=== PATIENT | male | born 1955 | race Caucasian/White ===

== ENCOUNTER 2018-12-27 08:41 | Inpatient (IN) ==
[2018-12-27] MEDS ORDERED: Ipratropium/Albuterol Neb 3 ML IH ONE (08:52)
--- NOTE | 2018-12-27 08:56 | Emergency Department Note ---
Disposition Clinical Impression: Altered level of consciousness, Hyponatremia, Hyperkalemia, Elevated troponin Congestive heart failure Qualifiers: Heart failure type: other Qualified Code(s): I50.9 - Heart failure, unspecified Respiratory failure Qualifiers: Chronicity: acute Respiratory failure complication: hypoxia and hypercapnia Qualified Code(s): J96.01 - Acute respiratory failure with hypoxia Disposition: Admitted As Inpatient Condition: Critical Time of Disposition: 09:52 General Adult HPI - General Stated complaint: COPD Time Seen by Provider: 12/27/18 08:49 Nursing Notes Reviewed: Yes Vital Signs Reviewed: Yes - History of Present Illness HPI Narrative: I did see the patient immediately upon arrival and also spoke with the paramedics and he presents with respiratory distress and he is not able to give any history secondary to his severe medical condition and the story from the patient's mother and sister is that all night he had difficulty breathing and decreased responsiveness but he was talking to them this morning when the paramedics arrived his oxygen saturation was 75% and they brought him to the emergency department. He does have a history of COPD. The paramedics tell me he is on carvedilol but family is not aware that he has a history of congestive heart failure. I was not able to find old records in our system for this patient. He does live at home, he does drive. He does smoke. He does use home oxygen. - Related Data Home Medications Medication Instructions Recorded Confirmed Amlodipine Besylate 12/27/18 Benztropine 12/27/18 Klor-Con 12/27/18 RisperiDONE 12/27/18 Simvastatin 12/27/18 metFORMIN 12/27/18 Allergies Allergy/AdvReac Type Severity Reaction Status Date / Time No Known Allergies Allergy Verified 12/27/18 09:13 Limitations: ROS unobtainable due to patients medical condition Physical Exam CONSTITUTIONAL: He does respond to verbal stimuli by eye opening. He is to Neck and oropharynx is dry. There is no stridor. He is taking frequent shallow respirations and initial oxygen saturation here was in the 70s however did increase to 100% on BiPAP HEAD: Normocephalic; atraumatic. EYES: PERRL, no scleral icterus. NOSE: The nose is normal in appearance without rhinorrhea RESP: decreased chest excursion, very shallow breaths, I am not able to hear wheezes or crackles due to the decreased amount of air movement CARD: Regular rhythm, without murmurs, rub or gallop ABD: Non-distended; non-tender, soft,without rigidity, rebound or guarding SKIN: Normal for age and race; warm and dry; no apparent lesions EXTREMITIES: Pulses are 2 plus and equal times 4 extremities, no peripheral edema or calf muscle pain. Course Vital Signs Temperature 94.4 F L 12/27/18 08:49 Pulse Rate 71 12/27/18 08:49 Respiratory Rate 23 12/27/18 08:49 Blood Pressure 127/71 12/27/18 08:49 O2 Sat by Pulse Oximetry 100 12/27/18 08:49 Temperature 94.4 F L 12/27/18 08:49 Pulse Rate 64 12/27/18 11:01 Respiratory Rate 12 12/27/18 11:01 Blood Pressure 107/55 12/27/18 11:01 O2 Sat by Pulse Oximetry 83 12/27/18 11:01 Oxygen Delivery Oxygen Delivery Ventilator Medical Decision Making - MDM Narrative Medical decision making narrative: The patient is placed on BiPAP and arrangements are made for intubation however oxygen saturation did increase to 100% and the patient is minimally more alert so we will see what the chest x-ray, labs will be done. Respiratory strong a ABG. I did review the patient's EKG showing normal sinus rhythm with rate of 75 and evidence of right bundle-branch block as well as T-wave inversion in lead aVL but there are no previous EKGs to compare this to at this time. 0856 The patient was not adequately exchanging oxygen and had significant elevated CO2 as well as a low pH based on the VBG and the ABG so I did elect to intubate the patient. I spoke with the patient's mother and sister about this. I did use video laryngoscopy and easily and quickly intubated the patient on the first attempt with visualization of the tube passing by the cords and at the completion of procedure the patient did have good bilateral breath sounds and no air over the stomach and good color change on the CO2 detector. I did use rocuronium 100 mg and etomidate 20 mg and then for sedation the patient received propofol 100 mg and then a drip at 20 mg/m and will get dilaudid 1mg ivp as well the patient will be treated for congestive heart failure which was evident on the x-ray that I visualized on the machine and confirmed by the radiologist and this is with Lasix 40 mg IV and with nitroglycerin drip starting at 20 mcg/m the patient will be admitted to the intensive care unit. Additional labs are pending. I do not suspect infection. The patient is not febrile. His respiratory failure is from congestive heart failure and he does have a history of congestive heart failure and this is likely flash pulmonary edema from pump dysfunction. 09 I did go back and check on the patient again. I also spoke with the family and inform them of the intubation and the patient's progress. I have reviewed the labs. He does have hyperkalemia however this should be improved with the Lasix that I administered here in the patient does have acute renal failure as well as hyponatremic. I do have the critical-care Dr. olea. Postintubation chest x- rays pending. I have also written for a NG tube and a Howard catheter. Patient is critically ill. Will be admitted to the intensive care unit. [address] Oakley who accepted the patient for admission to the intensive care unit 1036 I was emergently called to the room because the patient did desaturate down into the mid 70s and high 60s and it seemed that this was from breath stacking so we decreased the ventilations but increased the tidal volume, did speak with Dr. Shields who also came down. The patient was bagged. The oxygen saturation has increased to the high 80s at this point. He did ask that we add on Levaquin whi ch I will do as well as order and magnesium level. 1117 - Medical Records Medical records reviewed: Yes I reviewed the patient's medical records. - Lab Data Lab results reviewed: Yes I reviewed the patient's lab results. Result diagrams: 12/27/18 08:56 12/27/18 08:56 Lab Results 12/27/18 12/27/18 12/27/18 Range/Units 08:56 08:56 08:56 WBC 13.4 H (4.3-11.1) K/mcL RBC 3.67 L (4.19-5.50) M/mcL Hgb 10.6 L (12.9-16.9) g/dL Hct 33.1 L (37.5-50.1) % MCV 90.2 (83.0-100.0) fL MCH 28.9 (28.0-33.3) pg MCHC 32.0 (31.6-35.5) g/dL RDW 12.6 (11.5-14.5) % Plt Count 252 (140-400) K/mcL MPV 8.7 L (9.4-12.4) fL ABG pH (7.32-7.45) pH Units ABG pCO2 (35-45) mmHg ABG pO2 (85-104) mmHg ABG HCO3 (21-27) mEq/L ABG Total CO2 (20-26) mEq/L ABG O2 Saturation (95-98) % ABG Base Excess (-2 to 3) mEq/L VBG pH (7.32-7.42) pH Units VBG pCO2 (41-51) mmHg VBG pO2 (25-50) mmHg VBG HCO3 (21-27) mEq/L O2 Delivery Device Inspired O2 (1-15=lpm [id number]=%) Sodium 124 L (136-145) mEq/L Potassium 5.8 H (3.5-5.1) mEq/L Chloride 85 L (98-107) mEq/L Carbon Dioxide 34 H (23-29) mEq/L BUN 33 H (8-23) mg/dL Creatinine 1.90 H (0.70-1.30) mg/dL Est GFR ( Amer) 43 L (> 60) Est GFR (Non-Af Amer) 36 L (> 60) BUN/Creatinine Ratio 17 (6-26) Glucose 234 H (70-105) mg/dL Calculated Osmolality 273 L (280-300) Calcium 8.0 L (8.6-10.3) mg/dL Total Bilirubin 0.4 (0.3-1.0) mg/dL Direct Bilirubin 0.1 (0.0-0.2) mg/dL Indirect Bilirubin 0.3 (0.0-1.2) mg/dL AST 18 (13-39) Units/L ALT 18 (7-52) Units/L Alkaline Phosphatase 58 (34-104) Units/L Ammonia 35 (16-53) mcmol/L Troponin I 0.30 H* (< 0.04) ng/mL B-Natriuretic Peptide (Less than 100) pg/mL Serum Total Protein 7.1 (6.4-8.9) g/dL Albumin 4.2 (3.5-5.7) g/dL Globulin 2.9 (2.4-3.5) g/dL Albumin/Globulin Ratio 1.4 (1.1-2.2) Urine Color (Yellow) Urine Clarity (Clear) Urine pH (5.0-8.0) pH Units Ur Specific [place] (1.010-1.025) Urine Protein (Neg-Trace) mg/dL Urine Glucose (UA) (Normal) mg/dL Urine Ketones (Negative) mg/dL Urine Blood (Negative) Urine Nitrite (Negative) Urine Bilirubin (Negative) Urine Urobilinogen (Normal) mg/dL Ur Leukocyte Esterase (Negative) Urine Microscopic RBC (0-3) per hpf Urine Microscopic WBC (0-3) per hpf Ur Squamous Epith Cells (None-Few) per lpf Urine Bacteria (None-Few) per hpf Hyaline Casts (None-Few) per lpf Person Notif of Crit 12/27/18 12/27/18 12/27/18 Range/Units 08:56 08:56 09:08 WBC (4.3-11.1) K/mcL RBC (4.19-5.50) M/mcL Hgb (12.9-16.9) g/dL Hct (37.5-50.1) % MCV (83.0-100.0) fL MCH (28.0-33.3) pg MCHC (31.6-35.5) g/dL RDW (11.5-14.5) % Plt Count (140-400) K/mcL MPV (9.4-12.4) fL ABG pH 7.12 L* (7.32-7.45) pH Units ABG pCO2 115 H* (35-45) mmHg ABG pO2 251 H (85-104) mmHg ABG HCO3 37 H (21-27) mEq/L ABG Total CO2 41 H (20-26) mEq/L ABG O2 Saturation 100 H (95-98) % ABG Base Excess 5 H (-2 to 3) mEq/L VBG pH 7.10 L* (7.32-7.42) pH Units VBG pCO2 105 H* (41-51) mmHg VBG pO2 85 H (25-50) mmHg VBG HCO3 33 H (21-27) mEq/L O2 Delivery Device BiPAP Inspired O2 100.0 (1-15=lpm mp80-438=%) Sodium (136-145) mEq/L Potassium (3.5-5.1) mEq/L Chloride (98-107) mEq/L Carbon Dioxide (23-29) mEq/L BUN (8-23) mg/dL Creatinine (0.70-1.30) mg/dL Est GFR ( Amer) (> 60) Est GFR (Non-Af Amer) (> 60) BUN/Creatinine Ratio (6-26) Glucose (70-105) mg/dL Calculated Osmolality (280-300) Calcium (8.6-10.3) mg/dL Total Bilirubin (0.3-1.0) mg/dL Direct Bilirubin (0.0-0.2) mg/dL Indirect Bilirubin (0.0-1.2) mg/dL AST (13-39) Units/L ALT (7-52) Units/L Alkaline Phosphatase (34-104) Units/L Ammonia (16-53) mcmol/L Troponin I (< 0.04) ng/mL B-Natriuretic Peptide 1479 H (Less than 100) pg/mL Serum Total Protein (6.4-8.9) g/dL Albumin (3.5-5.7) g/dL Globulin (2.4-3.5) g/dL Albumin/Globulin Ratio (1.1-2.2) Urine Color (Yellow) Urine Clarity (Clear) Urine pH (5.0-8.0) pH Units Ur Specific [place] (1.010-1.025) Urine Protein (Neg-Trace) mg/dL Urine Glucose (UA) (Normal) mg/dL Urine Ketones (Negative) mg/dL Urine Blood (Negative) Urine Nitrite (Negative) Urine Bilirubin (Negative) Urine Urobilinogen (Normal) mg/dL Ur Leukocyte Esterase (Negative) Urine Microscopic RBC (0-3) per hpf Urine Microscopic WBC (0-3) per hpf Ur Squamous Epith Cells (None-Few) per lpf Urine Bacteria (None-Few) per hpf Hyaline Casts (None-Few) per lpf Person Notif of Carlos MOON 12/27/18 Range/Units 09:35 WBC (4.3-11.1) K/mcL RBC (4.19-5.50) M/mcL Hgb (12.9-16.9) g/dL Hct (37.5-50.1) % MCV (83.0-100.0) fL MCH (28.0-33.3) pg MCHC (31.6-35.5) g/dL RDW (11.5-14.5) % Plt Count (140-400) K/mcL MPV (9.4-12.4) fL ABG pH (7.32-7.45) pH Units ABG pCO2 (35-45) mmHg ABG pO2 (85-104) mmHg ABG HCO3 (21-27) mEq/L ABG Total CO2 (20-26) mEq/L ABG O2 Saturation (95-98) % ABG Base Excess (-2 to 3) mEq/L VBG pH (7.32-7.42) pH Units VBG pCO2 (41-51) mmHg VBG pO2 (25-50) mmHg VBG HCO3 (21-27) mEq/L O2 Delivery Device Inspired O2 (1-15=lpm ss31-158=%) Sodium (136-145) mEq/L Potassium (3.5-5.1) mEq/L Chloride (98-107) mEq/L Carbon Dioxide (23-29) mEq/L BUN (8-23) mg/dL Creatinine (0.70-1.30) mg/dL Est GFR ( Amer) (> 60) Est GFR (Non-Af Amer) (> 60) BUN/Creatinine Ratio (6-26) Glucose (70-105) mg/dL Calculated Osmolality (280-300) Calcium (8.6-10.3) mg/dL Total Bilirubin (0.3-1.0) mg/dL Direct Bilirubin (0.0-0.2) mg/dL Indirect Bilirubin (0.0-1.2) mg/dL AST (13-39) Units/L ALT (7-52) Units/L Alkaline Phosphatase (34-104) Units/L Ammonia (16-53) mcmol/L Troponin I (< 0.04) ng/mL B-Natriuretic Peptide (Less than 100) pg/mL Serum Total Protein (6.4-8.9) g/dL Albumin (3.5-5.7) g/dL Globulin (2.4-3.5) g/dL Albumin/Globulin Ratio (1.1-2.2) Urine Color Yellow (Yellow) Urine Clarity Clear (Clear) Urine pH 5.5 (5.0-8.0) pH Units Ur Specific [place] 1.025 (1.010-1.025) Urine Protein >=300 H (Neg-Trace) mg/dL Urine Glucose (UA) 100 H (Normal) mg/dL Urine Ketones Negative (Negative) mg/dL Urine Blood Small H (Negative) Urine Nitrite Negative (Negative) Urine Bilirubin Negative (Negative) Urine Urobilinogen Normal (Normal) mg/dL Ur Leukocyte Esterase Negative (Negative) Urine Microscopic RBC 0-3 (0-3) per hpf Urine Microscopic WBC 0-3 (0-3) per hpf Ur Squamous Epith Cells Many H (None-Few) per lpf Urine Bacteria None Seen (None-Few) per hpf Hyaline Casts None Seen (None-Few) per lpf Person Notif of Crit - Radiology Data Radiology results reviewed: Yes I reviewed the patient's radiology results. Critical Care Time Critical Care Time: Yes Total Critical Care Time: 45 Attestation: 45 minutes of critical care time were spent with the patient with his emergent assessment, management of respiratory failure, intubation, ventilation manage ment, discussion with critical care physician as well as assessment of test results and multiple rechecks
[2018-12-27] MEDS ORDERED: *HR* Propofol 200 MG/20 ML VIAL IVP ONE (09:08)
[2018-12-27] MEDS ORDERED: *HR* Rocuronium Bromide 50 MG/5 ML VIAL IVP ONE (09:08)
[2018-12-27] MEDS ORDERED: *HR* Etomidate 20 MG/10 ML AMPUL IVP ONE (09:09)
[2018-12-27] MEDS ORDERED: Furosemide 40 MG/4 ML VIAL IVP ONE (09:11)
[2018-12-27 09:14] LABS: VBG HCO3 33 mEq/L (21-27); VBG PCO2 105 mmHg (41-51); VBG PO2 85 mmHg (25-50)
[2018-12-27 09:15] LABS: Hematocrit 33.1 % (37.5-50.1); Hemoglobin 10.6 g/dL (12.9-16.9); Mean Corpuscular Hemoglobin 28.9 pg (28.0-33.3); Mean Corpuscular Volume 90.2 fL (83.0-100.0); Mean Platelet Volume 8.7 fL (9.4-12.4); Platelet Count 252 K/mcL (140-400); Red Blood Count 3.67 M/mcL (4.19-5.50); Red Cell Distribution Width 12.6 % (11.5-14.5); White Blood Count 13.4 K/mcL (4.3-11.1)
[2018-12-27] MEDS ORDERED: Nitroglycerin 25 MG/250 ML INFUS..BTL IVC ONE (09:17)
[2018-12-27 09:21] LABS: ABG Base Excess 5 mEq/L (-2 to 3); ABG HCO3 37 mEq/L (21-27); ABG Oxygen Saturation 100 % (95-98); ABG PCO2 115 mmHg (35-45); ABG PH 7.12 pH Units (7.32-7.45); ABG PO2 251 mmHg (85-104); ABG TCO2 41 mEq/L (20-26)
[2018-12-27] MEDS ORDERED: *HR* HYDROmorphone (PF) 1 MG/ML SYRINGE IVP ONE (09:24)
[2018-12-27] MEDS ORDERED: Ondansetron 4 MG/2 ML VIAL IVP ONE (09:24)
[2018-12-27] MEDS ORDERED: 0.9 % Sodium Chloride 1,000 ML ONE (09:28)
[2018-12-27] MEDS ORDERED: Furosemide 40 MG/4 ML VIAL ONE (09:33)
[2018-12-27 09:42] LABS: Albumin 4.2 g/dL (3.5-5.7); Albumin/Globulin Ratio 1.4 (1.1-2.2); Bilirubin,Direct 0.1 mg/dL (0.0-0.2); Bilirubin,Indirect 0.3 mg/dL (0.0-1.2); Bilirubin,Total 0.4 mg/dL (0.3-1.0); Globulin 2.9 g/dL (2.4-3.5); Potassium 5.8 mEq/L (3.5-5.1); Total Protein 7.1 g/dL (6.4-8.9)
[2018-12-27 09:43] LABS: Bilirubin,Urine Negative (Negative); Blood,Urine Small (Negative); Clarity,Urine Clear (Clear); Color,Urine Yellow (Yellow); Glucose,Urine (UA) 100 mg/dL (Normal); Ketones,Urine Negative (Negative); Leukocyte Esterase,Urine Negative (Negative); Nitrite,Urine Negative (Negative); PH,Urine 5.5 pH Units (5.0-8.0); Protein,Urine >=300 mg/dL (Neg-Trace); Specific Gravity,Urine 1.025 (1.010-1.025); Urobilinogen,Urine Normal (Normal)
[2018-12-27 09:48] LABS: Bacteria,Urine None Seen per hpf (None-Few); Hyaline Casts,Urine None Seen per lpf (None-Few); RBC,Urine 0-3 per hpf (0-3); Squamous Epithelial Cell,Urine Many per lpf (None-Few); WBC,Urine 0-3 per hpf (0-3)
[2018-12-27 10:24] LABS: Troponin I 0.3 ng/mL (< 0.04)
[2018-12-27] MEDS ORDERED: Levofloxacin 750 MG/150 ML 750 MG/150 ML BAG IVPB ONE (11:17)
[2018-12-27] MEDS: Nitroglycerin 25 MG/250 ML INFUS..BTL IVC SCH (11:25)
[2018-12-27 11:49] LABS: ABG Base Excess 5 mEq/L (-2 to 3); ABG HCO3 36 mEq/L (21-27); ABG Oxygen Saturation 92 % (95-98); ABG PCO2 98 mmHg (35-45); ABG PH 7.18 pH Units (7.32-7.45); ABG PO2 85 mmHg (85-104); ABG TCO2 39 mEq/L (20-26); Blood Gas Modality ASSIST CONTROL; Blood Gas PEEP 45 cm H2O; Blood Gas Pressure Support 8 cm H2O; Blood Gas VT 550 cc
--- NOTE | 2018-12-27 11:58 | Pulmonology History & Physical ---
<Rogerio Whaley - Last Filed: 12/27/18 14:18> Date of Encounter: 12/27/18 Time of Encounter: 11:58 Assessment and Plan (1) Acute respiratory failure Current visit: Yes Status: Acute Patient presented to the emergency department via EMS for difficult breathing Blood gas demonstrated severe respiratory acidosis, patient was intubated Acute respiratory failure likely secondary to COPD exacerbation with concomitant heart failure exacerbation Pulmonary edema confirmed with chest x-ray and emergency department Patient currently saturating and ventilating appropriately on mechanical ventilation IV systemic steroids, DuoNeb's, IV Lasix initiated Plan to continue diuresis, breathing treatments, systemic steroids, mechanical ventilation Empiric Levaquin initiated Anticipate several days of mechanical ventilation Qualifiers: Respiratory failure complication: hypoxia and hypercapnia Qualified Code(s): J96.01 - Acute respiratory failure with hypoxia; J96.02 - Acute respiratory failure with hypercapnia (2) COPD (chronic obstructive pulmonary disease) Current visit: Yes Status: Acute Patient has history of COPD and smoking Blood gas demonstrating severe attention of CO2, wheezing on exam COPD exacerbation is likely, treatment initiated as above Qualifiers: COPD type: COPD with acute exacerbation Qualified Code(s): J44.1 - Chronic obstructive pulmonary disease with (acute) exacerbation (3) Encephalopathy Current visit: Yes Status: Acute Patient was apparently acting abnormally prior to arrival and was altered on physical exam Likely encephalopathy secondary to acute respiratory failure and severe CO2 retention He is currently sedated, anticipate encephalopathy will resolve with improvement in respiratory status (4) Congestive heart failure Current visit: Yes Status: Acute Clinical exam and imaging and labs indicative of acute heart failure exacerbation Diuresis initiated in the emergency department, we will continue diuresis here Echocardiogram ordered Qualifiers: Heart failure type: other Qualified Code(s): I50.9 - Heart failure, un specified (5) Elevated troponin Current visit: Yes Status: Acute Troponin 0.3 on arrival, 0.38 on repeat Likely demand ischemia from acute respiratory failure, patient does not have a history of coronary artery disease EKG performed on arrival to ICU normal sinus rhythm without acute ST changes or other signs of ischemia We will continue to trend troponin and repeat EKG in a.m. 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: without penitentiary use Diabetes mellitus complication status: without complication Qualified Code(s): E11.9 - Type 2 diabetes mellitus without complications (7) Acute kidney failure Current visit: Yes Status: Acute Creatinine elevated at 1.9 on presentation, baseline unknown Hyperkalemia of 5.8 and hyponatremia of 124 also present This likely represents acute renal failure, etiology unknown We will continue to trend output and electrolytes Qualifiers: Acute renal failure type: unspecified Qualified Code(s): N17.9 - Acute kidney failure, unspecified History of Present Illness Chief complaint: acute respiratory failure HPI: Mr. Valdez is a 63 year old male who presented to the emergency department via EMS in acute respiratory distress. Per patient family members he has had difficulty breathing overnight and today and has had decreased responsiveness. When EMS arrived to the patient's house he was saturating at 75% him to the emergency department. Per family he does have a history of COPD, per his home medications they can be assumed that he does also have diabetes. Otherwise the patient is not able to offer history. Per emergency department documentation EKG demonstrated sinus rhythm with T-wave inversion in aVL without comparison. Per ED documentation the patient was not ventilating or oxygenating appropriately and required intubation, this was completed in the emergency department. The patient arrived to the ICU intubated and sedated. Family arrived to the ICU and was able to confirm patient does have a history of COPD, heart failure, diabetes, and paranoid schizophrenia. Past Med Surg Social Fam HX - Past Medical History Medical history: COPD Psychiatric history: no psych history - Social History Smoking Status: Unknown if ever smoked Alcohol use: none Drug use: none Medications and Allergies Amlodipine Besylate/Benazepril [Lotrel 10-40 mg Capsule] 1 each PO DAILY 12/27/18 [History] Benztropine [Cogentin] 1 mg PO BID 12/27/18 [History] Carvedilol [Coreg] 6.25 mg PO HS 12/27/18 [History] Carvedilol [Coreg] 12.5 mg PO DAILY 12/27/18 [History] Metformin HCl 1,000 mg PO DAILY 12/27/18 [History] Metformin HCl 500 mg PO HS 12/27/18 [History] Potassium Chloride [Klor-Con 10] meq PO 12/27/18 [History] Simvastatin [Zocor] 20 mg PO HS 12/27/18 [History] risperiDONE [RisperDAL] 1.5 mg PO DAILY 12/27/18 [History] risperiDONE [RisperDAL] 3 mg PO HS 12/27/18 [History] Allergy/AdvReac Type Severity Reaction Status Date / Time No Known Allergies Allergy Verified 12/27/18 15:56 ROS unobtainable: due to endotracheal tube, due to mental status All Systems: The remainder of the systems were reviewed and are negative Physical Examination Vital Signs: Vital Signs, Last 4 Hours Temp Pulse Resp BP Pulse Ox 12/27/18 11:01 64 12 107/55 83 12/27/18 10:04 61 16 119/71 100 12/27/18 09:30 68 16 108/66 100 12/27/18 09:17 84 10 119/68 100 12/27/18 09:10 93 13 136/78 100 12/27/18 09:06 100 12/27/18 09:05 26 100 12/27/18 09:03 85 10 127/73 100 12/27/18 08:49 94.4 F L 71 23 127/71 100 General appearance: other (Chemically sedated) Eyes: nonicteric, other (Pupils pinpoint) ENT: other (ET tube and OG tube present) Effort: other (Mechanically ventilated) Auscultation: bilateral: wheezes Cardiovascular: regular rate and rhythm Gastrointestinal: normoactive bowel sounds, soft, non-distended Integumentary: normal Extremities: no cyanosis, no edema, pink and warm, pulses normal Musculoskeletal: no deformities other (Sedated) Results - Laboratory Findings CBC and BMP: 12/27/18 08:56 12/27/18 08:56 ABG ABG pH 7.18 pH Units (7.32-7.45) L* 12/27/18 11:44 ABG pCO2 98 mmHg (35-45) H* 12/27/18 11:44 ABG pO2 85 mmHg (85-104) D 12/27/18 11:44 ABG O2 Saturation 92 % (95-98) L 12/27/18 11:44 Abnormal lab findings: Abnormal lab results WBC 13.4 K/mcL (4.3-11.1) H 12/27/18 08:56 RBC 3.67 M/mcL (4.19-5.50) L 12/27/18 08:56 Hgb 10.6 g/dL (12.9-16.9) L 12/27/18 08:56 Hct 33.1 % (37.5-50.1) L 12/27/18 08:56 MPV 8.7 fL (9.4-12.4) L 12/27/18 08:56 ABG pH 7.18 pH Units (7.32-7.45) L* 12/27/18 11:44 ABG pCO2 98 mmHg (35-45) H* 12/27/18 11:44 ABG pO2 251 mmHg (85-104) H 12/27/18 08:56 ABG HCO3 36 mEq/L (21-27) H 12/27/18 11:44 ABG Total CO2 39 mEq/L (20-26) H 12/27/18 11:44 ABG O2 Saturation 92 % (95-98) L 12/27/18 11:44 ABG Base Excess 5 mEq/L (-2 to 3) H 12/27/18 11:44 VBG pH 7.10 pH Units (7.32-7.42) L* 12/27/18 09:08 VBG pCO2 105 mmHg (41-51) H* 12/27/18 09:08 VBG pO2 85 mmHg (25-50) H 12/27/18 09:08 VBG HCO3 33 mEq/L (21-27) H 12/27/18 09:08 Sodium 124 mEq/L (136-145) L 12/27/18 08:56 Potassium 5.8 mEq/L (3.5-5.1) H 12/27/18 08:56 Chloride 85 mEq/L (98-107) L 12/27/18 08:56 Carbon Dioxide 34 mEq/L (23-29) H 12/27/18 08:56 BUN 33 mg/dL (8-23) H 12/27/18 08:56 1.90 mg/dL (0.70-1.30) H 12/27/18 08:56 Est GFR ( Amer) 43 (> 60) L 12/27/18 08:56 Est GFR (Non-Af Amer) 36 (> 60) L 12/27/18 08:56 Glucose 234 mg/dL (70-105) H 12/27/18 08:56 273 (280-300) L 12/27/18 08:56 Calcium 8.0 mg/dL (8.6-10.3) L 12/27/18 08:56 0.30 ng/mL (< 0.04) H* 12/27/18 08:56 B-Natriuretic Peptide 1479 pg/mL (Less than 100) H 12/27/18 08:56 >=300 mg/dL (Neg-Trace) H 12/27/18 09:35 100 mg/dL (Normal) H 12/27/18 09:35 Small (Negative) H 12/27/18 09:35 Ur Squamous Epith Cells Many per lpf (None-Few) H 12/27/18 09:35 <Kelsey Oakley M - Last Filed: 12/27/18 20:15> Date of Encounter: 12/27/18 History of Present Illness HPI: Mr. Valdez is a 63 year old male All Systems: The remainder of the systems were reviewed and are negative Physical Examination Vital Signs: Vital Signs, Last 4 Hours Temp Pulse Resp BP Pulse Ox 12/27/18 15:42 12 92 12/27/18 15:00 57 12 117/70 91 12/27/18 14:16 14 100 12/27/18 14:00 62 14 113/67 97 12/27/18 13:00 66 12 107/77 100 12/27/18 12:35 96.4 F L 67 12 137/72 100 Results - Laboratory Findings CBC and BMP: 12/27/18 08:56 12/27/18 08:56 ABG ABG pH 7.42 pH Units (7.32-7.45) D 12/27/18 16:00 ABG pCO2 52 mmHg (35-45) H D 12/27/18 16:00 ABG pO2 62 mmHg (85-104) L 12/27/18 16:00 ABG O2 Saturation 91 % (95-98) L 12/27/18 16:00 Abnormal lab findings: Abnormal lab results WBC 13.4 K/mcL (4.3-11.1) H 12/27/18 08:56 RBC 3.67 M/mcL (4.19-5.50) L 12/27/18 08:56 Hgb 10.6 g/dL (12.9-16.9) L 12/27/18 08:56 Hct 33.1 % (37.5-50.1) L 12/27/18 08:56 MPV 8.7 fL (9.4-12.4) L 12/27/18 08:56 ABG pH 7.18 pH Units (7.32-7.45) L* 12/27/18 11:44 ABG pCO2 52 mmHg (35-45) H D 12/27/18 16:00 ABG pO2 62 mmHg (85-104) L 12/27/18 16:00 ABG HCO3 34 mEq/L (21-27) H 12/27/18 16:00 ABG Total CO2 36 mEq/L (20-26) H 12/27/18 16:00 ABG O2 Saturation 91 % (95-98) L 12/27/18 16:00 ABG Base Excess 8 mEq/L (-2 to 3) H 12/27/18 16:00 VBG pH 7.10 pH Units (7.32-7.42) L* 12/27/18 09:08 VBG pCO2 105 mmHg (41-51) H* 12/27/18 09:08 VBG pO2 85 mmHg (25-50) H 12/27/18 09:08 VBG HCO3 33 mEq/L (21-27) H 12/27/18 09:08 Sodium 124 mEq/L (136-145) L 12/27/18 08:56 Potassium 5.8 mEq/L (3.5-5.1) H 12/27/18 08:56 Chloride 85 mEq/L (98-107) L 12/27/18 08:56 Carbon Dioxide 34 mEq/L (23-29) H 12/27/18 08:56 BUN 33 mg/dL (8-23) H 12/27/18 08:56 1.90 mg/dL (0.70-1.30) H 12/27/18 08:56 Est GFR ( Amer) 43 (> 60) L 12/27/18 08:56 Est GFR (Non-Af Amer) 36 (> 60) L 12/27/18 08:56 Glucose 234 mg/dL (70-105) H 12/27/18 08:56 273 (280-300) L 12/27/18 08:56 Calcium 8.0 mg/dL (8.6-10.3) L 12/27/18 08:56 0.38 ng/mL (< 0.04) H* 12/27/18 12:10 B-Natriuretic Peptide 1479 pg/mL (Less than 100) H 12/27/18 08:56 >=300 mg/dL (Neg-Trace) H 12/27/18 09:35 100 mg/dL (Normal) H 12/27/18 09:35 Small (Negative) H 12/27/18 09:35 Ur Squamous Epith Cells Many per lpf (None-Few) H 12/27/18 09:35 - Attending Attestation I examined this patient and my medical decision-making was reviewed with the Resident Physician. I agree with the documented findings, disposition and treatment plan as described except to the extent set forth below. Patient seen and examined. Labs, radiology, chart personally reviewed. 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 I was called by ER physician because patient oxygenation on the vent is not getting better and I went to ER and checked his vent setting and I found there is some PEEPi and after changing the setting his oxygenation has improved significantly and also reviewed his CXR and showed evidence of mostly pulmonary edema to my review, however since he has acute on chronic respiratory failure and AECOPD is possibility, then empiric coverage with antibiotic and systemic steroid is important. His vent setting were changed again to meet his oxygenation and ventilation when he came to ICU. Cardiovascular: Relatively stable and I suspect demand ischemia. Will trend tronponin and consider cardiology consult if needed. Need echocardiogram. GI: Nutrition per dietary and GI prophylaxis per routine Heme: DVT prophylaxis per routine ID: Continue antibiotics and plan to de-escalation Renal; urine out put and renal function reviewed Endorcine: blood glucose is monitored Lines: all lines checked and no evidence of infections Skin: skin care to prevent pressure ulcers per nursing routine care Dispo: ICU Code: Full. Prognosis. Critical Discussed with family at bedside. I spent 60 min of Critical Care time with this patient. It involved decision making of high complexity to assess, manipulate, and support vital organ system failure and/or to prevent further life threatening deterioration of the patient's condition. The time involved in the performance of separately reportable procedures was not counted toward critical care time.
[2018-12-27] MEDS ORDERED: Naloxone 0.4 MG/ML INJ IVP PRN (12:39)
[2018-12-27] MEDS ORDERED: Artificial Tears SOLN 15 ML BOTTLE BOTH EYES PRN (12:40)
[2018-12-27 12:49] LABS: Magnesium 2.5 mg/dL (1.6-2.6)
[2018-12-27 12:55] LABS: Troponin I 0.38 ng/mL (< 0.04)
[2018-12-27] MEDS ORDERED: D5% in Water 1,000 ML IVC PRN (12:57)
[2018-12-27] MEDS ORDERED: Dextrose Gel 15 GM/37.5 ML TUBE PO PRN ×2 (12:57)
[2018-12-27] MEDS ORDERED: *HR* Dextrose 50 % in Water (Syg) 50 ML SYRINGE IVP PRN (12:57)
[2018-12-27] MEDS: FentaNYL (PF) 1,000 MCG in 0.9 % Sodium Chloride 80 ML IVC SCH ×2 (13:40→21:45)
[2018-12-27] MEDS ORDERED: MethylPREDNISolone 40 MG/ML VIAL IVP ONE (14:45)
[2018-12-27] MEDS: Ipratropium/Albuterol Neb 3 ML IH SCH ×3 (15:41→23:13)
[2018-12-27 16:03] LABS: ABG Base Excess 8 mEq/L (-2 to 3); ABG HCO3 34 mEq/L (21-27); ABG Oxygen Saturation 91 % (95-98); ABG PCO2 52 mmHg (35-45); ABG PH 7.42 pH Units (7.32-7.45); ABG PO2 62 mmHg (85-104); ABG TCO2 36 mEq/L (20-26); Blood Gas Modality ASSIST CONTROL; Blood Gas PEEP 8 cm H2O; Blood Gas VT 600 cc
[2018-12-27] MEDS ORDERED: *HR* Heparin 5,000 UNIT/ML VIAL SQ SCH (16:15)
[2018-12-27] MEDS: Artificial Tears SOLN 15 ML BOTTLE BOTH EYES SCH ×3 (16:38→23:53)
[2018-12-27] MEDS ORDERED: *HR* Heparin 5,000 UNIT/ML VIAL ONE (16:38)
[2018-12-27] MEDS: Insulin LISPRO 300 UNITS/3 ML VIAL SQ SCH ×2 (17:49→23:55)
--- NOTE | 2018-12-27 17:52 | Electrocardiograph Report ---
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
[2018-12-27] MEDS ORDERED: *HR* Heparin 5,000 UNIT/ML VIAL IVP ONE (19:24)
[2018-12-27] MEDS ORDERED: *HR* Heparin 5,000 UNIT/ML VIAL IVP PRN ×2 (19:24)
[2018-12-27] MEDS: Heparin 25,000 UNIT/250 ML D5W 25,000 UNIT/250 ML IV.SOLN IVC SCH (20:10)
[2018-12-27] MEDS: Chlorhexidine Rinse 15 ML MOUTHWASH MM SCH (20:18)
--- NOTE | 2018-12-27 20:25 | Event Note ---
Date of Encounter: 12/27/18 Time of Encounter: 20:24 I was paged by the nurse due to elevated troponin at 0.73, previous had been 0.38. Patient is currently intubated and sedated so unable to assess for chest pain. Obtained a repeat EKG that showed ST elevation in lead V1 and V2 with ST depression with T-wave inversion in lead V4 through V6. 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 Beth Pereira, and explained the clinical situation and electronically transmitted the EKGs to her. She recommended heparinization and echocardiogram at this time. Heparin drip has been initiated, echo has been ordered but not performed, we will attempt to have this done tonight. Formal cardiology consult has been placed.
[2018-12-28] MEDS: Ipratropium/Albuterol Neb 3 ML IH SCH ×6 (03:37→23:40)
[2018-12-28] MEDS: Artificial Tears SOLN 15 ML BOTTLE BOTH EYES SCH ×6 (03:52→23:37)
[2018-12-28 04:13] LABS: Basophils % 0.2 %; Hematocrit 34.6 % (37.5-50.1); Hemoglobin 11.3 g/dL (12.9-16.9); Immature Granulocytes % 2.4 % (0-4); Lymphocytes # 0.5 K/mcL (0.6-4.6); Mean Corpuscular HGB Conc 32.7 g/dL (31.6-35.5); Mean Corpuscular Hemoglobin 28.6 pg (28.0-33.3); Mean Corpuscular Volume 87.6 fL (83.0-100.0); Mean Platelet Volume 9.4 fL (9.4-12.4); Monocytes # 0.4 K/mcL (0.0-1.3); Monocytes % 4.5 %; Neutrophils # 8.6 K/mcL (1.6-8.9); Platelet Count 251 K/mcL (140-400); Red Blood Count 3.95 M/mcL (4.19-5.50); Red Cell Distribution Width 12.4 % (11.5-14.5); Segmented Neutrophils % 87.9 %; White Blood Count 9.8 K/mcL (4.3-11.1)
[2018-12-28 04:45] LABS: Calcium 8.3 mg/dL (8.6-10.3); Potassium 4.1 mEq/L (3.5-5.1)
[2018-12-28 04:53] LABS: ABG Base Excess 6 mEq/L (-2 to 3); ABG HCO3 32 mEq/L (21-27); ABG Oxygen Saturation 97 % (95-98); ABG PCO2 57 mmHg (35-45); ABG PH 7.36 pH Units (7.32-7.45); ABG PO2 95 mmHg (85-104); ABG TCO2 34 mEq/L (20-26); Blood Gas Modality AutoFlow; Blood Gas PEEP 8 cm H2O; Blood Gas VT 500 cc
[2018-12-28] MEDS: Insulin LISPRO 300 UNITS/3 ML VIAL SQ SCH ×5 (05:25→23:36)
--- NOTE | 2018-12-28 07:11 | Electrocardiograph Report ---
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
--- NOTE | 2018-12-28 07:42 | Pulmonology Progress Note ---
<Rogerio Whaley - Last Filed: 12/28/18 16:08> Date of Encounter: 12/28/18 Time of Encounter: 07:42 Assessment and Plan (1) Acute respiratory failure Current Visit: Yes Status: Acute Patient presented to the emergency department via EMS for difficult breathing Blood gas demonstrated severe respiratory acidosis, patient was intubated Acute respiratory failure likely secondary to COPD exacerbation with concomitant heart failure exacerbation Pulmonary edema confirmed with chest x-ray and emergency department Patient currently saturating and ventilating appropriately on mechanical ventilation IV systemic steroids, DuoNeb's, IV Lasix initiated Plan to continue diuresis, breathing treatments, systemic steroids, mechanical ventilation Empiric Levaquin day 2 Patient failed CPAP trial today, however he did perform well and anticipate passing CPAP trial tomorrow Qualifiers: Respiratory failure complication: hypoxia and hypercapnia Qualified Code(s): J96.01 - Acute respiratory failure with hypoxia; J96.02 - Acute respiratory failure with hypercapnia (2) COPD (chronic obstructive pulmonary disease) Current Visit: Yes Status: Acute Patient has history of COPD and smoking Labs and clinical signs and symptoms of COPD exacerbation Continue Systemic steroids and bronchodilators Qualifiers: COPD type: COPD with acute exacerbation Qualified Code(s): J44.1 - Chronic obstructive pulmonary disease with (acute) exacerbation (3) Encephalopathy Current Visit: Yes Status: Acute Patient was apparently acting abnormally prior to arrival and was altered on physical exam Likely encephalopathy secondary to acute respiratory failure and severe CO2 retention He is currently sedated, however is following commands and responding to questions during CPAP trial (4) Congestive heart failure Current Visit: Yes Status: Acute Clinical exam and imaging and labs indicative of acute heart failure exacerbation Diuresis initiated in the emergency department, we will continue diuresis here Echocardiogram demonstrated mild diastolic dysfunction with reduced ejection fraction of 45% Qualifiers: Heart failure type: other Qualified Code(s): I50.9 - Heart failure, uns pecified (5) Elevated troponin Current Visit: Yes Status: Acute Troponin 0.3 on arrival, 0.38 on repeat, 0.76 overnight Likely demand ischemia from acute respiratory failure, patient does not have a history of coronary artery disease EKG performed on arrival to ICU normal sinus rhythm without acute ST changes or other signs of ischemia EKG overnight with ST elevations in V1 and V2, interventional cardiology evaluated, no intervention Cardiology evaluated the patient today, recommending continued medical management and we will reevaluate (6) Diabetes Current Visit: Yes Status: Acute Every 6 Accu-Cheks and low-dose sliding scale corrective insulin Qualifiers: Diabetes mellitus type: type 2 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 use: without dedicated intermodal truck driver use Diabetes mellitus complication status: without complication Qualified Code(s): E11.9 - Type 2 diabetes mellitus without complications (7) Acute kidney failure Current Visit: Yes Status: Acute Creatinine elevated at 1.9 on presentation, baseline unknown Hyperkalemia of 5.8 and hyponatremia of 124 also present on admission This likely represents acute renal failure, etiology unknown We will continue to trend output and electrolytes Qualifiers: Acute renal failure type: unspecified Qualified Code(s): N17.9 - Acute kidney failure, unspecified Subjective Principal diagnosis: Acute respiratory failure Interval history: EKG changes and increased troponin overnight, interventional cardiology evaluated. Otherwise no acute events, patient ventilating well. Objective PUL Vital signs: Last Vital Signs Temp 98.1 F 12/28/18 04:00 Pulse 69 12/28/18 06:00 Resp 13 12/28/18 06:00 BP 104/67 12/28/18 06:00 Pulse Ox 97 12/28/18 06:00 General appearance: no acute distress (Sedated) Eyes: nonicteric, other (Pupils equal and reactive) Effort: normal (Normal effort on CPAP, otherwise mechanically ventilated) Auscultation: bilateral: clear Cardiovascular: regular rate and rhythm Gastrointestinal: absent bowel sounds, soft, non-tender Integumentary: normal Extremities: no cyanosis, no edema, pink and warm, pulses normal Musculoskeletal: no deformities other (Sedated, however during CPAP trial and sedation is turned off the patient follows commands and answers questions by nodding and shaking head) Ventilator Settings Ventilator Settings: Ventilator Settings, Last 8 Hours Ventilator Tidal Volume 550 Setting Ventilator Tidal Volume 550 Setting Ventilator Tidal Volume 550 Setting Ventilator Tidal Volume 500 Setting Ventilator Tidal Volume 550 Setting Ventilator Tidal Volume 550 Setting Ventilator Tidal Volume 550 Setting Ventilator Tidal Volume 550 Setting Ventilator Tidal Volume 550 Setting Ventilator Tidal Volume 550 Setting Ventilator Tidal Volume 550 Setting Ventilator Respiratory Rate 12 Setting Ventilator Respiratory Rate 12 Setting Ventilator Respiratory Rate 12 Setting Ventilator Respiratory Rate 12 Setting Ventilator Respiratory Rate 12 Setting Ventilator Respiratory Rate 12 Setting Ventilator Respiratory Rate 12 Setting Ventilator Respiratory Rate 12 Setting Ventilator Respiratory Rate 12 Setting Ventilator Respiratory Rate 12 Setting Ventilator Respiratory Rate 12 Setting Actual Respiratory Rate 12 Actual Respiratory Rate 12 Actual Respiratory Rate 12 Positive End Expiratory 8 Pressure Positive End Expiratory 8 Pressure Positive End Expiratory 8 Pressure Positive End Expiratory 5 Pressure Positive End Expiratory 8 Pressure Positive End Expiratory 8 Pressure Positive End Expiratory 8 Pressure Positive End Expiratory 8 Pressure Positive End Expiratory 8 Pressure Positive End Expiratory 8 Pressure Positive End Expiratory 8 Pressure Peak Inspiratory Airway 33 Pressure Peak Inspiratory Airway 32 Pressure Peak Inspiratory Airway 32 Pressure Results - Laboratory Findings CBC and BMP: 12/28/18 03:49 12/28/18 03:49 ABG ABG pH 7.36 pH Units (7.32-7.45) 12/28/18 04:50 ABG pCO2 57 mmHg (35-45) H 12/28/18 04:50 ABG pO2 95 mmHg (85-104) 12/28/18 04:50 ABG O2 Saturation 97 % (95-98) 12/28/18 04:50 Abnormal lab findings: Abnormal lab results WBC 13.4 K/mcL (4.3-11.1) H 12/27/18 08:56 RBC 3.95 M/mcL (4.19-5.50) L 12/28/18 03:49 Hgb 11.3 g/dL (12.9-16.9) L 12/28/18 03:49 Hct 34.6 % (37.5-50.1) L 12/28/18 03:49 MPV 8.7 fL (9.4-12.4) L 12/27/18 08:56 0.5 K/mcL (0.6-4.6) L 12/28/18 03:49 Heparin Anti-Xa, Unfract 0.88 IU/mL (0.30-0.70) H 12/28/18 03:49 ABG pH 7.18 pH Units (7.32-7.45) L* 12/27/18 11:44 ABG pCO2 57 mmHg (35-45) H 12/28/18 04:50 ABG pO2 62 mmHg (85-104) L 12/27/18 16:00 ABG HCO3 32 mEq/L (21-27) H 12/28/18 04:50 ABG Total CO2 34 mEq/L (20-26) H 12/28/18 04:50 ABG O2 Saturation 91 % (95-98) L 12/27/18 16:00 ABG Base Excess 6 mEq/L (-2 to 3) H 12/28/18 04:50 VBG pH 7.10 pH Units (7.32-7.42) L* 12/27/18 09:08 VBG pCO2 105 mmHg (41-51) H* 12/27/18 09:08 VBG pO2 85 mmHg (25-50) H 12/27/18 09:08 VBG HCO3 33 mEq/L (21-27) H 12/27/18 09:08 Sodium 124 mEq/L (136-145) L 12/28/18 03:49 Potassium 5.8 mEq/L (3.5-5.1) H 12/27/18 08:56 Chloride 85 mEq/L (98-107) L 12/28/18 03:49 Carbon Dioxide 34 mEq/L (23-29) H 12/27/18 08:56 BUN 42 mg/dL (8-23) H 12/28/18 03:49 2.03 mg/dL (0.70-1.30) H 12/28/18 03:49 Est GFR ( Amer) 40 (> 60) L 12/28/18 03:49 Est GFR (Non-Af Amer) 33 (> 60) L 12/28/18 03:49 Glucose 223 mg/dL (70-105) H 12/28/18 03:49 POC Glucose 187 mg/dL (70-99) H 12/27/18 23:51 275 (280-300) L 12/28/18 03:49 Calcium 8.3 mg/dL (8.6-10.3) L 12/28/18 03:49 0.76 ng/mL (< 0.04) H* 12/28/18 03:49 B-Natriuretic Peptide 1479 pg/mL (Less than 100) H 12/27/18 08:56 >=300 mg/dL (Neg-Trace) H 12/27/18 09:35 100 mg/dL (Normal) H 12/27/18 09:35 Small (Negative) H 12/27/18 09:35 Ur Squamous Epith Cells Many per lpf (None-Few) H 12/27/18 09:35 - Clinical Findings Intake & Output: Intake & Output 12/27/18 12/27/18 12/28/18 15:59 23:59 07:59 Intake Total 350 / 650 300 / 650 437.3 / 437.3 Output Total 725 / 1500 775 / 1500 675 / 675 Balance -375 / -850 -475 / -850 -237.7 / -237.7 Weight 92.4 kg 94 kg Consult Discharge Plan - Plan Referrals: Raul Mancilla [Primary Care Provider] - <AdinMoisesjulia Sarabia - Last Filed: 12/29/18 22:32> Date of Encounter: 12/28/18 Objective PUL Vital signs: Last Vital Signs Temp 96.5 F L 12/28/18 07:20 Pulse 69 12/28/18 06:00 Resp 12 12/28/18 09:37 BP 122/79 12/28/18 09:37 Pulse Ox 97 12/28/18 09:37 Ventilator Settings Ventilator Settings: Ventilator Settings, Last 8 Hours Ventilator Tidal Volume 550 Setting Ventilator Tidal Volume 550 Setting Ventilator Tidal Volume 550 Setting Ventilator Tidal Volume 550 Setting Ventilator Tidal Volume 550 Setting Ventilator Tidal Volume 500 Setting Ventilator Tidal Volume 550 Setting Ventilator Tidal Volume 550 Setting Ventilator Tidal Volume 550 Setting Ventilator Respiratory Rate 12 Setting Ventilator Respiratory Rate 12 Setting Ventilator Respiratory Rate 12 Setting Ventilator Respiratory Rate 12 Setting Ventilator Respiratory Rate 12 Setting Ventilator Respiratory Rate 12 Setting Ventilator Respiratory Rate 12 Setting Ventilator Respiratory Rate 12 Setting Ventilator Respiratory Rate 12 Setting Actual Respiratory Rate 12 Actual Respiratory Rate 12 Actual Respiratory Rate 12 Actual Respiratory Rate 12 Positive End Expiratory 5 Pressure Positive End Expiratory 5 Pressure Positive End Expiratory 8 Pressure Positive End Expiratory 8 Pressure Positive End Expiratory 8 Pressure Positive End Expiratory 5 Pressure Positive End Expiratory 8 Pressure Positive End Expiratory 8 Pressure Positive End Expiratory 8 Pressure Peak Inspiratory Airway 21 Pressure Peak Inspiratory Airway 20 Pressure Peak Inspiratory Airway 33 Pressure Peak Inspiratory Airway 32 Pressure Results - Laboratory Findings CBC and BMP: 12/29/18 03:19 12/29/18 03:19 ABG ABG pH 7.36 pH Units (7.32-7.45) 12/28/18 04:50 ABG pCO2 57 mmHg (35-45) H 12/28/18 04:50 ABG pO2 95 mmHg (85-104) 12/28/18 04:50 ABG O2 Saturation 97 % (95-98) 12/28/18 04:50 Abnormal lab findings: Abnormal lab results WBC 13.4 K/mcL (4.3-11.1) H 12/27/18 08:56 RBC 3.95 M/mcL (4.19-5.50) L 12/28/18 03:49 Hgb 11.3 g/dL (12.9-16.9) L 12/28/18 03:49 Hct 34.6 % (37.5-50.1) L 12/28/18 03:49 MPV 8.7 fL (9.4-12.4) L 12/27/18 08:56 0.5 K/mcL (0.6-4.6) L 12/28/18 03:49 Heparin Anti-Xa, Unfract 0.88 IU/mL (0.30-0.70) H 12/28/18 03:49 ABG pH 7.18 pH Units (7.32-7.45) L* 12/27/18 11:44 ABG pCO2 57 mmHg (35-45) H 12/28/18 04:50 ABG pO2 62 mmHg (85-104) L 12/27/18 16:00 ABG HCO3 32 mEq/L (21-27) H 12/28/18 04:50 ABG Total CO2 34 mEq/L (20-26) H 12/28/18 04:50 ABG O2 Saturation 91 % (95-98) L 12/27/18 16:00 ABG Base Excess 6 mEq/L (-2 to 3) H 12/28/18 04:50 VBG pH 7.10 pH Units (7.32-7.42) L* 12/27/18 09:08 VBG pCO2 105 mmHg (41-51) H* 12/27/18 09:08 VBG pO2 85 mmHg (25-50) H 12/27/18 09:08 VBG HCO3 33 mEq/L (21-27) H 12/27/18 09:08 Sodium 124 mEq/L (136-145) L 12/28/18 03:49 Potassium 5.8 mEq/L (3.5-5.1) H 12/27/18 08:56 Chloride 85 mEq/L (98-107) L 12/28/18 03:49 Carbon Dioxide 34 mEq/L (23-29) H 12/27/18 08:56 BUN 42 mg/dL (8-23) H 12/28/18 03:49 2.03 mg/dL (0.70-1.30) H 12/28/18 03:49 Est GFR ( Amer) 40 (> 60) L 12/28/18 03:49 Est GFR (Non-Af Amer) 33 (> 60) L 12/28/18 03:49 Glucose 223 mg/dL (70-105) H 12/28/18 03:49 POC Glucose 187 mg/dL (70-99) H 12/27/18 23:51 275 (280-300) L 12/28/18 03:49 Calcium 8.3 mg/dL (8.6-10.3) L 12/28/18 03:49 0.76 ng/mL (< 0.04) H* 12/28/18 03:49 B-Natriuretic Peptide 1479 pg/mL (Less than 100) H 12/27/18 08:56 >=300 mg/dL (Neg-Trace) H 12/27/18 09:35 100 mg/dL (Normal) H 12/27/18 09:35 Small (Negative) H 12/27/18 09:35 Ur Squamous Epith Cells Many per lpf (None-Few) H 12/27/18 09:35 - Clinical Findings Intake & Output: Intake & Output 12/27/18 12/28/18 12/28/18 23:59 07:59 15:59 Intake Total 300 / 650 457.3 / 474.3 17 / 474.3 Output Total 775 / 1500 850 / 850 Balance -475 / -850 -392.7 / -375.7 17 / -375.7 Weight 94 kg - Attending Attestation I examined this patient and my medical decision-making was reviewed with the Resident Physician. I agree with the documented findings, disposition and treatment plan as described except to the extent set forth below. Patient seen and examined. Labs, radiology, chart personally reviewed. 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 Pulmonary: Acceptable oxygenation and ventilation and we need to SBT if cardiology is not going to do heart left heart cath. I feel overall he is making some progress and hoping soon we will be able to extubate him. Patient ABG reviewed and necessary changes on the vent to make sure to minimize PEEPi. Continue bronchodilators. Cardiovascular: Relatively stable and cardiology has seen patient and echo was done and reviewed his ECG, Concern of STEMI and cardiology were made aware of the changes. GI: Nutrition per dietary and GI prophylaxis per routine Heme: DVT prophylaxis per routine ID: Continue antibiotics and plan to de-escalation and continue and levaquin Renal; urine out put and renal function reviewed Endorcine: blood glucose is monitored Lines: all lines checked and no evidence of infections Skin: skin care to prevent pressure ulcers per nursing routine care Dispo: ICU Code: Full. Prognosis. Guarded and discussed with family at the bedside I spent 40 min of Critical Care time with this patient. It involved decision making of high complexity to assess, manipulate, and support vital organ system failure and/or to prevent further life threatening deterioration of the patient's condition. The time involved in the performance of separately reportable procedures was not counted toward critical care time.
[2018-12-28] MEDS: Nitroglycerin 25 MG/250 ML INFUS..BTL IVC SCH (09:07)
[2018-12-28] MEDS: Pantoprazole 40 MG VIAL IVP SCH (09:09)
[2018-12-28] MEDS: MethylPREDNISolone 40 MG/ML VIAL IVP SCH ×2 (09:09→17:54)
[2018-12-28] MEDS: Chlorhexidine Rinse 15 ML MOUTHWASH MM SCH ×2 (09:09→19:40)
[2018-12-28] MEDS: FentaNYL (PF) 1,000 MCG in 0.9 % Sodium Chloride 80 ML IVC SCH ×2 (09:10→17:54)
[2018-12-28] MEDS: Furosemide 40 MG/4 ML VIAL IVP SCH ×2 (11:39→16:17)
--- NOTE | 2018-12-28 11:55 | Cardiology Consult Note ---
<Walter Duncan - Last Filed: 12/28/18 11:49> Date of Encounter: 12/28/18 Time of Encounter: 11:49 Assessment and Plan (1) Elevated troponin Current Visit: Yes Status: Acute Troponin elevation at 0.30, 0.38 in the setting of respiratory failure. Type I vs type II mi in the setting of COPD exacerbation and CHF. EKG shows RBBB, LAFB, LVH. One serial EKG with ST changes may represent ischemia. TTE shows mildly reduced EF. LVEF 45%. Mild left ventricular diastolic dysfunction. Moderate concentric left ventricular hypertrophy. Normal right ventricular structure and function. Moderately dilated left atrium. Mild tricuspid regurgitation. No evidence of pulmonary hypertension. Patient intubated and sedated. Unable to obtain clear history. No prior cardiac work-up here noted. Sounds like patient may have been evaluated at outside facility and could obtain records once location known. Can consider further ischemic evaluation once he improves from respiratory standpoint. Continue heparin gtt. (2) Acute respiratory failure Current Visit: Yes Status: Acute Secondary to COPD and CHF. CXR showed pulmonary edema. Pt currently intubated and pulmonary following. Qualifiers: Respiratory failure complication: hypoxia and hypercapnia Qualified Code(s): J96.01 - Acute respiratory failure with hypoxia; J96.02 - Acute respiratory failure with hypercapnia (3) CHF (congestive heart failure) Current Visit: Yes Status: Acute Acute on chronic CHF. History according to reports. TTE this admission shows EF 45% with mild global dysfunction. Unclear if new finding. Agree with lasix. Strict I&O and daily weights. Qualifiers: Heart failure type: systolic Heart failure chronicity: acute on chronic Qualified Code(s): I50.23 - Acute on chronic systolic (congestive) heart failure (4) Atrial fibrillation Current Visit: Yes Status: Acute In ECW patient documented to have h/o atrial fibrillation previously on Rhythmol. 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 Unclear why. Currently NSR. Qualifiers: Atrial fibrillation type: paroxysmal Qualified Code(s): I48.0 - Paroxysmal atrial fibrillation Discussion w patient/family: The assessment and plan as outlined above was discussed with the patient and/or family members who expressed understanding and agreement. All questions were answered. Thank you for involving us in the care of your patient. Please call with any questions. History of Present Illness Consult date: 12/28/18 Requesting physician: Avila Mixon Consult reason: elevated troponin, abn EKG Chief complaint: difficulty breathing History of present illness: Mr. Valdez is a 63 year old male with past medical history significant for atrial fibrillation, COPD, HTN, renal cell carcinoma s/p nephrectomy, and DM. He presented from home with worsening SOB. He was also reported to have AMS in the ED. He was found to have respiratory acidosis and intubated. Information obtained from chart, ecw, and family. CXR revealed pulmonary edema. Troponin fo und to be elevated up to 0.38. Initial EKG showed RBBB, LAFB and no acute ST changes. Serial EKG showed Sr with ST changes in the anterior leads concerning for CA. EKG was reviewed by interventionalist and it did not meet STEMI criteria. Ischemia noted with ST depression. Patient was hypoxic with spo2 as low as 75%. Cardiology consulted for further recommendation for elevated troponin and EKG changes. Past Med Surg Social Fam HX - Past Medical History Medical history: CHF, COPD, diabetes Psychiatric history: schizophrenia - Past Surgical History Surgical History: no surgical history - Social History Smoking Status: Current every day smoker Alcohol use: occasionally Drug use: none Medications and Allergies Amlodipine Besylate/Benazepril [Lotrel 10-40 mg Capsule] 1 each PO DAILY 12/27/18 [History] Benztropine [Cogentin] 1 mg PO BID 12/27/18 [History] Carvedilol [Coreg] 6.25 mg PO HS 12/27/18 [History] Carvedilol [Coreg] 12.5 mg PO DAILY 12/27/18 [History] Metformin HCl 1,000 mg PO DAILY 12/27/18 [History] Metformin HCl 500 mg PO HS 12/27/18 [History] Potassium Chloride [Klor-Con 10] meq PO 12/27/18 [History] Simvastatin [Zocor] 20 mg PO HS 12/27/18 [History] risperiDONE [RisperDAL] 1.5 mg PO DAILY 12/27/18 [History] risperiDONE [RisperDAL] 3 mg PO HS 12/27/18 [History] Allergy/AdvReac Type Severity Reaction Status Date / Time No Known Allergies Allergy Verified 12/27/18 15:56 ROS unobtainable: due to endotracheal tube All Systems Review: The remainder of the systems were reviewed and are negative Physical Examination Vital Signs, Last 4 Hours Pulse Resp BP Pulse Ox 12/28/18 11:22 11 142/89 99 12/28/18 11:00 86 16 142/89 100 12/28/18 10:00 74 12 108/65 96 12/28/18 09:37 12 122/79 97 12/28/18 09:00 77 12 110/63 96 12/28/18 08:00 86 12 111/59 97 12/28/18 07:57 12 111/59 97 General: No Apparent Distress, Other (sedated) HEENT: Atraumatic, Normocephaly, Mucus Membranes Moist, Other (ET tube intact) Cardiac: Reg Rate and Rhythm, Normal S1 and S2, No Murmur Lungs: Other (Respirations easy with ventilator assistance) Neuro: Other (Sedated but opens eyes and shakes head) Abdomen: Soft, Other (Round) Skin: No rashes noted on visualized skin Musculoskeletal: No Chest Wall Tenderness Extremities: No Clubbing, No Cyanosis, No Edema, Normal Pulses Results 12/28/18 03:49 12/28/18 03:49 Lab Results 12/27/18 12/27/18 12/28/18 12:10 18:25 03:49 WBC 9.8 Hgb 11.3 L Hct 34.6 L Plt Count 251 Sodium Potassium Chloride Carbon Dioxide BUN Creatinine Glucose Calcium Magnesium 2.5 Troponin I 0.38 H* 0.73 H* 12/28/18 12/28/18 03:49 03:49 WBC Hgb Hct Plt Count Sodium 124 L Potassium 4.1 D Chloride 85 L Carbon Dioxide 29 BUN 42 H Creatinine 2.03 H Glucose 223 H Calcium 8.3 L Magnesium Troponin I 0.76 H* - Imaging and Cardiology Echo: report reviewed - EKG Interpretation EKG results cardiology: personally reviewed Consult Discharge Plan - Plan Referrals: Raul Mancilla [Primary Care Provider] - <Vivian Lane - Last Filed: 12/28/18 16:37> Date of Encounter: 12/28/18 - Attending Attestation Patient was seen and evaluated independently by me. Findings, assessment and plan were discussed at length with patient, questions answered. Agree with nurse practitioner's/resident's documentation. Addition as follows, 63 yoCM ho COPD, DM, schizophrenia. P/w respiratory failure requiring intubati on. Consulted for trop elevation and ECG changes. Overnight one ECG SUE on V1, V2, repeated ECG this am no sig difference c/w prior ECGs SR, old RBBB, LAFB, NS STT. Tele SR, frequent PVCs, and occasional NSVT max 10 beats Trop max 0.7s. TTE EF 45%, global, mod LVH, RV nl, mod LAE, mild TR, no evidence of PH. Mild hypotensive episode overnight, intubated, sedated, coarse BS B/L, IR, no LE edema. Mild leukocytosis, anemia. RAVIN. A: Mild troponin elevation, type II vs I HFrEF, EF 45%, unclear ICMP or NICMP Isolated ECG with SUE on V1,2, ddx RV strain, ischemia or artifact due to high lead position NSVT, PVCs Respiratory failure, COPD P: cycle trop till down trending add metoprolol c/w heparin drip for 48 hours unless high trop or dynamic ECG changes lasix prn for volume ctr re-eval for indication for ischemia workup during this admission Vivian Lane MD, PhD Assessment and Plan Discussion w patient/family: The assessment and plan as outlined above was discussed with the patient and/or family members who expressed understanding and agreement. All questions were answered. Thank you for involving us in the care of your patient. Please call with any questions. History of Present Illness History of present illness: Mr. Valdez is a 63 year old male All Systems Review: The remainder of the systems were reviewed and are negative Physical Examination Vital Signs, Last 4 Hours Temp Pulse Resp BP Pulse Ox 12/28/18 15:30 97.2 F L 12/28/18 15:25 12 133/77 96 12/28/18 15:00 74 12 133/77 96 12/28/18 14:00 81 16 141/81 96 12/28/18 13:25 23 12/28/18 13:22 16 137/77 97 12/28/18 13:00 80 22 137/77 98 Results 12/28/18 03:49 12/28/18 03:49 Lab Results 12/27/18 12/28/18 12/28/18 18:25 03:49 03:49 WBC 9.8 Hgb 11.3 L Hct 34.6 L Plt Count 251 Sodium 124 L Potassium 4.1 D Chloride 85 L Carbon Dioxide 29 BUN 42 H Creatinine 2.03 H Glucose 223 H Calcium 8.3 L Troponin I 0.73 H* 12/28/18 03:49 WBC Hgb Hct Plt Count Sodium Potassium Chloride Carbon Dioxide BUN Creatinine Glucose Calcium Troponin I 0.76 H*
[2018-12-28] MEDS ORDERED: Dexmedetomidine HCl 400 MCG/100 ML MLS IVC ONE (11:59)
[2018-12-28] MEDS: Dexmedetomidine HCl 400 MCG/100 ML MLS IVC SCH ×3 (12:00→19:35)
[2018-12-28] MEDS: risperiDONE 1 MG TABLET PO SCH ×2 (12:30→19:40)
--- NOTE | 2018-12-28 17:00 | Electrocardiograph Report ---
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
[2018-12-28] MEDS: Heparin 25,000 UNIT/250 ML D5W 25,000 UNIT/250 ML IV.SOLN IVC SCH ×2 (18:05→22:12)
[2018-12-29] MEDS: Dexmedetomidine HCl 400 MCG/100 ML MLS IVC SCH ×2 (01:38→07:50)
[2018-12-29] MEDS: FentaNYL (PF) 1,000 MCG in 0.9 % Sodium Chloride 80 ML IVC SCH (03:24)
[2018-12-29] MEDS: Artificial Tears SOLN 15 ML BOTTLE BOTH EYES SCH ×5 (03:25→20:00)
[2018-12-29 03:37] LABS: Basophils % 0.2 %; Hematocrit 36.1 % (37.5-50.1); Hemoglobin 12.2 g/dL (12.9-16.9); Immature Granulocytes % 1.9 % (0-4); Lymphocytes # 0.3 K/mcL (0.6-4.6); Mean Corpuscular HGB Conc 33.8 g/dL (31.6-35.5); Mean Corpuscular Hemoglobin 28.9 pg (28.0-33.3); Mean Corpuscular Volume 85.5 fL (83.0-100.0); Mean Platelet Volume 9.6 fL (9.4-12.4); Monocytes # 0.8 K/mcL (0.0-1.3); Neutrophils # 13.7 K/mcL (1.6-8.9); Platelet Count 284 K/mcL (140-400); Red Blood Count 4.22 M/mcL (4.19-5.50); Red Cell Distribution Width 12.9 % (11.5-14.5); Segmented Neutrophils % 90.9 %
[2018-12-29 03:42] LABS: White Blood Count 15.1 K/mcL (4.3-11.1)
[2018-12-29] MEDS: Ipratropium/Albuterol Neb 3 ML IH SCH ×6 (03:48→23:26)
[2018-12-29 03:55] LABS: Calcium 8.2 mg/dL (8.6-10.3); Potassium 3.8 mEq/L (3.5-5.1)
[2018-12-29] MEDS: MethylPREDNISolone 40 MG/ML VIAL IVP SCH (05:18)
[2018-12-29] MEDS: Insulin LISPRO 300 UNITS/3 ML VIAL SQ SCH ×3 (05:21→16:50)
[2018-12-29 05:31] LABS: ABG Base Excess 8 mEq/L (-2 to 3); ABG HCO3 34 mEq/L (21-27); ABG Oxygen Saturation 98 % (95-98); ABG PCO2 52 mmHg (35-45); ABG PH 7.43 pH Units (7.32-7.45); ABG PO2 105 mmHg (85-104); ABG TCO2 36 mEq/L (20-26); Blood Gas Modality ASSIST CONTROL; Blood Gas PEEP 5 cm H2O; Blood Gas VT 550 cc
--- NOTE | 2018-12-29 07:05 | Pulmonology Progress Note ---
<Rogerio Whaley - Last Filed: 12/29/18 13:58> Date of Encounter: 12/29/18 Time of Encounter: 07:05 Assessment and Plan (1) Acute respiratory failure Current Visit: Yes Status: Acute Patient presented to the emergency department via EMS for difficult breathing Blood gas demonstrated severe respiratory acidosis, patient was intubated Acute respiratory failure likely secondary to COPD exacerbation with concomitant heart failure exacerbation Pulmonary edema confirmed with chest x-ray and emergency department IV systemic steroids, DuoNeb's, IV Lasix initiated Patient successfully extubated this morning, now saturating and ventilating appropriately on 4 L nasal cannula Creatinine slightly elevated, diuresis de-escalated to 40 IV daily Solu-Medrol de-escalated to 40 IV daily, continue scheduled DuoNeb's Empiric Levaquin day 3 Likely transfer out of ICU tomorrow Qualifiers: Respiratory failure complication: hypoxia and hypercapnia Qualified Code(s): J96.01 - Acute respiratory failure with hypoxia; J96.02 - Acute respiratory failure with hypercapnia (2) COPD (chronic obstructive pulmonary disease) Current Visit: Yes Status: Acute Patient has history of COPD and smoking Labs and clinical signs and symptoms of COPD exacerbation Continue Systemic steroids and bronchodilators Qualifiers: COPD type: COPD with acute exacerbation Qualified Code(s): J44.1 - Chronic obstructive pulmonary disease with (acute) exacerbation (3) Encephalopathy Current Visit: Yes Status: Resolved Patient was apparently acting abnormally prior to arrival and was altered on physical exam Likely encephalopathy secondary to acute respiratory failure and severe CO2 retention Alert and oriented after extubation (4) Congestive heart failure Current Visit: Yes Status: Acute Clinical exam and imaging and labs indicative of acute heart failure exacerbation Diuresis initiated in the emergency department, we will continue diuresis here Echocardiogram demonstrated mild diastolic dysfunction with reduced ejection fraction of 45% Qualifiers: Heart failure type: other Qualified Code(s): I50.9 - Heart failure, unspecified (5) Elevated troponin Current Visit: Yes Status: Acute Troponin 0.3 on arrival, 0.38 on repeat, 0.76 overnight Likely demand ischemia from acute respiratory failure, patient does not have a history of coronary artery disease EKG performed on arrival to ICU normal sinus rhythm without acute ST changes or other signs of ischemia EKG 12/[address] elevations in V1 and V2, interventional cardiology evaluated, no intervention 12/[address] elevation, troponins trended down Cardiology still following, added aspirin and atorvastatin (6) Diabetes Current Visit: Yes Status: Acute Every 6 Accu-Cheks and low-dose sliding scale corrective insulin Qualifiers: Diabetes mellitus type: type 2 Diabetes mellitus shelter insulin use: without termite control technician use Diabetes mellitus complication status: without complication Qualified Code(s): E11.9 - Type 2 diabetes mellitus without complications (7) Acute kidney failure Current Visit: Yes Status: Acute Creatinine elevated at 1.9 on presentation, baseline unknown Hyperkalemia of 5.8 and hyponatremia of 124 also present on admission This likely represents acute renal failure, etiology unknown We will continue to trend output and electrolytes Qualifiers: Acute renal failure type: unspecified Qualified Code(s): N17.9 - Acute kidney failure, unspecified Subjective Principal diagnosis: Acute respiratory failure Interval history: Patient successfully extubated today, no acute distress or complaints. Objective PUL Vital signs: Last Vital Signs Temp 97.9 F 12/29/18 04:04 Pulse 91 12/29/18 06:00 Resp 12 12/29/18 06:00 BP 143/98 12/29/18 06:00 Pulse Ox 95 12/29/18 06:00 General appearance: no acute distress Eyes: nonicteric ENT: oropharynx moist Neck: supple Effort: normal Auscultation: bilateral: clear, diminished breath sounds Cardiovascular: regular rate and rhythm Gastrointestinal: absent bowel sounds, soft, non-tender, non-distended Integumentary: normal Extremities: no cyanosis, no edema, pink and warm, pulses normal Musculoskeletal: no deformities normal mental status Ventilator Settings Ventilator Settings: Ventilator Settings, Last 8 Hours Ventilator Tidal Volume 550 Setting Ventilator Tidal Volume 550 Setting Ventilator Tidal Volume 550 Setting Ventilator Tidal Volume 550 Setting Ventilator Tidal Volume 550 Setting Ventilator Tidal Volume 550 Setting Ventilator Tidal Volume 550 Setting Ventilator Tidal Volume 550 Setting Ventilator Tidal Volume 550 Setting Ventilator Tidal Volume 550 Setting Ventilator Tidal Volume 550 Setting Ventilator Tidal Volume 550 Setting Ventilator Respiratory Rate 12 Setting Ventilator Respiratory Rate 12 Setting Ventilator Respiratory Rate 12 Setting Ventilator Respiratory Rate 12 Setting Ventilator Respiratory Rate 12 Setting Ventilator Respiratory Rate 12 Setting Ventilator Respiratory Rate 12 Setting Ventilator Respiratory Rate 12 Setting Ventilator Respiratory Rate 12 Setting Ventilator Respiratory Rate 12 Setting Ventilator Respiratory Rate 12 Setting Ventilator Respiratory Rate 12 Setting Actual Respiratory Rate 13 Actual Respiratory Rate 12 Actual Respiratory Rate 12 Actual Respiratory Rate 12 Positive End Expiratory 5 Pressure Positive End Expiratory 5 Pressure Positive End Expiratory 5 Pressure Positive End Expiratory 5 Pressure Positive End Expiratory 5 Pressure Positive End Expiratory 5 Pressure Positive End Expiratory 5 Pressure Positive End Expiratory 5 Pressure Positive End Expiratory 5 Pressure Positive End Expiratory 5 Pressure Positive End Expiratory 5 Pressure Positive End Expiratory 5 Pressure Peak Inspiratory Airway 20 Pressure Peak Inspiratory Airway 21 Pressure Peak Inspiratory Airway 23 Pressure Peak Inspiratory Airway 24 Pressure Results - Laboratory Findings CBC and BMP: 12/29/18 03:19 12/29/18 03:19 ABG ABG pH 7.43 pH Units (7.32-7.45) 12/29/18 05:28 ABG pCO2 52 mmHg (35-45) H 12/29/18 05:28 ABG pO2 105 mmHg (85-104) H 12/29/18 05:28 ABG O2 Saturation 98 % (95-98) 12/29/18 05:28 Abnormal lab findings: Abnormal lab results WBC 15.1 K/mcL (4.3-11.1) H D 12/29/18 03:19 RBC 3.95 M/mcL (4.19-5.50) L 12/28/18 03:49 Hgb 12.2 g/dL (12.9-16.9) L 12/29/18 03:19 Hct 36.1 % (37.5-50.1) L 12/29/18 03:19 MPV 8.7 fL (9.4-12.4) L 12/27/18 08:56 13.7 K/mcL (1.6-8.9) H 12/29/18 03:19 0.3 K/mcL (0.6-4.6) L 12/29/18 03:19 Heparin Anti-Xa, Unfract 0.13 IU/mL (0.30-0.70) L 12/28/18 14:28 ABG pH 7.18 pH Units (7.32-7.45) L* 12/27/18 11:44 ABG pCO2 52 mmHg (35-45) H 12/29/18 05:28 ABG pO2 105 mmHg (85-104) H 12/29/18 05:28 ABG HCO3 34 mEq/L (21-27) H 12/29/18 05:28 ABG Total CO2 36 mEq/L (20-26) H 12/29/18 05:28 ABG O2 Saturation 91 % (95-98) L 12/27/18 16:00 ABG Base Excess 8 mEq/L (-2 to 3) H 12/29/18 05:28 VBG pH 7.10 pH Units (7.32-7.42) L* 12/27/18 09:08 VBG pCO2 105 mmHg (41-51) H* 12/27/18 09:08 VBG pO2 85 mmHg (25-50) H 12/27/18 09:08 VBG HCO3 33 mEq/L (21-27) H 12/27/18 09:08 Sodium 126 mEq/L (136-145) L 12/29/18 03:19 Potassium 5.8 mEq/L (3.5-5.1) H 12/27/18 08:56 Chloride 88 mEq/L (98-107) L 12/29/18 03:19 Carbon Dioxide 31 mEq/L (23-29) H 12/29/18 03:19 BUN 47 mg/dL (8-23) H 12/29/18 03:19 2.19 mg/dL (0.70-1.30) H 12/29/18 03:19 Est GFR ( Amer) 37 (> 60) L 12/29/18 03:19 Est GFR (Non-Af Amer) 30 (> 60) L 12/29/18 03:19 Glucose 223 mg/dL (70-105) H 12/29/18 03:19 POC Glucose 215 mg/dL (70-99) H 12/28/18 23:23 275 (280-300) L 12/28/18 03:49 Calcium 8.2 mg/dL (8.6-10.3) L 12/29/18 03:19 0.53 ng/mL (< 0.04) H* 12/28/18 17:19 B-Natriuretic Peptide 1479 pg/mL (Less than 100) H 12/27/18 08:56 >=300 mg/dL (Neg-Trace) H 12/27/18 09:35 100 mg/dL (Normal) H 12/27/18 09:35 Small (Negative) H 12/27/18 09:35 Ur Squamous Epith Cells Many per lpf (None-Few) H 12/27/18 09:35 - Clinical Findings Intake & Output: Intake & Output 12/28/18 12/28/18 12/29/18 15:59 23:59 07:59 Intake Total 307 / 1197.0 432.7 / 1197.0 395.4 / 395.4 Output Total 725 / 2775 1200 / 2775 700 / 700 Balance -418 / -1578.0 -767.3 / -1578.0 -304.6 / -304.6 Weight 87.4 kg Consult Discharge Plan - Plan Referrals: Raul Mancilla [Primary Care Provider] - <Kelsey Oakley - Last Filed: 12/30/18 00:33> Date of Encounter: 12/29/18 Objective PUL Vital signs: Last Vital Signs Temp 97.6 F 12/29/18 12:46 Pulse 97 12/29/18 11:15 Resp 16 12/29/18 12:54 BP 143/77 12/29/18 11:15 Pulse Ox 93 12/29/18 12:54 Ventilator Settings Ventilator Settings: Ventilator Settings, Last 8 Hours Ventilator Tidal Volume 550 Setting Ventilator Tidal Volume 550 Setting Ventilator Tidal Volume 550 Setting Ventilator Respiratory Rate 12 Setting Ventilator Respiratory Rate 12 Setting Ventilator Respiratory Rate 12 Setting Actual Respiratory Rate 10 Actual Respiratory Rate 9 Actual Respiratory Rate 10 Actual Respiratory Rate 13 Positive End Expiratory 5 Pressure Positive End Expiratory 5 Pressure Positive End Expiratory 5 Pressure Positive End Expiratory 5 Pressure Positive End Expiratory 5 Pressure Positive End Expiratory 5 Pressure Peak Inspiratory Airway 10 Pressure Peak Inspiratory Airway 20 Pressure Results - Laboratory Findings CBC and BMP: 12/29/18 03:19 12/29/18 03:19 ABG ABG pH 7.43 pH Units (7.32-7.45) 12/29/18 05:28 ABG pCO2 52 mmHg (35-45) H 12/29/18 05:28 ABG pO2 105 mmHg (85-104) H 12/29/18 05:28 ABG O2 Saturation 98 % (95-98) 12/29/18 05:28 Abnormal lab findings: Abnormal lab results WBC 15.1 K/mcL (4.3-11.1) H D 12/29/18 03:19 RBC 3.95 M/mcL (4.19-5.50) L 12/28/18 03:49 Hgb 12.2 g/dL (12.9-16.9) L 12/29/18 03:19 Hct 36.1 % (37.5-50.1) L 12/29/18 03:19 MPV 8.7 fL (9.4-12.4) L 12/27/18 08:56 13.7 K/mcL (1.6-8.9) H 12/29/18 03:19 0.3 K/mcL (0.6-4.6) L 12/29/18 03:19 Heparin Anti-Xa, Unfract 0.13 IU/mL (0.30-0.70) L 12/28/18 14:28 ABG pH 7.18 pH Units (7.32-7.45) L* 12/27/18 11:44 ABG pCO2 52 mmHg (35-45) H 12/29/18 05:28 ABG pO2 105 mmHg (85-104) H 12/29/18 05:28 ABG HCO3 34 mEq/L (21-27) H 12/29/18 05:28 ABG Total CO2 36 mEq/L (20-26) H 12/29/18 05:28 ABG O2 Saturation 91 % (95-98) L 12/27/18 16:00 ABG Base Excess 8 mEq/L (-2 to 3) H 12/29/18 05:28 VBG pH 7.10 pH Units (7.32-7.42) L* 12/27/18 09:08 VBG pCO2 105 mmHg (41-51) H* 12/27/18 09:08 VBG pO2 85 mmHg (25-50) H 12/27/18 09:08 VBG HCO3 33 mEq/L (21-27) H 12/27/18 09:08 Sodium 126 mEq/L (136-145) L 12/29/18 03:19 Potassium 5.8 mEq/L (3.5-5.1) H 12/27/18 08:56 Chloride 88 mEq/L (98-107) L 12/29/18 03:19 Carbon Dioxide 31 mEq/L (23-29) H 12/29/18 03:19 BUN 47 mg/dL (8-23) H 12/29/18 03:19 2.19 mg/dL (0.70-1.30) H 12/29/18 03:19 Est GFR ( Amer) 37 (> 60) L 12/29/18 03:19 Est GFR (Non-Af Amer) 30 (> 60) L 12/29/18 03:19 Glucose 223 mg/dL (70-105) H 12/29/18 03:19 POC Glucose 215 mg/dL (70-99) H 12/28/18 23:23 275 (280-300) L 12/28/18 03:49 Calcium 8.2 mg/dL (8.6-10.3) L 12/29/18 03:19 0.53 ng/mL (< 0.04) H* 12/28/18 17:19 B-Natriuretic Peptide 1479 pg/mL (Less than 100) H 12/27/18 08:56 >=300 mg/dL (Neg-Trace) H 12/27/18 09:35 100 mg/dL (Normal) H 12/27/18 09:35 Small (Negative) H 12/27/18 09:35 Ur Squamous Epith Cells Many per lpf (None-Few) H 12/27/18 09:35 - Clinical Findings Intake & Output: Intake & Output 12/28/18 12/29/18 12/29/18 23:59 07:59 15:59 Intake Total 432.7 / 1197.0 495.4 / 495.4 Output Total 1200 / 2775 700 / 1450 750 / 1450 Balance -767.3 / -1578.0 -204.6 / -954.6 -750 / -954.6 Weight 87.4 kg - Attending Attestation I examined this patient and my medical decision-making was reviewed with the Resident Physician. I agree with the documented findings, disposition and treatment plan as described except to the extent set forth below. Patient seen and examined. Labs, radiology, chart personally reviewed. 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 Pulmonary: Acceptable oxygenation and ventilation and he was extubated succ essfully and will monitor for next 24 hours then transfer to the floor of no issues. Cardiovascular: stable and cardiolgoy follow up. Need fluid restriction. GI: Nutrition per dietary and GI prophylaxis per routine Heme: DVT prophylaxis per routine ID: Continue antibiotics and plan to de-escalation Renal; urine out put and renal function reviewed Endorcine: blood glucose is monitored Lines: all lines checked and no evidence of infections Skin: skin care to prevent pressure ulcers per nursing routine care Dispo: ICU for today Code: Full. Prognosis.Fair
[2018-12-29] MEDS: risperiDONE 1 MG TABLET PO SCH ×2 (07:51→20:14)
[2018-12-29] MEDS: Chlorhexidine Rinse 15 ML MOUTHWASH MM SCH ×2 (07:52→20:00)
[2018-12-29] MEDS: Pantoprazole 40 MG VIAL IVP SCH (07:52)
[2018-12-29] MEDS: Furosemide 40 MG/4 ML VIAL IVP SCH (07:52)
[2018-12-29] MEDS ORDERED: Levofloxacin 750 MG/150 ML 750 MG/150 ML BAG IVPB SCH (09:00)
--- NOTE | 2018-12-29 10:10 | Event Note ---
Date of Encounter: 12/29/18 Time of Encounter: 10:08 - Cardiology Event Note Troponin peak 0.76 and now downtrending in the setting of respiratory failure. Type I vs type II mi in the setting of COPD exacerbation and CHF. EKG shows RBBB, LAFB, LVH. One serial EKG with ST changes may represent ischemia. TTE shows mildly reduced EF. LVEF 45%. Mild LVDD. Moderate cLVH. Normal RV structure and function. Moderately dilated left atrium. Mild TR. No phtn. Patient remains intubated. NSVT noted on tele yesterday. BB was added. Improvement in NSVT episodes. Recommend ACEi once renal function allows. Add ASA and Statin. Will continue to follow peripherally. Will determine further work-up inpt vs outpt pending clinical course.
[2018-12-29] MEDS ORDERED: Insulin LISPRO 300 UNITS/3 ML VIAL SQ SCH (21:00)
[2018-12-30] MEDS: Heparin 25,000 UNIT/250 ML D5W 25,000 UNIT/250 ML IV.SOLN IVC SCH (01:50)
[2018-12-30] MEDS: Ipratropium/Albuterol Neb 3 ML IH SCH ×6 (03:52→23:02)
[2018-12-30 05:12] LABS: Basophils % 0.2 %; Eosinophils % 0.1 %; Hematocrit 34.1 % (37.5-50.1); Hemoglobin 11.7 g/dL (12.9-16.9); Immature Granulocytes % 1.9 % (0-4); Lymphocytes % 7.5 %; Mean Corpuscular HGB Conc 34.3 g/dL (31.6-35.5); Mean Corpuscular Hemoglobin 29.3 pg (28.0-33.3); Mean Corpuscular Volume 85.3 fL (83.0-100.0); Mean Platelet Volume 9.8 fL (9.4-12.4); Monocytes % 12.7 %; Platelet Count 295 K/mcL (140-400); Red Cell Distribution Width 13.5 % (11.5-14.5); Segmented Neutrophils % 77.6 %; White Blood Count 14.7 K/mcL (4.3-11.1)
[2018-12-30 05:13] LABS: Lymphocytes # 1.1 K/mcL (0.6-4.6); Monocytes # 1.9 K/mcL (0.0-1.3); Neutrophils # 11.4 K/mcL (1.6-8.9)
[2018-12-30 05:36] LABS: Calcium 8.5 mg/dL (8.6-10.3); Potassium 3.8 mEq/L (3.5-5.1)
[2018-12-30] MEDS: risperiDONE 1 MG TABLET PO SCH ×2 (08:29→20:25)
[2018-12-30] MEDS: Insulin LISPRO 300 UNITS/3 ML VIAL SQ SCH ×4 (08:30→20:22)
[2018-12-30] MEDS ORDERED: Furosemide 40 MG/4 ML VIAL IVP SCH (09:00)
[2018-12-30] MEDS ORDERED: MethylPREDNISolone 40 MG/ML VIAL IVP SCH (09:00)
[2018-12-30] MEDS ORDERED: Aspirin 81 MG TAB.CHEW PO SCH (09:00)
--- NOTE | 2018-12-30 09:04 | Pulmonology Progress Note ---
<Rogerio Whaley - Last Filed: 12/30/18 10:29> Date of Encounter: 12/30/18 Time of Encounter: 09:04 Assessment and Plan (1) Acute respiratory failure Current Visit: Yes Status: Acute Patient presented to the emergency department via EMS for difficult breathing Blood gas demonstrated severe respiratory acidosis, patient was intubated Acute respiratory failure likely secondary to COPD exacerbation with concomitant heart failure exacerbation Pulmonary edema confirmed with chest x-ray and emergency department IV systemic steroids, DuoNeb's, IV Lasix initiated Patient successfully extubated yesterday, now saturating and ventilating ap propriately on 4 L nasal cannula Creatinine slightly elevated, Lasix discontinued, fluid restricted diet initiated Solu-Medrol de-escalated to 40 IV daily, continue scheduled DuoNeb's Empiric Levaquin day 4 We will transfer to floor today Qualifiers: Respiratory failure complication: hypoxia and hypercapnia Qualified Code(s): J96.01 - Acute respiratory failure with hypoxia; J96.02 - Acute respiratory failure with hypercapnia (2) COPD (chronic obstructive pulmonary disease) Current Visit: Yes Status: Acute Patient has history of COPD and smoking Labs and clinical signs and symptoms of COPD exacerbation Continue Systemic steroids and bronchodilators Qualifiers: COPD type: COPD with acute exacerbation Qualified Code(s): J44.1 - Chronic obstructive pulmonary disease with (acute) exacerbation (3) Encephalopathy Current Visit: Yes Status: Resolved Patient was apparently acting abnormally prior to arrival and was altered on physical exam Likely encephalopathy secondary to acute respiratory failure and severe CO2 retention Alert and oriented after extubation (4) Congestive heart failure Current Visit: Yes Status: Acute Clinical exam and imaging and labs indicative of acute heart failure exacerbation Diuresis initiated in the emergency department, discontinued due to renal function, we will initiate fluid restriction diet Echocardiogram demonstrated mild diastolic dysfunction with reduced ejection fraction of 45% Qualifiers: Heart failure type: other Qualified Code(s): I50.9 - Heart failure, unspecified (5) Elevated troponin Current Visit: Yes Status: Acute Troponin elevated on arrival Likely demand ischemia from acute respiratory failure, patient does not have a history of coronary artery disease EKG performed on arrival to ICU normal sinus rhythm without acute ST changes or other signs of ischemia EKG 12/[address] elevations in V1 and V2, interventional cardiology evaluated, no intervention 12/[address] elevation, troponins trended down Cardiology still following, added aspirin and atorvastatin (6) Diabetes Current Visit: Yes Status: Acute Before meals at bedtime glucose checks and sliding scale insulin protocol Qualifiers: Diabetes mellitus type: type 2 Diabetes mellitus longterm insulin use: without longterm use Diabetes mellitus complication status: without complication Qualified Code(s): E11.9 - Type 2 diabetes mellitus without complications (7) Acute kidney failure Current Visit: Yes Status: Acute Creatinine elevated at 1.9 on presentation, baseline unknown Hyperkalemia of 5.8 and hyponatremia of 124 also present on admission This likely represents acute renal failure, etiology unknown We will continue to trend output and electrolytes Lasix is continued to protect renal function, continue to trend Qualifiers: Acute renal failure type: unspecified Qualified Code(s): N17.9 - Acute kidney failure, unspecified Subjective Principal diagnosis: Acute respiratory failure Interval history: Patient successfully extubated yesterday, no acute events overnight, patient will be transferred to the floor today. Objective PUL Vital signs: Last Vital Signs Temp 99.1 F 12/30/18 08:38 Pulse 107 12/30/18 07:30 Resp 19 12/30/18 07:30 BP 144/76 12/30/18 07:30 Pulse Ox 93 12/30/18 07:30 General appearance: no acute distress, alert Eyes: nonicteric ENT: oropharynx moist Neck: supple Effort: normal Auscultation: bilateral: clear, diminished breath sounds Cardiovascular: regular rate and rhythm Gastrointestinal: normoactive bowel sounds, soft, non-tender, non-distended Integumentary: normal Extremities: no cyanosis, no edema, pink and warm, pulses normal Musculoskeletal: no deformities normal mental status, non-focal exam, pupils equal and round other (Flat affect) Results - Laboratory Findings CBC and BMP: 12/30/18 04:36 12/30/18 04:36 ABG ABG pH 7.43 pH Units (7.32-7.45) 12/29/18 05:28 ABG pCO2 52 mmHg (35-45) H 12/29/18 05:28 ABG pO2 105 mmHg (85-104) H 12/29/18 05:28 ABG O2 Saturation 98 % (95-98) 12/29/18 05:28 Abnormal lab findings: Abnormal lab results WBC 14.7 K/mcL (4.3-11.1) H 12/30/18 04:36 RBC 4.00 M/mcL (4.19-5.50) L 12/30/18 04:36 Hgb 11.7 g/dL (12.9-16.9) L 12/30/18 04:36 Hct 34.1 % (37.5-50.1) L 12/30/18 04:36 MPV 8.7 fL (9.4-12.4) L 12/27/18 08:56 11.4 K/mcL (1.6-8.9) H 12/30/18 04:36 0.3 K/mcL (0.6-4.6) L 12/29/18 03:19 1.9 K/mcL (0.0-1.3) H 12/30/18 04:36 Heparin Anti-Xa, Unfract 0.13 IU/mL (0.30-0.70) L 12/28/18 14:28 ABG pH 7.18 pH Units (7.32-7.45) L* 12/27/18 11:44 ABG pCO2 52 mmHg (35-45) H 12/29/18 05:28 ABG pO2 105 mmHg (85-104) H 12/29/18 05:28 ABG HCO3 34 mEq/L (21-27) H 12/29/18 05:28 ABG Total CO2 36 mEq/L (20-26) H 12/29/18 05:28 ABG O2 Saturation 91 % (95-98) L 12/27/18 16:00 ABG Base Excess 8 mEq/L (-2 to 3) H 12/29/18 05:28 VBG pH 7.10 pH Units (7.32-7.42) L* 12/27/18 09:08 VBG pCO2 105 mmHg (41-51) H* 12/27/18 09:08 VBG pO2 85 mmHg (25-50) H 12/27/18 09:08 VBG HCO3 33 mEq/L (21-27) H 12/27/18 09:08 Sodium 133 mEq/L (136-145) L 12/30/18 04:36 Potassium 5.8 mEq/L (3.5-5.1) H 12/27/18 08:56 Chloride 88 mEq/L (98-107) L 12/30/18 04:36 Carbon Dioxide 33 mEq/L (23-29) H 12/30/18 04:36 BUN 59 mg/dL (8-23) H 12/30/18 04:36 2.54 mg/dL (0.70-1.30) H 12/30/18 04:36 Est GFR ( Amer) 31 (> 60) L 12/30/18 04:36 Est GFR (Non-Af Amer) 26 (> 60) L 12/30/18 04:36 Glucose 162 mg/dL (70-105) H 12/30/18 04:36 POC Glucose 158 mg/dL (70-99) H 12/30/18 07:38 275 (280-300) L 12/28/18 03:49 Calcium 8.5 mg/dL (8.6-10.3) L 12/30/18 04:36 0.53 ng/mL (< 0.04) H* 12/28/18 17:19 B-Natriuretic Peptide 1479 pg/mL (Less than 100) H 12/27/18 08:56 >=300 mg/dL (Neg-Trace) H 12/27/18 09:35 100 mg/dL (Normal) H 12/27/18 09:35 Small (Negative) H 12/27/18 09:35 Ur Squamous Epith Cells Many per lpf (None-Few) H 12/27/18 09:35 - Clinical Findings Intake & Output: Intake & Output 12/29/18 12/30/18 12/30/18 23:59 07:59 15:59 Intake Total 474.6 / 474.6 Output Total 425 / 1875 300 / 625 325 / 625 Balance -425 / -949.6 174.6 / -150.4 -325 / -150.4 Weight 87.5 kg Consult Discharge Plan - Plan Referrals: Raul Mancilla [Primary Care Provider] - <Kelsey Oakley - Last Filed: 12/31/18 08:17> Date of Encounter: 12/30/18 Objective PUL Vital signs: Last Vital Signs Temp 99.1 F 12/30/18 08:38 Pulse 107 12/30/18 07:30 Resp 19 12/30/18 07:30 BP 144/76 12/30/18 07:30 Pulse Ox 93 12/30/18 07:30 Results - Laboratory Findings CBC and BMP: 12/31/18 04:29 12/31/18 04:29 ABG ABG pH 7.43 pH Units (7.32-7.45) 12/29/18 05:28 ABG pCO2 52 mmHg (35-45) H 12/29/18 05:28 ABG pO2 105 mmHg (85-104) H 12/29/18 05:28 ABG O2 Saturation 98 % (95-98) 12/29/18 05:28 Abnormal lab findings: Abnormal lab results WBC 14.7 K/mcL (4.3-11.1) H 12/30/18 04:36 RBC 4.00 M/mcL (4.19-5.50) L 12/30/18 04:36 Hgb 11.7 g/dL (12.9-16.9) L 12/30/18 04:36 Hct 34.1 % (37.5-50.1) L 12/30/18 04:36 MPV 8.7 fL (9.4-12.4) L 12/27/18 08:56 11.4 K/mcL (1.6-8.9) H 12/30/18 04:36 0.3 K/mcL (0.6-4.6) L 12/29/18 03:19 1.9 K/mcL (0.0-1.3) H 12/30/18 04:36 Heparin Anti-Xa, Unfract 0.13 IU/mL (0.30-0.70) L 12/28/18 14:28 ABG pH 7.18 pH Units (7.32-7.45) L* 12/27/18 11:44 ABG pCO2 52 mmHg (35-45) H 12/29/18 05:28 ABG pO2 105 mmHg (85-104) H 12/29/18 05:28 ABG HCO3 34 mEq/L (21-27) H 12/29/18 05:28 ABG Total CO2 36 mEq/L (20-26) H 12/29/18 05:28 ABG O2 Saturation 91 % (95-98) L 12/27/18 16:00 ABG Base Excess 8 mEq/L (-2 to 3) H 12/29/18 05:28 VBG pH 7.10 pH Units (7.32-7.42) L* 12/27/18 09:08 VBG pCO2 105 mmHg (41-51) H* 12/27/18 09:08 VBG pO2 85 mmHg (25-50) H 12/27/18 09:08 VBG HCO3 33 mEq/L (21-27) H 12/27/18 09:08 Sodium 133 mEq/L (136-145) L 12/30/18 04:36 Potassium 5.8 mEq/L (3.5-5.1) H 12/27/18 08:56 Chloride 88 mEq/L (98-107) L 12/30/18 04:36 Carbon Dioxide 33 mEq/L (23-29) H 12/30/18 04:36 BUN 59 mg/dL (8-23) H 12/30/18 04:36 2.54 mg/dL (0.70-1.30) H 12/30/18 04:36 Est GFR ( Amer) 31 (> 60) L 12/30/18 04:36 Est GFR (Non-Af Amer) 26 (> 60) L 12/30/18 04:36 Glucose 162 mg/dL (70-105) H 12/30/18 04:36 POC Glucose 158 mg/dL (70-99) H 12/30/18 07:38 275 (280-300) L 12/28/18 03:49 Calcium 8.5 mg/dL (8.6-10.3) L 12/30/18 04:36 0.53 ng/mL (< 0.04) H* 12/28/18 17:19 B-Natriuretic Peptide 1479 pg/mL (Less than 100) H 12/27/18 08:56 >=300 mg/dL (Neg-Trace) H 12/27/18 09:35 100 mg/dL (Normal) H 12/27/18 09:35 Small (Negative) H 12/27/18 09:35 Ur Squamous Epith Cells Many per lpf (None-Few) H 12/27/18 09:35 - Clinical Findings Intake & Output: Intake & Output 12/29/18 12/30/18 12/30/18 23:59 07:59 15:59 Intake Total 474.6 / 474.6 Output Total 425 / 1875 300 / 625 325 / 625 Balance -425 / -949.6 174.6 / -150.4 -325 / -150.4 Weight 87.5 kg - Attending Attestation I examined this patient and my medical decision-making was reviewed with the Resident Physician. I agree with the documented findings, disposition and treatment plan as described except to the extent set forth below. Patient seen and examined. Labs, radiology, chart personally reviewed. 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 Keep oxygen saturation around 90%. Wean off FiO2. Patient can follow-up as outpatient after his discharge from the hospital. Cardiovascular: stable and cardiology's follow-up. Heparin to be stopped. He will need follow-up with cardiology. GI: Nutrition per dietary and GI prophylaxis per routine Heme: DVT prophylaxis per routine ID: Continue antibiotics and plan to de-escalation Renal; urine out put and renal function reviewed Endorcine: blood glucose is monitored Lines: all lines checked and no evidence of infections Skin: skin care to prevent pressure ulcers per nursing routine care Dispo: Transferred to the floor. Code: Full. Prognosis. Fair Discussed with the family at the bedside.
--- NOTE | 2018-12-30 09:12 | Event Note ---
<Rogeiro Whaley - Last Filed: 12/30/18 09:12> Date of Encounter: 12/30/18 Time of Encounter: 09:12 Patient was originally admitted to ICU for acute on chronic respiratory failure secondary to COPD exacerbation and CHF exacerbation. He was intubated, treated with IV steroids and breathing treatments, diuresis. He has since significantly clinically improved, has been extubated, is saturating and ventilating appropriately on nasal cannula, and is stable for transfer to the floor. Please see progress note for full details. <Kelsey Oakley - Last Filed: 12/31/18 10:33> Date of Encounter: 12/31/18 I examined this patient and my medical decision-making was reviewed with the Resident Physician. I agree with the documented findings, disposition and treatment plan as described except to the extent set forth above.
[2018-12-30] MEDS ORDERED: Dextrose Gel 15 GM/37.5 ML TUBE PO PRN ×2 (09:37)
[2018-12-30] MEDS ORDERED: Naloxone 0.4 MG/ML INJ IVP PRN (09:37)
[2018-12-30] MEDS ORDERED: *HR* Dextrose 50 % in Water (Syg) 50 ML SYRINGE IVP PRN (09:37)
[2018-12-30] MEDS ORDERED: D5% in Water 1,000 ML IVC PRN (09:37)
[2018-12-30] MEDS ORDERED: *HR* Heparin 5,000 UNIT/ML VIAL SQ SCH (14:00)
[2018-12-30] MEDS: Pantoprazole 40 MG VIAL IVP SCH (14:24)
[2018-12-30] MEDS: *HR* Heparin 5,000 UNIT/ML VIAL SQ SCH ×2 (14:50→20:27)
[2018-12-31] MEDS: Ipratropium/Albuterol Neb 3 ML IH SCH ×6 (04:13→23:10)
[2018-12-31] MEDS: *HR* Heparin 5,000 UNIT/ML VIAL SQ SCH ×3 (05:01→20:57)
[2018-12-31 05:08] LABS: Basophils # 0.1 K/mcL (0.0-0.2); Basophils % 0.4 %; Hematocrit 35.8 % (37.5-50.1); Hemoglobin 11.9 g/dL (12.9-16.9); Immature Granulocytes % 2.4 % (0-4); Lymphocytes # 1.3 K/mcL (0.6-4.6); Lymphocytes % 10.8 %; Mean Corpuscular HGB Conc 33.2 g/dL (31.6-35.5); Mean Corpuscular Hemoglobin 29.2 pg (28.0-33.3); Mean Corpuscular Volume 87.7 fL (83.0-100.0); Mean Platelet Volume 9.5 fL (9.4-12.4); Monocytes # 1.6 K/mcL (0.0-1.3); Monocytes % 13.1 %; Neutrophils # 8.8 K/mcL (1.6-8.9); Platelet Count 295 K/mcL (140-400); Red Blood Count 4.08 M/mcL (4.19-5.50); Red Cell Distribution Width 13.9 % (11.5-14.5); Segmented Neutrophils % 73.3 %
[2018-12-31 05:24] LABS: Calcium 9.1 mg/dL (8.6-10.3); Potassium 4.1 mEq/L (3.5-5.1)
[2018-12-31] MEDS: risperiDONE 1 MG TABLET PO SCH ×2 (08:07→20:55)
[2018-12-31] MEDS: Aspirin 81 MG TAB.CHEW PO SCH (08:08)
[2018-12-31] MEDS: Insulin LISPRO 300 UNITS/3 ML VIAL SQ SCH ×4 (08:08→20:57)
[2018-12-31] MEDS: Levofloxacin 750 MG/150 ML 750 MG/150 ML BAG IVPB SCH (08:08)
[2018-12-31] MEDS ORDERED: MethylPREDNISolone 40 MG/ML VIAL IVP SCH (09:00)
--- NOTE | 2018-12-31 12:01 | Cardiology Progress Note ---
Date of Encounter: 12/31/18 Time of Encounter: 08:30 Assessment and Plan (1) Elevated troponin Current Visit: Yes Status: Acute Troponin elevation at 0.30, 0.38, 0.73 in the setting of respiratory failure. Type I vs type II mi in the setting of COPD exacerbation and CHF. EKG shows RBBB, LAFB, LVH. One serial EKG with ST changes may represent ischemia. TTE shows mildly reduced EF. LVEF 45%. Mild left ventricular diastolic dysfunction. Moderate concentric left ventricular hypertrophy. Normal right ventricular structure and function. Moderately dilated left atrium. Mild tricuspid regurgitation. No evidence of pulmonary hypertension. Patient initially required intubation, Now extubated on stepdown. Denies cardiac history or work-up. Can consider further ischemic evaluation once he improves from respiratory and RAVIN standpoint. Recommend nephrology consult or worsening kidney function. Asa, statin, and bb. Can d/c heparin gtt since it has been over 48 hours. Re-consult when kidney function improves for [facility]. Patient agrees with plan. (2) Acute respiratory failure Current Visit: Yes Status: Acute Secondary to COPD and CHF exacerbation. CXR showed pulmonary edema on admit. Patient now with NC. Currently euvolemic. Qualifiers: Respiratory failure complication: hypoxia and hypercapnia Qualified Code(s): J96.01 - Acute respiratory failure with hypoxia; J96.02 - Acute respiratory failure with hypercapnia (3) CHF (congestive heart failure) Current Visit: Yes Status: Acute Acute CHF. Family reported history of CHF but patient denies. TTE this admission shows EF 45% with mild global dysfunction. No prior cardiac work-up. Lasix stopped. Near euvolemia on exam. Strict I&O and daily weights. Continue bb. No aceI due to RAVIN. Qualifiers: Heart failure type: systolic Heart failure chronicity: acute on chronic Qualified Code(s): I50.23 - Acute on chronic systolic (congestive) heart failure (4) NSVT (nonsustained ventricular tachycardia) Current Visit: Yes Status: Acute Small runs NSVT seen on telemetry up to 5 beats. Increase bb as tolerated. Change to long acting prior to d/c. Discussion w patient/family: The assessment and plan as outlined above was discussed with the patient and/or family members who expressed understanding and agreement. All questions were answered. Thank you for involving us in the care of your patient. Please call with any questions. Subjective Principal diagnosis: Acute respiratory failure Interval history: Mr. Valdez is resting in bed. Now extubated and on stepdown unit. Denies chest pain, SOB, orthopnea, PND, or edema. Denies prior cardiac history or work-up. Objective Vital Signs, Last 4 Hours Temp Pulse Resp BP Pulse Ox 12/31/18 08:03 97.8 F 101 18 155/75 90 General: Conversant, No Apparent Distress HEENT: Atraumatic, Normocephaly, Mucus Membranes Moist Neck: No JVD, Normal carotid pulses Cardiac: Reg Rate and Rhythm, Normal S1 and S2, No Murmur Lungs: Normal Breath Sounds, No Wheeze, Rales, Rhonchi Neuro: Alert and responsive, No focal deficits noted Abdomen: Soft, Non-Tender Skin: No rashes noted on visualized skin Musculoskeletal: No Chest Wall Tenderness Extremities: No Clubbing, No Cyanosis, No Edema, Normal Pulses Results 12/31/18 04:29 12/31/18 04:29 Lab Results 12/31/18 12/31/18 04:29 04:29 WBC 12.0 H Hgb 11.9 L Hct 35.8 L Plt Count 295 Sodium 135 L Potassium 4.1 Chloride 89 L Carbon Dioxide 33 H BUN 63 H Creatinine 2.54 H Glucose 151 H Calcium 9.1 - Imaging and Cardiology Echo: report reviewed - EKG Interpretation EKG results cardiology: personally reviewed Consult Discharge Plan - Plan Referrals: Raul Mancilla [Primary Care Provider] -
--- NOTE | 2018-12-31 14:44 | Internal Med Progress Note ---
Hospitalist Progress Note - Encounter Date of Encounter: 12/31/18 Time of Encounter: 14:38 - Subjective Interval History: Patient was seen and examined earlier this morning with family present at bedside. Patient was transferred to yesterday from the ICU after being treated for acute on chronic respiratory failure requiring intubation. Pt is currently resting comfortably in bed and saturating well on nasal cannula. He is alert and oriented to self, place, family, but not year. As per daughter and , pt does not usually know the year but he does seem confused to them compared to his baseline. Patient denies any chest pain or shortness of breath at this time. No overnight events reported. Ten point ROS is negative except as listed above - Exam Vitals: Temp Pulse Resp BP Pulse Ox 97.8 F 102 19 133/80 90 12/31/18 12:00 12/31/18 12:00 12/31/18 12:00 12/31/18 12:12/31/18 12:00 Exam: General: No acute distress, awake, alert, oriented to self, family, place, but not year HEENT: EOMI, PERRLA, NC/AT, no scleral icterus Respiratory: Diminished breath sounds, no rales, no wheezing Cardiovascular: Regular, Rate, Rhythm, No murmurs GI: Soft, Non tender, non distended, normal bowel sounds Ext: No edema, no tenderness, positive pulses Neuro: no focal deficits Rest of the clinical exam is noncontributory - Summary of Assessment and Plan Summary of Assessment and Plan: Patient is a 63y/o male with PMH Of COPD on home oxygen, DM, CHF who was a dmitted to the ICU on 12/27/18 for acute on chronic respiratory failure requiring intubation. He was successfully extubated on 12/29/18 and transferred to on 09/01/18. Assessment/Plan: 1. Acute on chronic respiratory failure with hypoxia likely secondary to COPD exacerbation, CHF exacerbation, and PNA Patient was successfully extubated on 12/29/18 Will d/c IV steroids and start Prednisone 40mg PO qdaily in am currently on baseline Oxygen therapy continue IV levaquin (day 5/7) Off diuretic therapy due to RAVIN, currently euvolemic continue bronchodilator support as needed will closely monitor respiratory status 2. Elevated Troponin/CHF exacerbation Cardiology input appreciated pt chest pain free at this time closely monitoring off diuretic therapy monitor daily weight strict I/Os, fluid restriction diet (1.5L/day) continue Aspirin, BB, statin therapy no cardiac intervention until renal function optimized as per cardiology 3. RAVIN Unclear of patient's baseline renal function pt did receive IV lasix yesterday and has been discontinued since then will closely monitor renal function off diuretic therapy will obtain renal evaluation avoid all nephrotoxic agents 4. Encephalopathy clinically improving as per family, patient is close to his baseline likely secondary to acute hypoxic respiratory failure will closely monitor 5. Diabetes Mellitus type II sliding scale insulin algorithm monitor FS and BG ADA diet DVT ppx: heparin SQ hx of mood disorder: continue home medications Care plan discussed with patient/RN/Family/case management/pharmacist PT evaluation requested - Time Spent with Patient Total time spent is greater than 50% in coordination of care (as documented) at patient's floor/unit and/or counseling patient: Internal Medicine: Result - Labs CBC & Chem 7: 12/31/18 04:29 12/31/18 04:29 Labs: Short CBC 12/31/18 Range/Units 04:29 WBC 12.0 H (4.3-11.1) K/mcL Hgb 11.9 L (12.9-16.9) g/dL Hct 35.8 L (37.5-50.1) % Plt Count 295 (140-400) K/mcL Neutrophils # 8.8 (1.6-8.9) K/mcL BMP 12/31/18 04:29 Sodium 135 L Potassium 4.1 Chloride 89 L Carbon Dioxide 33 H BUN 63 H Creatinine 2.54 H Glucose 151 H Calcium 9.1 - ABG Interpretation ABG results: ABG ABG pH 7.43 pH Units (7.32-7.45) 12/29/18 05:28 ABG pCO2 52 mmHg (35-45) H 12/29/18 05:28 ABG pO2 105 mmHg (85-104) H 12/29/18 05:28 ABG O2 Saturation 98 % (95-98) 12/29/18 05:28 Consult Discharge Plan - Plan Referrals: Raul Mancilla [Primary Care Provider] -
[2019-01-01] MEDS: Ipratropium/Albuterol Neb 3 ML IH SCH ×6 (03:54→23:32)
[2019-01-01 05:44] LABS: Basophils # 0.1 K/mcL (0.0-0.2); Basophils % 0.8 %; Eosinophils # 0.1 K/mcL (0.0-0.6); Eosinophils % 0.6 %; Hemoglobin 12.2 g/dL (12.9-16.9); Immature Granulocytes % 3.9 % (0-4); Lymphocytes # 1.3 K/mcL (0.6-4.6); Lymphocytes % 10.9 %; Mean Corpuscular HGB Conc 32.1 g/dL (31.6-35.5); Mean Corpuscular Hemoglobin 28.8 pg (28.0-33.3); Mean Corpuscular Volume 89.8 fL (83.0-100.0); Mean Platelet Volume 9.3 fL (9.4-12.4); Monocytes # 1.6 K/mcL (0.0-1.3); Monocytes % 13.1 %; Neutrophils # 8.3 K/mcL (1.6-8.9); Platelet Count 297 K/mcL (140-400); Red Blood Count 4.23 M/mcL (4.19-5.50); Segmented Neutrophils % 70.7 %; White Blood Count 11.8 K/mcL (4.3-11.1)
[2019-01-01] MEDS: *HR* Heparin 5,000 UNIT/ML VIAL SQ SCH ×3 (05:44→21:14)
[2019-01-01 06:05] LABS: Calcium 9.5 mg/dL (8.6-10.3); Magnesium 2.7 mg/dL (1.6-2.6); Phosphorous 4.2 mg/dL (2.7-4.5); Potassium 4.2 mEq/L (3.5-5.1)
[2019-01-01] MEDS ORDERED: 0.9 % Sodium Chloride 500 ML IVC SCH (08:00)
[2019-01-01] MEDS: predniSONE 20 MG TABLET PO SCH (08:29)
[2019-01-01] MEDS: Metoprolol XL (24 HR) Succ 25 MG TAB.ER.24H PO SCH (08:30)
[2019-01-01] MEDS: Insulin LISPRO 300 UNITS/3 ML VIAL SQ SCH ×4 (08:30→21:15)
[2019-01-01] MEDS: Aspirin 81 MG TAB.CHEW PO SCH (08:30)
[2019-01-01] MEDS: risperiDONE 1 MG TABLET PO SCH ×2 (08:30→21:12)
[2019-01-01] MEDS: *HR* Acetylcysteine 20% 600 MG/3 ML ORAL SYRINGE PO SCH ×2 (10:14→21:12)
--- NOTE | 2019-01-01 10:32 | Internal Med Progress Note ---
Hospitalist Progress Note - Encounter Date of Encounter: 01/01/19 Time of Encounter: 10:30 - Subjective Interval History: Patient seen and examined with family present at bedside. Pt resting in bed and currently AAO x3. Family states patient is back to his baseline. He denies any shortness of breath or chest pain. States he is feeling better compared to previous day. Noted to have worsening of renal function for which nephrology evaluation is requested. Ten point ROS is negative except as listed above No overnight events reported - Exam Vitals: Temp Pulse Resp BP Pulse Ox 98.4 F 99 16 147/81 98 01/01/19 07:34 01/01/19 07:34 01/01/19 10:11 01/01/19 07:34 01/01/19 10:11 Exam: General: No acute distress, AAO x 3 HEENT: EOMI, NC/AT, no scleral icterus Respiratory: Diminished breath sounds, no rales, no wheezing Cardiovascular: Regular, Rate, Rhythm, No murmurs GI: Soft, Non tender, non distended, normal bowel sounds Ext: No edema, no tenderness, positive pulses Neuro: no focal deficits Rest of the clinical exam is noncontributory - Summary of Assessment and Plan Summary of Assessment and Plan: Patient is a 63y/o male with PMH Of COPD on home oxygen, DM, CHF who was admitted to the ICU on 12/27/18 for acute on chronic respiratory failure requiring intubation. He was successfully extubated on 12/29/18 and transferred to on 09/01/18. Assessment/Plan: 1. Acute on chronic respiratory failure with hypoxia likely secondary to COPD exacerbation, CHF exacerbation, and PNA Patient was successfully extubated on 12/29/18 started Prednisone 40mg PO qdaily (day 1) currently on baseline Oxygen therapy continue IV levaquin (day 12/21) Off diuretic therapy due to RAVIN, currently euvolemic continue bronchodilator support as needed will closely monitor respiratory status 2. Elevated Troponin/CHF exacerbation Cardiology input appreciated pt chest pain free at this time closely monitoring off diuretic therapy monitor daily weight strict I/Os, fluid restriction diet (1.5L/day) continue Aspirin, BB, statin therapy no cardiac intervention until renal function optimized as per cardiology 3. RAVIN Unclear of patient's baseline renal function will administer gentle IV fluid hydration Nephrology evaluation has been requested will closely monitor renal function off diuretic therapy avoid all nephrotoxic agents 4. Encephalopathy resolved mental status back to baseline 5. Diabetes Mellitus type II sliding scale insulin algorithm monitor FS and BG ADA diet DVT ppx: heparin SQ hx of mood disorder: continue home medications Care plan discussed with patient/RN/Family/case management/pharmacist/consulting provider PT evaluation requested - Time Spent with Patient Total time spent is greater than 50% in coordination of care (as documented) at patient's floor/unit and/or counseling patient: Internal Medicine: Result - Labs CBC & Chem 7: 01/01/19 05:26 01/01/19 05:26 Labs: Short CBC 01/01/19 Range/Units 05:26 WBC 11.8 H (4.3-11.1) K/mcL Hgb 12.2 L (12.9-16.9) g/dL Hct 38.0 (37.5-50.1) % Plt Count 297 (140-400) K/mcL Neutrophils # 8.3 (1.6-8.9) K/mcL BMP 01/01/19 05:26 Sodium 132 L Potassium 4.2 Chloride 91 L Carbon Dioxide 32 H BUN 72 H Creatinine 2.67 H Glucose 172 H Calcium 9.5 - ABG Interpretation ABG results: ABG ABG pH 7.43 pH Units (7.32-7.45) 12/29/18 05:28 ABG pCO2 52 mmHg (35-45) H 12/29/18 05:28 ABG pO2 105 mmHg (85-104) H 12/29/18 05:28 ABG O2 Saturation 98 % (95-98) 12/29/18 05:28 Consult Discharge Plan - Plan Referrals: Raul Mancilla [Primary Care Provider] -
--- NOTE | 2019-01-01 11:37 | Nephrology Consult Note ---
Date of Encounter: 01/01/19 Time of Encounter: 11:37 Assessment and Plan (1) Acute kidney failure Current Visit: Yes Status: Acute Patient with RAVIN that seems to be related to diuretic use. Agree with holding diuretics and giving small amount of fluid. Will give albumin as well. Work-up ordered. Qualifiers: Acute renal failure type: unspecified Qualified Code(s): N17.9 - Acute kidney failure, unspecified (2) CHF (congestive heart failure) Current Visit: Yes Status: Acute Per cardiology. Patient needs cardiac cath. Will start mucomyst. Hold diuretics until after cath unless needed for respiratory status. Qualifiers: Heart failure type: systolic Heart failure chronicity: acute on chronic Qualified Code(s): I50.23 - Acute on chronic systolic (congestive) heart failure (3) COPD (chronic obstructive pulmonary disease) Current Visit: Yes Status: Acute Qualifiers: COPD type: COPD with acute exacerbation Qualified Code(s): J44.1 - Chronic obstructive pulmonary disease with (acute) exacerbation (4) Diabetes Current Visit: Yes Status: Acute Qualifiers: Diabetes mellitus type: type 2 Diabetes mellitus fdc insulin use: without fdc use Diabetes mellitus complication status: without complication Qualified Code(s): E11.9 - Type 2 diabetes mellitus without complications (5) Elevated troponin Current Visit: Yes Status: Acute History of Present Illness - Reason for Consult Consult date: 01/01/19 Acute Kidney Injury - Chief Complaint RAVIN - History of Present Illness Mr. Valdez is a 63 yo man with a history of COPD who presents for the evaluation of dyspnea. He was treated for COPD, pneumonia and CHF. He received diuretics. [facility] was consulted for worsening renal function. At the time of evaluation he denies chest pain or dypsnea. Past Med Surg Social Fam HX - Past Medical History Medical history: CHF, COPD, diabetes Psychiatric history: schizophrenia - Past Surgical History Surgical History: no surgical history - Social History Smoking Status: Current every day smoker Alcohol use: occasionally Drug use: none Medications and Allergies Amlodipine Besylate/Benazepril [Lotrel 10-40 mg Capsule] 1 each PO DAILY 12/27/18 [History] Benztropine [Cogentin] 1 mg PO BID 12/27/18 [History] Carvedilol [Coreg] 6.25 mg PO HS 12/27/18 [History] Carvedilol [Coreg] 12.5 mg PO DAILY 12/27/18 [History] Metformin HCl 1,000 mg PO DAILY 12/27/18 [History] Metformin HCl 500 mg PO HS 12/27/18 [History] Potassium Chloride [Klor-Con 10] meq PO 12/27/18 [History] Simvastatin [Zocor] 20 mg PO HS 12/27/18 [History] risperiDONE [RisperDAL] 1.5 mg PO DAILY 12/27/18 [History] risperiDONE [RisperDAL] 3 mg PO HS 12/27/18 [History] Allergy/AdvReac Type Severity Reaction Status Date / Time No Known Allergies Allergy Verified 12/27/18 15:56 Review of Systems All Systems: reviewed and no additional remarkable complaints except as stated (as documented in the HPI.) Exam - Vital Signs Vital signs: Initial Vital Signs Temp Pulse Resp BP Pulse Ox 94.4 F L 71 23 127/71 100 12/27/18 08:49 12/27/18 08:49 12/27/18 08:49 12/27/18 08:49 12/27/18 08:49 Vital Signs - Last 8 Hours Temp Pulse Resp BP Pulse Ox 01/01/19 11:16 98.2 F 104 18 148/84 93 01/01/19 10:11 16 98 01/01/19 08:40 97 01/01/19 07:43 16 97 01/01/19 07:34 98.4 F 99 18 147/81 97 01/01/19 04:23 97.9 F 96 18 152/66 91 01/01/19 03:55 18 93 Intake and Output 12/31/18 01/01/19 01/01/19 23:59 07:59 15:59 Intake Total 110 / 110 Output Total 1000 / 1000 0 / 1000 Balance -890 / -890 0 / -890 Intake: Oral 110 / 110 Output: Urine 1000 / 1000 0 / 1000 Other: # Voids 1 Weight 92.3 kg Blood Glucose* 151 166 169 Patient Weight 01/01/19 23:59 Weight 92.3 kg - General Appearance General appearance: well-developed, well-nourished EENT: ATNC Neck: supple Respiratory: clear Cardiology: no edema, regular rate Gastrointestinal: no tenderness Integumentary: warm and dry Neurologic: alert and oriented x3 Musculoskeletal: no cyanosis Psychiatric: mood/affect appropriate Results - Lab Results 01/01/19 05:26 01/01/19 05:26 Most recent lab results 01/01/19 05:26 Calcium 9.5 Phosphorus 4.2 Magnesium 2.7 H Consult Discharge Plan - Plan Referrals: Raul Mancilla [Primary Care Provider] -
--- NOTE | 2019-01-01 12:40 | Electrocardiograph Report ---
[address] [address] Test Date: 2018-12-28 Pat Name: Christiano Valdez Department: 109 Room: 2A Gender: M [employer] Worker: : 1955 Requested By: Vivian Lane Order Number: [id number] Reading MD: Letty Ramirez Measurements Intervals [place] Rate: 80 P: 56 MO: 190 QRS: -74 QRSD: 165 T: 68 QT: 458 QTc: 495 Interpretive Statements SINUS RHYTHM WITH OCCASIONAL VENTRICULAR PREMATURE COMPLEXES RIGHT BUNDLE BRANCH BLOCK LEFT ANTERIOR FASCICULAR BLOCK Electronically Signed On 01-01-2019 12:38:33 EDT by Letty Ramirez
[2019-01-01] MEDS: Albumin 25% 25gram/100mL 25 GM/100 ML IV.SOLN IVPB SCH (16:29)
--- NOTE | 2019-01-01 16:31 | Electrocardiograph Report ---
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
[2019-01-02] MEDS: Albumin 25% 25gram/100mL 25 GM/100 ML IV.SOLN IVPB SCH ×4 (00:33→23:55)
[2019-01-02] MEDS: Ipratropium/Albuterol Neb 3 ML IH SCH ×6 (03:43→23:05)
[2019-01-02] MEDS: *HR* Heparin 5,000 UNIT/ML VIAL SQ SCH ×3 (05:24→22:46)
--- NOTE | 2019-01-02 05:29 | Event Note ---
Date of Encounter: 01/01/19 Time of Encounter: 22:32 Alerted by patient's nurse Anabel that patient had vomited brown foul-smelling emesis onto his gown. Patient was scheduled for kidney ultrasound. Nurse reported patient has not had a documented BM since admission on 12/27. Stat CT of the abdomen/pelvis without contrast due to patient's current renal dysfunction ordered. CT showed urinary bladder is markedly distended without filling defects causing some secondary impression upon the:. Colonic diverticulosis without diverticulitis. Atherosclerosis disease of the coronary arteries, aorta, and branches. Iliac artery aneurysms. Bilateral atelectasis. Consideration may be given to vascular consultation. Assess for bladder outlet obstruction. Retroperitoneal ultrasound showed small right renal cyst and nonobstructing calculus right kidney. No hydronephrosis or cortical thinning. Significantly distended urinary bladder without filling defects. Post void residual urine volume is not provided. Nurse bladder scan the patient after voiding 450 mL with bladder scan showing 1116 mL residual. Howard catheter ordered with do not remove order. Howard returned 1950 mL immediately. Pt. reports feeling better post-Howard. Nurse instructed to continue monitoring pt. very closely and alert me immediately of any adverse changes.
[2019-01-02 06:12] LABS: Bilirubin,Urine Negative (Negative); Blood,Urine Small (Negative); Clarity,Urine Clear (Clear); Color,Urine Yellow (Yellow); Glucose,Urine (UA) Normal (Normal); Ketones,Urine Negative (Negative); Leukocyte Esterase,Urine Negative (Negative); Nitrite,Urine Negative (Negative); Protein,Urine 100 mg/dL (Neg-Trace); Specific Gravity,Urine 1.006 (1.010-1.025); Urobilinogen,Urine Normal (Normal)
[2019-01-02 06:16] LABS: Bacteria,Urine None Seen per hpf (None-Few); Hyaline Casts,Urine None Seen per lpf (None-Few); Squamous Epithelial Cell,Urine Few per lpf (None-Few); WBC,Urine 0-3 per hpf (0-3)
[2019-01-02 06:19] LABS: Protein/Creatinine Ratio,Urine 2.96 mg/mg (0.00-0.20)
[2019-01-02 06:32] LABS: Basophils # 0.1 K/mcL (0.0-0.2); Basophils % 0.6 %; Eosinophils # 0.2 K/mcL (0.0-0.6); Eosinophils % 1.3 %; Hematocrit 37.4 % (37.5-50.1); Lymphocytes # 1.2 K/mcL (0.6-4.6); Lymphocytes % 9.7 %; Mean Corpuscular HGB Conc 32.1 g/dL (31.6-35.5); Mean Corpuscular Hemoglobin 28.6 pg (28.0-33.3); Mean Corpuscular Volume 89.3 fL (83.0-100.0); Mean Platelet Volume 9.2 fL (9.4-12.4); Monocytes # 1.5 K/mcL (0.0-1.3); Monocytes % 11.4 %; Neutrophils # 9.3 K/mcL (1.6-8.9); Platelet Count 293 K/mcL (140-400); Red Blood Count 4.19 M/mcL (4.19-5.50); Red Cell Distribution Width 13.8 % (11.5-14.5); White Blood Count 12.7 K/mcL (4.3-11.1)
[2019-01-02 06:56] LABS: Magnesium 2.7 mg/dL (1.6-2.6); Phosphorous 3.8 mg/dL (2.7-4.5); Potassium 3.9 mEq/L (3.5-5.1)
[2019-01-02] MEDS: Metoprolol XL (24 HR) Succ 25 MG TAB.ER.24H PO SCH (09:07)
[2019-01-02] MEDS: Aspirin 81 MG TAB.CHEW PO SCH (09:07)
[2019-01-02] MEDS: predniSONE 20 MG TABLET PO SCH (09:07)
[2019-01-02] MEDS: risperiDONE 1 MG TABLET PO SCH ×2 (09:07→22:45)
[2019-01-02] MEDS: *HR* Acetylcysteine 20% 600 MG/3 ML ORAL SYRINGE PO SCH ×2 (09:09→22:47)
[2019-01-02] MEDS: Insulin LISPRO 300 UNITS/3 ML VIAL SQ SCH ×4 (09:10→22:47)
--- NOTE | 2019-01-02 10:27 | Internal Med Progress Note ---
Hospitalist Progress Note - Encounter Date of Encounter: 01/02/19 Time of Encounter: 10:21 - Subjective Interval History: Patient seen and examined with family present at bedside. Patient resting in chair and states he feels better compared to previous night. Overnight patient reported of severe abdominal pain. CT abd/pelvis was done, and pt was noted to have a large post residual volume. Ruano catheter was placed with removal of >1000cc of urine. Pt states he immediately felt relief after ruano placement. Denies any abd pain, nausea, or vomiting at this time. Currently saturating well on nasal cannula. Participating with physical therapy. Ten point ROS is negative except as listed above PT eval recommending inpatient rehab, will obtain social work/case management eval for discharge disposition - Exam Vitals: Temp Pulse Resp BP Pulse Ox 98.5 F 98 17 179/94 99 01/02/19 07:26 01/02/19 07:26 01/02/19 07:26 01/02/19 07:26 01/02/19 07:26 Exam: General: No acute distress, AAO x 3 HEENT: EOMI, NC/AT, no scleral icterus Respiratory: Diminished breath sounds, no rales, no wheezing Cardiovascular: Regular, Rate, Rhythm, No murmurs GI: Soft, Non tender, non distended, normal bowel sounds Ext: No edema, no tenderness, positive pulses Neuro: no focal deficits Rest of the clinical exam is noncontributory - Summary of Assessment and Plan Summary of Assessment and Plan: Patient is a 63y/o male with PMH Of COPD on home oxygen, DM, CHF who was admitte d to the ICU on 12/27/18 for acute on chronic respiratory failure requiring intubation. He was successfully extubated on 12/29/18 and transferred to on 09/01/18. Assessment/Plan: 1. Acute on chronic respiratory failure with hypoxia likely secondary to COPD exacerbation, CHF exacerbation, and PNA Patient was successfully extubated on 12/29/18 continue Prednisone 40mg PO qdaily (day 2/5) currently on baseline Oxygen therapy continue IV levaquin (day 7/) Off diuretic therapy due to RAVIN, currently euvolemic continue bronchodilator support as needed will closely monitor respiratory status 2. Elevated Troponin/CHF exacerbation Cardiology follow up requested in regards to plans for [facility] during this hospital stay vs. as outpatient pt chest pain free at this time closely monitoring off diuretic therapy monitor daily weight strict I/Os, fluid restriction diet (1.5L/day) continue Aspirin, BB, statin therapy 3. RAVIN Unclear of patient's baseline renal function renal function improved from previous day will continue gentle IV fluid hydration with albumin supplementation as per nephrology Nephrology evaluation has been requested will closely monitor renal function off diuretic therapy avoid all nephrotoxic agents 4. Encephalopathy resolved mental status back to baseline 5. Diabetes Mellitus type II sliding scale insulin algorithm monitor FS and BG ADA diet 6. Hypertension will repeat BP after administration of morning medications (Metoprolol and Amlodipine) closely monitor BP will adjust antihypertensive medications as needed 7. Urinary retention continue ruano support pt will likely be discharged with indwelling ruano catheter with outpatient follow up with urology DVT ppx: heparin SQ hx of mood disorder: continue home medications Care plan discussed with patient/RN/Family/case management/pharmacist/consulting provider PT evaluation appreciated, inpatient rehab recommended - Time Spent with Patient Total time spent is greater than 50% in coordination of care (as documented) at patient's floor/unit and/or counseling patient: Internal Medicine: Result - Labs CBC & Chem 7: 01/02/19 06:16 01/02/19 06:16 Labs: Short CBC 01/02/19 Range/Units 06:16 WBC 12.7 H (4.3-11.1) K/mcL Hgb 12.0 L (12.9-16.9) g/dL Hct 37.4 L (37.5-50.1) % Plt Count 293 (140-400) K/mcL Neutrophils # 9.3 H (1.6-8.9) K/mcL BMP 01/02/19 06:16 Sodium 138 Potassium 3.9 Chloride 94 L Carbon Dioxide 33 H BUN 70 H Creatinine 2.29 H Glucose 147 H Calcium 10.0 Urine 01/02/19 Range/Units 05:51 Urine Color Yellow (Yellow) Urine Clarity Clear (Clear) Urine pH 7.0 (5.0-8.0) pH Units Ur Specific [place] 1.006 L (1.010-1.025) Urine Protein 100 H (Neg-Trace) mg/dL Urine Glucose (UA) Normal (Normal) mg/dL - ABG Interpretation ABG results: ABG ABG pH 7.43 pH Units (7.32-7.45) 12/29/18 05:28 ABG pCO2 52 mmHg (35-45) H 12/29/18 05:28 ABG pO2 105 mmHg (85-104) H 12/29/18 05:28 ABG O2 Saturation 98 % (95-98) 12/29/18 05:28 - Impressions Impressions Retroperitoneum Ultrasound 01/01/19 21:36 IMPRESSION: Small right renal cyst and nonobstructing calculus right kidney. No hydronephrosis or cortical thinning. Significantly distended urinary bladder without filling defects. Postvoid residual urine volume is not provided. D/ / Kat Tavera MD / Kat Tavera MD Interpreting Provider: Kat Tavera MD Abdomen/Pelvis CT 01/01/19 22:42 dilated and causes some secondary impression upon the colon. No intraluminal masses are noted within the bladder. No free pelvic fluid, pelvic or inguinal adenopathy is noted. Both inguinal rings are dilated and fat containing without strangulation. Shotty inguinal lymph nodes are present. Peritoneum/Retroperitoneum: Aorta and branches are moderately calcified. Renal arteries show evidence of calcification. No aortic aneurysm is noted. Bilateral iliac artery aneurysms are present extending to the bifurcation. Aneurysm on the right is 2.3 cm on the left 2.1. No retroperitoneal mass, retroperitoneal or mesenteric adenopathy is seen. Bones/Soft Tissues: Degenerative changes are present. No acute osseous or soft tissue abnormality. Estimated biologic radiation dose for this procedure:16 10 mGy/cm2. IMPRESSION: 1. The urinary bladder is markedly distended without filling defects causing some secondary impression upon the colon. 2. Colonic diverticulosis without diverticulitis. 3. Atherosclerotic disease of the coronary arteries, aorta and branches. 4. Iliac artery aneurysms. 5. Bilateral atelectasis. Other findings as above. RECOMMENDATIONS: Consideration may be given to vascular consultation. Assess for bladder outlet obstruction. D/ / Kat Tavera MD / Kat Tavera MD Interpreting Provider: Kat Tavera MD Consult Discharge Plan - Plan Referrals: Raul Mancilla [Primary Care Provider] -
[2019-01-02] MEDS: Levofloxacin 750 MG/150 ML 750 MG/150 ML BAG IVPB SCH (10:55)
--- NOTE | 2019-01-02 11:29 | Event Note ---
Date of Encounter: 01/02/19 Time of Encounter: 11:26 - Cardiology Event Note Reconsulted to evaluate pt for ischemic evaluation/timing. Troponin peak 0.76 in the setting of respiratory failure. Type I vs type II mi in the setting of COPD exacerbation and CHF. EKG shows RBBB, LAFB, LVH. One serial EKG with ST changes may represent ischemia. TTE shows mildly reduced EF. LVEF 45%. Mild LVDD. Moderate cLVH. Normal RV structure and function. Moderately dilated left atrium. Mild TR. No phtn. Creatinine is 2.29, unclear what his baseline is, but currently thought to have RAVIN r/t diuretic use. Reviewed hospital course. Nephrology was just consulted yesterday with renal work-up pending. Will need nephrology input after their work-up is completed on whether this is felt to be RAVIN or CKD before we expose the pt to contrast for LHC. Discussed and reviewed with Dr. Ramirez. Please reconsult once renal work-up is completed.
[2019-01-02] MEDS: amLODIPine 5 MG TABLET PO SCH (11:38)
--- NOTE | 2019-01-02 21:56 | Nephrology Progress Note ---
Date of Encounter: 01/02/19 Time of Encounter: 21:53 - Assessment and Plan (1) Acute kidney failure Current Visit: Yes Status: Acute Patient with RAVIN that seems to be related to diuretic use. Agree with holding diuretics and giving fluid. Will give albumin as well. Renal function improved overnight. Baseline renal function unknown. Secondary to proteinuria I expanded his renal work-up. Avoid nephrotoxins. Adjust medications for renal function. In anticipation of possible cardiac cath mucomyst has been ordered. Qualifiers: Acute renal failure type: unspecified Qualified Code(s): N17.9 - Acute kidney failure, unspecified (2) CHF (congestive heart failure) Current Visit: Yes Status: Acute Qualifiers: Heart failure type: systolic Heart failure chronicity: acute on chronic Qualified Code(s): I50.23 - Acute on chronic systolic (congestive) heart failure (3) COPD (chronic obstructive pulmonary disease) Current Visit: Yes Status: Acute Qualifiers: COPD type: COPD with acute exacerbation Qualified Code(s): J44.1 - Chronic obstructive pulmonary disease with (acute) exacerbation (4) Diabetes Current Visit: Yes Status: Acute Qualifiers: Diabetes mellitus type: type 2 Diabetes mellitus long-term insulin use: without long-term use Diabetes mellitus complication status: without complication Qualified Code(s): E11.9 - Type 2 diabetes mellitus without complications (5) Elevated troponin Current Visit: Yes Status: Acute Subjective Principal diagnosis: Acute respiratory failure Interval history: Patient seen. No new complaint. ROS overall stable. Objective - Vital Signs Vital signs: Vital Signs Temp Pulse Resp BP Pulse Ox 01/02/19 20:23 97.9 F 102 17 161/83 90 01/02/19 19:43 20 89 01/02/19 16:05 16 94 01/02/19 15:34 97.8 F 100 16 149/88 96 01/02/19 11:14 98.0 F 93 17 180/81 100 01/02/19 11:04 16 96 01/02/19 07:26 98.5 F 98 17 179/94 99 01/02/19 07:16 16 93 01/02/19 04:20 97.8 F 101 17 174/83 91 01/02/19 03:43 18 91 01/02/19 00:13 98.1 F 98 17 162/93 95 01/01/19 23:32 17 93 Intake and Output 01/02/19 01/02/19 01/02/19 07:59 15:59 23:59 Intake Total 1428 / 1428 Output Total 3650 / 5850 1300 / 5850 900 / 5850 Balance -3650 / -4422 128 / -4422 -900 / -4422 Intake: IV Fluids 1188 / 1188 0.45% Sodium Chloride 1000 Ml 188 / 188 1000 Ml 500 ML @ 75 mls/hr IVC .Q6H40M [facility] Rx#:[id number] 0.9 % Sodium Chloride 500 ML @ 500 / 500 75 mls/hr IVC .Q6H40M [facility] Rx#: [id number] Flexbumin 25 gm In 100 ml @ 60 200 / 200 mls/hr IVPB Q8HR [facility] Rx#: [id number] Levaquin Premix 750mg/150 mL 300 / 300 750 mg In 150 ml @ 100 mls/hr IVPB Q48H PAP[facility] Rx#:[id number] Oral 240 / 240 Output: Urine 450 / 450 Catheter 3200 / 5400 1300 / 5400 900 / 5400 Urethral (Howard) 1950 / 1950 Other: Meal Breakfast Percent of Meal Consumed 20% Weight 92.3 kg Blood Glucose* 144 198 221 Patient Weight 01/02/19 23:59 Weight 92.3 kg - General Appearance General appearance: Present: well-developed, well-nourished EENT: Present: ATNC Neck: Present: supple Additional Comments: tachycardic Integumentary: Present: warm and dry Neurologic: Present: alert and oriented x3 Psychiatric: Present: mood/affect appropriate - Lab 01/02/19 06:16 01/02/19 06:16 Consult Discharge Plan - Plan Referrals: Raul Mancilla [Primary Care Provider] -
[2019-01-02] MEDS ORDERED: 0.9 % Sodium Chloride 1,000 ML IVC SCH (22:00)
[2019-01-03] MEDS: Ipratropium/Albuterol Neb 3 ML IH SCH ×6 (03:46→23:15)
[2019-01-03] MEDS: *HR* Heparin 5,000 UNIT/ML VIAL SQ SCH ×3 (06:30→22:58)
[2019-01-03 07:42] LABS: Basophils # 0.1 K/mcL (0.0-0.2); Basophils % 0.6 %; Eosinophils # 0.2 K/mcL (0.0-0.6); Eosinophils % 1.4 %; Hematocrit 36.1 % (37.5-50.1); Hemoglobin 11.5 g/dL (12.9-16.9); Immature Granulocytes % 5.4 % (0-4); Lymphocytes # 1.1 K/mcL (0.6-4.6); Lymphocytes % 10.5 %; Magnesium 2.4 mg/dL (1.6-2.6); Mean Corpuscular HGB Conc 31.9 g/dL (31.6-35.5); Mean Corpuscular Volume 90.9 fL (83.0-100.0); Mean Platelet Volume 9.3 fL (9.4-12.4); Monocytes # 1.4 K/mcL (0.0-1.3); Monocytes % 12.9 %; Neutrophils # 7.5 K/mcL (1.6-8.9); Phosphorous 3.7 mg/dL (2.7-4.5); Platelet Count 276 K/mcL (140-400); Potassium 3.8 mEq/L (3.5-5.1); Red Blood Count 3.97 M/mcL (4.19-5.50); Red Cell Distribution Width 13.8 % (11.5-14.5); Segmented Neutrophils % 69.2 %; White Blood Count 10.8 K/mcL (4.3-11.1)
[2019-01-03] MEDS: Insulin LISPRO 300 UNITS/3 ML VIAL SQ SCH ×4 (08:19→22:58)
[2019-01-03] MEDS: Albumin 25% 25gram/100mL 25 GM/100 ML IV.SOLN IVPB SCH (08:20)
[2019-01-03] MEDS: Aspirin 81 MG TAB.CHEW PO SCH (08:21)
[2019-01-03] MEDS: predniSONE 20 MG TABLET PO SCH (08:21)
[2019-01-03] MEDS: *HR* Acetylcysteine 20% 600 MG/3 ML ORAL SYRINGE PO SCH ×2 (08:21→20:29)
[2019-01-03] MEDS: amLODIPine 5 MG TABLET PO SCH (08:21)
[2019-01-03] MEDS: Metoprolol XL (24 HR) Succ 25 MG TAB.ER.24H PO SCH (08:21)
[2019-01-03] MEDS: risperiDONE 1 MG TABLET PO SCH ×2 (08:21→20:28)
[2019-01-03 09:10] LABS: Complement C3 88 mg/dL (87-200)
--- NOTE | 2019-01-03 11:25 | Internal Med Progress Note ---
Hospitalist Progress Note - Encounter Date of Encounter: 01/03/19 Time of Encounter: 11:19 - Subjective Interval History: Pt seen and examined earlier this morning with RN present at bedside. Pt sitting in chair, reports of sleeping through the night. No chest pain or shortness of breath reported. Ten point ROS is negative except as listed above No cardiac intervention at this time until renal clearance is obtained PT eval recommended SNF, case management on board for placement. - Exam Vitals: Temp Pulse Resp BP Pulse Ox 97.8 F 83 18 170/83 90 01/03/19 07:41 01/03/19 07:41 01/03/19 07:41 01/03/19 07:41 01/03/19 07:41 Exam: General: No acute distress, AAO x 3 HEENT: EOMI, NC/AT, no scleral icterus Respiratory: Equal air entry bilaterally, no rales, no wheezing Cardiovascular: Regular, Rate, Rhythm, No murmurs GI: Soft, Non tender, non distended, normal bowel sounds Ext: No edema, no tenderness, positive pulses Neuro: no focal deficits Rest of the clinical exam is noncontributory - Summary of Assessment and Plan Summary of Assessment and Plan: Patient is a 63y/o male with PMH Of COPD on home oxygen, DM, CHF who was admitted to the ICU on 12/27/18 for acute on chronic respiratory failure requiring intubation. He was successfully extubated on 12/29/18 and transferred to on 09/01/18. Assessment/Plan: 1. Acute on chronic respiratory failure with hypoxia likely secondary to COPD exacerbation, CHF exacerbation, and PNA Patient was successfully extubated on 12/29/18 continue Prednisone 40mg PO qdaily (day 3/5) currently on baseline Oxygen therapy Finsihed 7 days of levaquin therapy on 01/02/19 Off diuretic therapy due to RAVIN, currently euvolemic continue bronchodilator support as needed will closely monitor respiratory status 2. Elevated Troponin/CHF exacerbation Cardiology evaluation noted, no intervention recommended at this time pt chest pain free at this time closely monitoring off diuretic therapy monitor daily weight strict I/Os, fluid restriction diet (1.5L/day) continue Aspirin, BB, statin therapy 3. RAVIN Unclear of patient's baseline renal function renal function improved from previous day will continue gentle IV fluid hydration with albumin supplementation as per nephrology Nephrology evaluation appreciated will closely monitor renal function off diuretic therapy avoid all nephrotoxic agents 4. Encephalopathy resolved mental status back to baseline 5. Diabetes Mellitus type II sliding scale insulin algorithm monitor FS and BG ADA diet 6. Hypertension will repeat BP after administration of morning medications (Metoprolol and Amlodipine) closely monitor BP will adjust antihypertensive medications as needed 7. Urinary retention continue ruano support pt will likely be discharged with indwelling ruano catheter with outpatient follow up with urology DVT ppx: heparin SQ hx of mood disorder: continue home medications Care plan discussed with patient/RN/case management/pharmacist/consulting provider PT evaluation appreciated, inpatient rehab recommended - Time Spent with Patient Total time spent is greater than 50% in coordination of care (as documented) at patient's floor/unit and/or counseling patient: Internal Medicine: Result - Labs CBC & Chem 7: 01/03/19 07:00 01/03/19 07:00 Labs: Short CBC 01/03/19 Range/Units 07:00 WBC 10.8 (4.3-11.1) K/mcL Hgb 11.5 L (12.9-16.9) g/dL Hct 36.1 L (37.5-50.1) % Plt Count 276 (140-400) K/mcL Neutrophils # 7.5 (1.6-8.9) K/mcL BMP 01/03/19 07:00 Sodium 141 Potassium 3.8 Chloride 96 L Carbon Dioxide 32 H BUN 57 H Creatinine 1.96 H Glucose 118 H Calcium 10.0 - ABG Interpretation ABG results: ABG ABG pH 7.43 pH Units (7.32-7.45) 12/29/18 05:28 ABG pCO2 52 mmHg (35-45) H 12/29/18 05:28 ABG pO2 105 mmHg (85-104) H 12/29/18 05:28 ABG O2 Saturation 98 % (95-98) 12/29/18 05:28 Consult Discharge Plan - Plan Referrals: Raul Mancilla [Primary Care Provider] -
--- NOTE | 2019-01-03 20:58 | Nephrology Progress Note ---
Date of Encounter: 01/03/19 Time of Encounter: 20:55 - Assessment and Plan (1) Acute kidney failure Current Visit: Yes Status: Acute Patient with RAVIN that seems to be related to diuretic use. Agree with holding diuretics and giving fluid. Will give albumin as well. Renal function improved overnight. Baseline renal function unknown. Secondary to proteinuria I expanded his renal work-up. Avoid nephrotoxins. Adjust medications for renal function. In anticipation of possible cardiac cath mucomyst has been ordered. 01/03/2019 Patient renal function is improving. He is developing rales so MIV has been discontinued. Will request records from PCP to establish his baseline renal function. Qualifiers: Acute renal failure type: unspecified Qualified Code(s): N17.9 - Acute kidney failure, unspecified (2) CHF (congestive heart failure) Current Visit: Yes Status: Acute Per cardiology. Patient needs cardiac cath. Will start mucomyst. Hold diuretics until after cath unless needed for respiratory status. Qualifiers: Heart failure type: systolic Heart failure chronicity: acute on chronic Qualified Code(s): I50.23 - Acute on chronic systolic (congestive) heart failure (3) COPD (chronic obstructive pulmonary disease) Current Visit: Yes Status: Acute Qualifiers: COPD type: COPD with acute exacerbation Qualified Code(s): J44.1 - Chronic obstructive pulmonary disease with (acute) exacerbation (4) Diabetes Current Visit: Yes Status: Acute Qualifiers: Diabetes mellitus type: type 2 Diabetes mellitus nursing home insulin use: without wheel assembler use Diabetes mellitus complication status: without complication Qualified Code(s): E11.9 - Type 2 diabetes mellitus without complications (5) Elevated troponin Current Visit: Yes Status: Acute Subjective Principal diagnosis: Acute respiratory failure Interval history: Patient seen. No new complaint. ROS overall stable. No chest pain or dyspnea. Objective - Vital Signs Vital signs: Vital Signs Temp Pulse Resp BP Pulse Ox 01/03/19 19:41 20 93 01/03/19 16:51 97.9 F 87 18 172/86 91 01/03/19 15:35 18 94 01/03/19 11:45 97.6 F 96 18 159/74 94 01/03/19 11:26 16 92 01/03/19 07:41 97.8 F 83 18 170/83 90 01/03/19 07:25 18 87 01/03/19 04:20 98.2 F 91 18 178/90 90 01/03/19 04:12 16 95 01/03/19 00:38 98.1 F 90 17 142/73 95 01/02/19 23:05 16 94 Intake and Output 01/03/19 01/03/19 01/03/19 07:59 15:59 23:59 Intake Total 100 / 1920 1580 / 1920 240 / 1920 Output Total 1230 / 2330 700 / 2330 400 / 2330 Balance -1130 / -410 880 / -410 -160 / -410 Intake: IV Fluids 100 / 1200 1100 / 1200 0.9 % Sodium Chloride 1,000 ML 1000 / 1000 @ 100 mls/hr IVC .Q10H [facility] Rx#: [id number] Flexbumin 25 gm In 100 ml @ 60 100 / 200 100 / 200 mls/hr IVPB Q8HR PAP[facility] Rx#: [id number] Oral 480 / 720 240 / 720 Output: Urine 700 / 700 Catheter 1230 / 1630 400 / 1630 Other: Meal Lunch Percent of Meal Consumed 90% # Bowel Movements 0 Blood Glucose* 118 286 192 - General Appearance General appearance: Present: well-developed, well-nourished EENT: Present: ATNC Neck: Present: supple Respiratory: Present: rales Cardiology: Present: regular rate Integumentary: Present: warm and dry Neurologic: Present: alert and oriented x3 Psychiatric: Present: mood/affect appropriate - Lab 01/03/19 07:00 01/03/19 07:00 Consult Discharge Plan - Plan Referrals: Raul Mancilla [Primary Care Provider] -
[2019-01-04] MEDS: Ipratropium/Albuterol Neb 3 ML IH SCH ×6 (03:39→23:34)
[2019-01-04 04:08] LABS: Basophils # 0.1 K/mcL (0.0-0.2); Basophils % 0.5 %; Eosinophils # 0.1 K/mcL (0.0-0.6); Hematocrit 33.4 % (37.5-50.1); Hemoglobin 10.9 g/dL (12.9-16.9); Immature Granulocytes % 4.3 % (0-4); Lymphocytes # 1.2 K/mcL (0.6-4.6); Lymphocytes % 10.7 %; Mean Corpuscular HGB Conc 32.6 g/dL (31.6-35.5); Mean Corpuscular Hemoglobin 29.2 pg (28.0-33.3); Mean Corpuscular Volume 89.5 fL (83.0-100.0); Mean Platelet Volume 9.5 fL (9.4-12.4); Monocytes # 1.6 K/mcL (0.0-1.3); Platelet Count 255 K/mcL (140-400); Red Blood Count 3.73 M/mcL (4.19-5.50); Red Cell Distribution Width 13.8 % (11.5-14.5); Segmented Neutrophils % 69.5 %; White Blood Count 11.5 K/mcL (4.3-11.1)
[2019-01-04 04:25] LABS: Calcium 9.4 mg/dL (8.6-10.3); Magnesium 2.2 mg/dL (1.6-2.6); Phosphorous 2.7 mg/dL (2.7-4.5); Potassium 3.8 mEq/L (3.5-5.1)
[2019-01-04] MEDS: *HR* Heparin 5,000 UNIT/ML VIAL SQ SCH ×3 (06:19→22:14)
[2019-01-04] MEDS: predniSONE 20 MG TABLET PO SCH (08:52)
[2019-01-04] MEDS: Aspirin 81 MG TAB.CHEW PO SCH (08:52)
[2019-01-04] MEDS: amLODIPine 5 MG TABLET PO SCH (08:53)
[2019-01-04] MEDS: risperiDONE 1 MG TABLET PO SCH ×2 (08:53→22:13)
[2019-01-04] MEDS: Metoprolol XL (24 HR) Succ 25 MG TAB.ER.24H PO SCH (08:53)
[2019-01-04] MEDS: *HR* Acetylcysteine 20% 600 MG/3 ML ORAL SYRINGE PO SCH ×2 (08:53→22:14)
[2019-01-04] MEDS: Insulin LISPRO 300 UNITS/3 ML VIAL SQ SCH ×4 (08:54→23:18)
--- NOTE | 2019-01-04 10:06 | Internal Med Progress Note ---
Hospitalist Progress Note - Encounter Date of Encounter: 01/04/19 Time of Encounter: 10:03 - Subjective Interval History: Patient seen and examined with family and RN present at bedside. Patient resting in bed and states he is constipated but denies any abdominal pain/nausea/vomiting at this time. Awaiting records from patient's primary PCP for his baseline renal function. Will f/u with nephrology in regards to proceeding with [facility] during this hospitalization. If nephrology clearance is obtained, will reconsult cardiology. Family in agreement with the plan. If not cardiac intervention during this hospitalization, tentative d/c in am based on renal function. Ten point ROS is negative except as listed above. - Exam Vitals: Temp Pulse Resp BP Pulse Ox 97.7 F 92 22 153/84 93 01/04/19 07:46 01/04/19 07:46 01/04/19 07:46 01/04/19 07:46 01/04/19 07:46 Exam: General: No acute distress, AAO x 3 HEENT: EOMI, NC/AT, no scleral icterus Respiratory: Equal air entry bilaterally, no rales, no wheezing Cardiovascular: Regular, Rate, Rhythm, No murmurs GI: Soft, Non tender, non distended, normal bowel sounds Ext: No edema, no tenderness, positive pulses Neuro: no focal deficits Rest of the clinical exam is noncontributory - Summary of Assessment and Plan Summary of Assessment and Plan: Patient is a 63y/o male with PMH Of COPD on home oxygen, DM, CHF who was admitted to the ICU on 12/27/18 for acute on chronic respiratory failure requiring intubation. He was successfully extubated on 12/29/18 and transferred to on 09/01/18. Assessment/Plan: 1. Acute on chronic respiratory failure with hypoxia likely secondary to COPD exacerbation, CHF exacerbation, and PNA Patient was successfully extubated on 12/29/18 continue Prednisone 40mg PO qdaily (day 4/5) currently on baseline Oxygen therapy Finsihed 7 days of levaquin therapy on 01/02/19 Off diuretic therapy due to RAVIN, currently euvolemic continue bronchodilator support as needed will closely monitor respiratory status 2. Elevated Troponin/CHF exacerbation Cardiology evaluation noted, no intervention recommended at this time pt chest pain free at this time closely monitoring off diuretic therapy monitor daily weight strict I/Os, fluid restriction diet (1.5L/day) continue Aspirin, BB, statin therapy 3. RAVIN Unclear of patient's baseline renal function awaiting records from PCP Nephrology evaluation appreciated will closely monitor renal function off diuretic therapy avoid all nephrotoxic agents 4. Encephalopathy resolved mental status back to baseline 5. Diabetes Mellitus type II sliding scale insulin algorithm monitor FS and BG ADA diet 6. Hypertension Continue Metoprolol and Amlodipine closely monitor BP will adjust antihypertensive medications as needed 7. Urinary retention continue ruano support pt will likely be discharged with indwelling ruano catheter with outpatient follow up with urology DVT ppx: heparin SQ hx of mood disorder: continue home medications Care plan discussed with patient/RN/case management/pharmacist/consulting provider PT evaluation appreciated, inpatient rehab recommended - Time Spent with Patient Total time spent is greater than 50% in coordination of care (as documented) at patient's floor/unit and/or counseling patient: Internal Medicine: Result - Labs CBC & Chem 7: 01/04/19 03:24 01/04/19 03:24 Labs: Short CBC 01/04/19 Range/Units 03:24 WBC 11.5 H (4.3-11.1) K/mcL Hgb 10.9 L (12.9-16.9) g/dL Hct 33.4 L (37.5-50.1) % Plt Count 255 (140-400) K/mcL Neutrophils # 8.0 (1.6-8.9) K/mcL BMP 01/04/19 03:24 Sodium 138 Potassium 3.8 Chloride 97 L Carbon Dioxide 29 BUN 56 H Creatinine 1.99 H Glucose 135 H Calcium 9.4 - ABG Interpretation ABG results: ABG ABG pH 7.43 pH Units (7.32-7.45) 12/29/18 05:28 ABG pCO2 52 mmHg (35-45) H 12/29/18 05:28 ABG pO2 105 mmHg (85-104) H 12/29/18 05:28 ABG O2 Saturation 98 % (95-98) 12/29/18 05:28 - Impressions Impressions Abdomen/Pelvis CT 01/03/19 22:44 IMPRESSION: 1. No acute abnormality in the abdomen/pelvis. No bowel obstruction. 2. Diverticulosis. No diverticulitis. 3. Nonobstructive nephrolithiasis. D/ / 01/04/2019 07:59:35 Marcos Mijares MD / agnes Interpreting Provider: Marcos Mijares MD Consult Discharge Plan - Plan Referrals: Raul Mancilla [Primary Care Provider] -
[2019-01-04] MEDS: Sennosides/Docusate Sodium TABLET PO SCH ×2 (11:11→22:14)
--- NOTE | 2019-01-04 21:11 | Nephrology Progress Note ---
Date of Encounter: 01/04/19 Time of Encounter: 12:00 - Assessment and Plan (1) Elevated troponin Status: Acute Per cardiology. Await [facility] with mucomyst started (2) COPD (chronic obstructive pulmonary disease) Status: Acute Per primary Qualifiers: COPD type: COPD with acute exacerbation Qualified Code(s): J44.1 - Chronic obstructive pulmonary disease with (acute) exacerbation (3) Acute kidney failure Status: Acute SCr about the same at 1.99, GFR 34, stable. Workup so far shows subnephrotic proteinuria Electropheresis not yet done. AILEEN and ANCA also pending RF and complements WNL US of kidney showe no hydronephrosis but small right renal cysts and nonobs calculus noted and distended bladder UOP noted great at 2280cc in the past 24hrs Continue avoid nephrotoxins if possible. Pt already aware of riskc/benefits for iv contrast exposure if [facility] indicated Qualifiers: Acute renal failure type: unspecified Qualified Code(s): N17.9 - Acute kidney failure, unspecified (4) CHF (congestive heart failure) Status: Acute Resolved after significant diuresis the last 2 days. Continue strict I/Os Cotninue fluid restriction Qualifiers: Heart failure type: systolic Heart failure chronicity: acute on chronic Qualified Code(s): I50.23 - Acute on chronic systolic (congestive) heart failure Subjective Principal diagnosis: Acute respiratory failure Interval history: Interim events noted; pt admitted with elevated SCr in the setting of elevated troponin, CHF/COPD exacerbation with baseline unknown. Pt seen and examined feeling better. Objective - Vital Signs Vital signs: Vital Signs Temp Pulse Resp BP Pulse Ox 01/04/19 21:00 98.4 F 89 17 161/81 95 01/04/19 19:40 19 94 01/04/19 17:20 98.4 F 86 18 151/80 93 01/04/19 15:26 18 93 01/04/19 12:00 98.1 F 92 20 170/85 92 01/04/19 11:19 16 94 01/04/19 07:46 97.7 F 92 22 153/84 93 01/04/19 07:28 16 93 01/04/19 04:23 98.3 F 83 17 159/76 93 01/04/19 03:39 17 92 01/03/19 23:16 18 95 01/03/19 21:23 99.1 F 98 17 173/91 94 Intake and Output 01/04/19 01/04/19 01/04/19 07:59 15:59 23:59 Intake Total 600 / 840 240 / 840 Output Total 575 / 1475 900 / 1475 Balance -575 / -635 -300 / -635 240 / -635 Intake: Oral 600 / 840 240 / 840 Output: Urine 900 / 900 Catheter 575 / 575 Other: Meal Lunch Dinner Percent of Meal Consumed 50% 100% Blood Glucose* 138 243 140 - General Appearance General appearance: Present: chronically ill (NAD) EENT: Present: ATNC, mucous membranes moist Neck: Present: no JVD, supple Respiratory: Present: clear Cardiology: Present: no edema, normal S1, normal S2 Gastrointestinal: Present: no tenderness, no guarding Integumentary: Present: warm and dry Neurologic: Present: no focal deficit Musculoskeletal: Present: no deformities Psychiatric: Present: mood/affect appropriate, cooperative - Lab 01/05/19 02:04 01/05/19 02:04 Consult Discharge Plan - Plan Additional Instructions: 1. Please follow up with your primary care physician and entry level chemist within five days after your discharge from the hospital 2. Please follow up with nephrology within one to two weeks after your discharge from the hospital. 3. Please follow up with urology within one week after your discharge from the hospital. 4. Your home medications have been changed as follows: -Amlodipine/Benazapril has been discontinued -Amlodipine 5mg once a day is added -Carvedilol is discontinued -Metoprolol 50mg once a day is added -Simvastatin is discontinued and Atorvastatin is added -Lasix 20mg once a day as needed for swelling/edema is added 5. Please ask your entry level chemist about your lasix dose. 6. Resume all other home medications as prescribed by your primary care physician. 7. Please seek medical help immediately if you have difficulty breathing or if chest pain occurs. Referrals: Raul Mancilla [Primary Care Provider] - Prescriptions: Furosemide [Lasix] 20 mg PO DAILY PRN #30 tablet PRN Reason: edema/swelling
[2019-01-05 02:36] LABS: Basophils % 0.4 %; Eosinophils # 0.1 K/mcL (0.0-0.6); Eosinophils % 0.7 %; Hematocrit 32.9 % (37.5-50.1); Hemoglobin 10.8 g/dL (12.9-16.9); Immature Granulocytes % 3.7 % (0-4); Lymphocytes # 1.1 K/mcL (0.6-4.6); Lymphocytes % 10.2 %; Mean Corpuscular HGB Conc 32.8 g/dL (31.6-35.5); Mean Corpuscular Hemoglobin 29.3 pg (28.0-33.3); Mean Corpuscular Volume 89.2 fL (83.0-100.0); Mean Platelet Volume 9.6 fL (9.4-12.4); Monocytes # 1.3 K/mcL (0.0-1.3); Monocytes % 11.5 %; Neutrophils # 8.1 K/mcL (1.6-8.9); Platelet Count 242 K/mcL (140-400); Red Blood Count 3.69 M/mcL (4.19-5.50); Red Cell Distribution Width 13.7 % (11.5-14.5); Segmented Neutrophils % 73.5 %; White Blood Count 11.1 K/mcL (4.3-11.1)
[2019-01-05 02:52] LABS: Calcium 9.2 mg/dL (8.6-10.3); Magnesium 2.1 mg/dL (1.6-2.6); Phosphorous 3.3 mg/dL (2.7-4.5); Potassium 3.8 mEq/L (3.5-5.1)
[2019-01-05] MEDS: Ipratropium/Albuterol Neb 3 ML IH SCH ×3 (03:26→11:06)
[2019-01-05] MEDS: *HR* Heparin 5,000 UNIT/ML VIAL SQ SCH (06:22)
[2019-01-05] MEDS: Insulin LISPRO 300 UNITS/3 ML VIAL SQ SCH ×2 (07:48→12:13)
[2019-01-05] MEDS: Aspirin 81 MG TAB.CHEW PO SCH (09:15)
[2019-01-05] MEDS: risperiDONE 1 MG TABLET PO SCH (09:15)
[2019-01-05] MEDS: Sennosides/Docusate Sodium TABLET PO SCH (09:15)
[2019-01-05] MEDS: amLODIPine 5 MG TABLET PO SCH (09:16)
[2019-01-05] MEDS: Metoprolol XL (24 HR) Succ 25 MG TAB.ER.24H PO SCH (09:16)
[2019-01-05] MEDS: predniSONE 20 MG TABLET PO SCH (09:16)
--- NOTE | 2019-01-05 11:10 | Cardiology Progress Note ---
Date of Encounter: 01/05/19 Time of Encounter: 11:08 Assessment and Plan (1) Elevated troponin Current Visit: Yes Status: Acute Troponin elevation at 0.30, 0.38, 0.73 in the setting of respiratory failure. Type I vs type II mi in the setting of COPD exacerbation and CHF. EKG shows RBBB, LAFB, LVH. One serial EKG with ST changes may represent ischemia. TTE shows mildly reduced EF. LVEF 45%. Mild LVDD. Moderate cLVH. Normal RV. Moderately dilated LA. Mild TR. No evidence of phtn. Continue ASA, Statin, BB. Will increase BB. 3 beat NSVT on tele. Pt denies chest pain prior to or during admission. Renal function stable--creatinine 1.90. Discussed with pt inpt vs outpt LHC. R/B/A discussed. He would prefer outpt follow-up and evaluation, which is reasonable given his CKD and chest pain free. EF only mildly reduced. Cardiology signing off. Reconsult PRN. Will coordinate outpt follow-up 1-2 weeks. (2) Acute respiratory failure Current Visit: Yes Status: Acute Secondary to COPD and CHF exacerbation. CXR showed pulmonary edema on admit. Patient now with NC. Currently euvolemic. Qualifiers: Respiratory failure complication: hypoxia and hypercapnia Qualified Code(s): J96.01 - Acute respiratory failure with hypoxia; J96.02 - Acute respiratory failure with hypercapnia (3) CHF (congestive heart failure) Current Visit: Yes Status: Acute Acute CHF on admission. Family reported history of CHF but patient denies. TTE this admission shows EF 45% with mild global dysfunction. No prior cardiac work- up. Now euvolemic on exam. Strict I&O and daily weights. Continue bb. No aceI due to renal function. Qualifiers: Heart failure type: systolic Heart failure chronicity: acute on chronic Qualified Code(s): I50.23 - Acute on chronic systolic (congestive) heart failure Discussion w patient/family: The assessment and plan as outlined above was discussed with the patient and/or family members who expressed understanding and agreement. All questions were answered. Thank you for involving us in the care of your patient. Please call with any questions. I will discuss all the above with Dr. Ferreira and make changes as necessary. Subjective Principal diagnosis: Acute respiratory failure Interval history: Reconsulted to determine LHC timing. Pt denies chest pain. No acute complaints. Objective Vital Signs, Last 4 Hours Temp Pulse Resp BP Pulse Ox 01/05/19 07:41 16 93 01/05/19 07:38 98.0 F 81 18 157/77 93 Vital Signs Temp Pulse Resp BP Pulse Ox 01/05/19 07:41 16 93 01/05/19 07:38 98.0 F 81 18 157/77 93 01/05/19 04:54 98.5 F 84 17 143/78 96 01/05/19 03:27 16 92 01/05/19 00:20 98.7 F 80 17 155/80 95 01/04/19 23:35 18 97 01/04/19 22:48 95 01/04/19 21:00 98.4 F 89 17 161/81 95 01/04/19 19:40 19 94 01/04/19 17:20 98.4 F 86 18 151/80 93 01/04/19 15:26 18 93 01/04/19 12:00 98.1 F 92 20 170/85 92 01/04/19 11:19 16 94 Intake and Output 01/04/19 01/05/19 01/05/19 23:59 07:59 15:59 Intake Total 480 / 1080 120 / 120 Output Total 1100 / 2575 500 / 500 Balance -620 / -1495 -500 / -380 120 / -380 Intake: Oral 480 / 1080 120 / 120 Output: Catheter 1100 / 1675 500 / 500 Urethral (Howard) 500 / 500 Other: Meal Dinner Breakfast Percent of Meal Consumed 100% 60% Weight 92.5 kg Blood Glucose* 140 133 Patient Weight 01/05/19 23:59 Weight 92.5 kg General: Conversant, No Apparent Distress HEENT: Atraumatic, Normocephaly, Mucus Membranes Moist Neck: No JVD, Normal carotid pulses Cardiac: Reg Rate and Rhythm, Normal S1 and S2 Lungs: Normal Breath Sounds, No Wheeze, Rales, Rhonchi Neuro: Alert and responsive, No focal deficits noted Abdomen: Soft, Non-Tender Skin: No rashes noted on visualized skin Musculoskeletal: No Chest Wall Tenderness Extremities: No Clubbing, No Cyanosis, No Edema, Normal Pulses Results 01/05/19 02:04 01/05/19 02:04 Lab Results 01/05/19 01/05/19 02:04 02:04 WBC 11.1 Hgb 10.8 L Hct 32.9 L Plt Count 242 Sodium 135 L Potassium 3.8 Chloride 96 L Carbon Dioxide 26 BUN 61 H Creatinine 1.90 H Glucose 156 H Calcium 9.2 Magnesium 2.1 Short CBC 01/05/19 Range/Units 02:04 WBC 11.1 (4.3-11.1) K/mcL Hgb 10.8 L (12.9-16.9) g/dL Hct 32.9 L (37.5-50.1) % Plt Count 242 (140-400) K/mcL Neutrophils # 8.1 (1.6-8.9) K/mcL BMP 01/05/19 Range/Units 02:04 Sodium 135 L (136-145) mEq/L Potassium 3.8 (3.5-5.1) mEq/L Chloride 96 L (98-107) mEq/L Carbon Dioxide 26 (23-29) mEq/L BUN 61 H (8-23) mg/dL Creatinine 1.90 H (0.70-1.30) mg/dL Glucose 156 H (70-105) mg/dL Calcium 9.2 (8.6-10.3) mg/dL Active Medications Albuterol/Ipratropium (Duoneb) 3 ml IH [id number] [facility]; Protocol Stop: 06/28/19 16:01 Last Admin: 01/05/19 11:06 Dose: 3 ml Documented by: Amlodipine Besylate (Norvasc) 5 mg PO DAILY [facility]; Protocol Stop: 07/04/19 10:31 Last Admin: 01/05/19 09:16 Dose: 5 mg Documented by: Aspirin (Aspirin) 81 mg PO DAILY [facility] Stop: 07/01/19 09:01 Last Admin: 01/05/19 09:15 Dose: 81 mg Documented by: Atorvastatin Calcium (Lipitor) 40 mg PO HS [facility] Stop: 06/30/19 21:01 Last Admin: 01/04/19 22:14 Dose: 40 mg Documented by: Benztropine Mesylate (Cogentin) 1 mg PO BID [facility] Stop: 07/01/19 21:01 Last Admin: 01/05/19 09:16 Dose: 1 mg Documented by: Dextrose/Water (Dextrose 50% (Syg)) 25 ml IVP AD PRN PRN Reason: Hypoglycemia Stop: 06/28/19 12:58 Glucagon (Glucagen) 1 mg IM ONCE PRN PRN Reason: Hypoglycemia Stop: 06/28/19 12:58 Glucose (Gluctose) 15 gm PO ONCE PRN PRN Reason: Hypoglycemia Stop: 06/28/19 12:58 Glucose (Gluctose) 30 gm PO ONCE PRN PRN Reason: Hypoglycemia Stop: 06/28/19 12:58 Heparin Sodium (Porcine) (Heparin) 5,000 unit SQ Q8HCO PAPO Stop: 07/01/19 14:01 Last Admin: 01/05/19 06:22 Dose: 5,000 unit Documented by: Dextrose (Dextrose 5%) 1,000 mls @ 100 mls/hr IVC .Q10H PRN PRN Reason: HYPOGLYCEMIA Stop: 06/28/19 12:58 Insulin Human Lispro (Humalog) 0 units SQ HS [facility]; Protocol Stop: 06/30/19 21:01 Last Admin: 01/04/19 23:18 Dose: Not Given Documented by: Insulin Human Lispro (Humalog) 0 units SQ TIDAC [facility]; Protocol Stop: 06/30/19 16:31 Last Admin: 01/05/19 07:48 Dose: Not Given Documented by: Metoprolol Succinate (Toprol Xl) 25 mg PO DAILY [facility] Stop: 07/03/19 09:01 Last Admin: 01/05/19 09:16 Dose: 25 mg Documented by: Naloxone HCl (Narcan) 0.4 mg IVP Q2MPRN PRN PRN Reason: SEE COMMENTS Stop: 06/28/19 12:40 Risperidone (Risperdal) 1.5 mg PO DAILY [facility] Stop: 06/29/19 11:16 Last Admin: 01/05/19 09:15 Dose: 1.5 mg Documented by: Risperidone (Risperdal) 3 mg PO HS [facility] Stop: 06/29/19 21:01 Last Admin: 01/04/19 22:13 Dose: 3 mg Documented by: Senna/Docusate Sodium (Senna Plus) 2 each PO BID [facility]; Protocol Stop: 07/06/19 09:16 Last Admin: 01/05/19 09:15 Dose: 2 each Documented by: - Imaging and Cardiology Echo: report reviewed - EKG Interpretation EKG results cardiology: other (12 hr tele AVG HR 83, SR, 3 beat NSVT) Consult Discharge Plan - Plan Referrals: Raul Mancilla [Primary Care Provider] -
[2019-01-05] MEDS ORDERED: Metoprolol XL (24 HR) Succ 25 MG TAB.ER.24H PO ONE (11:14)
[2019-01-05 11:48] VITALS: BP 150/86
--- NOTE | 2019-01-05 11:50 | Physician Discharge Referral ---
ExtendedCare Referral Info Transfer To: SNF Provider in Charge after Transfer: PCP Institutional Level of Care: Skilled - Diagnosis (1) Acute and chronic respiratory failure with hypoxia Priority: Primary Status: Resolved (2) CHF exacerbation Priority: Primary Status: Acute (3) COPD exacerbation Priority: Primary Status: Acute (4) [id number] kidney injury Priority: Secondary Status: Resolved (5) Urinary retention Priority: Secondary Status: Chronic (6) Elevated troponin Priority: Secondary Status: Acute (7) Encephalopathy Priority: Primary Status: Resolved - Transfer Medications Prescriptions: Furosemide [Lasix] 20 mg PO DAILY PRN #30 tablet PRN Reason: edema/swelling Home Medications: Benztropine [Cogentin] 1 mg PO BID 12/27/18 [History] Metformin HCl 1,000 mg PO DAILY 12/27/18 [History] Metformin HCl 500 mg PO HS 12/27/18 [History] risperiDONE [RisperDAL] 1.5 mg PO DAILY 12/27/18 [History] risperiDONE [RisperDAL] 3 mg PO HS 12/27/18 [History] Aspirin 81 mg PO DAILY tab.chew 01/05/19 [Rx] Atorvastatin [Lipitor] 40 mg PO HS tablet 01/05/19 [Rx] Furosemide [Lasix] 20 mg PO DAILY PRN #30 tablet 01/05/19 [Rx] Ipratropium/Albuterol Neb [Duoneb] 3 ml IH [id number] inhsol 01/05/19 [Rx] Metoprolol XL (24 HR) Succ [Toprol Xl] 50 mg PO DAILY tab.er.24h 01/05/19 [Rx] Sennosides/Docusate Sodium [Senna Plus] 2 each PO BID PRN tablet 01/05/19 [Rx] amLODIPine [Norvasc] 5 mg PO DAILY tablet 01/05/19 [Rx] Allergies/Adverse Reactions: Allergy/AdvReac Type Severity Reaction Status Date / Time No Known Allergies Allergy Verified 12/27/18 15:56 - Respiratory Orders Smoking Cessation: Smoking cessation has been advised. For more information, call the [place] Tobacco Quit Line at 7-915-NKBO-NOW. CERTIFICATION: I certify that the transfer of the above named patient to an Extended Care Facility is necessary for the continuing treatment of the diagnosis listed. The above information is true and accurate reflection of patient's current condition. Confidential - Redisclosure prohibited without a patient's written consent.
--- NOTE | 2019-01-05 11:52 | Discharge Summary ---
- NOTES TO OUTPATIENT PROVIDER Notes to Outpatient Provider: Admitted for acute on chronic respiratory failure requiring intubation secondary to COPD/CHF exacerbation. Treated with systemic steroids, IV abx and IV diuretics. Successfully extubated and has been saturating well on baseline home oxygen. Finished abx and steroid therapy while hospitalized. Noted to have RAVIN on CKD and elevated TNI. RAVIN resolved. Outpatient LHC recommended by cardiology. Closely monitor renal function and adjust diuretic therapy as needed. Orders not resulted at time of discharge: Pending orders 01/02/19 22:04 MPO/PR3 (ANCA) Antibodies DAILY 01/03/19 07:00 AILEEN IgG CORNELIO rflx IFA AM 0400 Protein Electrophoresis AM 0400 Date of Encounter: 01/05/19 Time of Encounter: 11:50 - Discharge Diagnosis (1) Acute and chronic respiratory failure with hypoxia Priority: Primary Status: Resolved (2) CHF exacerbation Priority: Primary Status: Acute Qualifiers: Heart failure type: diastolic Qualified Code(s): I50.33 - Acute on chronic diastolic (congestive) heart failure (3) COPD exacerbation Priority: Primary Status: Acute (4) [id number] kidney injury Priority: Secondary Status: Resolved Qualifiers: Acute renal failure type: unspecified Chronic kidney disease stage: stage 3 (moderate) Qualified Code(s): N17.9 - Acute kidney failure, unspecified; N18.3 - Chronic kidney disease, stage 3 (moderate) (5) Urinary retention Priority: Secondary Status: Chronic (6) Elevated troponin Priority: Secondary Status: Acute (7) Encephalopathy Priority: Secondary Status: Resolved Hospital course: Mr. Valdez is a 63 year old male with PMH of CAD, HTN, HLD, DM type II, COPD on home oxygen, CHF, CKD who was admitted for acute on chronic respiratory failure requiring intubation secondary to CHF/COPD exacerbation. He was started on IV lasix, IV steroids, IV abx. He was successfully extubated and has been weaned down to baseline home oxygen. Patient's hospital course was complicated by elevated TNI and RAVIN on CKD. He was evaluated by cardiology and nephrology. Outpatient LHC was recommended by cardiology. Renal function returned to baseline after holding diuretic therapy. Pt's hospital course was also complicated by urinary retention, requiring ruano support. Patient is seen and examined earlier this morning with family present at bedside. He denies any pain or sob. He has been evaluated by physical therapy and SNF is recommended. Pt is medically stable for discharge to SNF. He will need outpatient follow up with PCP, cardiology, urology, and nephrology. Pt is to be discharged with ruano. Pt and family in agreement with the discharge care and plan, all questions were answered. Discharge discussed with: patient, family, nurse, social work, consultant education - Time Spent with Patient Total time spent providing and/or coordinating discharge services: 35minutes Time spent: Greater than 30 minutes - Discharge Medications Prescriptions: New Aspirin 81 mg PO DAILY tab.chew Ipratropium/Albuterol Neb [Duoneb] 3 ml IH [id number] inhsol Furosemide [Lasix] 20 mg PO DAILY PRN #30 tablet PRN Reason: edema/swelling Atorvastatin [Lipitor] 40 mg PO HS tablet amLODIPine [Norvasc] 5 mg PO DAILY tablet Sennosides/Docusate Sodium [Senna Plus] 2 each PO BID PRN tablet PRN Reason: Constipation Metoprolol XL (24 HR) Succ [Toprol Xl] 50 mg PO DAILY tab.er.24h Continued Benztropine [Cogentin] 1 mg PO BID Metformin HCl 1,000 mg PO DAILY Metformin HCl 500 mg PO HS risperiDONE [RisperDAL] 1.5 mg PO DAILY risperiDONE [RisperDAL] 3 mg PO HS Discontinued Amlodipine Besylate/Benazepril [Lotrel 10-40 mg Capsule] 1 each PO DAILY Carvedilol [Coreg] 12.5 mg PO DAILY Carvedilol [Coreg] 6.25 mg PO HS Potassium Chloride [Klor-Con 10] meq PO Simvastatin [Zocor] 20 mg PO HS Home Medications: Benztropine [Cogentin] 1 mg PO BID 12/27/18 [History] Metformin HCl 1,000 mg PO DAILY 12/27/18 [History] Metformin HCl 500 mg PO HS 12/27/18 [History] risperiDONE [RisperDAL] 1.5 mg PO DAILY 12/27/18 [History] risperiDONE [RisperDAL] 3 mg PO HS 12/27/18 [History] Aspirin 81 mg PO DAILY tab.chew 01/05/19 [Rx] Atorvastatin [Lipitor] 40 mg PO HS tablet 01/05/19 [Rx] Furosemide [Lasix] 20 mg PO DAILY PRN #30 tablet 01/05/19 [Rx] Ipratropium/Albuterol Neb [Duoneb] 3 ml IH [id number] inhsol 01/05/19 [Rx] Metoprolol XL (24 HR) Succ [Toprol Xl] 50 mg PO DAILY tab.er.24h 01/05/19 [Rx] Sennosides/Docusate Sodium [Senna Plus] 2 each PO BID PRN tablet 01/05/19 [Rx] amLODIPine [Norvasc] 5 mg PO DAILY tablet 01/05/19 [Rx] Allergies/Adverse Reactions: Allergy/AdvReac Type Severity Reaction Status Date / Time No Known Allergies Allergy Verified 12/27/18 15:56 Date of admission: 12/27/18 10:25 Primary care physician: Raul Mancilla Consults: 12/27/18 20:22 Consult to Cardiology [CONS] Routine Comment: Consulting Provider: Jero Parrish Reason for Consult: Elevated trop, EKG changes Call Completed: Yes 12/28/18 09:05 Consult to Nurse Navigator [CONS] Routine Comment: COPD 12/31/18 09:57 PT [Consult to Physical Therapy] [CONS] Routine Comment: Evaluate, develop and implement POC Reason for Consult: weakness Does patient have active BEDREST order?: No Is patient medically & hemodynamically stable?: Yes 12/31/18 09:58 OT [Consult to Occupational Therapy] [CONS] Routine Comment: Evaluate, develop and implement POC Reason for Consult: weakness Does patient have active BEDREST order?: No Is patient medically & hemodynamically stable?: Yes 12/31/18 14:35 Consult to Nephrology [CONS] Routine Consulting Provider: Kidney Shivani/MARCO/JUANA/RADHA Reason for Consult: RAVIN Call Completed: Yes 01/02/19 08:31 Consult to Assistant Golf Coach [CONS] Routine Reason for SW Consult: needs swing bed 01/02/19 11:08 Consult to Cardiology [CONS] Routine Comment: Consulting Provider: Jero Parrish Reason for Consult: reconsult for ischemic eval per Dr. Perry request Call Completed: Yes 01/05/19 08:02 Consult to Cardiology [CONS] Routine Comment: Consulting Provider: Jero Parrish Reason for Consult: evaluation for LHC, inpatient vs. outpatient Call Completed: Yes Discharging clinician: Brittany Perry Anticipated date of discharge: 01/05/19 - Constitutional Vitals: Temp Pulse Resp BP Pulse Ox 97.8 F 87 16 150/86 95 01/05/19 11:46 01/05/19 11:46 01/05/19 11:46 01/05/19 11:46 01/05/19 11:46 Exam: General: No acute distress, AAO x 3 HEENT: EOMI, NC/AT, no scleral icterus Respiratory: Equal air entry bilaterally, no rales, no wheezing Cardiovascular: Regular, Rate, Rhythm, No murmurs GI: Soft, Non tender, non distended, normal bowel sounds Ext: No edema, no tenderness, positive pulses Neuro: no focal deficits Rest of the clinical exam is noncontributory - Patient Status Disposition: Transfer SNF - Discharge Instructions Follow Up With: Raul Mancilla [Primary Care Provider] - Forms: ED Satisfaction Letter Additional Instructions: 1. Please follow up with your primary care physician and mails supervisor within five days after your discharge from the hospital 2. Please follow up with nephrology within one to two weeks after your discharge from the hospital. 3. Please follow up with urology within one week after your discharge from the hospital. 4. Your home medications have been changed as follows: -Amlodipine/Benazapril has been discontinued -Amlodipine 5mg once a day is added -Carvedilol is discontinued -Metoprolol 50mg once a day is added -Simvastatin is discontinued and Atorvastatin is added -Lasix 20mg once a day as needed for swelling/edema is added 5. Please ask your mails supervisor about your lasix dose. 6. Resume all other home medications as prescribed by your primary care physician. 7. Please seek medical help immediately if you have difficulty breathing or if chest pain occurs. - Diet and Activity Activity: as per physical therapy, wear oxygen at all times, wear oxygen at night Diet: diabetic diet, low fat, low cholesterol, low salt diet
--- NOTE | 2019-01-05 16:55 | Nephrology Progress Note ---
Date of Encounter: 01/05/19 Time of Encounter: 12:00 - Assessment and Plan (1) Acute kidney failure Status: Acute SCr has remained stable for the past 3 days at 1.9 and was the same on admission, suspect this is pt's baseline. No further intervention needed from a renal standpoint UOP noted great at 2575cc in the past 24hrs Will need followup outpatient, pt aware Qualifiers: Acute renal failure type: unspecified Qualified Code(s): N17.9 - Acute kidney failure, unspecified (2) Elevated troponin Status: Acute per cardiology. Outpatient C planned, will still need renal protection prior (3) COPD (chronic obstructive pulmonary disease) Status: Acute Per primary Qualifiers: COPD type: COPD with acute exacerbation Qualified Code(s): J44.1 - Chronic obstructive pulmonary disease with (acute) exacerbation (4) CHF (congestive heart failure) Status: Acute Resolved after significant diuresis. Still averaging over 2liters UOP a day Qualifiers: Heart failure type: systolic Heart failure chronicity: acute on chronic Qualified Code(s): I50.23 - Acute on chronic systolic (congestive) heart failure Subjective Principal diagnosis: Acute respiratory failure Interval history: Pt seen and examined about to be discharged to [facility] for rehab, looking forward to it but agrees to followup outpatient. Objective - Vital Signs Vital signs: Vital Signs Temp Pulse Resp BP Pulse Ox 01/05/19 11:46 97.8 F 87 16 150/86 95 01/05/19 11:06 14 94 01/05/19 07:41 16 93 01/05/19 07:38 98.0 F 81 18 157/77 93 01/05/19 04:54 98.5 F 84 17 143/78 96 01/05/19 03:27 16 92 01/05/19 00:20 98.7 F 80 17 155/80 95 01/04/19 23:35 18 97 01/04/19 22:48 95 01/04/19 21:00 98.4 F 89 17 161/81 95 01/04/19 19:40 19 94 01/04/19 17:20 98.4 F 86 18 151/80 93 Intake and Output 01/05/19 01/05/19 01/05/19 07:59 15:59 23:59 Intake Total 120 / 120 Output Total 500 / 1200 700 / 1200 Balance -500 / -1080 -580 / -1080 Intake: Oral 120 / 120 Output: Catheter 500 / 1200 700 / 1200 Urethral (Howard) 500 / 500 Other: Meal Breakfast Percent of Meal Consumed 60% Weight 92.5 kg Blood Glucose* 133 190 Patient Weight 01/05/19 23:59 Weight 92.5 kg - General Appearance General appearance: Present: chronically ill (NAD) EENT: Present: ATNC, mucous membranes moist Neck: Present: no JVD, supple Respiratory: Present: clear Cardiology: Present: no edema, normal S1, normal S2 Gastrointestinal: Present: no tenderness, no guarding Integumentary: Present: warm and dry Neurologic: Present: no focal deficit Musculoskeletal: Present: no deformities Psychiatric: Present: mood/affect appropriate, cooperative - Lab 01/05/19 02:04 01/05/19 02:04 Consult Discharge Plan - Plan Additional Instructions: 1. Please follow up with your primary care physician and ultrasonic seaming machine operator within five days after your discharge from the hospital 2. Please follow up with nephrology within one to two weeks after your discharge from the hospital. 3. Please follow up with urology within one week after your discharge from the hospital. 4. Your home medications have been changed as follows: -Amlodipine/Benazapril has been discontinued -Amlodipine 5mg once a day is added -Carvedilol is discontinued -Metoprolol 50mg once a day is added -Simvastatin is discontinued and Atorvastatin is added -Lasix 20mg once a day as needed for swelling/edema is added 5. Please ask your ultrasonic seaming machine operator about your lasix dose. 6. Resume all other home medications as prescribed by your primary care physician. 7. Please seek medical help immediately if you have difficulty breathing or if chest pain occurs. Referrals: Raul Mancilla [Primary Care Provider] - Prescriptions: Furosemide [Lasix] 20 mg PO DAILY PRN #30 tablet PRN Reason: edema/swelling
[2019-01-06 01:51] LABS: Alpha 2 Globulin (PEP) 0.82 g/dL (0.48-1.05); Beta Globulin (PEP) 0.65 g/dL (0.48-1.10)
[2019-01-06] MEDS ORDERED: Metoprolol XL (24 HR) Succ 25 MG TAB.ER.24H PO SCH (09:00)
[2019-01-06 10:15] LABS: Myeloperoxidase Ab 0 AU/mL (0-19); Serine Protease-3 Antibody 510 AU/mL (0-19)
[2019-01-06 10:26] LABS: ANA IgG by ELISA NONE DETECTED (None Detected)
[2019-01-06 10:41] LABS: IFE Reflexed NOT DONE
== END 2019-01-05 13:19 | DRG 208 ==
LOC: EMEROOARM 08:41 → ICNU 10:25 → SUATTDRO 10:25 → ICNU 11:45 → 2ANU 12-30 14:25
PROVIDERS: ADMIT Internal Medicine Pulmonary Disease; ATTEND Internal Medicine

== ENCOUNTER 2019-02-06 16:25 | Inpatient (IN) ==
[2019-02-06] MEDS ORDERED: Ipratropium/Albuterol Neb 3 ML IH ONE (16:33)
[2019-02-06] MEDS ORDERED: methylPREDNISolone 125 MG/2 ML VIAL IVP ONE (16:33)
--- NOTE | 2019-02-06 16:34 | Emergency Department Note ---
Disposition Clinical Impression: COPD exacerbation, Hyponatremia, Elevated troponin Acute respiratory failure Qualifiers: Respiratory failure complication: hypoxia Qualified Code(s): J96.01 - Acute respiratory failure with hypoxia CHF exacerbation Qualifiers: Heart failure type: unspecified Qualified Code(s): I50.9 - Heart failure, unspecified Anemia Qualifiers: Anemia type: unspecified type Qualified Code(s): D64.9 - Anemia, unspecified Disposition: Admitted As Inpatient Condition: Good Referrals: Raul Mancilla [Primary Care Provider] - Forms: ED Satisfaction Letter Time of Disposition: 18:27 SOB HPI - General Chief Complaint: ED Shortness of Breath/Dyspnea Stated Complaint: ÁNGELA Time Seen by Provider: 02/06/19 16:26 Source: patient, EMS Mode of arrival: EMS Limitations: no limitations Nursing Notes Reviewed: Yes Vital Signs Reviewed: Yes - History of Present Illness 63-year-old male history of COPD on 3 L home oxygen supplementation presents to the emergency department with difficulty in breathing. States this morning he is been gradually more short of breath. When EMS arrived he was found to be hypoxic in the 70s. He denies any cough chest pain or fevers. Denies leg swelling. Denies cardiac history. He does not smoke at this time and quit several years ago. Denies history of cardiac ischemic disease. He uses breathing treatments at home without any significant relief. Not currently on any steroids or antibiotics. Reportedly was admitted for similar symptoms about a month ago. Family member at bedside states when he was here last time for the same thing it was due to his heart failure and he required intubation. Patient did not disclose this initially on history. He denies any leg swelling or calf tenderness. Reportedly the patient was found sitting in the shower. He reports his legs feeling weak. Denies head injury or passing out. He did not have his oxygen at that time. He was evaluated by his skip miner blasting Dr. Moore yesterday to set his kidney numbers were okay and that he be initiated on 20 mg of Lasix daily. He took his 1st does yesterday but did not take it today. Family members suspect this is likely due to his heart failure. Pt Subjective Complaint: shortness of breath - Related Data Home Medications Medication Instructions Recorded Confirmed risperiDONE [RisperDAL] 1.5 mg PO DAILY 12/27/18 02/06/19 risperiDONE [RisperDAL] 3 mg PO QPM 12/27/18 02/06/19 Amlodipine Besylate 5 mg PO DAILY 02/06/19 02/06/19 Atorvastatin Calcium [Lipitor] 40 mg PO QPM 02/06/19 02/06/19 Glimepiride [Amaryl] 2 mg PO 0800 02/06/19 02/06/19 Metoprolol Succinate [Toprol Xl] 50 mg PO DAILY 02/06/19 02/06/19 Tamsulosin HCl [Flomax] 0.4 mg PO DAILY 02/06/19 02/06/19 Previous Rx's Medication Instructions Recorded Aspirin 81 mg PO DAILY tab.chew 01/05/19 Furosemide [Lasix] 20 mg PO DAILY PRN #30 tablet 01/05/19 Ipratropium/Albuterol Neb [Duoneb] 3 ml IH [id number] inhsol 01/05/19 Sennosides/Docusate Sodium [Senna 2 each PO BID PRN tablet 01/05/19 Plus] Allergies Allergy/AdvReac Type Severity Reaction Status Date / Time No Known Allergies Allergy Verified 12/27/18 15:56 All systems ED: reviewed and negative except as stated. Review of Systems: As Per HPI Constitutional: Reports: weakness. Denies: fever, chills ENT ED: Reports: congestion Cardiovascular: Reports: dyspnea on exertion, orthopnea. Denies: chest pain, palpitations Respiratory: Reports: cough, dyspnea Gastrointestinal: Denies: abdominal pain, nausea, vomiting Musculoskeletal: Denies: back pain Past Medical History - Past Medical History Attestation: Yes The following information was validated with the patient. Source: patient Medical history: Reports: CHF, COPD, diabetes Surgical history: Reports: no surgical history Psychiatric history: Reports: schizophrenia - Social History Smoking Status: Current every day smoker Alcohol use: Reports: occasionally Drug use: Reports: none Physical Exam - General Limitations: no limitations General appearance: alert, in distress (Respiratory moderate, conversational dyspnea), obese - Head Head exam: atraumatic, normocephalic, normal inspection - Eye Eye exam: Present: normal appearance, EOMI - ENT ENT exam: normal exam, normal oropharynx, mucous membranes moist - Neck Neck exam: Present: normal inspection, full ROM, trachea midline - Chest Chest inspection: Present: normal inspection, symmetric chest wall rise. Absent: tenderness - Respiratory Respiratory exam: Present: respiratory distress, wheezes (Bilaterally), other (Tight aeration) - Cardiovascular Cardiovascular exam: Present: regular rate, normal rhythm, normal heart sounds - Expanded Cardiovascular Exam Peripheral pulses: 2+: radial (R), radial (L) - Abdominal Exam Abdominal exam: Present: soft (Obese), Non-Tender, normal bowel sounds. Absent: tenderness, distention, guarding, rebound, rigidity - Extremities Exam Extremities exam: Present: normal inspection, full ROM. Absent: tenderness, pedal edema, calf tenderness - Back Exam Back exam: Present: normal inspection, full ROM. Absent: tenderness - Neurological Exam Neurological exam: Present: alert, oriented X3 - Psychiatric Psychiatric exam: Present: normal affect, normal mood - Skin Skin exam: Present: warm, dry, intact, normal color. Absent: rash, cyanosis, d iaphoresis Course Course Narrative: Patient with history of COPD gradual worsening today presented hypoxic. He is currently up to 6 L only at 91%. Wheezing bilaterally with prolonged expiratory phase. No evidence of like edema. Concern for COPD versus CHF. Will BiPAP at this time to assist with his breathing. Family member at bedside stated last time he required intubation ventilation. Patient will likely require admission. Breathing treatments steroids and workup. - Reevaluation(s) Reevaluation #1: Review of his labs shows a leukocytosis of 19. He denies any fevers. His X-ray does show vascular congestion with obscuring of the right heart border. He is afebrile here. Will order a pro-calcitonin at this time. I do suspect this is likely more of a CHF exacerbation as his BNP is significantly elevated. His troponin is elevated to but is chronically leaking and is better than it was prior to his discharge. EKG without ischemic findings. Denies chest pain and history of recently elevated troponin. Lasix will be given here. He does appear anemic as well. Denies G.I. bleed symptoms. His BUN to creatinine is approximately 2 to 1. Suspect likely due to CKD. Patient will require admission for further management of his CHF and possible COPD exacerbation with continued BiPAP, DuoNeb and diuresis. He will also require enrichment and monitoring of his hyponatremia and Cr Time: 17:48 Reevaluation #2: Checked Procalcitonin 0.14. Will hold off on antibiotics at this time. CXR with concerns for pneumonia, suspect likely vascular congestion and CHF. Time: 18:17 - Consultations Consultation #1: Spoke with on-call hospitalist merari Chamorro to admit for COPD exacerbation, CHF exacerbation, hyponatremia, elevated troponin. No further orders at this ti sd Time: 18:28 Vital Signs O2 Sat by Pulse Oximetry 90 02/06/19 16:30 Temperature 97.9 F 02/06/19 16:33 Pulse Rate 96 02/06/19 18:08 Respiratory Rate 25 02/06/19 18:08 Blood Pressure 163/80 02/06/19 18:08 O2 Sat by Pulse Oximetry 99 02/06/19 18:08 Oxygen Delivery Oxygen Delivery Bipap Shortness of Breath/Dyspnea - MDM Narrative Medical decision making narrative: Patient was discussed with my attending physician who agrees with ED management and final disposition. They independently evaluated the patient. Please refer to their attestation to this encounter for additional information. This note was generated by [employer] voice recognition software and as a result grammatical or spelling errors may occur using this program. - Medical Records Medical records reviewed: Yes I reviewed the patient's medical records. - Lab Data Lab results reviewed: Yes I reviewed the patient's lab results. Result diagrams: 02/06/19 16:40 02/06/19 16:40 Lab Results 02/06/19 02/06/19 02/06/19 Range/Units 16:40 16:40 16:40 WBC 19.5 H (4.3-11.1) K/mcL RBC 3.08 L (4.19-5.50) M/mcL Hgb 8.9 L (12.9-16.9) g/dL Hct 27.7 L (37.5-50.1) % MCV 89.9 (83.0-100.0) fL MCH 28.9 (28.0-33.3) pg MCHC 32.1 (31.6-35.5) g/dL RDW 13.2 (11.5-14.5) % Plt Count 372 (140-400) K/mcL MPV 10.0 (9.4-12.4) fL Seg Neutrophils % 80.0 % Band Neutrophils % 4.0 (0-4) % Monocytes % 12.0 % Metamyelocytes % 2.0 H (0) % Myelocytes % 2.0 H (0) % Neutrophils # 16.4 H (1.6-8.9) K/mcL Monocytes # 2.3 H (0.0-1.3) K/mcL Sodium 123 L (136-145) mEq/L Potassium 4.1 (3.5-5.1) mEq/L Chloride 79 L (98-107) mEq/L Carbon Dioxide 29 (23-29) mEq/L BUN 43 H (8-23) mg/dL Creatinine 2.01 H (0.70-1.30) mg/dL Est GFR ( Amer) 41 L (> 60) Est GFR (Non-Af Amer) 34 L (> 60) BUN/Creatinine Ratio 21 (6-26) Glucose 204 H (70-105) mg/dL Calculated Osmolality 273 L (280-300) Calcium 8.4 L (8.6-10.3) mg/dL Troponin I 0.32 H* (< 0.04) ng/mL B-Natriuretic Peptide 1621 H (Less than 100) pg/mL Procalcitonin (0.00-0.15) ng/mL 02/06/19 Range/Units 16:40 WBC (4.3-11.1) K/mcL RBC (4.19-5.50) M/mcL Hgb (12.9-16.9) g/dL Hct (37.5-50.1) % MCV (83.0-100.0) fL MCH (28.0-33.3) pg MCHC (31.6-35.5) g/dL RDW (11.5-14.5) % Plt Count (140-400) K/mcL MPV (9.4-12.4) fL Seg Neutrophils % % Band Neutrophils % (0-4) % Monocytes % % Metamyelocytes % (0) % Myelocytes % (0) % Neutrophils # (1.6-8.9) K/mcL Monocytes # (0.0-1.3) K/mcL Sodium (136-145) mEq/L Potassium (3.5-5.1) mEq/L Chloride (98-107) mEq/L Carbon Dioxide (23-29) mEq/L BUN (8-23) mg/dL Creatinine (0.70-1.30) mg/dL Est GFR ( Amer) (> 60) Est GFR (Non-Af Amer) (> 60) BUN/Creatinine Ratio (6-26) Glucose (70-105) mg/dL Calculated Osmolality (280-300) Calcium (8.6-10.3) mg/dL Troponin I (< 0.04) ng/mL B-Natriuretic Peptide (Less than 100) pg/mL Procalcitonin 0.14 (0.00-0.15) ng/mL - Radiology Data Radiology results reviewed: Yes I reviewed the patient's radiology results. Chest X-Ray 02/06/19 16:33 IMPRESSION: Findings compatible with congestive heart failure with pulmonary vascular congestion and likely mild degree of pulmonary edema along with small bilateral pleural effusions with likely some bibasilar atelectasis. Multifocal pneumonia could have a similar appearance in the appropriate clinical setting. D/ / 02/06/2019 17:13:05 Carrillo Flores MD / [email or web address] Interpreting Provider: Carrillo Flores MD - EKG Data EKG attestation: Yes I reviewed and interpreted this EKG. EKG results narrative: EKG performed at 1633 sinus rhythm 88 beats per minute with occasional PVC, right bundle branch block, no ST elevation or depression. Compared to prior EKG performed 12/28/2017 was similar consistent findings. No acute ischemic changes.
[2019-02-06 17:00] LABS: White Blood Count 19.5 K/mcL (4.3-11.1)
[2019-02-06 17:01] LABS: Hematocrit 27.7 % (37.5-50.1); Hemoglobin 8.9 g/dL (12.9-16.9); Mean Corpuscular HGB Conc 32.1 g/dL (31.6-35.5); Mean Corpuscular Hemoglobin 28.9 pg (28.0-33.3); Mean Corpuscular Volume 89.9 fL (83.0-100.0); Platelet Count 372 K/mcL (140-400); Red Blood Count 3.08 M/mcL (4.19-5.50); Red Cell Distribution Width 13.2 % (11.5-14.5)
[2019-02-06 17:25] LABS: Troponin I 0.32 ng/mL (< 0.04)
[2019-02-06 17:32] LABS: Calcium 8.4 mg/dL (8.6-10.3); Monocytes # 2.3 K/mcL (0.0-1.3); Neutrophils # 16.4 K/mcL (1.6-8.9); Potassium 4.1 mEq/L (3.5-5.1)
[2019-02-06] MEDS ORDERED: Aspirin 325 MG TABLET PO ONE (17:39)
[2019-02-06] MEDS ORDERED: Furosemide 20 MG/2 ML VIAL IVP ONE ×2 (17:39→18:50)
--- NOTE | 2019-02-06 18:56 | Emergency Department Note ---
Disposition Clinical Impression: COPD exacerbation, Hyponatremia, Elevated troponin Acute respiratory failure Qualifiers: Respiratory failure complication: hypoxia Qualified Code(s): J96.01 - Acute respiratory failure with hypoxia CHF exacerbation Qualifiers: Heart failure type: unspecified Qualified Code(s): I50.9 - Heart failure, unspecified Anemia Qualifiers: Anemia type: unspecified type Qualified Code(s): D64.9 - Anemia, unspecified Disposition: Admitted As Inpatient Condition: Good Referrals: Raul Mancilla [Primary Care Provider] - Forms: ED Satisfaction Letter Time of Disposition: 18:56 General Adult HPI - General Chief complaint: ED Shortness of Breath/Dyspnea Stated complaint: ÁNGELA Time Seen by Provider: 02/06/19 16:26 Source: patient, EMS Mode of arrival: EMS Limitations: no limitations - History of Present Illness Pain Scale: 0 - Related Data Home Medications Medication Instructions Recorded Confirmed risperiDONE [RisperDAL] 1.5 mg PO DAILY 12/27/18 02/06/19 risperiDONE [RisperDAL] 3 mg PO QPM 12/27/18 02/06/19 Amlodipine Besylate 5 mg PO DAILY 02/06/19 02/06/19 Atorvastatin Calcium [Lipitor] 40 mg PO QPM 02/06/19 02/06/19 Glimepiride [Amaryl] 2 mg PO 0800 02/06/19 02/06/19 Metoprolol Succinate [Toprol Xl] 50 mg PO DAILY 02/06/19 02/06/19 Tamsulosin HCl [Flomax] 0.4 mg PO DAILY 02/06/19 02/06/19 Previous Rx's Medication Instructions Recorded Aspirin 81 mg PO DAILY tab.chew 01/05/19 Furosemide [Lasix] 20 mg PO DAILY PRN #30 tablet 01/05/19 Ipratropium/Albuterol Neb [Duoneb] 3 ml IH [id number] inhsol 01/05/19 Sennosides/Docusate Sodium [Senna 2 each PO BID PRN tablet 01/05/19 Plus] Allergies Allergy/AdvReac Type Severity Reaction Status Date / Time No Known Allergies Allergy Verified 12/27/18 15:56 Constitutional: Reports: weakness. Denies: fever, chills ENT ED: Reports: congestion Cardiovascular: Reports: dyspnea on exertion, orthopnea. Denies: chest pain, palpitations Respiratory: Reports: cough, dyspnea Gastrointestinal: Denies: abdominal pain, nausea, vomiting Musculoskeletal: Denies: back pain Past Medical History - Past Medical History Medical history: Reports: CHF, COPD, diabetes Surgical history: Reports: no surgical history Psychiatric history: Reports: schizophrenia - Social History Smoking Status: Former smoker Smokeless Tobacco Status: No Alcohol use: Reports: none Drug use: Reports: none Physical Exam - General Limitations: no limitations General appearance: alert, in distress (Respiratory moderate, conversational dyspnea), obese Course Vital Signs O2 Sat by Pulse Oximetry 90 02/06/19 16:30 Temperature 97.9 F 02/06/19 16:33 Pulse Rate 96 02/06/19 18:08 Respiratory Rate 25 02/06/19 18:08 Blood Pressure 163/80 02/06/19 18:08 O2 Sat by Pulse Oximetry 99 02/06/19 18:08 Oxygen Delivery Oxygen Delivery Bipap Medical Decision Making - Lab Data Result diagrams: 02/06/19 16:40 02/06/19 16:40 Lab Results 02/06/19 02/06/19 02/06/19 Range/Units 16:40 16:40 16:40 WBC 19.5 H (4.3-11.1) K/mcL RBC 3.08 L (4.19-5.50) M/mcL Hgb 8.9 L (12.9-16.9) g/dL Hct 27.7 L (37.5-50.1) % MCV 89.9 (83.0-100.0) fL MCH 28.9 (28.0-33.3) pg MCHC 32.1 (31.6-35.5) g/dL RDW 13.2 (11.5-14.5) % Plt Count 372 (140-400) K/mcL MPV 10.0 (9.4-12.4) fL Seg Neutrophils % 80.0 % Band Neutrophils % 4.0 (0-4) % Monocytes % 12.0 % Metamyelocytes % 2.0 H (0) % Myelocytes % 2.0 H (0) % Neutrophils # 16.4 H (1.6-8.9) K/mcL Monocytes # 2.3 H (0.0-1.3) K/mcL Sodium 123 L (136-145) mEq/L Potassium 4.1 (3.5-5.1) mEq/L Chloride 79 L (98-107) mEq/L Carbon Dioxide 29 (23-29) mEq/L BUN 43 H (8-23) mg/dL Creatinine 2.01 H (0.70-1.30) mg/dL Est GFR ( Amer) 41 L (> 60) Est GFR (Non-Af Amer) 34 L (> 60) BUN/Creatinine Ratio 21 (6-26) Glucose 204 H (70-105) mg/dL Calculated Osmolality 273 L (280-300) Calcium 8.4 L (8.6-10.3) mg/dL Troponin I 0.32 H* (< 0.04) ng/mL B-Natriuretic Peptide 1621 H (Less than 100) pg/mL Procalcitonin (0.00-0.15) ng/mL 02/06/19 Range/Units 16:40 WBC (4.3-11.1) K/mcL RBC (4.19-5.50) M/mcL Hgb (12.9-16.9) g/dL Hct (37.5-50.1) % MCV (83.0-100.0) fL MCH (28.0-33.3) pg MCHC (31.6-35.5) g/dL RDW (11.5-14.5) % Plt Count (140-400) K/mcL MPV (9.4-12.4) fL Seg Neutrophils % % Band Neutrophils % (0-4) % Monocytes % % Metamyelocytes % (0) % Myelocytes % (0) % Neutrophils # (1.6-8.9) K/mcL Monocytes # (0.0-1.3) K/mcL Sodium (136-145) mEq/L Potassium (3.5-5.1) mEq/L Chloride (98-107) mEq/L Carbon Dioxide (23-29) mEq/L BUN (8-23) mg/dL Creatinine (0.70-1.30) mg/dL Est GFR ( Amer) (> 60) Est GFR (Non-Af Amer) (> 60) BUN/Creatinine Ratio (6-26) Glucose (70-105) mg/dL Calculated Osmolality (280-300) Calcium (8.6-10.3) mg/dL Troponin I (< 0.04) ng/mL B-Natriuretic Peptide (Less than 100) pg/mL Procalcitonin 0.14 (0.00-0.15) ng/mL Attestation Statement - Attestation Attestation: I reviewed the residents documentation and agree with the residents assessment and plan of care. I have personally had face to face time with the patient. (Brief History, Brief Exam, and MDM) I personally supervised and was present for the norris/critical portions of the following procedures completed by the resident: (add procedures performed here). 63 year old male presents to the ED with complanits of ÁNGELA and most recently evlauted for CHF and it appers he has pulmonary edema on CXR and an elevated BN P. Patient is currently on bipap and we have gien lasix therapy and he has improved from a respiratory status. We will admit to medicine.
--- NOTE | 2019-02-06 19:46 | Internal Med History&Physical ---
<Marcos Kelly - Last Filed: 02/06/19 21:13> Date of Encounter: 02/06/19 Time of Encounter: 20:26 Internal Medicine - H&P: HPI Chief complaint: SOB Admitted From: Emergency Dept Plans for Post Hospital Care: Home History of present illness: Mr. Valdez is a 63 year old male with a PMHx of HFrEF, COPD, HTN, DM who presents to the ED with a complaint of SOB. He states SOB has been present for 2 days, sudden onset and progressively worsening. He has experienced these symptoms possibly one month ago when he was admitted to the hospital as below. He denies any symptoms of fevers, chills, chest pains, cough, sputum production, nausea, vomiting. He has not noticed any dysuria, decreased urine output or changes in color/frequency. He is not having any numbness, tingling, confusion, joint pains. SOB is present at rest and with exertion. Of note, patient was recently admitted to this facility from 12/27-01/05 for CHF/COPD exacerbation requiring intubation and ICU care. He was diuresed as able, steroids, and levaquin course with improvement of symptoms. He was evaluated by cardiology and nephrology during admission for CHF/NSTEMI as well as RAVIN/CKD. He was recommended for [facility] as outpatient and has seen cardiology as an outpatient. Additionally, he saw nephrology yesterday who changed his lasix from PRN to scheduled 20mg daily as his kidney function had improved to 1.7 creatinine. In the ED, vital signs were significant for HR 89, RR 38, BP 149/79, and he was initially tolerating 6L via NC. We was changed to Bipap support due to continued work of breathing. Labs showed WBC of 19.5, Hgb of 8.9, Na 123, BUN/CR of 43/2.01, glucose 204, Troponin of 0.32, BNP 1621, and a wnl procalcitonin of 0.14. CXR shows pulmonary vascular congestion with pulmonary edema vs less likely pneumonia. He was given 20 mg IV lasix x2, duonebs, and solumedrol burst dose. At time of my interview, patient is resting comfortably and states his breathing is improved. Past medical history: As above Surgical history: Denies Social history: Former smoker, quit 2 months ago, denies alcohol or drug use Family history: Heart disease and emphysema in father Past Med Surg Social Fam HX - Past Medical History Medical history: CHF, COPD, diabetes Psychiatric history: schizophrenia - Past Surgical History Surgical History: no surgical history - Social History Smoking Status: Former smoker Smokeless Tobacco Status: No Alcohol use: none Drug use: none Internal Medicine - H&P: Meds risperiDONE [RisperDAL] 1.5 mg PO DAILY 12/27/18 [History] risperiDONE [RisperDAL] 3 mg PO QPM 12/27/18 [History] Aspirin 81 mg PO DAILY tab.chew 01/05/19 [Rx] Furosemide [Lasix] 20 mg PO DAILY PRN #30 tablet 01/05/19 [Rx] Ipratropium/Albuterol Neb [Duoneb] 3 ml IH [id number] inhsol 01/05/19 [Rx] Sennosides/Docusate Sodium [Senna Plus] 2 each PO BID PRN tablet 01/05/19 [Rx] Amlodipine Besylate 5 mg PO DAILY 02/06/19 [History] Atorvastatin Calcium [Lipitor] 40 mg PO QPM 02/06/19 [History] Glimepiride [Amaryl] 2 mg PO 0800 02/06/19 [History] Metoprolol Succinate [Toprol Xl] 50 mg PO DAILY 02/06/19 [History] Tamsulosin HCl [Flomax] 0.4 mg PO DAILY 02/06/19 [History] Allergy/AdvReac Type Severity Reaction Status Date / Time No Known Allergies Allergy Verified 12/27/18 15:56 All Systems PM: A 10-system review of systems was performed and is negative for pertinent f indings except as documented above in the HPI. Review of systems: - Constitutional: Denies fevers, chills, weight loss, generalized fatigue - EENT: Denies vision changes/blurriness, t, rhinorrhea, congestion, sore throat - CVS: Denies chest pain, palpitations, orthopnea, edema, PND, - Pulm: Admits to BYRD, SOB. Denies cough, sputum, hematemesis, wheezing - GI: Denies abdominal pain, nausea, vomiting, diarrhea, constipation, melena - : Denies dysuria, increased frequency, urgency, hematuria, - Heme: Denies ease of bleeding or bruising - MSK: Denies joint pain, limited ROM - Skin: Denies rashes, ulcers, color changes, - Neuro: Denies DIAMOND, paresthesias, focal deficits, ataxia, - Constitutional Vitals: Temp Pulse Resp BP Pulse Ox 97.9 F 96 16 158/89 94 02/06/19 16:33 02/06/19 19:22 02/06/19 19:22 02/06/19 19:22 02/06/19 19:22 Exam: Gen.: Vitals noted. No acute distress. AAOx3, resting comfortably in bed. On bipap tachypnic but no heavy work of breathing. HEENT: PERRL/EOMI, oropharynx clear, Normocephalic, atraumatic, MMM Cardiac: RRR, no murmur, +S1/S2, No BLE edema Pulmonary: Decreased sounds in bases, bipap noises with subtle rales. Tachypnic but not working hard to breath. Shallow respirations. equal chest expansion Abdomen: soft, nontender, BS noted, no guarding, no palpable HSM Skin: warm and dry, no visible lesions. MSK: ROM intact, no joint swelling noted, gait no assessed while in bed. Non tender calf or clubbing Neuro: A&Ox3, moves all extremities, no focal deficits, sensation intact Psych: Appropriate mood and behavior, AOx3 Internal Med - H&P Results - Labs CBC & Chem 7: 02/06/19 16:40 02/06/19 16:40 Labs: Short CBC 02/06/19 Range/Units 16:40 WBC 19.5 H (4.3-11.1) K/mcL Hgb 8.9 L (12.9-16.9) g/dL Hct 27.7 L (37.5-50.1) % Plt Count 372 (140-400) K/mcL Neutrophils # 16.4 H (1.6-8.9) K/mcL BMP 02/06/19 16:40 Sodium 123 L Potassium 4.1 Chloride 79 L Carbon Dioxide 29 BUN 43 H Creatinine 2.01 H Glucose 204 H Calcium 8.4 L Cardiac Enzymes 02/06/19 Range/Units 16:40 Troponin I 0.32 H* (< 0.04) ng/mL - Impressions ITS Impressions Chest X-Ray 02/06/19 16:33 IMPRESSION: Findings compatible with congestive heart failure with pulmonary vascular congestion and likely mild degree of pulmonary edema along with small bilateral pleural effusions with likely some bibasilar atelectasis. Multifocal pneumonia could have a similar appearance in the appropriate clinical setting. D/ / 02/06/2019 17:13:05 Carrillo Flores MD / jacqueline Interpreting Provider: Carrillo Flores MD - Assessment and Plan (1) Acute and chronic respiratory failure with hypoxia Current Visit: Yes Status: Acute Assessment and plan: - Acute on chronic 3L home dependent respiratory failure secondary to CHF exacerbation - Currently tolerating BiPAP support. - Clinically, patient's only complaint was SOB - Labs show WBC of 19, BNP 1621, Trop 0.32 - CXR shows pulmonary vascular congestion with edema - Recent previous admission with COPD, CHF, PNA- completed steroids and abx - Home lasix was just increased to 20 mg scheduled on 02/05 - received 40 mg IV lasix, 125 mg solumedrol, duoneb in ED Plan - Will hold off further lasix until repeat labs return this evening - Consider lasix gtt if kidney function tolerates - Continue bipap tonight - Low suspicion for COPD/PNA - Fluid restriction diet (2) Szjie-ch-mysgyro kidney injury Current Visit: Yes Status: Suspected Assessment and plan: - BUN/Cr of 43/2.01 - baseline is unclear, he was evaluated by nephro at last visit - per chart review, it is supected that he has baseline Stage III CKD - His Cr was 1.7 on yesterday's outpatient labs - Etiology may be related to cardiorenal syndrome vs lasix use however he was not on a large dose Plan - Nephro has been consulted - Urine studies ordered - Will repeat labs and hold further lasix for now until repeat labs return Qualifiers: Acute renal failure type: unspecified Chronic kidney disease stage: stage 3 (moderate) Qualified Code(s): N17.9 - Acute kidney failure, unspecified; N18.3 - Chronic kidney disease, stage 3 (moderate) (3) Hyponatremia Current Visit: Yes Status: Acute Assessment and plan: - Na of 123 on presentation, baseline unclear however he has been this low on previous admission - Clinically showing signs of hypervolemia - Asymptomatic - Osm of 273, suspect secondary to CHF as above - Given 40 mg IV lasix in ED - Patient also has documented history of schizophrenia, only home antipsychotic of risperidol - Suspect given fluid status that this is hypervolemic hyponatremia, however he also has diuretic and antipsychotic use. Plan - Will recheck Na this evening. - Will treat as though this is chronic with goal correction of 8 in next 24 hours - Hold risperidol - Obtain urine studies - Considering lasix gtt as above depending on PM labs - Nephro consulted, appreciate recommendations - Fluid restriction diet (4) Leukocytosis Current Visit: Yes Status: Acute Assessment and plan: - WBC of 19.5 on presentation - At previous admission, WBC was between 10-15 - Previously on steroids for COPD, however this was a month ago - Patient denying ROS that are infectious - Procalcitonin wnl in ED - Suspect that this may be reactive in nature - He does meet SIRS with tachypnea, however no source identified - Blood cultures drawn Plan - Will not give fluids due to CHF as above - Will not start Abx, monitor for further signs of infection Qualifiers: Leukocytosis type: unspecified Qualified Code(s): D72.829 - Elevated white blood cell count, unspecified (5) Congestive heart failure Current Visit: Yes Status: Acute Assessment and plan: as above Qualifiers: Heart failure type: systolic Heart failure chronicity: acute on chronic Qualified Code(s): I50.23 - Acute on chronic systolic (congestive) heart failure (6) Elevated troponin Current Visit: Yes Status: Acute Assessment and plan: - Trop of 0.32 on presentation - Elevated at last admission with Peak of 0.76 - Previously evaluated by cardiology who recommended possible LHC vs Stress test as outpatient - No complaints of Chest pain at this time - EKG shows no changes Plan - Will consult cardiology for recommendations for possible LHC - Will trend troponins (7) Diabetes Current Visit: Yes Status: Chronic Assessment and plan: - BS of 204 on presentation - non insulin dependent at home - No recent A1c on record Plan - Will obtain A1c - SSI, NPO while on BiPAP Qualifiers: Diabetes mellitus type: type 2 Diabetes mellitus underground foreman insulin use: without underground foreman use Diabetes mellitus complication status: without complication Qualified Code(s): E11.9 - Type 2 diabetes mellitus without complications (8) Anemia Current Visit: Yes Status: Chronic Assessment and plan: - Hgb of 8.9 on presentation which is mildly decreased from baseline of 10-12 - Patient denies signs or symptoms of bleeding - Suspect iron deficiency, possible related to CKD - May be dilutional component due to volume overload Plan - Will trend, expect some rise due to diuresis - Transfuse as necessary Qualifiers: Anemia type: unspecified type Qualified Code(s): D64.9 - Anemia, unspecified (9) DVT prophylaxis Current Visit: Yes Status: Acute Assessment and plan: subcutaneous heparin - Time Spent With Patient Total time spent is greater than 50% in coordination of care (as documented) at patient's floor/unit and/or counseling patient: <Rigo Garcia - Last Filed: 02/07/19 04:34> Date of Encounter: 02/07/19 Time of Encounter: 00:15 - Constitutional Constitutional: fatigue, weakness, no chills, no fever(s), no night sweats - EENT Eyes: no blurry vision, no change in vision Ears: no ear pain, no tinnitus Nose, mouth and throat: no nasal congestion, no sinus pressure, no sore throat - Cardiovascular Cardiovascular ROS IM: dyspnea, dyspnea on exertion, edema, orthopnea, syncope, no chest pain, no lightheadedness, no paroxysmal nocturnal dyspnea - Respiratory Respiratory: cough, dyspnea on exertion, chest congestion, no hemoptysis, no excessive phlegm production, no change in phlegm color, no pain with cough - Gastrointestinal Gastrointestinal: no abdominal pain, no diarrhea, no hematemesis, no hematochezia, no melena, no nausea, no vomiting - Genitourinary Genitourinary ROS male: no dysuria, no flank pain, no hematuria - Musculoskeletal Musculoskeletal ROS IM: no arthralgias, no back pain - Integumentary Integumentary IM: no rash, no jaundice - Neurological Neurological ROS: no confusion, no dizziness, no focal weakness, no frequent falls, no headache(s), no numbness - Psychiatric Psychiatric: no anxiety, no depression - Endocrine Endocrine IM: no cold intolerance, no heat intolerance, no polydipsia, no polyphagia, no polyuria - Allergic/Immunologic Allergic/Immunologic: wheezing, no GI upset with certain foods - Constitutional Vitals: Temp Pulse Resp BP Pulse Ox 97.2 F L 96 32 137/74 97 02/07/19 00:19 02/07/19 00:19 02/07/19 03:56 02/07/19 03:56 02/07/19 03:56 General appearance: Present: cooperative, A&O X 3, pleasant, answers questions appropriately Exam: breathing comfortably on BiPap - Head Head exam: Present: atraumatic, normal inspection - Eye Eye exam: Present: EOMI, PERRL. Absent: scleral icterus Pupils: Present: normal accommodation - ENT ENT exam: Present: mucous membranes dry, normal exam, normal oropharynx - Neck Neck exam general surgery: Present: full ROM, supple, trachea midline. Absent: lymphadenopathy, tenderness, nuchal rigidity, thyromegaly - Respiratory Respiratory exam: Present: prolonged expiratory phase, rales (both bases), respiratory distress (mild), rhonchi, wheezes. Absent: chest wall tenderness - Cardiovascular Cardiovascular exam: Present: distant heart sounds, +S1, +S2. Absent: diastolic murmur, systolic murmur - GI/Abdominal GI/Abdominal exam: Present: normal bowel sounds, soft. Absent: guarding, hepatomegaly, mass, rebound, splenomegaly, tenderness - Extremities Exam Extremities exam: Present: full ROM, normal capillary refill, pedal edema (trace), warm, radial pulses palpable and symmetrical. Absent: calf tenderness, joint swelling, mottling, tenderness - Back Exam Back exam: Absent: CVA tenderness (L), CVA tenderness (R) - Neurological Exam Neurological exam: Present: alert, CN II-XII intact, oriented X3, no focal deficits, strengths equal and symetr throughout - Psychiatric Psychiatric exam: Present: normal affect, normal mood - Skin Skin exam: Present: dry, intact, warm Internal Med - H&P Results - Labs CBC & Chem 7: 02/06/19 23:56 02/06/19 23:56 Labs: Short CBC 02/06/19 02/06/19 Range/Units 16:40 23:56 WBC 19.5 H 17.9 H (4.3-11.1) K/mcL Hgb 8.9 L 8.7 L (12.9-16.9) g/dL Hct 27.7 L 26.6 L (37.5-50.1) % Plt Count 372 352 (140-400) K/mcL Neutrophils # 16.4 H 16.1 H (1.6-8.9) K/mcL BMP 02/06/19 02/06/19 16:40 23:56 Sodium 123 L 123 L Potassium 4.1 3.7 Chloride 79 L 81 L Carbon Dioxide 29 31 H BUN 43 H 46 H Creatinine 2.01 H 2.04 H Glucose 204 H 202 H Calcium 8.4 L 8.6 Cardiac Enzymes 02/06/19 02/06/19 Range/Units 16:40 23:56 Troponin I 0.32 H* 0.47 H* (< 0.04) ng/mL Urine 02/07/19 Range/Units 00:22 Urine Color Yellow (Yellow) Urine Clarity Clear (Clear) Urine pH 6.0 (5.0-8.0) pH Units Ur Specific Lynch 1.010 (1.010-1.025) Urine Protein 100 H (Neg-Trace) mg/dL Urine Glucose (UA) Normal (Normal) mg/dL - Impressions ITS Impressions Chest X-Ray 02/06/19 16:33 IMPRESSION: Findings compatible with congestive heart failure with pulmonary vascular congestion and likely mild degree of pulmonary edema along with small bilateral pleural effusions with likely some bibasilar atelectasis. Multifocal pneumonia could have a similar appearance in the appropriate clinical setting. D/ / 02/06/2019 17:13:05 Carrillo Flores MD / jacqueline Interpreting Provider: Carrillo Flores MD - Diagnostic Studies Chest x-ray Status: image reviewed by me (CHF findings) - Time Spent With Patient Total time spent is greater than 50% in coordination of care (as documented) at patient's floor/unit and/or counseling patient: - Attending Attestation I discussed the patient VENETIE, past medical history, review of systems, lab data, imaging data, and exam findings with Dr. Kelly. I then saw and examined patient independently as well. History, exam, and imaging findings are all consistent with CHF. He does have an elevated white blood cell count, but I agree with Dr. Kelly that he does not appear to have an infectious source at this time. We will watch him closely and consider antibiotic administration should he decompensate and/or develop findings concerning for pneumonia. At this time, I suspect his respiratory failure is secondary CHF. We will continue BiPAP and start yvette diuresis with Lasix drip. His troponin has climbed slightly and we have started heparin drip as well. Cardiology and nephrology are also consulted. Other than my comments above and documented exam findings, I agree with Dr. Kelly's assessment and plan.
[2019-02-06] MEDS ORDERED: Ondansetron 4 MG/2 ML VIAL IVP PRN (21:04)
[2019-02-06] MEDS ORDERED: Naloxone 0.4 MG/ML INJ IVP PRN (21:04)
[2019-02-06] MEDS ORDERED: *HR* Dextrose 50 % in Water (Syg) 50 ML SYRINGE IVP PRN (21:09)
[2019-02-06] MEDS ORDERED: Dextrose Gel 15 GM/37.5 ML TUBE PO PRN ×2 (21:09)
[2019-02-06] MEDS ORDERED: D5% in Water 1,000 ML IVC PRN (21:09)
[2019-02-06] MEDS ORDERED: Sennosides/Docusate Sodium TABLET PO PRN (21:10)
[2019-02-06 21:54] LABS: Estimated Average Glucose 160 mg/dl
[2019-02-06] MEDS: Ipratropium/Albuterol Neb 3 ML IH SCH (23:24)
[2019-02-07 00:14] LABS: Basophils # 0.1 K/mcL (0.0-0.2); Basophils % 0.3 %; Hematocrit 26.6 % (37.5-50.1); Hemoglobin 8.7 g/dL (12.9-16.9); Immature Granulocytes % 5.5 % (0-4); Lymphocytes % 2.5 %; Mean Corpuscular HGB Conc 32.7 g/dL (31.6-35.5); Mean Corpuscular Hemoglobin 28.2 pg (28.0-33.3); Mean Corpuscular Volume 86.4 fL (83.0-100.0); Mean Platelet Volume 9.4 fL (9.4-12.4); Monocytes # 0.4 K/mcL (0.0-1.3); Neutrophils # 16.1 K/mcL (1.6-8.9); Platelet Count 352 K/mcL (140-400); Red Blood Count 3.08 M/mcL (4.19-5.50); Red Cell Distribution Width 13.2 % (11.5-14.5); Segmented Neutrophils % 89.7 %; White Blood Count 17.9 K/mcL (4.3-11.1)
[2019-02-07 00:20] LABS: Lymphocytes # 0.5 K/mcL (0.6-4.6)
[2019-02-07] MEDS: Insulin LISPRO 300 UNITS/3 ML VIAL SQ SCH ×5 (00:26→23:48)
[2019-02-07 00:34] LABS: Bilirubin,Urine Negative (Negative); Blood,Urine Negative (Negative); Clarity,Urine Clear (Clear); Color,Urine Yellow (Yellow); Glucose,Urine (UA) Normal (Normal); Ketones,Urine Negative (Negative); Leukocyte Esterase,Urine Negative (Negative); Nitrite,Urine Negative (Negative); Protein,Urine 100 mg/dL (Neg-Trace); Urobilinogen,Urine Normal (Normal)
[2019-02-07 00:37] LABS: Bacteria,Urine None Seen per hpf (None-Few); Hyaline Casts,Urine None Seen per lpf (None-Few); Squamous Epithelial Cell,Urine Moderate per lpf (None-Few)
[2019-02-07 00:39] LABS: Calcium 8.6 mg/dL (8.6-10.3); Magnesium 1.9 mg/dL (1.6-2.6); Potassium 3.7 mEq/L (3.5-5.1)
[2019-02-07 00:41] LABS: INR 1.1; Prothrombin Time 12.6 Seconds (9.4-12.1)
[2019-02-07] MEDS ORDERED: *HR* Heparin 5,000 UNIT/ML VIAL IVP PRN ×2 (00:41)
[2019-02-07] MEDS ORDERED: *HR* Heparin 5,000 UNIT/ML VIAL IVP ONE (00:41)
[2019-02-07 00:42] LABS: Activated Partial Thrombo Time 29.4 Seconds (26.0-36.0)
[2019-02-07 00:42] LABS: Sodium, Urine 14.5 mEq/L
[2019-02-07 00:47] LABS: Platelet Estimate Normal (Normal)
[2019-02-07 01:15] LABS: Heparin anti-factor XA UFH 0.06 IU/mL (0.30-0.70)
[2019-02-07] MEDS: Heparin 25,000 UNIT/250 ML D5W 25,000 UNIT/250 ML IV.SOLN IVC SCH ×2 (01:29→21:21)
[2019-02-07] MEDS: Ipratropium/Albuterol Neb 3 ML IH SCH ×6 (03:56→23:45)
[2019-02-07] MEDS: Furosemide 240 MG in D5% in Water 96 ML IVC SCH (04:21)
[2019-02-07] MEDS ORDERED: *HR* Heparin 5,000 UNIT/ML VIAL SQ SCH (06:00)
[2019-02-07 06:42] LABS: Calcium 8.9 mg/dL (8.6-10.3); Potassium 3.6 mEq/L (3.5-5.1)
[2019-02-07 06:45] LABS: Troponin I 0.45 ng/mL (< 0.04)
[2019-02-07] MEDS: Metoprolol XL (24 HR) Succ 50 MG TAB.ER.24H PO SCH (07:58)
[2019-02-07] MEDS: Aspirin 81 MG TAB.CHEW PO SCH (07:59)
[2019-02-07 08:53] LABS: Hematocrit 25.5 % (37.5-50.1); Hemoglobin 8.4 g/dL (12.9-16.9); Mean Corpuscular HGB Conc 32.9 g/dL (31.6-35.5); Mean Corpuscular Hemoglobin 28.5 pg (28.0-33.3); Mean Corpuscular Volume 86.4 fL (83.0-100.0); Platelet Count 373 K/mcL (140-400); Red Blood Count 2.95 M/mcL (4.19-5.50); Red Cell Distribution Width 13.2 % (11.5-14.5); White Blood Count 16.8 K/mcL (4.3-11.1)
[2019-02-07] MEDS ORDERED: RisperiDAL 3 MG TABLET PO SCH ×2 (09:00→18:00)
--- NOTE | 2019-02-07 09:39 | Electrocardiograph Report ---
[place] [employer] Test Date: 2019-02-06 Pat Name: Christiano Valdez Department: [id number] Room: 2NE26 Gender: M [employer] Supervisor: : [id number] Requested By: Carrillo Camarillo Order Number: [id number] Reading MD: Gavino Kamara Measurements Intervals [place] Rate: 88 P: 77 SC: 207 QRS: -66 QRSD: 159 T: 86 QT: 437 QTc: 529 Interpretive Statements Sinus rhythm Multiple ventricular premature complexes Probable left atrial enlargement RBBB and LAFB Electronically Signed On 02-07-2019 9:37:15 EDT by Gavino Kamara
--- NOTE | 2019-02-07 10:15 | Cardiology Consult Note ---
<Reggie Hurley - Last Filed: 02/07/19 13:32> Date of Encounter: 02/07/19 Time of Encounter: 10:14 Assessment and Plan (1) NSTEMI (non-ST elevated myocardial infarction) Current Visit: Yes Status: Acute - Patient presented with an elevated troponin at 0.32; subsequent levels were 0.47 and 0.45 - Patients troponins were found to be elevated during his last admission in December with a peak of 0.76 - LHC versus stress test was recommended as an outpatient during patients last admission - EKG demonstrated no acute ischemic changes - No complaints of chest pain - No prior ischemic workup is on file; patient denies history of NE Plan - Currently on heparin drip - LHC tomorrow; keep patient NPO at midnight (2) Anemia Current Visit: Yes Status: Acute - Presented with a low hemoglobin at 8.9; subsequent levels were 8.7, 8.4 - Per chart review, baseline hemoglobin is approximately 10-12 - Etiology unknown at this time; patient has a known history of chronic kidney disease - Repeat a.m. labs; transfuse as necessary Qualifiers: Qualified Code(s): D64.9 - Anemia, unspecified (3) CHF (congestive heart failure) Current Visit: Yes Status: Acute - TTE 12/27: EF 45%, mild LV diastolic dysfunction, moderate concentric LVH, moderately dilated LA, mild TR - BNP elevated on arrival at 1621 - CXR demonstrated pulmonary vascular congestion - Normally takes 20 mg by mouth Lasix home - I&O balance: -1001 mL Plan: - Continue Lasix drip - Fluid restriction, strict I and Os, daily weights Qualifiers: Qualified Code(s): I50.9 - Heart failure, unspecified (4) Diabetes Current Visit: Yes Status: Acute - Management per primary team Qualifiers: Qualified Code(s): E11.9 - Type 2 diabetes mellitus without complications Discussion w patient/family: The assessment and plan as outlined above was discussed with the patient and/or family members who expressed understanding and agreement. All questions were answered. Thank you for involving us in the care of your patient. Please call with any questions. History of Present Illness Consult date: 02/07/19 Consult reason: Elevated troponin Chief complaint: Shortness of breath History of present illness: Mr. Valdez is a 63-year-old male with a PMH of COPD, HR CATIA, DM, and HTN who presented to [facility] ED on 02/06/19 with a chief complaint of shortness of breath 2 days. Reported that it was progressively worsening, and present both at rest and on exertion. He had been admitted to the hospital last month from 12/27-01/05 for acute respiratory failure requiring intubation. He was treated with diuresis, steroids, and a course of Levaquin. He was also assessed for an NSTEMI, and outpatient LHC was recommended at that time. On arrival, patient was tachypneic with respiratory rate of 38. He was satting at 90% on 6 L of O2 via nasal cannula. Labs showed an elevated white count 19.5, creatinine of 2.01, sodium of 123, BNP 1621, and a troponin of 0.32. CXR demonstrated pulmonary vascular congestion. He was given 20 mg IV Lasix, DuoNebs, and Solu- Medrol. He was admitted to the hospitalist service for respiratory failure with hypoxia. Nephrology was consulted for hyponatremia. The cardiology service is consulted for elevated troponin. During interview, patient is resting comfortably on bipap. He is conversant, and does not exhibit any signs of acute distress or accessory muscle use. He denies chest pain, fever, chills, diaphoresis, or palpitations. Patient had an episode of V tach earlier this morning. Due to this, along with his elevated troponin, plan is for a LHC tomorrow. Keep patient NPO at midnight. Past Med Surg Social Fam HX - Past Medical History Medical history: CHF, COPD, diabetes Psychiatric history: schizophrenia - Past Surgical History Surgical History: no surgical history - Social History Smoking Status: Former smoker Smokeless Tobacco Status: No Alcohol use: none Drug use: none Medications and Allergies risperiDONE [RisperDAL] 1.5 mg PO DAILY 12/27/18 [History] risperiDONE [RisperDAL] 3 mg PO QPM 12/27/18 [History] Aspirin 81 mg PO DAILY tab.chew 01/05/19 [Rx] Furosemide [Lasix] 20 mg PO DAILY PRN #30 tablet 01/05/19 [Rx] Ipratropium/Albuterol Neb [Duoneb] 3 ml IH [id number] inhsol 01/05/19 [Rx] Sennosides/Docusate Sodium [Senna Plus] 2 each PO BID PRN tablet 01/05/19 [Rx] Amlodipine Besylate 5 mg PO DAILY 02/06/19 [History] Atorvastatin Calcium [Lipitor] 40 mg PO QPM 02/06/19 [History] Glimepiride [Amaryl] 2 mg PO 0800 02/06/19 [History] Metoprolol Succinate [Toprol Xl] 50 mg PO DAILY 02/06/19 [History] Tamsulosin HCl [Flomax] 0.4 mg PO DAILY 02/06/19 [History] Allergy/AdvReac Type Severity Reaction Status Date / Time No Known Allergies Allergy Verified 12/27/18 15:56 All Systems Review: The remainder of the systems were reviewed and are negative - Constitutional Constitutional: no chills - Cardiovascular Cardiovascular: dyspnea at rest, no chest pain at rest, no dyspnea on exertion, no irregular heart rhythm, no radiating jaw, neck or arm pain, no leg edema, no palpitations Physical Examination Vital Signs, Last 4 Hours Temp Pulse Resp BP Pulse Ox 02/07/19 09:17 88 02/07/19 08:05 30 88 02/07/19 07:24 97.2 F L 89 13 143/81 94 General: Conversant, Other (Currently on BiPap) HEENT: Atraumatic, Normocephaly Cardiac: Reg Rate and Rhythm, Normal S1 and S2, No Murmur Lungs: No Wheeze, Rales, Rhonchi, Other (Diminished breath sounds bilaterally) Neuro: Alert and responsive, No focal deficits noted Skin: No rashes noted on visualized skin Musculoskeletal: No Chest Wall Tenderness Extremities: No Clubbing, No Cyanosis, No Edema, Normal Pulses Results 02/07/19 07:39 02/07/19 06:02 Lab Results 02/06/19 02/06/19 02/06/19 16:40 16:40 16:40 WBC 19.5 H Hgb 8.9 L Hct 27.7 L Plt Count 372 INR APTT Sodium 123 L Potassium 4.1 Chloride 79 L Carbon Dioxide 29 BUN 43 H Creatinine 2.01 H Glucose 204 H Calcium 8.4 L Magnesium Troponin I 0.32 H* B-Natriuretic Peptide 1621 H 02/06/19 02/06/19 02/06/19 23:56 23:56 23:56 WBC 17.9 H Hgb 8.7 L Hct 26.6 L Plt Count 352 INR APTT Sodium 123 L Potassium 3.7 Chloride 81 L Carbon Dioxide 31 H BUN 46 H Creatinine 2.04 H Glucose 202 H Calcium 8.6 Magnesium 1.9 Troponin I 0.47 H* B-Natriuretic Peptide 02/06/19 02/06/19 02/07/19 23:56 23:56 06:02 WBC Hgb Hct Plt Count INR 1.1 APTT 29.4 Sodium 125 L Potassium 3.6 Chloride 84 L Carbon Dioxide 34 H BUN 48 H Creatinine 2.14 H Glucose 144 H Calcium 8.9 Magnesium Troponin I 0.45 H* B-Natriuretic Peptide 1480 H 02/07/19 07:39 WBC 16.8 H Hgb 8.4 L Hct 25.5 L Plt Count 373 INR APTT Sodium Potassium Chloride Carbon Dioxide BUN Creatinine Glucose Calcium Magnesium Troponin I B-Natriuretic Peptide Consult Discharge Plan - Plan Referrals: Raul Mancilla [Primary Care Provider] - <Reagan A - Last Filed: 02/07/19 14:44> Date of Encounter: 02/07/19 - Attending Attestation I have personally performed a face to face evaluation on this patient. I have reviewed and agree with the documented findings and care plan as documented by the resident. History and Exam by me shows: Mr. Valdez is a pleasant 63-year-old gentleman with history of type 2 diabetes mellitus with diabetic nephropathy, CK D stage III, chronic respiratory failure with hypoxia on home O2, heart failure with reduced ejection fraction, NSVT, presented with acute on chronic respiratory failure requiring BiPAP likely sec ondary to COPD exacerbation with possibly some CHF exacerbation. BNP is 1480. Noted to have elevated troponin. This morning found to have nonsustained V. tach on telemetry. AAOX3 in NAD at the bedside, on BiPAP Hemodynamically stable Cardiopulmonary exam revealed S1, S2, no murmur; mild bibasilar Rales Rhythm reviewed - sinus rhythm, PVCs, right bundle branch block, left anterior fascicular block Echo 45%, dilated left atrium, LVH Impression/plan: 1. NSTEMI- in the setting of reduced EF and NSVT would recommend cardiac catheterization 2. Nonsustained V. tach- keep K above 4 and mag above 2 3. Acute on chronic respiratory failure with hypoxia on BiPAP - Continue Lasix drip. Monitor electrolytes and replace accordingly 4. Type 2 diabetes mellitus with diabetic nephropathy 5. CKD stage III - nephrology consult prior to cardiac catheterization Thanks for the consult, please call with questions. Gavino Kamara MD [facility] Assessment and Plan Discussion w patient/family: The assessment and plan as outlined above was discussed with the patient and/or family members who expressed understanding and agreement. All questions were answered. Thank you for involving us in the care of your patient. Please call with any questions. History of Present Illness History of present illness: Mr. Valdez is a 63 year old male All Systems Review: The remainder of the systems were reviewed and are negative Physical Examination Vital Signs, Last 4 Hours Temp Pulse Resp BP Pulse Ox 02/07/19 11:53 97.5 F L 92 18 144/80 94 02/07/19 10:59 23 93 Results 02/07/19 07:39 02/07/19 06:02 Lab Results 02/06/19 02/06/19 02/06/19 16:40 16:40 16:40 WBC 19.5 H Hgb 8.9 L Hct 27.7 L Plt Count 372 INR APTT Sodium 123 L Potassium 4.1 Chloride 79 L Carbon Dioxide 29 BUN 43 H Creatinine 2.01 H Glucose 204 H Calcium 8.4 L Magnesium Troponin I 0.32 H* B-Natriuretic Peptide 1621 H 02/06/19 02/06/19 02/06/19 23:56 23:56 23:56 WBC 17.9 H Hgb 8.7 L Hct 26.6 L Plt Count 352 INR APTT Sodium 123 L Potassium 3.7 Chloride 81 L Carbon Dioxide 31 H BUN 46 H Creatinine 2.04 H Glucose 202 H Calcium 8.6 Magnesium 1.9 Troponin I 0.47 H* B-Natriuretic Peptide 02/06/19 02/06/19 02/07/19 23:56 23:56 06:02 WBC Hgb Hct Plt Count INR 1.1 APTT 29.4 Sodium 125 L Potassium 3.6 Chloride 84 L Carbon Dioxide 34 H BUN 48 H Creatinine 2.14 H Glucose 144 H Calcium 8.9 Magnesium Troponin I 0.45 H* B-Natriuretic Peptide 1480 H 02/07/19 07:39 WBC 16.8 H Hgb 8.4 L Hct 25.5 L Plt Count 373 INR APTT Sodium Potassium Chloride Carbon Dioxide BUN Creatinine Glucose Calcium Magnesium Troponin I B-Natriuretic Peptide
--- NOTE | 2019-02-07 10:19 | Internal Med Progress Note ---
Hospitalist Progress Note - Encounter Date of Encounter: 02/07/19 Time of Encounter: 10:16 - Subjective Interval History: the patient was seen and examined at bedside. feels better on bipap denies cp denies productive cough no fever - Exam Vitals: Temp Pulse Resp BP Pulse Ox 97.2 F L 89 30 143/81 88 02/07/19 07:24 02/07/19 07:24 02/07/19 08:05 02/07/19 07:24 02/07/19 09:17 Exam: Physical examination: Gen.: Patient is alert and oriented, in moderate respiratory distress, not in pain HEENT: perrla , EOMI, no thyroid gland enlargement, no neck mass, supple neck Heart: S1 and S2 kamar, normal sinus rhythm, no cardiac murmur no gallop rhythm Chest: Air entry equal bilaterally, decreased breathing bilaterally, no wheezing, minimal crackles at lung bases, no crepitation Abdomen: Soft nontender nondistended positive bowel sounds, no organomegaly Extremities: No pitting edema, peripheral pulses palpable, no cyanosis tenderness Neuro: Able to move all 4 limbs, DVT Prophylaxis: Heparin - Summary of Assessment and Plan Summary of Assessment and Plan: (1) Acute and chronic respiratory failure with hypoxia Current Visit: Yes Status: Acute Assessment and plan: - Acute on chronic 3L home dependent respiratory failure secondary to CHF exacerbation - Currently tolerating BiPAP support. - TTE 12/27: EF 45%, mild LV diastolic dysfunction, moderate concentric LVH, moderately dilated LA, mild TR - high BNP - CXR shows pulmonary vascular congestion with edema, order CT chest to assess lung parynchama - Recent previous admission with COPD, CHF, PNA- completed steroids and abx - Home lasix was just increased to 20 mg scheduled on 02/05 - currently on lasix drip - Fluid restriction, strict I and Os, daily weights - has no hx of productive cough (2) [id number] kidney injury Current Visit: Yes Status: Suspected Assessment and plan: - BUN/Cr of 43/2.01 - baseline is unclear, he was evaluated by nephro at last visit - supected that he has baseline Stage III CKD - His Cr today 2.14 - Etiology may be related to cardiorenal syndrome vs lasix use however he was not on a large dose - Nephro has been consulted - Urine studies ordered - hold nephrotoxic medication Qualifiers: Acute renal failure type: unspecified Chronic kidney disease stage: stage 3 (moderate) Qualified Code(s): N17.9 - Acute kidney failure, unspecified; N18.3 - Chronic kidney disease, stage 3 (moderate) (3) Hyponatremia Current Visit: Yes Status: Acute Assessment and plan: - Na of 123 on presentation, baseline unclear however he has been this low on previous admission - Clinically showing signs of hypervolemia - Asymptomatic - Osm of 273, suspect secondary to CHF as above - Given 40 mg IV lasix in ED - currently on lasix drip - serum Na up 125 today from 123 yestrday - continue to monitor serum Na (4) Leukocytosis Current Visit: Yes Status: Acute Assessment and plan: - WBC trend down to 16 , likley 2/2 to steroid use no sign of infection - Procalcitonin wnl in ED - Suspect that this may be reactive in nature -follow BC - no indication of AB currently Qualifiers: Leukocytosis type: unspecified Qualified Code(s): D72.829 - Elevated white blood cell count, unspecified (5) Congestive heart failure exacerbation Current Visit: Yes Status: Acute Assessment and plan: as above TTE 12/27: EF 45%, mild LV diastolic dysfunction, moderate concentric LVH, moderately dilated LA, mild TR Qualifiers: Heart failure type: systolic Heart failure chronicity: acute on chronic Qualified Code(s): I50.23 - Acute on chronic systolic (congestive) heart failure (6) Elevated troponin Current Visit: Yes Status: Acute Assessment and plan: - Trop of 0.32 on presentation - Elevated at last admission with Peak of 0.76 - Previously evaluated by cardiology who recommended possible LHC vs Stress test as outpatient - No complaints of Chest pain at this time - EKG shows no changes - cardiology on board - Will trend troponins (7) Diabetes Current Visit: Yes Status: Chronic Assessment and plan: - BS of 204 on presentation - non insulin dependent at home - No recent A1c on record A1c 7.2 - SSI, Qualifiers: Diabetes mellitus type: type 2 Diabetes mellitus half-way insulin use: without half-way use Diabetes mellitus complication status: without complication Qualified Code(s): E11.9 - Type 2 diabetes mellitus without complications (8) Anemia Current Visit: Yes Status: Chronic Assessment and plan: - Hgb of 8.9 on presentation which is mildly decreased from baseline of 10-12 - Patient denies signs or symptoms of bleeding - Suspect iron deficiency, possible related to CKD - May be dilutional component due to volume overload - hb today 8.4 - check iron studies Qualifiers: Anemia type: unspecified type Qualified Code(s): D64.9 - Anemia, unspecified (9) DVT prophylaxis Current Visit: Yes Status: Acute Assessment and plan: subcutaneous heparin - Time Spent with Patient Total time spent is greater than 50% in coordination of care (as documented) at patient's floor/unit and/or counseling patient: Internal Medicine: Result - Labs CBC & Chem 7: 02/07/19 07:39 02/07/19 06:02 Labs: Short CBC 02/06/19 02/06/19 02/07/19 Range/Units 16:40 23:56 07:39 WBC 19.5 H 17.9 H 16.8 H (4.3-11.1) K/mcL Hgb 8.9 L 8.7 L 8.4 L (12.9-16.9) g/dL Hct 27.7 L 26.6 L 25.5 L (37.5-50.1) % Plt Count 372 352 373 (140-400) K/mcL Neutrophils # 16.4 H 16.1 H (1.6-8.9) K/mcL BMP 02/06/19 02/06/19 02/07/19 16:40 23:56 06:02 Sodium 123 L 123 L 125 L Potassium 4.1 3.7 3.6 Chloride 79 L 81 L 84 L Carbon Dioxide 29 31 H 34 H BUN 43 H 46 H 48 H Creatinine 2.01 H 2.04 H 2.14 H Glucose 204 H 202 H 144 H Calcium 8.4 L 8.6 8.9 Cardiac Enzymes 02/06/19 02/06/19 02/07/19 Range/Units 16:40 23:56 06:02 Troponin I 0.32 H* 0.47 H* 0.45 H* (< 0.04) ng/mL Urine 02/07/19 Range/Units 00:22 Urine Color Yellow (Yellow) Urine Clarity Clear (Clear) Urine pH 6.0 (5.0-8.0) pH Units Ur Specific [place] 1.010 (1.010-1.025) Urine Protein 100 H (Neg-Trace) mg/dL Urine Glucose (UA) Normal (Normal) mg/dL - ABG Interpretation ABG results: PT/INR, D-dimer PT 12.6 Seconds (9.4-12.1) H 02/06/19 23:56 - Impressions Impressions Chest X-Ray 02/06/19 16:33 IMPRESSION: Findings compatible with congestive heart failure with pulmonary vascular congestion and likely mild degree of pulmonary edema along with small bilateral pleural effusions with likely some bibasilar atelectasis. Multifocal pneumonia could have a similar appearance in the appropriate clinical setting. D/ / 02/06/2019 17:13:05 Carrillo Flores MD / [email or web address] Interpreting Provider: Carrillo Flores MD Consult Discharge Plan - Plan Referrals: Raul Mancilla [Primary Care Provider] -
--- NOTE | 2019-02-07 13:51 | Event Note ---
Date of Encounter: 02/07/19 Time of Encounter: 13:49 patient contine on bipap, failed to wean him off bipap, desaturating to 80% on 15 l oxygen i did transfer patient to ICU for close observation nd possible need for incubation i consulted and spoke with dr gupta who accepts the patient
--- NOTE | 2019-02-07 14:10 | Nephrology Consult Note ---
Date of Encounter: 02/07/19 Time of Encounter: 14:08 Assessment and Plan (1) CKD (chronic kidney disease) stage 3, GFR 30-59 ml/min Current Visit: Yes Status: Acute Baseline, does see Dr. Moore in the office. Avoid nephrotoxins and renal dose all medications. Strict I/O Daily weights. (2) Acute and chronic respiratory failure with hypoxia Current Visit: Yes Status: Acute Per primary. (3) Anemia Current Visit: Yes Status: Acute Hgb 8.4. Iron profile ordered by primary for in am. Qualifiers: Qualified Code(s): D64.9 - Anemia, unspecified History of Present Illness - Reason for Consult Consult date: 02/07/19 Acute Kidney Injury, Chronic Kidney Disease Requesting physician: Jose Mcallister - Chief Complaint difficulty in breathing - History of Present Illness Mr. Valdez is a 63 year old male who presented to ED with shortness of breath which started approximately 2 days ago, it did worsen throughout the day. PMH: HFrEF, COPD, HTN, DM and CKD III. He is seen by Dr. Moore in the office for CKD. He was in this facility approximately 1 month ago for shortness of breath and was ventilator dependent in the ICU. Upon exam he was on Bipap, and was unable to come off Bipap for discussion. Denies chest pain, admits to shortness of breath. Denies nausea, vomiting, diarrhea. He denies any FH of CKD or HD. He lives at home with family. Denies etoh, tobacco, or illicit drug use. GFR is close to baseline, no need for additional workup at this time. Will continue to follow along. Past Med Surg Social Fam HX - Past Medical History Medical history: CHF, COPD, diabetes Psychiatric history: schizophrenia - Past Surgical History Surgical History: no surgical history - Social History Smoking Status: Former smoker Smokeless Tobacco Status: No Alcohol use: none Drug use: none Medications and Allergies risperiDONE [RisperDAL] 1.5 mg PO DAILY 12/27/18 [History] risperiDONE [RisperDAL] 3 mg PO QPM 12/27/18 [History] Aspirin 81 mg PO DAILY tab.chew 01/05/19 [Rx] Furosemide [Lasix] 20 mg PO DAILY PRN #30 tablet 01/05/19 [Rx] Ipratropium/Albuterol Neb [Duoneb] 3 ml IH [id number] inhsol 01/05/19 [Rx] Sennosides/Docusate Sodium [Senna Plus] 2 each PO BID PRN tablet 01/05/19 [Rx] Amlodipine Besylate 5 mg PO DAILY 02/06/19 [History] Atorvastatin Calcium [Lipitor] 40 mg PO QPM 02/06/19 [History] Glimepiride [Amaryl] 2 mg PO 0800 02/06/19 [History] Metoprolol Succinate [Toprol Xl] 50 mg PO DAILY 02/06/19 [History] Tamsulosin HCl [Flomax] 0.4 mg PO DAILY 02/06/19 [History] Allergy/AdvReac Type Severity Reaction Status Date / Time No Known Allergies Allergy Verified 12/27/18 15:56 Review of Systems All Systems review (narrative): The remainder of the systems are negative. Constitutional: no chills, no fatigue, no fever(s) Cardiovascular: dyspnea, dyspnea on exertion, no chest pain, no edema Respiratory: dyspnea, no hemoptysis, no wheezing Gastrointestinal: no diarrhea, no nausea, no vomiting Exam - Vital Signs Vital signs: Initial Vital Signs Pulse Ox 90 02/06/19 16:30 Vital Signs - Last 8 Hours Temp Pulse Resp BP Pulse Ox 02/07/19 11:53 97.5 F L 92 18 144/80 94 02/07/19 10:59 23 93 02/07/19 09:17 88 02/07/19 08:05 30 88 02/07/19 07:24 97.2 F L 89 13 143/81 94 Intake and Output 02/06/19 02/07/19 02/07/19 23:59 07:59 15:59 Intake Total 0 / 0 0 / 79 79 / 79 Output Total 580 / 1080 500 / 1080 Balance 0 / 0 -580 / -1001 -421 / -1001 Intake: IV Fluids 79 / 79 Heparin 25,000 UNIT/250 ML D5W 79 / 79 25,000 unit In 250 ml @ 10.8 UNIT/KG/HR 10.087 mls/hr IVC . Q24H [facility] Rx#:[id number] Oral 0 / 0 0 / 0 0 / 0 Output: Urine 580 / 1080 500 / 1080 Other: Meal Breakfast Percent of Meal Consumed 0% Weight 93.4 kg 93.4 kg Blood Glucose* 236 157 88 Patient Weight 02/07/19 23:59 Weight 93.4 kg - General Appearance General appearance: well-developed, well-nourished EENT: ATNC, hearing intact, vision intact Neck: supple Respiratory: clear Cardiology: no edema, normal S1, normal S2 Gastrointestinal: normoactive bowel sounds, no tenderness, no guarding Integumentary: no rash, warm and dry Neurologic: alert and oriented x3 Musculoskeletal: no deformities, no erythema Psychiatric: mood/affect appropriate, cooperative Results - Lab Results 02/07/19 07:39 02/07/19 06:02 Most recent lab results 02/07/19 06:02 Calcium 8.9 Consult Discharge Plan - Plan Referrals: Raul Mancilla [Primary Care Provider] -
[2019-02-07] MEDS ORDERED: Furosemide 20 MG/2 ML VIAL IVP ONE (14:54)
--- NOTE | 2019-02-07 15:11 | Pulmonology Consult Note ---
<Stefanie Ann R - Last Filed: 02/07/19 18:00> Date of Encounter: 02/07/19 Time of Encounter: 15:02 Assessment and Plan (1) Acute and chronic respiratory failure with hypoxia Current Visit: Yes Status: Acute Patient initially hypoxic in the emergency Department 90% Chest x-ray shows evidence of CHF exacerbation Patient placed on BiPAP and has been BiPAP dependent since last night Stat ABG shows the patient has alkalotic with a CO2 of 50 Patient receiving Lasix drip Continue with BiPAP and diuresis kidneys tolerate Currently in no respiratory distress and satting 98% on BiPAP (2) CHF exacerbation Current Visit: Yes Status: Acute Patient presented to emergency department with difficulty in breathing Chest x-ray showed bilateral pulmonary edema versus pneumonia Patient's initial BNP was elevated at 1621 Procalcitonin within normal limits Patient being diuresed with Lasix and has BiPAP on Plan is for left heart catheter tomorrow Cardiology consulted and following Qualifiers: Heart failure type: combined systolic and diastolic Qualified Code(s): I50.43 - Acute on chronic combined systolic (congestive) and diastolic (congestive) heart failure (3) NSTEMI (non-ST elevated myocardial infarction) Current Visit: Yes Status: Acute Elevated troponin 0.32 on arrival Increased to 0.47, then decrease to 0.45 Heparin GTT Plan as above (4) Hyponatremia Current Visit: Yes Status: Acute Sodium 123 on admission Currently 125 Likely secondary to CHF exacerbation Fluid restriction Nephro consulted and following (5) CKD (chronic kidney disease) stage 3, GFR 30-59 ml/min Current Visit: Yes Status: Acute Patient's creatinine 2.14 Patient does have stage III chronic kidney disease and follows with Dr. 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: without local intermodal truck driver use Diabetes mellitus complication status: with other specified complication Qualified Code(s): E11.69 - Type 2 diabetes mellitus with other specified complication (7) DVT prophylaxis Current Visit: Yes Status: Acute Heparin GTT History of Present Illness Consult date: 02/07/19 Requesting physician: Stephen Braswell Reason for consult: other History of present illness: Patient is a 63-year-old male past medical history of diabetes, CHF with previous echo from December demonstrating left ventricular ejection fraction of 45%, CKD stage 3 and COPD who was transferred to the ICU due to oxygen desaturation. The patient was originally admitted with suspected CHF exacerbation after his chest x-ray demonstrated bilateral pulmonary edema. He was given 2 doses of Lasix in the emergency department and started on BiPAP and Lasix drip. Cardiology was consulted and the plan is to take him for left heart catheter tomorrow as this was suggested on a nonemergent basis during his last hospitalization but he failed to follow-up. The patient had been doing well until today when they tried to wean him from the BiPAP and switch to oxymask when he desaturated to 80%. The BiPAP was placed back on and there was fear for the patient needing to be intubated as he was intubated during his last stay. The patient arrives to the ICU hemodynamically stable, currently satting 98% on BiPAP, speaking full sentances and without any chest pain or shortness of breath. Pt confirms that he wishes to remain full code. Past Med Surg Social Fam HX - Past Medical History Attestation: Yes The following information was validated with the patient. Medical history: CHF, COPD, diabetes Psychiatric history: schizophrenia - Past Surgical History Surgical History: no surgical history - Social History Smoking Status: Former smoker Smokeless Tobacco Status: No Alcohol use: none Drug use: none Medications and Allergies risperiDONE [RisperDAL] 1.5 mg PO QAM 12/27/18 [History] risperiDONE [RisperDAL] 3 mg PO HS 12/27/18 [History] Ipratropium/Albuterol Neb [Duoneb] 3 ml IH [id number] inhsol 01/05/19 [Rx] Glimepiride [Amaryl] 2 mg PO QAM 02/06/19 [History] Metoprolol Succinate [Toprol Xl] 50 mg PO DAILY 02/06/19 [History] Tamsulosin HCl [Flomax] 0.4 mg PO DAILY 02/06/19 [History] Amlodipine Besylate 5 mg PO DAILY 02/07/19 [History] Aspirin Enteric Coated [Aspirin EC] 81 mg PO DAILY 02/07/19 [History] Atorvastatin [Lipitor] 40 mg PO HS 02/07/19 [History] Docusate Sodium [Stool Softener] 100 mg PO DAILY PRN 02/07/19 [History] Furosemide [Lasix] 20 mg PO DAILY 02/07/19 [History] Allergy/AdvReac Type Severity Reaction Status Date / Time No Known Allergies Allergy Verified 02/07/19 21:17 All Systems: The remainder of the systems were reviewed and are negative - Constitutional Constitutional: no chills, no fatigue, no fever(s) - EENT Nose, mouth and throat: no dizziness, no vertigo - Cardiovascular Cardiovascular: dyspnea, dyspnea on exertion, no chest pain, no edema - Respiratory Respiratory: dyspnea, dyspnea on exertion, no cough - Gastrointestinal Gastrointestinal: no abdominal pain, no diarrhea, no nausea, no vomiting - Genitourinary Genitourinary: no dysuria, no hematuria - Musculoskeletal Musculoskeletal: no weakness - Neurological Neurological: no confusion, no numbness, no paresthesias, no vertigo Physical Examination Vital Signs: Vital Signs, Last 4 Hours Temp Pulse Resp BP Pulse Ox 02/07/19 11:53 97.5 F L 92 18 144/80 94 General appearance: no acute distress, alert Eyes: nonicteric Effort: normal Auscultation: bilateral: clear, diminished breath sounds Cardiovascular: regular rate and rhythm Gastrointestinal: soft, non-tender Integumentary: normal Extremities: no edema, pink and warm normal mental status, non-focal exam, pupils equal and round mood appropriate, affect normal Results - Laboratory Findings CBC and BMP: 02/07/19 07:39 02/07/19 06:02 PT/INR, D-dimer PT 12.6 Seconds (9.4-12.1) H 02/06/19 23:56 Abnormal lab findings: Abnormal lab results WBC 16.8 K/mcL (4.3-11.1) H 02/07/19 07:39 RBC 2.95 M/mcL (4.19-5.50) L 02/07/19 07:39 Hgb 8.4 g/dL (12.9-16.9) L 02/07/19 07:39 Hct 25.5 % (37.5-50.1) L 02/07/19 07:39 Immature Gran % 5.5 % (0-4) H 02/06/19 23:56 Metamyelocytes % 2.0 % (0) H 02/06/19 16:40 Myelocytes % 2.0 % (0) H 02/06/19 16:40 Neutrophils # 16.1 K/mcL (1.6-8.9) H 02/06/19 23:56 Lymphocytes # 0.5 K/mcL (0.6-4.6) L 02/06/19 23:56 Monocytes # 2.3 K/mcL (0.0-1.3) H 02/06/19 16:40 PT 12.6 Seconds (9.4-12.1) H 02/06/19 23:56 Heparin Anti-Xa, Unfract 0.27 IU/mL (0.30-0.70) L 02/07/19 13:49 Sodium 125 mEq/L (136-145) L 02/07/19 06:02 Chloride 84 mEq/L (98-107) L 02/07/19 06:02 Carbon Dioxide 34 mEq/L (23-29) H 02/07/19 06:02 BUN 48 mg/dL (8-23) H 02/07/19 06:02 Creatinine 2.14 mg/dL (0.70-1.30) H 02/07/19 06:02 Est GFR ( Amer) 38 (> 60) L 02/07/19 06:02 Est GFR (Non-Af Amer) 31 (> 60) L 02/07/19 06:02 Glucose 144 mg/dL (70-105) H 02/07/19 06:02 Hemoglobin A1c 7.2 % (-5.6) H 02/06/19 21:25 Serum Osmolality 279 mOsm/kg (280-300) L 02/06/19 21:25 Calculated Osmolality 275 (280-300) L 02/07/19 06:02 Calcium 8.4 mg/dL (8.6-10.3) L 02/06/19 16:40 Troponin I 0.45 ng/mL (< 0.04) H* 02/07/19 06:02 B-Natriuretic Peptide 1480 pg/mL (Less than 100) H 02/06/19 23:56 Urine Protein 100 mg/dL (Neg-Trace) H 02/07/19 00:22 Urine Microscopic RBC 3-5 per hpf (0-3) H 02/07/19 00:22 Urine Microscopic WBC 3-5 per hpf (0-3) H 02/07/19 00:22 Ur Squamous Epith Cells Moderate per lpf (None-Few) H 02/07/19 00:22 Urine Osmolality 214 mOsm/kg (300-1090) L 02/07/19 00:22 - Microbiology Findings Microbiology Findings: Microbiology, Last 48 Hours 02/06/19 18:09 Blood Culture - Preliminary Peripheral Venipuncture Culture is incubating and being continuously monitored for growth. Final report to follow. 02/06/19 18:08 Blood Culture - Preliminary Peripheral Venipuncture Culture is incubating and being continuously monitored for growth. Final report to follow. - Clinical Findings Intake & Output: Intake & Output 02/06/19 02/07/19 02/07/19 23:59 07:59 15:59 Intake Total 0 / 0 0 / 79 79 / 79 Output Total 580 / 1080 500 / 1080 Balance 0 / 0 -580 / -1001 -421 / -1001 Weight 93.4 kg 93.4 kg Consult Discharge Plan - Plan Referrals: Raul Mancilla [Primary Care Provider] - <Kelsey Oakley - Last Filed: 02/08/19 08:17> Date of Encounter: 02/07/19 All Systems: The remainder of the systems were reviewed and are negative Physical Examination Vital Signs: Vital Signs, Last 4 Hours Temp Pulse Resp BP Pulse Ox 02/07/19 16:07 98.5 F 02/07/19 15:20 90 02/07/19 15:00 98.3 F 89 28 142/96 93 Results - Laboratory Findings CBC and BMP: 02/08/19 03:55 02/08/19 03:55 ABG ABG pH 7.47 pH Units (7.32-7.45) H 02/07/19 15:17 ABG pCO2 50 mmHg (35-45) H 02/07/19 15:17 ABG pO2 58 mmHg (85-104) L 02/07/19 15:17 ABG O2 Saturation 91 % (95-98) L 02/07/19 15:17 PT/INR, D-dimer PT 12.6 Seconds (9.4-12.1) H 02/06/19 23:56 Abnormal lab findings: Abnormal lab results WBC 16.8 K/mcL (4.3-11.1) H 02/07/19 07:39 RBC 2.95 M/mcL (4.19-5.50) L 02/07/19 07:39 Hgb 8.4 g/dL (12.9-16.9) L 02/07/19 07:39 Hct 25.5 % (37.5-50.1) L 02/07/19 07:39 Immature Gran % 5.5 % (0-4) H 02/06/19 23:56 Metamyelocytes % 2.0 % (0) H 02/06/19 16:40 Myelocytes % 2.0 % (0) H 02/06/19 16:40 Neutrophils # 16.1 K/mcL (1.6-8.9) H 02/06/19 23:56 Lymphocytes # 0.5 K/mcL (0.6-4.6) L 02/06/19 23:56 Monocytes # 2.3 K/mcL (0.0-1.3) H 02/06/19 16:40 PT 12.6 Seconds (9.4-12.1) H 02/06/19 23:56 Heparin Anti-Xa, Unfract 0.27 IU/mL (0.30-0.70) L 02/07/19 13:49 ABG pH 7.47 pH Units (7.32-7.45) H 02/07/19 15:17 ABG pCO2 50 mmHg (35-45) H 02/07/19 15:17 ABG pO2 58 mmHg (85-104) L 02/07/19 15:17 ABG HCO3 36 mEq/L (21-27) H 02/07/19 15:17 ABG Total CO2 38 mEq/L (20-26) H 02/07/19 15:17 ABG O2 Saturation 91 % (95-98) L 02/07/19 15:17 ABG Base Excess 11 mEq/L (-2 to 3) H 02/07/19 15:17 Sodium 125 mEq/L (136-145) L 02/07/19 06:02 Chloride 84 mEq/L (98-107) L 02/07/19 06:02 Carbon Dioxide 34 mEq/L (23-29) H 02/07/19 06:02 BUN 48 mg/dL (8-23) H 02/07/19 06:02 Creatinine 2.14 mg/dL (0.70-1.30) H 02/07/19 06:02 Est GFR ( Amer) 38 (> 60) L 02/07/19 06:02 Est GFR (Non-Af Amer) 31 (> 60) L 02/07/19 06:02 Glucose 144 mg/dL (70-105) H 02/07/19 06:02 Hemoglobin A1c 7.2 % (-5.6) H 02/06/19 21:25 Serum Osmolality 279 mOsm/kg (280-300) L 02/06/19 21:25 Calculated Osmolality 275 (280-300) L 02/07/19 06:02 Calcium 8.4 mg/dL (8.6-10.3) L 02/06/19 16:40 Troponin I 0.45 ng/mL (< 0.04) H* 02/07/19 06:02 B-Natriuretic Peptide 1480 pg/mL (Less than 100) H 02/06/19 23:56 Urine Protein 100 mg/dL (Neg-Trace) H 02/07/19 00:22 Urine Microscopic RBC 3-5 per hpf (0-3) H 02/07/19 00:22 Urine Microscopic WBC 3-5 per hpf (0-3) H 02/07/19 00:22 Ur Squamous Epith Cells Moderate per lpf (None-Few) H 02/07/19 00:22 Urine Osmolality 214 mOsm/kg (300-1090) L 02/07/19 00:22 - Microbiology Findings Microbiology Findings: Microbiology, Last 48 Hours 02/06/19 18:09 Blood Culture - Preliminary Peripheral Venipuncture Culture is incubating and being continuously monitored for growth. Final report to follow. 02/06/19 18:08 Blood Culture - Preliminary Peripheral Venipuncture Culture is incubating and being continuously monitored for growth. Final report to follow. - Clinical Findings Intake & Output: Intake & Output 02/07/19 02/07/19 02/07/19 07:59 15:59 23:59 Intake Total 0 / 139 139 / 139 Output Total 580 / 1080 500 / 1080 Balance -580 / -941 -361 / -941 Weight 93.4 kg - Attending Attestation I examined this patient and my medical decision-making was reviewed with the Resident Physician. I agree with the documented findings, disposition and treatment plan as described except to the extent set forth below. Patient seen and examined. Was called by the attending physician for this patient that his condition is deteriorating and he is on noninvasive ventilation and patient needs to be transferred to ICU for possible invasive mechanical ventilation Labs, radiology, chart personally reviewed. Agree with resident's history and physical, assessment, plan with following comments: URBAN DESIGN CONSULTANT: Patient follows commands, Pulmonary: Acceptable oxygenation and ventilation on the noninvasive ventilation and I suspect patient could have obstructive sleep apnea that needs to be checked out as outpatient with the sleep study. At this time he is tolerating noninvasive ventilation and increasing FiO2 on BiPAP to titrate and keep his oxygen saturation around 90%. This is most likely from his underlying congestive heart failure and pulmonary edema. I do not expect patient's condition would deteriorate based on my clinical examination and he can be monitored in the ICU until his cardiac catheterization and will have further recommendations after that. Cardiovascular: Patient is going to have cardiac catheterization and diuresis as tolerated. GI: Nutrition per dietary and GI prophylaxis per routine and to keep patient nothing by mouth at this time as a precautionary measure because of his condition deteriorate then he will need invasive mechanical ventilation. Heme: DVT prophylaxis per routine ID: Continue antibiotics and plan to de-escalation Renal; urine out put and renal function reviewed Endorcine: blood glucose is monitored Lines: all lines checked and no evidence of infections Skin: skin care to prevent pressure ulcers per nursing routine care Dispo: ICU Code: Full. Prognosis. Guarded I spent 35 min of Critical Care time with this patient. It involved decision making of high complexity to assess, manipulate, and support vital organ system failure and/or to prevent further life threatening deterioration of the patient's condition. The time involved in the performance of separately reportable procedures was not counted toward critical care time.
[2019-02-07 15:20] LABS: ABG Base Excess 11 mEq/L (-2 to 3); ABG HCO3 36 mEq/L (21-27); ABG Oxygen Saturation 91 % (95-98); ABG PCO2 50 mmHg (35-45); ABG PH 7.47 pH Units (7.32-7.45); ABG PO2 58 mmHg (85-104); ABG TCO2 38 mEq/L (20-26)
[2019-02-07] MEDS: MethylPREDNISolone 40 MG/ML VIAL IVP SCH ×2 (17:38→23:38)
[2019-02-08] MEDS: Ipratropium/Albuterol Neb 3 ML IH SCH ×6 (04:06→23:49)
[2019-02-08 04:10] LABS: Hematocrit 28.9 % (37.5-50.1); Hemoglobin 9.5 g/dL (12.9-16.9); Mean Corpuscular HGB Conc 32.9 g/dL (31.6-35.5); Mean Corpuscular Hemoglobin 28.6 pg (28.0-33.3); Mean Platelet Volume 9.3 fL (9.4-12.4); Platelet Count 392 K/mcL (140-400); Red Blood Count 3.32 M/mcL (4.19-5.50); Red Cell Distribution Width 13.5 % (11.5-14.5); White Blood Count 15.5 K/mcL (4.3-11.1)
[2019-02-08 04:28] LABS: Albumin 3.6 g/dL (3.5-5.7); Albumin/Globulin Ratio 1.3 (1.1-2.2); Bilirubin,Total 0.7 mg/dL (0.3-1.0); Calcium 8.9 mg/dL (8.6-10.3); Globulin 2.8 g/dL (2.4-3.5); Magnesium 2.5 mg/dL (1.6-2.6); Phosphorous 4.4 mg/dL (2.7-4.5); Potassium 3.8 mEq/L (3.5-5.1); Total Protein 6.4 g/dL (6.4-8.9)
[2019-02-08 04:29] LABS: % Iron Saturation 9 % (20-55); Iron 32 mcg/dL (65-175); Transferrin 244 mg/dL (203-362)
[2019-02-08 04:47] LABS: Ferritin 92 ng/mL (20-250)
[2019-02-08] MEDS: Furosemide 240 MG in D5% in Water 96 ML IVC SCH (04:51)
[2019-02-08] MEDS: MethylPREDNISolone 40 MG/ML VIAL IVP SCH (05:33)
[2019-02-08] MEDS: Insulin LISPRO 300 UNITS/3 ML VIAL SQ SCH ×4 (05:35→20:58)
--- NOTE | 2019-02-08 06:50 | Pulmonology Progress Note ---
<Stefanie Ann - Last Filed: 02/08/19 10:32> Date of Encounter: 02/08/19 Time of Encounter: 06:50 Assessment and Plan (1) Acute and chronic respiratory failure with hypoxia Current Visit: Yes Status: Acute Patient initially hypoxic in the emergency Department 90% Chest x-ray shows evidence of CHF exacerbation Patient placed on BiPAP Stat ABG showed the patient was alkalotic with a CO2 of 50 Patient receiving Lasix drip - will be discontinued in favor of Lasix pushes daily Continue with BiPAP and diuresis as kidneys tolerate Patient was able to tolerate the oxymask last night until he went to sleep and BiPAP was placed overnight We will do a trial off the BiPAP today (2) CHF exacerbation Current Visit: Yes Status: Acute Patient presented to emergency department with difficulty in breathing Chest x-ray showed bilateral pulmonary edema versus pneumonia Patient's initial BNP was elevated at 1621 Procalcitonin within normal limits Patient being diuresed with Lasix and has BiPAP on Plan is for left heart catheter today Cardiology consulted and following Qualifiers: Heart failure type: combined systolic and diastolic Qualified Code(s): I50.43 - Acute on chronic combined systolic (congestive) and diastolic (congestive) heart failure (3) NSTEMI (non-ST elevated myocardial infarction) Current Visit: Yes Status: Acute Elevated troponin 0.32 on arrival Increased to 0.47, then decrease to 0.45 Heparin GTT Plan as above (4) Hyponatremia Current Visit: Yes Status: Acute Sodium 123 on admission Currently 132 Likely secondary to CHF exacerbation Fluid restriction Nephro consulted and following (5) CKD (chronic kidney disease) stage 3, GFR 30-59 ml/min Current Visit: Yes Status: Acute Patient's creatinine 2.04 which appears to be his baseline Patient does have stage III chronic kidney disease and follows with Dr. Moore as an outpatient Avoid nephrotoxic agents Nephrology consulted (6) Diabetes Current Visit: Yes Status: Acute Accu-Cheks q6H with sliding scale insulin Qualifiers: Diabetes mellitus type: type 2 Diabetes mellitus terminal operator insulin use: without chcf use Diabetes mellitus complication status: with other speci fied complication Qualified Code(s): E11.69 - Type 2 diabetes mellitus with other specified complication (7) DVT prophylaxis Current Visit: Yes Status: Acute Heparin GTT Subjective Interval history: Patient remained stable on BiPAP overnight. Plan is to go to catheter either today or Monday pending respiratory status. Plan is to step down from ICU today. Lasix drip will be stopped and we will order daily Lasix pushes. Objective PUL Vital signs: Last Vital Signs Temp 97.8 F 02/08/19 03:51 Pulse 93 02/08/19 06:00 Resp 26 02/08/19 06:00 BP 137/92 02/08/19 06:00 Pulse Ox 96 02/08/19 06:00 General appearance: no acute distress, alert Eyes: nonicteric Effort: normal Auscultation: bilateral: clear, diminished breath sounds Cardiovascular: regular rate and rhythm Gastrointestinal: soft, non-tender Integumentary: normal Extremities: no edema, pink and warm normal mental status, non-focal exam, pupils equal and round mood appropriate, affect normal Results - Laboratory Findings CBC and BMP: 02/08/19 03:55 02/08/19 03:55 ABG ABG pH 7.47 pH Units (7.32-7.45) H 02/07/19 15:17 ABG pCO2 50 mmHg (35-45) H 02/07/19 15:17 ABG pO2 58 mmHg (85-104) L 02/07/19 15:17 ABG O2 Saturation 91 % (95-98) L 02/07/19 15:17 PT/INR, D-dimer PT 12.6 Seconds (9.4-12.1) H 02/06/19 23:56 Abnormal lab findings: Abnormal lab results WBC 15.5 K/mcL (4.3-11.1) H 02/08/19 03:55 RBC 3.32 M/mcL (4.19-5.50) L 02/08/19 03:55 Hgb 9.5 g/dL (12.9-16.9) L 02/08/19 03:55 Hct 28.9 % (37.5-50.1) L 02/08/19 03:55 MPV 9.3 fL (9.4-12.4) L 02/08/19 03:55 Immature Gran % 5.5 % (0-4) H 02/06/19 23:56 Metamyelocytes % 2.0 % (0) H 02/06/19 16:40 Myelocytes % 2.0 % (0) H 02/06/19 16:40 Neutrophils # 16.1 K/mcL (1.6-8.9) H 02/06/19 23:56 Lymphocytes # 0.5 K/mcL (0.6-4.6) L 02/06/19 23:56 Monocytes # 2.3 K/mcL (0.0-1.3) H 02/06/19 16:40 PT 12.6 Seconds (9.4-12.1) H 02/06/19 23:56 Heparin Anti-Xa, Unfract 0.27 IU/mL (0.30-0.70) L 02/07/19 13:49 ABG pH 7.47 pH Units (7.32-7.45) H 02/07/19 15:17 ABG pCO2 50 mmHg (35-45) H 02/07/19 15:17 ABG pO2 58 mmHg (85-104) L 02/07/19 15:17 ABG HCO3 36 mEq/L (21-27) H 02/07/19 15:17 ABG Total CO2 38 mEq/L (20-26) H 02/07/19 15:17 ABG O2 Saturation 91 % (95-98) L 02/07/19 15:17 ABG Base Excess 11 mEq/L (-2 to 3) H 02/07/19 15:17 Sodium 132 mEq/L (136-145) L 02/08/19 03:55 Chloride 86 mEq/L (98-107) L 02/08/19 03:55 Carbon Dioxide 37 mEq/L (23-29) H 02/08/19 03:55 BUN 55 mg/dL (8-23) H 02/08/19 03:55 Creatinine 2.04 mg/dL (0.70-1.30) H 02/08/19 03:55 Est GFR ( Amer) 40 (> 60) L 02/08/19 03:55 Est GFR (Non-Af Amer) 33 (> 60) L 02/08/19 03:55 BUN/Creatinine Ratio 27 (6-26) H 02/08/19 03:55 Glucose 169 mg/dL (70-105) H 02/08/19 03:55 POC Glucose 193 mg/dL (70-99) H 02/07/19 23:01 Hemoglobin A1c 7.2 % (-5.6) H 02/06/19 21:25 Serum Osmolality 279 mOsm/kg (280-300) L 02/06/19 21:25 Calculated Osmolality 275 (280-300) L 02/07/19 06:02 Calcium 8.4 mg/dL (8.6-10.3) L 02/06/19 16:40 Iron 32 mcg/dL (65-175) L 02/08/19 03:55 % Saturation 9 % (20-55) L 02/08/19 03:55 Troponin I 0.45 ng/mL (< 0.04) H* 02/07/19 06:02 B-Natriuretic Peptide 1480 pg/mL (Less than 100) H 02/06/19 23:56 Urine Protein 100 mg/dL (Neg-Trace) H 02/07/19 00:22 Urine Microscopic RBC 3-5 per hpf (0-3) H 02/07/19 00:22 Urine Microscopic WBC 3-5 per hpf (0-3) H 02/07/19 00:22 Ur Squamous Epith Cells Moderate per lpf (None-Few) H 02/07/19 00:22 Urine Osmolality 214 mOsm/kg (300-1090) L 02/07/19 00:22 - Microbiology Findings Microbiology Findings: Microbiology, Last 48 Hours 02/06/19 18:09 Blood Culture - Preliminary Peripheral Venipuncture Culture is incubating and being continuously monitored for growth. Final report to follow. 02/06/19 18:08 Blood Culture - Preliminary Peripheral Venipuncture Culture is incubating and being continuously monitored for growth. Final report to follow. - Clinical Findings Intake & Output: Intake & Output 02/07/19 02/07/19 02/08/19 15:59 23:59 07:59 Intake Total 139 / 250 111 / 250 Output Total 500 / 2180 1100 / 2180 800 / 800 Balance -361 / -1930 -989 / -1930 -800 / -800 Weight 92.6 kg Consult Discharge Plan - Plan Referrals: Raul Mancilla [Primary Care Provider] - <Kelsey Oakley - Last Filed: 02/08/19 14:52> Date of Encounter: 02/08/19 Objective PUL Vital signs: Last Vital Signs Temp 97.8 F 02/08/19 07:15 Pulse 94 02/08/19 10:00 Resp 25 02/08/19 10:00 BP 153/77 02/08/19 10:00 Pulse Ox 94 02/08/19 10:00 Results - Laboratory Findings CBC and BMP: 02/08/19 03:55 02/08/19 03:55 ABG ABG pH 7.47 pH Units (7.32-7.45) H 02/07/19 15:17 ABG pCO2 50 mmHg (35-45) H 02/07/19 15:17 ABG pO2 58 mmHg (85-104) L 02/07/19 15:17 ABG O2 Saturation 91 % (95-98) L 02/07/19 15:17 PT/INR, D-dimer PT 12.6 Seconds (9.4-12.1) H 02/06/19 23:56 Abnormal lab findings: Abnormal lab results WBC 15.5 K/mcL (4.3-11.1) H 02/08/19 03:55 RBC 3.32 M/mcL (4.19-5.50) L 02/08/19 03:55 Hgb 9.5 g/dL (12.9-16.9) L 02/08/19 03:55 Hct 28.9 % (37.5-50.1) L 02/08/19 03:55 MPV 9.3 fL (9.4-12.4) L 02/08/19 03:55 Immature Gran % 5.5 % (0-4) H 02/06/19 23:56 Metamyelocytes % 2.0 % (0) H 02/06/19 16:40 Myelocytes % 2.0 % (0) H 02/06/19 16:40 Neutrophils # 16.1 K/mcL (1.6-8.9) H 02/06/19 23:56 Lymphocytes # 0.5 K/mcL (0.6-4.6) L 02/06/19 23:56 Monocytes # 2.3 K/mcL (0.0-1.3) H 02/06/19 16:40 PT 12.6 Seconds (9.4-12.1) H 02/06/19 23:56 Heparin Anti-Xa, Unfract 0.27 IU/mL (0.30-0.70) L 02/07/19 13:49 ABG pH 7.47 pH Units (7.32-7.45) H 02/07/19 15:17 ABG pCO2 50 mmHg (35-45) H 02/07/19 15:17 ABG pO2 58 mmHg (85-104) L 02/07/19 15:17 ABG HCO3 36 mEq/L (21-27) H 02/07/19 15:17 ABG Total CO2 38 mEq/L (20-26) H 02/07/19 15:17 ABG O2 Saturation 91 % (95-98) L 02/07/19 15:17 ABG Base Excess 11 mEq/L (-2 to 3) H 02/07/19 15:17 Sodium 132 mEq/L (136-145) L 02/08/19 03:55 Chloride 86 mEq/L (98-107) L 02/08/19 03:55 Carbon Dioxide 37 mEq/L (23-29) H 02/08/19 03:55 BUN 55 mg/dL (8-23) H 02/08/19 03:55 Creatinine 2.04 mg/dL (0.70-1.30) H 02/08/19 03:55 Est GFR ( Amer) 40 (> 60) L 02/08/19 03:55 Est GFR (Non-Af Amer) 33 (> 60) L 02/08/19 03:55 BUN/Creatinine Ratio 27 (6-26) H 02/08/19 03:55 Glucose 169 mg/dL (70-105) H 02/08/19 03:55 POC Glucose 193 mg/dL (70-99) H 02/07/19 23:01 Hemoglobin A1c 7.2 % (-5.6) H 02/06/19 21:25 Serum Osmolality 279 mOsm/kg (280-300) L 02/06/19 21:25 Calculated Osmolality 275 (280-300) L 02/07/19 06:02 Calcium 8.4 mg/dL (8.6-10.3) L 02/06/19 16:40 Iron 32 mcg/dL (65-175) L 02/08/19 03:55 % Saturation 9 % (20-55) L 02/08/19 03:55 Troponin I 0.45 ng/mL (< 0.04) H* 02/07/19 06:02 B-Natriuretic Peptide 1480 pg/mL (Less than 100) H 02/06/19 23:56 Urine Protein 100 mg/dL (Neg-Trace) H 02/07/19 00:22 Urine Microscopic RBC 3-5 per hpf (0-3) H 02/07/19 00:22 Urine Microscopic WBC 3-5 per hpf (0-3) H 02/07/19 00:22 Ur Squamous Epith Cells Moderate per lpf (None-Few) H 02/07/19 00:22 Urine Osmolality 214 mOsm/kg (300-1090) L 02/07/19 00:22 - Microbiology Findings Microbiology Findings: Microbiology, Last 48 Hours 02/06/19 18:09 Blood Culture - Preliminary Peripheral Venipuncture Culture is incubating and being continuously monitored for growth. Final report to follow. 02/06/19 18:08 Blood Culture - Preliminary Peripheral Venipuncture Culture is incubating and being continuously monitored for growth. Final report to follow. - Clinical Findings Intake & Output: Intake & Output 02/07/19 02/08/19 02/08/19 23:59 07:59 15:59 Intake Total 111 / 250 50 / 50 Output Total 1100 / 2180 800 / 1700 900 / 1700 Balance -989 / -1930 -800 / -1650 -850 / -1650 Weight 92.6 kg - Attending Attestation I examined this patient and my medical decision-making was reviewed with the Resident Physician. I agree with the documented findings, disposition and treatment plan as described except to the extent set forth below. Patient seen and examined. Labs, radiology, chart personally reviewed. Agree with resident's history and physical, assessment, plan with following comments: JDE DEVELOPER: Patient follows commands, Pulmonary: Acceptable oxygenation and ventilation and tolerating noninvasive ventilation as well as nasal cannula high flow oxygenation. This is most likely from underlying congestive heart failure and pulmonary edema and unlikely COPD exacerbation for that reason he does not need steroid. Cardiovascular: Relatively stable stable . Alternative management of congestive heart failure to be deferred to cardiology. GI: Nutrition per dietary and GI prophylaxis per routine Heme: DVT prophylaxis per routine ID: Continue antibiotics and plan to de-escalation Renal; urine out put and renal function reviewed. Diuresis as tolerated. Endorcine: blood glucose is monitored Lines: all lines checked and no evidence of infections Skin: skin care to prevent pressure ulcers per nursing routine care Dispo: transfer to floor Code: Full. [email or web address] Please call for any questions.
[2019-02-08] MEDS: Metoprolol XL (24 HR) Succ 50 MG TAB.ER.24H PO SCH (07:49)
[2019-02-08] MEDS: Aspirin 81 MG TAB.CHEW PO SCH (07:49)
[2019-02-08] MEDS ORDERED: Naloxone 0.4 MG/ML INJ IVP PRN (10:36)
[2019-02-08] MEDS ORDERED: Ondansetron 4 MG/2 ML VIAL IVP PRN (10:36)
[2019-02-08] MEDS ORDERED: Sennosides/Docusate Sodium TABLET PO PRN (10:36)
[2019-02-08] MEDS ORDERED: *HR* Dextrose 50 % in Water (Syg) 50 ML SYRINGE IVP PRN (10:36)
[2019-02-08] MEDS ORDERED: Dextrose Gel 15 GM/37.5 ML TUBE PO PRN ×2 (10:36)
[2019-02-08] MEDS ORDERED: D5% in Water 1,000 ML IVC PRN (10:36)
[2019-02-08] MEDS ORDERED: *HR* Heparin 5,000 UNIT/ML VIAL IVP PRN ×2 (10:36)
[2019-02-08] MEDS ORDERED: Ipratropium/Albuterol Neb 3 ML ONE (10:49)
[2019-02-08] MEDS: Heparin 25,000 UNIT/250 ML D5W 25,000 UNIT/250 ML IV.SOLN IVC SCH ×2 (11:11→21:47)
[2019-02-08] MEDS ORDERED: *HR* Metoprolol 5 MG/5 ML VIAL IVP ONE (13:42)
--- NOTE | 2019-02-08 14:38 | Cardiology Progress Note ---
<Reggie Hurley - Last Filed: 02/08/19 14:42> Date of Encounter: 02/08/19 Time of Encounter: 14:30 Assessment and Plan (1) NSTEMI (non-ST elevated myocardial infarction) Current Visit: Yes Status: Acute - Patient presented with an elevated troponin at 0.32; subsequent levels were 0.47 and 0.45 - Patients troponins were found to be elevated during his last admission in December with a peak of 0.76 - LHC versus stress test was recommended as an outpatient during patients last admission - EKG demonstrated no acute ischemic changes - No complaints of chest pain - No prior ischemic workup is on file; patient denies history of AK - Initially, plan was to perform LHC today, but this was not possible due to patient developing worsening respiratory distress - Respiratory status has since improved; will switch patient from lasix drip to IV lasix Plan - Will perform LHC on monday; keep patient NPO at midnight on monday (2) Anemia Current Visit: Yes Status: Acute - Presented with a low hemoglobin at 8.9; subsequent levels were 8.7, 8.4 - Per chart review, baseline hemoglobin is approximately 10-12 - Etiology unknown at this time; patient has a known history of CKD - Repeat a.m. labs; transfuse as necessary Qualifiers: Qualified Code(s): D64.9 - Anemia, unspecified (3) CHF (congestive heart failure) Current Visit: Yes Status: Acute - TTE 12/27: EF 45%, mild LV diastolic dysfunction, moderate concentric LVH, moderately dilated LA, mild TR - BNP elevated on arrival at 1621 - CXR demonstrated pulmonary vascular congestion - Normally takes 20 mg by mouth Lasix home Plan: - Will switch patient from lasix drip to lasix 40 mg IV daily - Fluid restriction, strict intake/output Qualifiers: Qualified Code(s): I50.9 - Heart failure, unspecified (4) Diabetes Current Visit: Yes Status: Acute - Management per primary team Qualifiers: Diabetes mellitus type: type 2 Diabetes mellitus alf insulin use: without alf use Diabetes mellitus complication status: with other specif ied complication Qualified Code(s): E11.69 - Type 2 diabetes mellitus with other specified complication Discussion w patient/family: The assessment and plan as outlined above was discussed with the patient and/or family members who expressed understanding and agreement. All questions were answered. Thank you for involving us in the care of your patient. Please call with any questions. Subjective Interval history: Patient seen and examined at bedside; currently resting comfortably in bed on oxymask. He has no complaints at this time. He developed respiratory distress yesterday while on BiPAP, requiring transfer to the ICU. Since he has been in ICU, he reports that his breathing has improved. He denies acute events overnight. Patient will be transferred out of ICU later today to [facility]. Plan today is to switch patient from Lasix drip to Lasix 40 IV daily. Will perform LHC on monday; keep patient NPO at midnight on monday. Objective Vital Signs, Last 4 Hours Temp Pulse Resp BP Pulse Ox 02/08/19 14:13 98 18 116/66 02/08/19 14:10 120 18 130/86 02/08/19 12:02 98.2 F 159 16 131/88 91 02/08/19 11:00 108 20 154/84 95 02/08/19 10:51 20 94 Other: General: Conversant, Other (Currently on BiPAP) HEENT: Atraumatic, Normocephaly Cardiac: Reg Rate and Rhythm, Normal S1 and S2, No Murmur Lungs: No Wheeze, Rales, Rhonchi, Other (Diminished breath sounds bilaterally) Neuro: Alert and responsive, No focal deficits noted Skin: No rashes noted on visualized skin Musculoskeletal: No Chest Wall Tenderness Extremities: No Clubbing, No Cyanosis, No Edema, Normal Pulses Results 02/08/19 03:55 02/08/19 03:55 Lab Results 02/08/19 02/08/19 03:55 03:55 WBC 15.5 H Hgb 9.5 L Hct 28.9 L Plt Count 392 Sodium 132 L Potassium 3.8 Chloride 86 L Carbon Dioxide 37 H BUN 55 H Creatinine 2.04 H Glucose 169 H Calcium 8.9 Magnesium 2.5 Total Bilirubin 0.7 AST 14 ALT 27 Alkaline Phosphatase 61 Consult Discharge Plan - Plan Referrals: Raul Mancilla [Primary Care Provider] - < A - Last Filed: 02/08/19 15:59> Date of Encounter: 02/08/19 Assessment and Plan Discussion w patient/family: The assessment and plan as outlined above was discussed with the patient and/or family members who expressed understanding and agreement. All questions were answered. Thank you for involving us in the care of your patient. Please call with any questions. Objective Vital Signs, Last 4 Hours Temp Pulse Resp BP Pulse Ox 02/08/19 15:15 22 92 02/08/19 14:13 98 18 116/66 02/08/19 14:10 120 18 130/86 02/08/19 12:02 98.2 F 159 16 131/88 91 Results 02/08/19 03:55 02/08/19 03:55 Lab Results 02/08/19 02/08/19 03:55 03:55 WBC 15.5 H Hgb 9.5 L Hct 28.9 L Plt Count 392 Sodium 132 L Potassium 3.8 Chloride 86 L Carbon Dioxide 37 H BUN 55 H Creatinine 2.04 H Glucose 169 H Calcium 8.9 Magnesium 2.5 Total Bilirubin 0.7 AST 14 ALT 27 Alkaline Phosphatase 61 - Attending Attestation I have personally performed a face to face evaluation on this patient. I have reviewed and agree with the documented findings and care plan as documented by the resident. History and Exam by me shows: In acute exacerbation of respiratory failure last night and transferred to ICU. Now back to the floor on facemask. Needs more diuresis. Continue IV Lasix 40 mg daily. Left heart catheterization on Monday. Thanks for the consult, please call with questions. Monday MD Asad [facility]
--- NOTE | 2019-02-08 16:12 | Electrocardiograph Report ---
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
--- NOTE | 2019-02-08 18:17 | Nephrology Progress Note ---
Date of Encounter: 02/08/19 Time of Encounter: 16:00 - Assessment and Plan (1) CKD (chronic kidney disease) stage 3, GFR 30-59 ml/min Status: Chronic SCr remains stable at 2.04, GFr 33 UOP noted at 2180cc in the past 24hrs Continue to avoid nephrotoxins if possible (2) Acute and chronic respiratory failure with hypoxia Status: Acute Resolving with diuresis Continue strict I/Os Continue current diuretic regimen, seems to be working (3) Anemia Status: Acute Qualifiers: Anemia type: due to chronic kidney disease Chronic kidney disease stage: stage 3 (moderate) Qualified Code(s): N18.3 - Chronic kidney disease, stage 3 (moderate); D63.1 - Anemia in chronic kidney disease Subjective Interval history: interim noted, pt seen and examined now transferred from the ICU to feels better with less SOB but still edematous Objective - Vital Signs Vital signs: Vital Signs Temp Pulse Resp BP Pulse Ox 02/08/19 15:56 98.3 F 96 14 127/66 97 02/08/19 15:15 22 92 02/08/19 14:13 98 18 116/66 02/08/19 14:10 120 18 130/86 02/08/19 12:02 98.2 F 159 16 131/88 91 02/08/19 11:00 108 20 154/84 95 02/08/19 10:51 20 94 02/08/19 10:00 94 25 153/77 94 02/08/19 09:00 85 21 149/85 92 02/08/19 08:00 89 25 153/85 91 02/08/19 07:58 108 02/08/19 07:15 97.8 F 02/08/19 07:09 117 97 02/08/19 07:00 109 26 149/79 96 02/08/19 06:00 93 26 137/92 96 02/08/19 05:00 72 17 143/79 97 02/08/19 04:06 18 137/91 97 02/08/19 04:00 77 19 137/91 97 02/08/19 03:51 97.8 F 02/08/19 03:44 91 02/08/19 03:00 82 18 137/103 95 02/08/19 02:00 83 20 122/61 96 02/08/19 01:00 82 20 108/69 96 02/08/19 00:00 88 19 131/56 98 02/07/19 23:56 96 02/07/19 23:45 17 131/56 97 02/07/19 23:13 98.4 F 02/07/19 23:00 90 25 132/104 97 02/07/19 22:00 85 23 151/72 96 02/07/19 21:00 59 26 96 02/07/19 20:00 93 22 128/73 92 02/07/19 19:51 20 150/89 92 02/07/19 19:00 97.5 F L 94 23 150/88 92 Intake and Output 02/08/19 02/08/19 02/08/19 07:59 15:59 23:59 Intake Total 300 / 540 240 / 540 Output Total 800 / 3050 2250 / 3050 Balance -800 / -2510 -1950 / -2510 240 / -2510 Intake: IV Fluids 100 / 100 Lasix 240 MG In Dextrose 5% 96 50 / 50 ML @ 5 MG/HR 2.5 mls/hr IVC . Q24H [facility] Rx#:[id number] Heparin 25,000 UNIT/250 ML D5W 50 / 50 25,000 unit In 250 ml @ 10.8 UNIT/KG/HR 10.087 mls/hr IVC . Q24H [facility] Rx#:[id number] Oral 200 / 440 240 / 440 Output: Urine 800 / 3050 2250 / 3050 Other: Meal Dinner Percent of Meal Consumed 50% Weight 86.2 kg Blood Glucose* 293 Patient Weight 02/08/19 23:59 Weight 86.2 kg - General Appearance General appearance: Present: well-developed, well-nourished, obese EENT: Present: ATNC, mucous membranes moist Neck: Present: no JVD, supple Additional Comments: good areation ant bilat Cardiology: Present: edema (LE bilat), normal S1, normal S2 Gastrointestinal: Present: no tenderness, no guarding, obese Integumentary: Present: warm and dry Neurologic: Present: no focal deficit Musculoskeletal: Present: no deformities Psychiatric: Present: mood/affect appropriate, cooperative - Lab 02/18/19 01:07 02/18/19 01:07 Consult Discharge Plan - Plan Instructions: Metoprolol (By mouth), Furosemide (By mouth), Warfarin (By mouth), Aspirin (By mouth), Risperidone (By mouth), Amlodipine (By mouth), Glimepiride (By mouth), Atorvastatin (By mouth), Tamsulosin (By mouth), Ipratropium/Albuterol (By breathing), Laxative, Stimulant Combination (By mouth), Heart Failure (DC), Atrial Fibrillation (DC), Acute Respiratory Distress Syndrome (DC), Diabetes Mellitus Type 2 in Adults (DC), Chronic Obstructive Pulmonary Disease (DC), Vitamin K in Foods (DC), Anemia (GEN) Referrals: Jaqui Gregg [Registered Pharmacist] - 02/19/19 3:45 pm (New location .....located behind the [facility] in the rehab center. Please bring ID and INS card [phone] [phone]) Danilo Moore MD [Partnered Physician] - (Web request made, physicians office will call patient to schedule a hospital follow-up.) Vu Caldera MD [Partnered Physician] - 02/22/19 2:45 pm (Medical office building [address] phone [phone] if patient needs to cancel the appointment please call within 24 hours of appointment. please arrive at 2:15 with ID and INS card. ) Gorge Birmingham, [employer] [Advanced Practice Nurse] - (Web request made, physicians office will call patient to schedule an appointment.) Prescriptions: Glimepiride [Amaryl] 1 tab PO QAM #30 tablet Amlodipine Besylate 5 mg PO HS #30 tablet Aspirin Enteric Coated [Aspirin EC] 1 tab PO DAILY #30 tablet. Warfarin [Coumadin] 1 tab PO QDPC #30 tablet Ipratropium/Albuterol Neb [Duoneb] 3 ml IH Q6HR PRN 30 Days #100 vial.neb PRN Reason: Shortness Of Breath/Wheezing Ipratropium/Albuterol Neb [Duoneb] 3 ml IH Q6HR 30 Days #100 inhsol Tamsulosin HCl [Flomax] 0.4 mg PO DAILY #30 capsule Furosemide [Lasix] 20 mg PO DAILY #30 tablet Atorvastatin [Lipitor] 2 tab PO HS #60 tablet risperiDONE [RisperDAL] 1 tab PO HS #30 tablet Sennosides/Docusate Sodium [Senna Plus] 1 tab PO BID PRN #60 tablet PRN Reason: Constipation Metoprolol XL (24 HR) Succ [Toprol XL] 1 tab PO BID #60 tab.er.24h Metoprolol XL (24 HR) Succ [Toprol Xl] 1 tab PO BID #60 tab.er.24h
[2019-02-09] MEDS: Ipratropium/Albuterol Neb 3 ML IH SCH ×6 (03:27→23:46)
[2019-02-09 05:02] LABS: Hematocrit 31.1 % (37.5-50.1); Hemoglobin 9.9 g/dL (12.9-16.9); Mean Corpuscular HGB Conc 31.8 g/dL (31.6-35.5); Mean Corpuscular Hemoglobin 27.9 pg (28.0-33.3); Mean Corpuscular Volume 87.6 fL (83.0-100.0); Mean Platelet Volume 10.2 fL (9.4-12.4); Platelet Count 437 K/mcL (140-400); Red Blood Count 3.55 M/mcL (4.19-5.50); White Blood Count 19.8 K/mcL (4.3-11.1)
[2019-02-09 05:22] LABS: Albumin 3.5 g/dL (3.5-5.7); Albumin/Globulin Ratio 1.3 (1.1-2.2); Bilirubin,Total 0.6 mg/dL (0.3-1.0); Calcium 9.3 mg/dL (8.6-10.3); Globulin 2.8 g/dL (2.4-3.5); Magnesium 2.5 mg/dL (1.6-2.6); Phosphorous 3.6 mg/dL (2.7-4.5); Potassium 3.2 mEq/L (3.5-5.1); Total Protein 6.3 g/dL (6.4-8.9)
[2019-02-09] MEDS: Metoprolol XL (24 HR) Succ 50 MG TAB.ER.24H PO SCH (07:53)
[2019-02-09] MEDS: Aspirin 81 MG TAB.CHEW PO SCH (07:54)
[2019-02-09] MEDS: Insulin LISPRO 300 UNITS/3 ML VIAL SQ SCH ×4 (08:35→20:40)
[2019-02-09] MEDS ORDERED: Furosemide 20 MG/2 ML VIAL IVP SCH (09:00)
--- NOTE | 2019-02-09 10:55 | Internal Med Progress Note ---
Hospitalist Progress Note - Encounter Date of Encounter: 02/09/19 Time of Encounter: 10:46 - Subjective Interval History: the patient was seen and examined at bedside. sitting in bed comfortably, denies SOB or CP plan for LHC on Monday - Exam Vitals: Temp Pulse Resp BP Pulse Ox 97.5 F L 106 16 122/78 95 02/09/19 08:05 02/09/19 08:05 02/09/19 08:05 02/09/19 08:05 02/09/19 08:05 Exam: Physical examination: Gen.: Patient is alert and oriented, in mild respiratory distress, not in pain HEENT: perrla , EOMI, no thyroid gland enlargement, no neck mass, supple neck Heart: S1 and S2 kamar, normal sinus rhythm, no cardiac murmur no gallop rhythm Chest: Air entry equal bilaterally, decreased breathing bilaterally, no wheezing, minimal crackles at lung bases, no crepitation Abdomen: Soft nontender nondistended positive bowel sounds, no organomegaly Extremities: No pitting edema, peripheral pulses palpable, no cyanosis tenderness Neuro: Able to move all 4 limbs, DVT Prophylaxis: Heparin - Summary of Assessment and Plan Summary of Assessment and Plan: (1) Acute and chronic respiratory failure with hypoxia Current Visit: Yes Status: Acute Assessment and plan: - Acute on chronic 3L home dependent respiratory failure secondary to CHF exacerbation - Currently off bipap - TTE 12/27: EF 45%, mild LV diastolic dysfunction, moderate concentric LVH, moderately dilated LA, mild TR - high BNP - CXR shows evidence of CHF exacerbation - off lasix drip due to alkalosis and RAVIN - Fluid restriction, strict I and Os, daily weights - has no hx of productive cough - leukocytosis 2/2 to steroid - on Bipap at night (2) CHF exacerbation Current Visit: Yes Status: Acute Patient presented to emergency department with difficulty in breathing Chest x-ray showed bilateral pulmonary edema versus pneumonia Patient's initial BNP was elevated at 1621 Procalcitonin within normal limits Patient being diuresed with Lasix and has BiPAP on Plan is for left heart catheter on Monday Cardiology consulted and following TTE 12/27: EF 45%, mild LV diastolic dysfunction, moderate concentric LVH, moderately dilated LA, mild TR Qualifiers: Heart failure type: combined systolic and diastolic Qualified Code(s): 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 (2) Aosfy-io-mloobjh kidney injury Current Visit: Yes Status: Suspected Assessment and plan: - BUN/Cr today 62/2.21 - nephrology on board - hold lasix - check post void bladder scan Qualifiers: Acute renal failure type: unspecified Chronic kidney disease stage: stage 3 (moderate) Qualified Code(s): N17.9 - Acute kidney failure, unspecified; N18.3 - Chronic kidney disease, stage 3 (moderate) (3) Hyponatremia Current Visit: Yes Status: Acute Assessment and plan: - Na of 123 on presentation, baseline unclear however he has been this low on previous admission - today 132 - Asymptomatic - suspect secondary to CHF as above - continue to monitor serum Na (4) Leukocytosis Current Visit: Yes Status: Acute Assessment and plan: - WBC trend down to 19 , likley 2/2 to steroid use no sign of infection - Procalcitonin wnl in ED - Suspect that this may be reactive in nature -follow BC - no indication of AB currently Qualifiers: Leukocytosis type: unspecified Qualified Code(s): D72.829 - Elevated white blood cell count, unspecified (6) Elevated troponin Current Visit: Yes Status: Acute Assessment and plan: - Trop of 0.32 on presentation - Elevated at last admission with Peak of 0.76 - Previously evaluated by cardiology who recommended possible LHC vs Stress test as outpatient - No complaints of Chest pain at this time - EKG shows no changes - cardiology on board - plan for LHC on Monday - on heparin drip (7) Diabetes Current Visit: Yes Status: Chronic Assessment and plan: - BS of 204 on presentation - non insulin dependent at home - No recent A1c on record A1c 7.2 - SSI, Qualifiers: Diabetes mellitus type: type 2 Diabetes mellitus retirement insulin use: without retirement use Diabetes mellitus complication status: without complication Qualified Code(s): E11.9 - Type 2 diabetes mellitus without complications (8) Anemia Current Visit: Yes Status: Chronic Assessment and plan: - Hgb of 8.9 on presentation which is mildly decreased from baseline of 10-12 - Patient denies signs or symptoms of bleeding - Suspect iron deficiency, possible related to CKD - May be dilutional component due to volume overload - hb today 9.9 Qualifiers: Anemia type: unspecified type Qualified Code(s): D64.9 - Anemia, unspecified (9) DVT prophylaxis Current Visit: Yes Status: Acute Assessment and plan: subcutaneous heparin - Time Spent with Patient Total time spent is greater than 50% in coordination of care (as documented) at patient's floor/unit and/or counseling patient: Internal Medicine: Result - Labs CBC & Chem 7: 02/09/19 04:03 02/09/19 04:03 Labs: Short CBC 02/09/19 Range/Units 04:03 WBC 19.8 H (4.3-11.1) K/mcL Hgb 9.9 L (12.9-16.9) g/dL Hct 31.1 L (37.5-50.1) % Plt Count 437 H (140-400) K/mcL BMP 02/09/19 04:03 Sodium 132 L Potassium 3.2 L Chloride 87 L Carbon Dioxide 38 H BUN 62 H Creatinine 2.21 H Glucose 114 H Calcium 9.3 Liver Function 02/09/19 Range/Units 04:03 Total Bilirubin 0.6 (0.3-1.0) mg/dL AST 15 (13-39) Units/L ALT 30 (7-52) Units/L Alkaline Phosphatase 68 (34-104) Units/L Albumin 3.5 (3.5-5.7) g/dL - ABG Interpretation ABG results: ABG ABG pH 7.47 pH Units (7.32-7.45) H 02/07/19 15:17 ABG pCO2 50 mmHg (35-45) H 02/07/19 15:17 ABG pO2 58 mmHg (85-104) L 02/07/19 15:17 ABG O2 Saturation 91 % (95-98) L 02/07/19 15:17 PT/INR, D-dimer PT 12.6 Seconds (9.4-12.1) H 02/06/19 23:56 Consult Discharge Plan - Plan Referrals: Raul Mancilla [Primary Care Provider] -
--- NOTE | 2019-02-09 11:44 | Event Note ---
Date of Encounter: 02/09/19 Time of Encounter: 11:43 - Cardiology Event Note Plan for [facility] on Monday for elevated troponin, CHF. Patient was being diuresed with lasix, however now on hold due to worsening renal function. Nephrology on board, appreciate recs. Cardiology will continue to follow.
[2019-02-09] MEDS: Heparin 25,000 UNIT/250 ML D5W 25,000 UNIT/250 ML IV.SOLN IVC SCH (17:29)
[2019-02-10 01:36] LABS: Hematocrit 30.7 % (37.5-50.1); Hemoglobin 9.6 g/dL (12.9-16.9); Mean Corpuscular HGB Conc 31.3 g/dL (31.6-35.5); Mean Corpuscular Volume 89.5 fL (83.0-100.0); Mean Platelet Volume 9.5 fL (9.4-12.4); Platelet Count 408 K/mcL (140-400); Red Blood Count 3.43 M/mcL (4.19-5.50); Red Cell Distribution Width 14.3 % (11.5-14.5); White Blood Count 17.5 K/mcL (4.3-11.1)
[2019-02-10 01:55] LABS: Albumin 3.4 g/dL (3.5-5.7); Albumin/Globulin Ratio 1.4 (1.1-2.2); Bilirubin,Total 0.6 mg/dL (0.3-1.0); Calcium 8.9 mg/dL (8.6-10.3); Globulin 2.5 g/dL (2.4-3.5); Magnesium 2.3 mg/dL (1.6-2.6); Phosphorous 3.8 mg/dL (2.7-4.5); Potassium 3.4 mEq/L (3.5-5.1); Total Protein 5.9 g/dL (6.4-8.9)
[2019-02-10] MEDS: Ipratropium/Albuterol Neb 3 ML IH SCH ×6 (04:04→23:46)
[2019-02-10] MEDS: Heparin 25,000 UNIT/250 ML D5W 25,000 UNIT/250 ML IV.SOLN IVC SCH ×2 (08:25→15:47)
[2019-02-10] MEDS: Aspirin 81 MG TAB.CHEW PO SCH (08:32)
[2019-02-10] MEDS: Metoprolol XL (24 HR) Succ 50 MG TAB.ER.24H PO SCH (08:32)
[2019-02-10] MEDS: Insulin LISPRO 300 UNITS/3 ML VIAL SQ SCH ×4 (08:32→22:31)
--- NOTE | 2019-02-10 09:45 | Nephrology Progress Note ---
Date of Encounter: 02/09/19 Time of Encounter: 15:00 - Assessment and Plan (1) CKD (chronic kidney disease) stage 3, GFR 30-59 ml/min Current Visit: Yes Status: Acute SCr remains fairly stable at 2.25, GFr 30 UOP noted drastically reduced at 550cc in the past 24hrs Continue to avoid nephrotoxins if possible (2) Acute and chronic respiratory failure with hypoxia Current Visit: Yes Status: Acute Resolving with diuresis Continue strict I/Os Continue current diuretic regimen for another day (3) Anemia Current Visit: Yes Status: Acute Hgb 9.6, fairly stable Will monitor Qualifiers: Qualified Code(s): D64.9 - Anemia, unspecified Subjective Interval history: Pt seen and examined feels alittle better with slightly less SOB, sitting up Objective - Vital Signs Vital signs: Vital Signs Temp Pulse Resp BP Pulse Ox 02/10/19 08:13 97.6 F 107 16 111/79 92 02/10/19 07:32 18 93 02/10/19 04:05 18 93 02/10/19 04:03 97.6 F 96 18 125/85 92 02/10/19 00:38 97.9 F 105 18 124/79 93 02/09/19 23:46 20 96 02/09/19 22:21 18 100 02/09/19 20:09 16 96 02/09/19 20:01 98.2 F 91 18 129/85 94 02/09/19 16:05 18 92 02/09/19 15:42 97.8 F 103 18 137/83 92 02/09/19 11:03 16 95 Intake and Output 02/09/19 02/10/19 02/10/19 23:59 07:59 15:59 Intake Total 588 / 1170 164 / 164 Output Total 100 / 550 300 / 300 Balance 488 / 620 -136 / -136 Intake: IV Fluids 148 / 250 164 / 164 Heparin 25,000 UNIT/250 ML D5W 148 / 250 164 / 164 25,000 unit In 250 ml @ 10.8 UNIT/KG/HR 10.087 mls/hr IVC . Q24H PAPO Rx#:[id number] Oral 440 / 920 Output: Urine 100 / 550 300 / 300 Other: Meal Dinner Percent of Meal Consumed 90% Weight 87.2 kg Blood Glucose* 166 166 Patient Weight 02/10/19 23:59 Weight 87.2 kg - General Appearance General appearance: Present: chronically ill, frail (NAD) EENT: Present: ATNC, mucous membranes moist Neck: Present: no JVD, supple Additional Comments: decreased BS throughout bilat Cardiology: Present: edema (trace LE bilat), normal S1, normal S2 Gastrointestinal: Present: no tenderness, no guarding Integumentary: Present: warm and dry Neurologic: Present: no focal deficit Musculoskeletal: Present: no deformities Psychiatric: Present: mood/affect appropriate, cooperative - Lab 02/10/19 01:19 02/10/19 01:19 Most recent lab results 02/10/19 01:19 Calcium 8.9 Phosphorus 3.8 Magnesium 2.3 Consult Discharge Plan - Plan Referrals: Raul Mancilla [Primary Care Provider] -
--- NOTE | 2019-02-10 09:55 | Nephrology Progress Note ---
Date of Encounter: 02/10/19 Time of Encounter: 11:00 - Assessment and Plan (1) CKD (chronic kidney disease) stage 3, GFR 30-59 ml/min Status: Chronic SCr remains fairly stable at 2.25, GFr 30 UOP noted drastically reduced at 550cc in the past 24hrs Continue to avoid nephrotoxins if possible (2) Acute and chronic respiratory failure with hypoxia Status: Acute Resolving with diuresis Continue strict I/Os Continue current diuretic regimen for another day (3) Anemia Status: Acute Hgb 9.6, fairly stable Will monitor Qualifiers: Anemia type: due to chronic kidney disease Chronic kidney disease stage: stage 3 (moderate) Qualified Code(s): N18.3 - Chronic kidney disease, stage 3 (moderate); D63.1 - Anemia in chronic kidney disease Subjective Interval history: Pt seen and examined breathing improving slowly Objective - Vital Signs Vital signs: Vital Signs Temp Pulse Resp BP Pulse Ox 02/10/19 08:13 97.6 F 107 16 111/79 92 02/10/19 07:32 18 93 02/10/19 04:05 18 93 02/10/19 04:03 97.6 F 96 18 125/85 92 02/10/19 00:38 97.9 F 105 18 124/79 93 02/09/19 23:46 20 96 02/09/19 22:21 18 100 02/09/19 20:09 16 96 02/09/19 20:01 98.2 F 91 18 129/85 94 02/09/19 16:05 18 92 02/09/19 15:42 97.8 F 103 18 137/83 92 02/09/19 11:03 16 95 Intake and Output 02/09/19 02/10/19 02/10/19 23:59 07:59 15:59 Intake Total 588 / 1170 164 / 164 Output Total 100 / 550 300 / 300 Balance 488 / 620 -136 / -136 Intake: IV Fluids 148 / 250 164 / 164 Heparin 25,000 UNIT/250 ML D5W 148 / 250 164 / 164 25,000 unit In 250 ml @ 10.8 UNIT/KG/HR 10.087 mls/hr IVC . Q24H PAPO Rx#:[id number] Oral 440 / 920 Output: Urine 100 / 550 300 / 300 Other: Meal Dinner Percent of Meal Consumed 90% Weight 87.2 kg Blood Glucose* 166 166 Patient Weight 02/10/19 23:59 Weight 87.2 kg - General Appearance General appearance: Present: chronically ill, frail (NAD) EENT: Present: ATNC, mucous membranes moist Neck: Present: no JVD, supple Additional Comments: slightly improved areation ant bilat Cardiology: Present: no edema, normal S1, normal S2 Gastrointestinal: Present: no tenderness, no guarding Integumentary: Present: warm and dry Neurologic: Present: alert and oriented x3 Musculoskeletal: Present: no deformities Psychiatric: Present: mood/affect appropriate - Lab 02/18/19 01:07 02/18/19 01:07 Most recent lab results 02/10/19 01:19 Calcium 8.9 Phosphorus 3.8 Magnesium 2.3 Consult Discharge Plan - Plan Instructions: Metoprolol (By mouth), Furosemide (By mouth), Warfarin (By mouth), Aspirin (By mouth), Risperidone (By mouth), Amlodipine (By mouth), Glimepiride (By mouth), Atorvastatin (By mouth), Tamsulosin (By mouth), Ipratropium/Albuterol (By breathing), Laxative, Stimulant Combination (By mouth), Heart Failure (DC), Atrial Fibrillation (DC), Acute Respiratory Distress Syndrome (DC), Diabetes Mellitus Type 2 in Adults (DC), Chronic Obstructive Pulmonary Disease (DC), Vitamin K in Foods (DC), Anemia (GEN) Referrals: Jaqui Gregg [Registered Pharmacist] - 02/19/19 3:45 pm (New location .....located behind the [facility] in the rehab center. Please bring ID and I NS card [id number] [id number]) Danilo Moore MD [Partnered Physician] - (Web request made, physicians office will call patient to schedule a hospital follow-up.) Vu Caldera MD [Partnered Physician] - 02/22/19 2:45 pm (Medical office building [address] phone [phone] if patient needs to cancel the appointment please call within 24 hours of appointment. please arrive at 2:15 with ID and INS card. ) Gorge Birmingham CNP [Advanced Practice Nurse] - (Web request made, physicians office will call patient to schedule an appointment.) Prescriptions: Glimepiride [Amaryl] 1 tab PO QAM #30 tablet Amlodipine Besylate 5 mg PO HS #30 tablet Aspirin Enteric Coated [Aspirin EC] 1 tab PO DAILY #30 tablet. Warfarin [Coumadin] 1 tab PO QDPC #30 tablet Ipratropium/Albuterol Neb [Duoneb] 3 ml IH Q6HR PRN 30 Days #100 vial.neb PRN Reason: Shortness Of Breath/Wheezing Ipratropium/Albuterol Neb [Duoneb] 3 ml IH Q6HR 30 Days #100 inhsol Tamsulosin HCl [Flomax] 0.4 mg PO DAILY #30 capsule Furosemide [Lasix] 20 mg PO DAILY #30 tablet Atorvastatin [Lipitor] 2 tab PO HS #60 tablet risperiDONE [RisperDAL] 1 tab PO HS #30 tablet Sennosides/Docusate Sodium [Senna Plus] 1 tab PO BID PRN #60 tablet PRN Reason: Constipation Metoprolol XL (24 HR) Succ [Toprol XL] 1 tab PO BID #60 tab.er.24h Metoprolol XL (24 HR) Succ [Toprol Xl] 1 tab PO BID #60 tab.er.24h
--- NOTE | 2019-02-10 10:10 | Internal Med Progress Note ---
Hospitalist Progress Note - Encounter Date of Encounter: 02/10/19 Time of Encounter: 10:06 - Subjective Interval History: the patient was seen and examined at bedside. denies CP oe SOB on 5 L oxygen plan for [facility] tomorrow - Exam Vitals: Temp Pulse Resp BP Pulse Ox 97.6 F 107 16 111/79 92 02/10/19 08:13 02/10/19 08:13 02/10/19 08:13 02/10/19 08:13 02/10/19 08:13 Exam: Physical examination: Gen.: Patient is alert and oriented, in mild respiratory distress, not in pain HEENT: perrla , EOMI, no thyroid gland enlargement, no neck mass, supple neck Heart: S1 and S2 kamar, normal sinus rhythm, no cardiac murmur no gallop rhythm Chest: Air entry equal bilaterally, decreased breathing bilaterally, no wheezing, minimal crackles at lung bases, no crepitation Abdomen: Soft nontender nondistended positive bowel sounds, no organomegaly Extremities: No pitting edema, peripheral pulses palpable, no cyanosis tenderness Neuro: Able to move all 4 limbs, DVT Prophylaxis: Heparin - Summary of Assessment and Plan Summary of Assessment and Plan: (1) Acute and chronic respiratory failure with hypoxia Current Visit: Yes Status: Acute Assessment and plan: - Acute on chronic 3L home dependent respiratory failure secondary to CHF exacerbation - Currently off bipap - TTE 12/27: EF 45%, mild LV diastolic dysfunction, moderate concentric LVH, moderately dilated LA, mild TR - high BNP - CXR shows evidence of CHF exacerbation - off lasix drip due to alkalosis and RAVIN - Fluid restriction, strict I and Os, daily weights - has no hx of productive cough - leukocytosis 2/2 to steroid - on Bipap at night (2) CHF exacerbation Current Visit: Yes Status: Acute Patient presented to emergency department with difficulty in breathing Chest x-ray showed bilateral pulmonary edema versus pneumonia Patient's initial BNP was elevated at 1621 Procalcitonin within normal limits Patient being diuresed with Lasix and has BiPAP on lasix on hold due to CKD Plan for left heart catheter on Monday Cardiology consulted and following TTE 12/27: EF 45%, mild LV diastolic dysfunction, moderate concentric LVH, moderately dilated LA, mild TR Qualifiers: Heart failure type: combined systolic and diastolic Qualified Code(s): I50.43 - Acute on chronic combined systolic (congestive) and diastolic (congestive) heart failure (2) Wcafs-gl-sijlreu kidney injury Current Visit: Yes Status: Suspected Assessment and plan: - BUN/Cr today 58/2.25 - nephrology on board - hold lasix - check post void bladder scan Qualifiers: Acute renal failure type: unspecified Chronic kidney disease stage: stage 3 (moderate) Qualified Code(s): N17.9 - Acute kidney failure, unspecified; N18.3 - Chronic kidney disease, stage 3 (moderate) (3) Hyponatremia Current Visit: Yes Status: Acute Assessment and plan: - Na of 123 on presentation, baseline unclear however he has been this low on previous admission - today 135 - Asymptomatic - suspect secondary to CHF as above - continue to monitor serum Na (4) Leukocytosis Current Visit: Yes Status: Acute Assessment and plan: - WBC today 17 , likley 2/2 to steroid use no sign of infection - Procalcitonin wnl in ED - Suspect that this may be reactive in nature -follow BC - no indication of AB currently Qualifiers: Leukocytosis type: unspecified Qualified Code(s): D72.829 - Elevated white blood cell count, unspecified (6) Elevated troponin Current Visit: Yes Status: Acute Assessment and plan: - Trop of 0.32 on presentation - Elevated at last admission with Peak of 0.76 - Previously evaluated by cardiology who recommended possible LHC vs Stress test as outpatient - No complaints of Chest pain at this time - EKG shows no changes - cardiology on board - plan for LHC on Monday - on heparin drip (7) Diabetes Current Visit: Yes Status: Chronic Assessment and plan: - BS of 204 on presentation - non insulin dependent at home A1c 7.2 - SSI, Qualifiers: Diabetes mellitus type: type 2 Diabetes mellitus penitentiary insulin use: without 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 control 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 Diabetes mellitus complication status: without complication Qualified Code(s): E11.9 - Type 2 diabetes mellitus without complications (8) Anemia Current Visit: Yes Status: Chronic Assessment and plan: - Hgb of 8.9 on presentation which is mildly decreased from baseline of 10-12 - Patient denies signs or symptoms of bleeding - Suspect iron deficiency, possible related to CKD - May be dilutional component due to volume overload - hb today 9.6 Qualifiers: Anemia type: unspecified type Qualified Code(s): D64.9 - Anemia, unspecified (9) DVT prophylaxis Current Visit: Yes Status: Acute Assessment and plan: subcutaneous heparin - Time Spent with Patient Total time spent is greater than 50% in coordination of care (as documented) at patient's floor/unit and/or counseling patient: Internal Medicine: Result - Labs CBC & Chem 7: 02/10/19 01:19 02/10/19 01:19 Labs: Short CBC 02/10/19 Range/Units 01:19 WBC 17.5 H (4.3-11.1) K/mcL Hgb 9.6 L (12.9-16.9) g/dL Hct 30.7 L (37.5-50.1) % Plt Count 408 H (140-400) K/mcL BMP 02/10/19 01:19 Sodium 135 L Potassium 3.4 L Chloride 88 L Carbon Dioxide 38 H BUN 58 H Creatinine 2.25 H Glucose 188 H Calcium 8.9 Liver Function 02/10/19 Range/Units 01:19 Total Bilirubin 0.6 (0.3-1.0) mg/dL AST 12 L (13-39) Units/L ALT 28 (7-52) Units/L Alkaline Phosphatase 63 (34-104) Units/L Albumin 3.4 L (3.5-5.7) g/dL - ABG Interpretation ABG results: ABG ABG pH 7.47 pH Units (7.32-7.45) H 02/07/19 15:17 ABG pCO2 50 mmHg (35-45) H 02/07/19 15:17 ABG pO2 58 mmHg (85-104) L 02/07/19 15:17 ABG O2 Saturation 91 % (95-98) L 02/07/19 15:17 PT/INR, D-dimer PT 12.6 Seconds (9.4-12.1) H 02/06/19 23:56 Consult Discharge Plan - Plan Referrals: Raul Mancilla [Primary Care Provider] -
--- NOTE | 2019-02-10 11:18 | Cardiology Progress Note ---
Date of Encounter: 02/10/19 Time of Encounter: 09:00 Assessment and Plan (1) NSTEMI (non-ST elevated myocardial infarction) Current Visit: Yes Status: Acute Per cardiology: - Patient presented with an elevated troponin at 0.32; subsequent levels were 0.47 and 0.45 - Patients troponins were found to be elevated during his last admission in December with a peak of 0.76 - LHC versus stress test was recommended as an outpatient during patients last admission - EKG demonstrated no acute ischemic changes - No complaints of chest pain - No prior ischemic workup is on file; patient denies history of [place] -PLan has been for LHC. -Pateint is on heparin drip, asa, statin, BB. -NPO after midnight for possible LHC. However, patient may not be ready for LHC tomorrow. Renal function continues to slowly decline. Patient's anemia has been stable this admission, however decreased from previous labs, will check stool OB. Also patient's respiratory status is not back to baseline, requiring O2 at 6LPM, normally on 2L at home, and patient is sitting at high angle in bed. I am unsure if he would tolerate laying flat for LHC and potentially for up to 6 hours after LHC. I discussed my concerns with patient, who states understanding. -Will re-evaluate in am. (2) CHF (congestive heart failure) Current Visit: Yes Status: Acute Per cardiology: - TTE 12/27: EF 45%, mild LV diastolic dysfunction, moderate concentric LVH, moderately dilated LA, mild TR - BNP elevated on arrival at 1621 - CXR demonstrated pulmonary vascular congestion - Normally takes 20 mg by mouth Lasix home. -Was diuresed with lasix drip and IV lasix. Appears euvolemic on exam, however has increased O2 requirements than baseline. -Nephrology on board for CKD. -Appreciate nephrology assistance regarding volume management. - Fluid restriction, strict intake/output Qualifiers: Qualified Code(s): I50.9 - Heart failure, unspecified (3) Anemia Current Visit: Yes Status: Acute Per cardiology: - Presented with a low hemoglobin at 8.9; subsequent levels were 8.7, 8.4. Hemoglobin today 9.6, stable on heparin drip, however down from previous baseline. - Per chart review, baseline hemoglobin is approximately 10-12 - Etiology unknown at this time; patient has a known history of CKD -Will check stool OB. Qualifiers: Qualified Code(s): D64.9 - Anemia, unspecified (4) Atrial fibrillation Current Visit: Yes Status: Acute Per cardiology: -New onset a.fib noted during this admission. -ON BB, HR controlled. Currently on heparin drip for anticoagulation. -Continue BB and heparin drip. Will determine terminal block assembler anticoagulation pending clinical coarse. Qualifiers: Atrial fibrillation type: unspecified Qualified Code(s): I48.91 - Unspecified atrial fibrillation (5) CKD (chronic kidney disease) stage 3, GFR 30-59 ml/min Current Visit: Yes Status: Acute Per cardiology: -Known CKD. -Nephrology following. -Appreciate nephrology assistance. Discussion w patient/family: The assessment and plan as outlined above was discussed with the patient who expressed understanding and agreement. All questions were answered. Thank you for involving us in the care of your patient. Please call with any questions. Discussed and reviewed with . Subjective Principal diagnosis: CHF Interval history: Patient denies chest pain. Reports shortness of breath is improved. Denies bleeding or blood loss. Objective Vital Signs, Last 4 Hours Temp Pulse Resp BP Pulse Ox 02/10/19 08:13 97.6 F 107 16 111/79 92 02/10/19 07:32 18 93 General: Conversant, No Apparent Distress HEENT: Atraumatic, Normocephaly, Mucus Membranes Moist Neck: No JVD, Normal carotid pulses Cardiac: Normal S1 and S2, No Murmur, Other (Irregularly irregular) Lungs: Other (Lung sounds diminished throughout. ) Neuro: Alert and responsive, No focal deficits noted Abdomen: Soft, Non-Tender Skin: No rashes noted on visualized skin Musculoskeletal: No Chest Wall Tenderness Extremities: No Clubbing, No Cyanosis, No Edema, Normal Pulses Results 02/10/19 01:19 02/10/19 01:19 Lab Results Active Medications Albuterol/Ipratropium (Duoneb) 3 ml IH [id number] [facility] Stop: 08/09/19 00:01 Last Admin: 02/10/19 07:30 Dose: 3 ml Documented by: Aspirin (Aspirin) 81 mg PO DAILY [facility] Stop: 08/09/19 09:01 Last Admin: 02/10/19 08:32 Dose: 81 mg Documented by: Atorvastatin Calcium (Lipitor) 40 mg PO QPM [facility] Stop: 08/09/19 18:01 Last Admin: 02/09/19 16:29 Dose: 40 mg Documented by: Dextrose/Water (Dextrose 50% (Syg)) 25 ml IVP AD PRN PRN Reason: Hypoglycemia Stop: 08/08/19 21:10 Glucagon (Glucagen) 1 mg IM ONCE PRN PRN Reason: Hypoglycemia Stop: 08/08/19 21:10 Glucose (Gluctose) 15 gm PO ONCE PRN PRN Reason: Hypoglycemia Stop: 08/08/19 21:10 Glucose (Gluctose) 30 gm PO ONCE PRN PRN Reason: Hypoglycemia Stop: 08/08/19 21:10 Heparin Sodium (Porcine) (Heparin) 4,000 unit IVP Q6HR PRN PRN Reason: SEE COMMENTS Stop: 08/09/19 00:42 Heparin Sodium (Porcine) (Heparin) 2,000 unit IVP Q6H PRN PRN Reason: SEE COMMENTS Stop: 08/09/19 00:42 Dextrose (Dextrose 5%) 1,000 mls @ 100 mls/hr IVC .Q10H PRN PRN Reason: HYPOGLYCEMIA Stop: 08/08/19 21:10 Heparin Sodium/Dextrose (Heparin 25,000 Unit/250 Ml D5w) 25,000 unit in 250 mls @ 10.087 mls/hr IVC .Q24H [facility]; Protocol Stop: 08/09/19 00:46 Last Admin: 02/10/19 08:25 Dose: Not Given Documented by: Insulin Human Lispro (Humalog) 0 units SQ TIDAC [facility]; Protocol Stop: 08/11/19 07:31 Last Admin: 02/10/19 08:32 Dose: 2 units Documented by: Insulin Human Lispro (Humalog) 0 units SQ [facility]; Protocol Stop: 08/10/19 21:01 Last Admin: 02/09/19 20:40 Dose: Not Given Documented by: Metoprolol Succinate (Toprol Xl) 50 mg PO DAILY [facility] Stop: 08/09/19 09:01 Last Admin: 02/10/19 08:32 Dose: 50 mg Documented by: Naloxone HCl (Narcan) 0.4 mg IVP Q2MPRN PRN PRN Reason: SEE COMMENTS Stop: 08/08/19 21:05 Ondansetron HCl (Zofran) 4 mg IVP Q8HR PRN PRN Reason: Nausea And Vomiting Stop: 08/08/19 21:05 Oxycodone HCl (Oxycodone Oral Conc) 5 mg SL Q4H PRN; Protocol PRN Reason: mild to moderate pain Stop: 08/08/19 21:05 Senna/Docusate Sodium (Senna Plus) 2 each PO BID PRN; Protocol PRN Reason: Constipation Stop: 08/08/19 21:11 Tamsulosin HCl (Flomax) 0.4 mg PO DAILY [facility]; Protocol Stop: 08/09/19 09:01 Last Admin: 02/10/19 08:32 Dose: 0.4 mg Documented by: Laboratory Tests 01/30/19 02/06/19 02/06/19 10:48 16:40 16:40 WBC Hgb 10.2 L 8.9 L Creatinine 2.01 H Troponin I 0.32 H* 02/06/19 02/07/19 02/10/19 23:56 06:02 01:19 WBC 17.5 H Hgb 9.6 L Creatinine Troponin I 0.47 H* 0.45 H* 02/10/19 01:19 WBC Hgb Creatinine 2.25 H Troponin I - Imaging and Cardiology Chest Xray: report reviewed Echo: report reviewed - EKG Interpretation EKG results cardiology: other (Telemetry reviewed with average HR previous 12 hours noted to be 97, a.fib. PVCs noted.) Consult Discharge Plan - Plan Referrals: Raul Mancilla [Primary Care Provider] -
[2019-02-11] MEDS: Ipratropium/Albuterol Neb 3 ML IH SCH ×6 (04:04→23:18)
[2019-02-11 05:31] LABS: Hematocrit 29.7 % (37.5-50.1); Hemoglobin 9.5 g/dL (12.9-16.9); Mean Corpuscular Hemoglobin 28.8 pg (28.0-33.3); Platelet Count 379 K/mcL (140-400); Red Cell Distribution Width 14.5 % (11.5-14.5); White Blood Count 15.2 K/mcL (4.3-11.1)
[2019-02-11 05:59] LABS: Albumin 3.3 g/dL (3.5-5.7); Albumin/Globulin Ratio 1.3 (1.1-2.2); Bilirubin,Total 0.6 mg/dL (0.3-1.0); Calcium 9.1 mg/dL (8.6-10.3); Globulin 2.5 g/dL (2.4-3.5); Magnesium 2.2 mg/dL (1.6-2.6); Phosphorous 3.9 mg/dL (2.7-4.5); Potassium 3.4 mEq/L (3.5-5.1); Total Protein 5.8 g/dL (6.4-8.9)
[2019-02-11] MEDS: Insulin LISPRO 300 UNITS/3 ML VIAL SQ SCH ×4 (08:40→22:13)
--- NOTE | 2019-02-11 09:02 | Internal Med Progress Note ---
Hospitalist Progress Note - Encounter Date of Encounter: 02/11/19 Time of Encounter: 08:58 - Subjective Interval History: the patient was seen and examined at bedside denies CP or SOB on 4 L oxygen HR noted irregular, order EKG plan for [facility] today - Exam Vitals: Temp Pulse Resp BP Pulse Ox 97.9 F 108 16 134/81 92 02/11/19 07:47 02/11/19 07:47 02/11/19 07:47 02/11/19 07:47 02/11/19 07:47 Exam: Physical examination: Gen.: Patient is alert and oriented, in mild respiratory distress, not in pain HEENT: perrla , EOMI, no thyroid gland enlargement, no neck mass, supple neck Heart: S1 and S2 kamar, normal sinus rhythm, no cardiac murmur no gallop rhythm Chest: Air entry equal bilaterally, decreased breathing bilaterally, no wheezing, minimal crackles at lung bases, no crepitation Abdomen: Soft nontender nondistended positive bowel sounds, no organomegaly Extremities: No pitting edema, peripheral pulses palpable, no cyanosis tenderness Neuro: Able to move all 4 limbs, DVT Prophylaxis: Heparin - Summary of Assessment and Plan Summary of Assessment and Plan: (1) Acute and chronic respiratory failure with hypoxia Current Visit: Yes Status: Acute Assessment and plan: - Acute on chronic 3L home dependent respiratory failure secondary to CHF exacerbation - currently on 4 L oxygen - Currently off bipap - TTE 12/27: EF 45%, mild LV diastolic dysfunction, moderate concentric LVH, moderately dilated LA, mild TR - high BNP - CXR shows evidence of CHF exacerbation - off lasix drip due to alkalosis and RAVIN - Fluid restriction, strict I and Os, daily weights - has no hx of productive cough - leukocytosis 2/2 to steroid - on Bipap at night (2) CHF exacerbation Current Visit: Yes Status: Acute Patient presented to emergency department with difficulty in breathing Chest x-ray showed bilateral pulmonary edema versus pneumonia Patient's initial BNP was elevated at 1621 Procalcitonin within normal limits Patient being diuresed with Lasix and has BiPAP on lasix on hold due to acute renal insuffiency Plan for left heart catheter today Cardiology consulted and following TTE 12/27: EF 45%, mild LV diastolic dysfunction, moderate concentric LVH, moderately dilated LA, mild TR Qualifiers: Heart failure type: combined systolic and diastolic Qualified Code(s): I5 0.43 - Acute on chronic combined systolic (congestive) and diastolic (congestive) heart failure (2) Acmus-zx-thovnay kidney injury Current Visit: Yes Status: Suspected Assessment and plan: - BUN/Cr today 51/2.1 - nephrology on board - hold lasix - check post void bladder scan Qualifiers: Acute renal failure type: unspecified Chronic kidney disease stage: stage 3 (moderate) Qualified Code(s): N17.9 - Acute kidney failure, unspecified; N18.3 - Chronic kidney disease, stage 3 (moderate) (3) Hyponatremia Current Visit: Yes Status: Acute Assessment and plan: - Na of 123 on presentation, baseline unclear however he has been this low on previous admission - today 136 - Asymptomatic - suspect secondary to CHF as above - continue to monitor serum Na (4) Leukocytosis Current Visit: Yes Status: Acute Assessment and plan: - WBC today 15 , likley 2/2 to steroid use no sign of infection - Procalcitonin wnl in ED - BC negative - no indication of AB currently Qualifiers: Leukocytosis type: unspecified Qualified Code(s): D72.829 - Elevated white blood cell count, unspecified (6) Elevated troponin Current Visit: Yes Status: Acute Assessment and plan: - Trop of 0.32 on presentation - Elevated at last admission with Peak of 0.76 - Previously evaluated by cardiology who recommended possible LHC vs Stress test as outpatient - No complaints of Chest pain at this time - EKG shows no changes - cardiology on board - plan for LHC today - on heparin drip (7) Diabetes Current Visit: Yes Status: Chronic Assessment and plan: - BS of 204 on presentation - non insulin dependent at home A1c 7.2 - SSI, Qualifiers: Diabetes mellitus type: type 2 Diabetes mellitus [facility] insulin use: without [facility] use Diabetes mellitus complication status: without complication Qualified Code(s): E11.9 - Type 2 diabetes mellitus without complications (8) Anemia Current Visit: Yes Status: Chronic Assessment and plan: - Hgb of 8.9 on presentation which is mildly decreased from baseline of 10-12 - Patient denies signs or symptoms of bleeding - possible related to CKD - hb today 9.5 Qualifiers: Anemia type: unspecified type Qualified Code(s): D64.9 - Anemia, unspecified (9) DVT prophylaxis Current Visit: Yes Status: Acute Assessment and plan: subcutaneous heparin - Time Spent with Patient Total time spent is greater than 50% in coordination of care (as documented) at patient's floor/unit and/or counseling patient: Internal Medicine: Result - Labs CBC & Chem 7: 02/11/19 05:17 02/11/19 05:17 Labs: Short CBC 02/11/19 Range/Units 05:17 WBC 15.2 H (4.3-11.1) K/mcL Hgb 9.5 L (12.9-16.9) g/dL Hct 29.7 L (37.5-50.1) % Plt Count 379 (140-400) K/mcL BMP 02/11/19 05:17 Sodium 136 Potassium 3.4 L Chloride 90 L Carbon Dioxide 36 H BUN 51 H Creatinine 2.12 H Glucose 145 H Calcium 9.1 Liver Function 02/11/19 Range/Units 05:17 Total Bilirubin 0.6 (0.3-1.0) mg/dL AST 9 L (13-39) Units/L ALT 20 (7-52) Units/L Alkaline Phosphatase 65 (34-104) Units/L Albumin 3.3 L (3.5-5.7) g/dL - ABG Interpretation ABG results: ABG ABG pH 7.47 pH Units (7.32-7.45) H 02/07/19 15:17 ABG pCO2 50 mmHg (35-45) H 02/07/19 15:17 ABG pO2 58 mmHg (85-104) L 02/07/19 15:17 ABG O2 Saturation 91 % (95-98) L 02/07/19 15:17 PT/INR, D-dimer PT 12.6 Seconds (9.4-12.1) H 02/06/19 23:56 Consult Discharge Plan - Plan Referrals: Raul Mancilla [Primary Care Provider] -
[2019-02-11] MEDS: Metoprolol XL (24 HR) Succ 50 MG TAB.ER.24H PO SCH ×2 (09:33→22:12)
[2019-02-11] MEDS: Aspirin 81 MG TAB.CHEW PO SCH (09:33)
--- NOTE | 2019-02-11 10:44 | Cardiology Progress Note ---
Date of Encounter: 02/11/19 Time of Encounter: 09:30 Assessment and Plan (1) NSTEMI (non-ST elevated myocardial infarction) Current Visit: Yes Status: Acute Per cardiology: - Patient presented with an elevated troponin at 0.32; subsequent levels were 0.47 and 0.45 - Patients troponins were found to be elevated during his last admission in December with a peak of 0.76 - LHC versus stress test was recommended as an outpatient during patients last admission - EKG demonstrated no acute ischemic changes - No complaints of chest pain - No prior ischemic workup is on file; patient denies history of [place] -PLan has been for LHC. -Pateint is on heparin drip, asa, statin, BB. -NPO after midnight for possible LHC. Discussed with pateint and family at length, Patient still on increased O2 requirements. Renal function stable. Hemoglobin relatively stable, however decreased from baseline. I discussed my concerns with patient and family at length, who are all in agreement for no LHC today. -Will make NPO after midnight, Will re-evaluate in am. (2) CHF (congestive heart failure) Current Visit: Yes Status: Acute Per cardiology: - TTE 12/27: EF 45%, mild LV diastolic dysfunction, moderate concentric LVH, moderately dilated LA, mild TR - BNP elevated on arrival at 1621 - CXR demonstrated pulmonary vascular congestion - Normally takes 20 mg by mouth Lasix home. -Was diuresed with lasix drip and IV lasix. Appears euvolemic on exam, however has increased O2 requirements than baseline. CUrrently net negative ~4.4L -Nephrology on board for CKD. -Appreciate nephrology assistance regarding volume management. - Fluid restriction, strict intake/output -With increased O2 requirements, after being diuresed, consider CT chest. Also will repeat limited TTE with definity. Qualifiers: Qualified Code(s): I50.9 - Heart failure, unspecified (3) Anemia Current Visit: Yes Status: Acute Per cardiology: - Presented with a low hemoglobin at 8.9; subsequent levels were 8.7, 8.4. Hemoglobin today 9.5, stable on heparin drip, however down from previous baseline. - Per chart review, baseline hemoglobin is approximately 10-12 - Etiology unknown at this time; patient has a known history of CKD -Will check stool OB. Qualifiers: Qualified Code(s): D64.9 - Anemia, unspecified (4) Atrial fibrillation Current Visit: Yes Status: Acute Per cardiology: -New onset a.fib noted during this admission. -ON BB, HR controlled. Currently on heparin drip for anticoagulation. -Continue BB and heparin drip. Will determine buttermaker helper anticoagulation pending clinical coarse. Qualifiers: Atrial fibrillation type: unspecified Qualified Code(s): I48.91 - Unspecified atrial fibrillation (5) CKD (chronic kidney disease) stage 3, GFR 30-59 ml/min Current Visit: Yes Status: Acute Per cardiology: -Known CKD. -Nephrology following. -Appreciate nephrology assistance. Discussion w patient/family: The assessment and plan as outlined above was discussed with the patient and family who expressed understanding and agreement. All questions were answered. Thank you for involving us in the care of your patient. Please call with any questions. Discussed and reviewed with . Subjective Principal diagnosis: CHF Interval history: Patient denies chest pain. Reports shortness of breath is improved. Denies bleeding or blood loss. Family at bedside. Objective Vital Signs, Last 4 Hours Temp Pulse Resp BP Pulse Ox 02/11/19 07:47 97.9 F 108 16 134/81 92 02/11/19 07:34 18 89 General: Conversant, No Apparent Distress HEENT: Atraumatic, Normocephaly, Mucus Membranes Moist Neck: No JVD, Normal carotid pulses Cardiac: Normal S1 and S2, No Murmur, Other (Irregularly irregular) Lungs: Other (Lung sounds diminished throughout ) Neuro: Alert and responsive, No focal deficits noted Abdomen: Soft, Non-Tender Skin: No rashes noted on visualized skin Musculoskeletal: No Chest Wall Tenderness Extremities: No Clubbing, No Cyanosis, No Edema, Normal Pulses Results 02/11/19 05:17 02/11/19 05:17 Lab Results Active Medications Albuterol/Ipratropium (Duoneb) 3 ml IH [id number] [facility] Stop: 08/09/19 00:01 Last Admin: 02/11/19 07:33 Dose: 3 ml Documented by: Aspirin (Aspirin) 81 mg PO DAILY [facility] Stop: 08/09/19 09:01 Last Admin: 02/11/19 09:33 Dose: 81 mg Documented by: Atorvastatin Calcium (Lipitor) 40 mg PO QPM [facility] Stop: 08/09/19 18:01 Last Admin: 02/10/19 17:14 Dose: 40 mg Documented by: Dextrose/Water (Dextrose 50% (Syg)) 25 ml IVP AD PRN PRN Reason: Hypoglycemia Stop: 08/08/19 21:10 Glucagon (Glucagen) 1 mg IM ONCE PRN PRN Reason: Hypoglycemia Stop: 08/08/19 21:10 Glucose (Gluctose) 15 gm PO ONCE PRN PRN Reason: Hypoglycemia Stop: 08/08/19 21:10 Glucose (Gluctose) 30 gm PO ONCE PRN PRN Reason: Hypoglycemia Stop: 08/08/19 21:10 Heparin Sodium (Porcine) (Heparin) 4,000 unit IVP Q6HR PRN PRN Reason: SEE COMMENTS Stop: 08/09/19 00:42 Heparin Sodium (Porcine) (Heparin) 2,000 unit IVP Q6H PRN PRN Reason: SEE COMMENTS Stop: 08/09/19 00:42 Dextrose (Dextrose 5%) 1,000 mls @ 100 mls/hr IVC .Q10H PRN PRN Reason: HYPOGLYCEMIA Stop: 08/08/19 21:10 Heparin Sodium/Dextrose (Heparin 25,000 Unit/250 Ml D5w) 25,000 unit in 250 mls @ 10.087 mls/hr IVC .Q24H [facility]; Protocol Stop: 08/09/19 00:46 Last Titration: 02/11/19 06:25 Dose: 13.7 unit/kg/hr, 12.8 mls/hr Documented by: Insulin Human Lispro (Humalog) 0 units SQ Q6H [facility]; Protocol Stop: 08/13/19 08:31 Last Admin: 02/11/19 08:40 Dose: Not Given Documented by: Metoprolol Succinate (Toprol Xl) 50 mg PO DAILY [facility] Stop: 08/09/19 09:01 Last Admin: 02/11/19 09:33 Dose: 50 mg Documented by: Naloxone HCl (Narcan) 0.4 mg IVP Q2MPRN PRN PRN Reason: SEE COMMENTS Stop: 08/08/19 21:05 Ondansetron HCl (Zofran) 4 mg IVP Q8HR PRN PRN Reason: Nausea And Vomiting Stop: 08/08/19 21:05 Oxycodone HCl (Oxycodone Oral Conc) 5 mg SL Q4H PRN; Protocol PRN Reason: mild to moderate pain Stop: 08/08/19 21:05 Senna/Docusate Sodium (Senna Plus) 2 each PO BID PRN; Protocol PRN Reason: Constipation Stop: 08/08/19 21:11 Tamsulosin HCl (Flomax) 0.4 mg PO DAILY [facility]; Protocol Stop: 08/09/19 09:01 Last Admin: 02/11/19 09:33 Dose: 0.4 mg Documented by: Laboratory Tests 02/10/19 02/11/19 02/11/19 01:19 05:17 05:17 WBC 15.2 H Hgb 9.5 L Creatinine 2.25 H 2.12 H - Imaging and Cardiology Chest Xray: report reviewed Echo: report reviewed - EKG Interpretation EKG results cardiology: other (Telemetry reviewed with average HR previous 12 hours noted to be 99, a.fib. PVCs noted.) Consult Discharge Plan - Plan Referrals: Raul Mancilla [Primary Care Provider] -
[2019-02-11] MEDS: Heparin 25,000 UNIT/250 ML D5W 25,000 UNIT/250 ML IV.SOLN IVC SCH (12:16)
[2019-02-11] MEDS ORDERED: Perflutren Lipid Microsphere 1.3 ML in 0.9 % Sodium Chloride 8.7 ML IVP ONE (12:27)
[2019-02-11] MEDS ORDERED: *HR* Metoprolol 5 MG/5 ML VIAL IVP ONE ×2 (13:30→13:32)
--- NOTE | 2019-02-11 14:19 | Event Note ---
Date of Encounter: 02/11/19 Time of Encounter: 14:18 - Cardiology Event Note Notified of delmar RVR, ECG reviewed with , with delmar RVR, HR 165, RBBB noted. Ordered lopressor 5mg IV x1, now HR 90-100s. Will increase oral BB dose also. Will continue to monitor.
--- NOTE | 2019-02-11 16:51 | Electrocardiograph Report ---
[place] [id number] Test Date: 2019-02-11 Pat Name: Christiano Valdez Department: 111 Room: 2NE26 Gender: M Care Clinician: Paloma : 1955 Requested By: Stephen Randall Order Number: [id number] Reading MD: Hermes Ferreira Measurements Intervals Tea Rate: 106 P: NV: 0 QRS: -69 QRSD: 135 T: 61 QT: 362 QTc: 424 Interpretive Statements ATRIAL FIBRILLATION WITH RAPID VENTRICULAR RESPONSE WITH ABERRANT CONDUCTION OR VENTRICULAR PREMATURE COMPLEXES RIGHT BUNDLE BRANCH BLOCK LEFT ANTERIOR FASCICULAR BLOCK Electronically Signed On 02-11-2019 16:49:25 EDT by Hermes Ferreira
--- NOTE | 2019-02-11 17:00 | Electrocardiograph Report ---
[place] [address] Test Date: 2019-02-11 Pat Name: Christiano Valdez Department: 111 Room: [facility] Gender: M Results Engineer: Cc : 1955 Requested By: Stephen Randall Order Number: [id number] Reading MD: Hermes Ferreira Measurements Intervals [place] Rate: 165 P: -15 WV: 112 QRS: -73 QRSD: 146 T: 40 QT: 306 QTc: 397 Interpretive Statements Wide complex tachycardia Right bundle branch block Electronically Signed On 02-11-2019 16:59:33 EDT by Hermes Ferreira
--- NOTE | 2019-02-11 17:36 | Nephrology Progress Note ---
Date of Encounter: 02/11/19 Time of Encounter: 12:00 - Assessment and Plan (1) CKD (chronic kidney disease) stage 3, GFR 30-59 ml/min Status: Chronic SCr improved at 2.12, GFr 32 UOP noted improved at 1550cc in the past 24hrs, which is great Continue to avoid nephrotoxins if possible. (2) Acute and chronic respiratory failure with hypoxia Status: Acute Resolved, now off diuresis Continue strict I/Os Can resume po home lasix on discharge (3) Anemia Status: Acute Hgb 9.5, fairly stable Will monitor Qualifiers: Anemia type: due to chronic kidney disease Chronic kidney disease stage: stage 3 (moderate) Qualified Code(s): N18.3 - Chronic kidney disease, stage 3 (moderate); D63.1 - Anemia in chronic kidney disease Subjective Principal diagnosis: CHF Interval history: Pt seen and examined with no new complaints. No SOB Objective - Vital Signs Vital signs: Vital Signs Temp Pulse Resp BP Pulse Ox 02/11/19 15:44 98.3 F 99 18 134/80 90 02/11/19 15:15 17 97 02/11/19 13:47 97 136/82 02/11/19 13:42 124 152/78 02/11/19 13:36 164 116/78 02/11/19 13:25 170 108/77 02/11/19 11:18 17 94 02/11/19 11:04 98.0 F 93 16 130/84 95 02/11/19 07:47 97.9 F 108 16 134/81 92 02/11/19 07:34 18 89 02/11/19 05:00 97.9 F 100 20 120/70 90 02/11/19 04:05 16 94 02/11/19 00:19 97.7 F 93 20 122/82 91 02/10/19 23:47 29 98 02/10/19 20:37 98 F 103 19 133/80 94 02/10/19 19:45 16 89 Intake and Output 02/11/19 02/11/19 02/11/19 07:59 15:59 23:59 Intake Total 191.6 / 490.0 298.4 / 490.0 Output Total 400 / 900 500 / 900 Balance -208.4 / -410.0 -201.6 / -410.0 Intake: IV Fluids 191.6 / 250.0 58.4 / 250.0 Heparin 25,000 UNIT/250 ML D5W 191.6 / 250.0 58.4 / 250.0 25,000 unit In 250 ml @ 10.8 UNIT/KG/HR 10.087 mls/hr IVC . Q24H [facility] Rx#:[id number] Oral 240 / 240 Output: Urine 400 / 900 500 / 900 Other: Meal Lunch Percent of Meal Consumed 100% Weight 87.5 kg Blood Glucose* 156 174 Patient Weight 02/11/19 23:59 Weight 87.5 kg - General Appearance General appearance: Present: chronically ill (NAD) EENT: Present: ATNC, mucous membranes moist Neck: Present: no JVD, supple Respiratory: Present: clear Cardiology: Present: no edema, normal S1, normal S2 Gastrointestinal: Present: no tenderness, no guarding Integumentary: Present: warm and dry Neurologic: Present: no focal deficit Musculoskeletal: Present: no deformities Psychiatric: Present: mood/affect appropriate, cooperative - Lab 02/18/19 01:07 02/18/19 01:07 Most recent lab results 02/11/19 05:17 Calcium 9.1 Phosphorus 3.9 Magnesium 2.2 Consult Discharge Plan - Plan Instructions: Metoprolol (By mouth), Furosemide (By mouth), Warfarin (By mouth), Aspirin (By mouth), Risperidone (By mouth), Amlodipine (By mouth), Glimepiride (By mouth), Atorvastatin (By mouth), Tamsulosin (By mouth), Ipratropium/Albuterol (By breathing), Laxative, Stimulant Combination (By mouth), Heart Failure (DC), Atrial Fibrillation (DC), Acute Respiratory Distress Syndrome (DC), Diabetes Mellitus Type 2 in Adults (DC), Chronic Obstructive Pulmonary Disease (DC), Vitamin K in Foods (DC), Anemia (GEN) Referrals: Jaqui Gregg [Registered Pharmacist] - 02/19/19 3:45 pm (New location .....located behind the [facility] in the rehab center. Please bring ID and INS card [id number] [id number]) Danilo Moore MD [Partnered Physician] - (Web request made, physicians office will call patient to schedule a hospital follow-up.) Vu Caldera MD [Partnered Physician] - 02/22/19 2:45 pm (Medical office building [address] phone [phone] if patient needs to cancel the appointment please call within 24 hours of appointment. please arrive at 2:15 with ID and INS card. ) Gorge Birmingham, [employer] [Advanced Practice Nurse] - (Web request made, physicians office will call patient to schedule an appointment.) Prescriptions: Glimepiride [Amaryl] 1 tab PO QAM #30 tablet Amlodipine Besylate 5 mg PO HS #30 tablet Aspirin Enteric Coated [Aspirin EC] 1 tab PO DAILY #30 tablet.dr Warfarin [Coumadin] 1 tab PO QDPC #30 tablet Ipratropium/Albuterol Neb [Duoneb] 3 ml IH Q6HR PRN 30 Days #100 vial.neb PRN Reason: Shortness Of Breath/Wheezing Ipratropium/Albuterol Neb [Duoneb] 3 ml IH Q6HR 30 Days #100 inhsol Tamsulosin HCl [Flomax] 0.4 mg PO DAILY #30 capsule Furosemide [Lasix] 20 mg PO DAILY #30 tablet Atorvastatin [Lipitor] 2 tab PO HS #60 tablet risperiDONE [RisperDAL] 1 tab PO HS #30 tablet Sennosides/Docusate Sodium [Senna Plus] 1 tab PO BID PRN #60 tablet PRN Reason: Constipation Metoprolol XL (24 HR) Succ [Toprol XL] 1 tab PO BID #60 tab.er.24h Metoprolol XL (24 HR) Succ [Toprol Xl] 1 tab PO BID #60 tab.er.24h
[2019-02-12] MEDS: Ipratropium/Albuterol Neb 3 ML IH SCH ×6 (03:37→23:08)
[2019-02-12 06:27] LABS: Hematocrit 30.8 % (37.5-50.1); Hemoglobin 9.6 g/dL (12.9-16.9); Mean Corpuscular HGB Conc 31.2 g/dL (31.6-35.5); Mean Corpuscular Hemoglobin 28.3 pg (28.0-33.3); Mean Corpuscular Volume 90.9 fL (83.0-100.0); Mean Platelet Volume 9.5 fL (9.4-12.4); Platelet Count 362 K/mcL (140-400); Red Blood Count 3.39 M/mcL (4.19-5.50); Red Cell Distribution Width 14.7 % (11.5-14.5); White Blood Count 14.4 K/mcL (4.3-11.1)
[2019-02-12 06:49] LABS: Albumin 3.4 g/dL (3.5-5.7); Albumin/Globulin Ratio 1.3 (1.1-2.2); Bilirubin,Total 0.8 mg/dL (0.3-1.0); Calcium 9.2 mg/dL (8.6-10.3); Globulin 2.7 g/dL (2.4-3.5); Magnesium 2.2 mg/dL (1.6-2.6); Phosphorous 3.9 mg/dL (2.7-4.5); Potassium 3.5 mEq/L (3.5-5.1); Total Protein 6.1 g/dL (6.4-8.9)
[2019-02-12] MEDS: Aspirin 81 MG TAB.CHEW PO SCH (09:37)
[2019-02-12] MEDS: Insulin LISPRO 300 UNITS/3 ML VIAL SQ SCH ×5 (09:37→21:10)
[2019-02-12] MEDS: Metoprolol XL (24 HR) Succ 50 MG TAB.ER.24H PO SCH ×2 (09:37→21:09)
[2019-02-12] MEDS: Heparin 25,000 UNIT/250 ML D5W 25,000 UNIT/250 ML IV.SOLN IVC SCH (11:40)
[2019-02-12] MEDS ORDERED: Furosemide 20 MG/2 ML VIAL IVP ONE (12:15)
--- NOTE | 2019-02-12 12:29 | Cardiology Progress Note ---
Date of Encounter: 02/12/19 Time of Encounter: 09:30 Assessment and Plan (1) NSTEMI (non-ST elevated myocardial infarction) Current Visit: Yes Status: Acute Per cardiology: - Patient presented with an elevated troponin at 0.32; subsequent levels were 0.47 and 0.45 - Patients troponins were found to be elevated during his last admission in December with a peak of 0.76 - LHC versus stress test was recommended as an outpatient during patients last admission - EKG demonstrated no acute ischemic changes - No complaints of chest pain - No prior ischemic workup is on file; patient denies history of MT -PLan has been for LHC. -Pateint is on heparin drip, asa, statin, BB. -NPO after midnight for possible LHC. Discussed with pateint and family at length, Patient still on increased O2 requirements. Renal function improved. Hemoglobin relatively stable, however decreased from baseline. I discussed my concerns with patient and family at length, who are all in agreement for no LHC today. -Will make NPO after midnight, Will re-evaluate in am. (2) CHF (congestive heart failure) Current Visit: Yes Status: Acute Per cardiology: - TTE 12/27: EF 45%, mild LV diastolic dysfunction, moderate concentric LVH, moderately dilated LA, mild TR - BNP elevated on arrival at 1621 - CXR demonstrated pulmonary vascular congestion - Normally takes 20 mg by mouth Lasix home. -Was diuresed with lasix drip and IV lasix. Appears euvolemic on exam, however has increased O2 requirements than baseline. CUrrently net negative ~4.4L -Nephrology on board for CKD. -CT chest was performed yesterday with evidence of CHF, pleural effusion. -Appreciate nephrology assistance regarding volume management. - Fluid restriction, strict intake/output -With increased O2 requirements, will give IV lasix x1 today. -TTE was repeated with LVEF 40-45%. Qualifiers: Qualified Code(s): I50.9 - Heart failure, unspecified (3) Anemia Current Visit: Yes Status: Acute Per cardiology: - Presented with a low hemoglobin at 8.9; subsequent levels were 8.7, 8.4. Hemoglobin today 9.5, stable on heparin drip, however down from previous baseline. - Per chart review, baseline hemoglobin is approximately 10-12 - Etiology unknown at this time; patient has a known history of CKD -Will check stool OB. Of note, patient has not had a bowel movement. Qualifiers: Qualified Code(s): D64.9 - Anemia, unspecified (4) Atrial fibrillation Current Visit: Yes Status: Acute Per cardiology: -New onset a.fib noted during this admission. -ON BB, HR controlled. Currently on heparin drip for anticoagulation. -Of note, patient had episode of a.fib RVR 02/11/19 and was given IV lopressor and oral BB was increased. -Continue BB and heparin drip. Will determine long-term anticoagulation pending clinical coarse. Qualifiers: Atrial fibrillation type: unspecified Qualified Code(s): I48.91 - Unspecified atrial fibrillation (5) CKD (chronic kidney disease) stage 3, GFR 30-59 ml/min Current Visit: Yes Status: Acute Per cardiology: -Known CKD. -Nephrology following. -Appreciate nephrology assistance. Discussion w patient/family: The assessment and plan as outlined above was discussed with the patient and family who expressed understanding and agreement. All questions were answered. Thank you for involving us in the care of your patient. Please call with any questions. Discussed and reviewed with . Subjective Principal diagnosis: CHF Interval history: Patient denies chest pain. Reports shortness of breath is improved. Denies bleeding or blood loss. Family at bedside. Denies palpitations or fluttering. Objective Vital Signs, Last 4 Hours Temp Pulse Resp BP Pulse Ox 02/12/19 11:01 18 94 02/12/19 10:58 98.2 F 104 16 122/72 95 General: Conversant, No Apparent Distress HEENT: Atraumatic, Normocephaly, Mucus Membranes Moist Neck: No JVD, Normal carotid pulses Cardiac: Normal S1 and S2, No Murmur, Other (Irregularly irregular) Lungs: Normal Breath Sounds, No Wheeze, Rales, Rhonchi Neuro: Alert and responsive, No focal deficits noted Abdomen: Soft, Non-Tender Skin: No rashes noted on visualized skin Musculoskeletal: No Chest Wall Tenderness Extremities: No Clubbing, No Cyanosis, No Edema, Normal Pulses Results 02/12/19 05:48 02/12/19 05:48 Lab Results Impressions Echocardiogram Limited Views 02/11/19 09:17 Impressions: LVEF 40-45%. Moderate segmental left ventricular systolic dysfunction. Normal right ventricular structure and function. Left Ventricular Wall Motion: Rest Echo Findings The mid inferior, basal inferior, apical lateral, mid anterior lateral, basal anterior lateral, mid inferior lateral and basal inferior lateral bray were hypokinetic. All other wall segments showed normal motion. Findings: Study Quality * Technically sub-optimal due to clinical status. ECG Findings * Atrial fibrillation, RVR, BBB. Left Ventricle * LVEF 40-45%. * Moderate concentric left ventricular hypertrophy. * Moderate segmental left ventricular systolic dysfunction. Right Ventricle * Normal right ventricular structure and function. Tricuspid Valve * Estimated RA pressure is 3 mmHg. IVC * The IVC is not dilated. * > 50% respiratory change Chest CT 02/11/19 12:30 IMPRESSION: Cardiomegaly with small pleural effusions, bibasilar atelectasis and increased interstitial markings most consistent with findings of congestive heart failure. D/ / 02/11/2019 13:47:26 Yohannes Gallego MD / rustreese Interpreting Provider: Yohannes Gallego MD Active Medications Albuterol/Ipratropium (Duoneb) 3 ml IH [id number] [facility] Stop: 08/09/19 00:01 Last Admin: 02/12/19 11:00 Dose: 3 ml Documented by: Aspirin (Aspirin) 81 mg PO DAILY [facility] Stop: 08/09/19 09:01 Last Admin: 02/12/19 09:37 Dose: 81 mg Documented by: Atorvastatin Calcium (Lipitor) 40 mg PO QPM [facility] Stop: 08/09/19 18:01 Last Admin: 02/11/19 17:56 Dose: 40 mg Documented by: Dextrose/Water (Dextrose 50% (Syg)) 25 ml IVP AD PRN PRN Reason: Hypoglycemia Stop: 08/08/19 21:10 Glucagon (Glucagen) 1 mg IM ONCE PRN PRN Reason: Hypoglycemia Stop: 08/08/19 21:10 Glucose (Gluctose) 15 gm PO ONCE PRN PRN Reason: Hypoglycemia Stop: 08/08/19 21:10 Glucose (Gluctose) 30 gm PO ONCE PRN PRN Reason: Hypoglycemia Stop: 08/08/19 21:10 Heparin Sodium (Porcine) (Heparin) 4,000 unit IVP Q6HR PRN PRN Reason: SEE COMMENTS Stop: 08/09/19 00:42 Heparin Sodium (Porcine) (Heparin) 2,000 unit IVP Q6H PRN PRN Reason: SEE COMMENTS Stop: 08/09/19 00:42 Dextrose (Dextrose 5%) 1,000 mls @ 100 mls/hr IVC .Q10H PRN PRN Reason: HYPOGLYCEMIA Stop: 08/08/19 21:10 Heparin Sodium/Dextrose (Heparin 25,000 Unit/250 Ml D5w) 25,000 unit in 250 mls @ 10.087 mls/hr IVC .Q24H [facility]; Protocol Stop: 08/09/19 00:46 Last Admin: 02/12/19 11:40 Dose: 13.7 unit/kg/hr, 12.8 mls/hr Documented by: Insulin Human Lispro (Humalog) 0 units SQ HS [facility]; Protocol Stop: 08/13/19 21:01 Last Admin: 02/11/19 22:13 Dose: 2 units Documented by: Insulin Human Lispro (Humalog) 0 units SQ TIDAC [facility]; Protocol Stop: 08/14/19 11:31 Last Admin: 02/12/19 12:20 Dose: Not Given Documented by: Metoprolol Succinate (Toprol Xl) 50 mg PO BID [facility] Stop: 08/13/19 21:01 Last Admin: 02/12/19 09:37 Dose: 50 mg Documented by: Naloxone HCl (Narcan) 0.4 mg IVP Q2MPRN PRN PRN Reason: SEE COMMENTS Stop: 08/08/19 21:05 Ondansetron HCl (Zofran) 4 mg IVP Q8HR PRN PRN Reason: Nausea And Vomiting Stop: 08/08/19 21:05 Oxycodone HCl (Oxycodone Oral Conc) 5 mg SL Q4H PRN; Protocol PRN Reason: mild to moderate pain Stop: 08/08/19 21:05 Senna/Docusate Sodium (Senna Plus) 2 each PO BID PRN; Protocol PRN Reason: Constipation Stop: 08/08/19 21:11 Tamsulosin HCl (Flomax) 0.4 mg PO DAILY [facility]; Protocol Stop: 08/09/19 09:01 Last Admin: 02/12/19 09:37 Dose: 0.4 mg Documented by: Laboratory Tests 02/11/19 02/11/19 02/12/19 05:17 05:17 05:48 WBC 14.4 H Hgb 9.5 L 9.6 L Creatinine 2.12 H 02/12/19 05:48 WBC Hgb Creatinine 1.82 H - Imaging and Cardiology Chest Xray: report reviewed Echo: report reviewed - EKG Interpretation EKG results cardiology: other (Telemetry reviewed with average HR previous 12 hours noted to be 101, a.fib.) Consult Discharge Plan - Plan Referrals: Raul Mancilla [Primary Care Provider] -
--- NOTE | 2019-02-12 20:18 | Internal Med Progress Note ---
Hospitalist Progress Note - Encounter Date of Encounter: 02/12/19 Time of Encounter: 17:30 - Subjective Interval History: Mr Valdez 's plan for left heart catheter tomorrow he presently denies any more episode of chest pain, he attributes his improvement in his shortness of breath to IV diuresis GEN: Denies fever, chills or malaise HEENT: Denies headache blurriness, or dysphagia RESP: Denies SOB or cough CV: Denies chest pain or palpitations GI: Denies Nausea, vomiting, diarrhea or constipation Reviewed current in hospital medications with modifications see orders Reviewed Routine labs - Exam Vitals: Temp Pulse Resp BP Pulse Ox 97.5 F L 94 18 127/77 92 02/12/19 15:14 02/12/19 15:14 02/12/19 19:38 02/12/19 15:14 02/12/19 19:38 Exam: GEN: NAD, A&O x 3, Pleasant and conversant SKIN: [place] warm acyanotic not jaundice HEART: RRR, no murmurs LUNGS: CTA no wheeze or crackles, overall non labored ABDOMEN; Soft, non tender or distended, BS x 4 normactive EXT: No LE edema, Pedal pulses 1+, radial pulses 2+ PSYCH: Mood and affect is appropriate - Assessment and Plan (1) NSTEMI (non-ST elevated myocardial infarction) Current Visit: Yes Status: Acute Assessment and Plan: Left heart catheter tomorrow, per cardiology he is on heparin drip starting aspirin and beta sandip, appreciate cardiology input (2) Acute and chronic respiratory failure with hypoxia Current Visit: Yes Status: Acute Assessment and Plan: Improving reports home oxygen 2.5 L chronically on 3 L okay sats above 92 (3) Anemia Current Visit: Yes Status: Acute Assessment and Plan: Given NSTEMI, would prefer hemoglobin above 10, at 9.5-9.9, continue to monitor CBC and initiate workup (4) Atrial fibrillation Current Visit: Yes Status: Acute Assessment and Plan: appears rate controlled, currently on heparin drip for NSTEMI (5) CHF exacerbation Current Visit: Yes Status: Acute Assessment and Plan: Responded to IV diuresis with Lasix, however given his chronic kidney disease an anticipated left heart catheter would need to hydrate patient again (6) Diabetes Current Visit: Yes Status: Acute Assessment and Plan: POC glucose ranged from 119-259 A1c in the morning continue insulin (7) Lhmsn-hb-jyzejjy kidney injury Current Visit: Yes Status: Suspected Assessment and Plan: Serum creatinine improved with diuresis likely prerenal from a hypoperfusion standpoint however givenhe is scheduled for left heart catheter patient would be started back on gentle IV hydration 50ml /h IV saline contrast on the last 6- 8 hours after left heart If patient tolerates DVT Prophylaxis: Heparin drip for NSTEMI - Time Spent with Patient Total time spent is greater than 50% in coordination of care (as documented) at patient's floor/unit and/or counseling patient: Plan of Care Discussed with: nurse Internal Medicine: Result - Labs CBC & Chem 7: 02/12/19 05:48 02/12/19 05:48 Labs: Short CBC 02/12/19 Range/Units 05:48 WBC 14.4 H (4.3-11.1) K/mcL Hgb 9.6 L (12.9-16.9) g/dL Hct 30.8 L (37.5-50.1) % Plt Count 362 (140-400) K/mcL BMP 02/12/19 05:48 Sodium 136 Potassium 3.5 Chloride 90 L Carbon Dioxide 36 H BUN 46 H Creatinine 1.82 H Glucose 156 H Calcium 9.2 Liver Function 02/12/19 Range/Units 05:48 Total Bilirubin 0.8 (0.3-1.0) mg/dL AST 8 L (13-39) Units/L ALT 18 (7-52) Units/L Alkaline Phosphatase 64 (34-104) Units/L Albumin 3.4 L (3.5-5.7) g/dL - ABG Interpretation ABG results: ABG ABG pH 7.47 pH Units (7.32-7.45) H 02/07/19 15:17 ABG pCO2 50 mmHg (35-45) H 02/07/19 15:17 ABG pO2 58 mmHg (85-104) L 02/07/19 15:17 ABG O2 Saturation 91 % (95-98) L 02/07/19 15:17 PT/INR, D-dimer PT 12.6 Seconds (9.4-12.1) H 02/06/19 23:56 Consult Discharge Plan - Plan Referrals: Raul Mancilla [Primary Care Provider] - (3) Anemia Qualifiers: Anemia type: unspecified type Qualified Code(s): D64.9 - Anemia, unspecified (4) Atrial fibrillation Qualifiers: Atrial fibrillation type: unspecified Qualified Code(s): I48.91 - Unspecified atrial fibrillation (5) CHF exacerbation Qualifiers: Heart failure type: combined systolic and diastolic Qualified Code(s): I50.43 - Acute on chronic combined systolic (congestive) and diastolic (congestive) heart failure (6) Diabetes Qualifiers: Diabetes mellitus type: type 2 Diabetes mellitus jackscrew man insulin use: without jackscrew man use Diabetes mellitus complication status: with other specified complication Qualified Code(s): E11.69 - Type 2 diabetes mellitus with other specified complication (7) Wghso-hr-akgmnep kidney injury Qualifiers: Acute renal failure type: unspecified Chronic kidney disease stage: stage 3 (moderate) Qualified Code(s): N17.9 - Acute kidney failure, unspecified; N18.3 - Chronic kidney disease, stage 3 (moderate)
[2019-02-12] MEDS ORDERED: 0.9 % Sodium Chloride 1,000 ML IVC SCH (20:30)
[2019-02-12] MEDS: 0.9 % Sodium Chloride 1,000 ML IVC SCH (21:10)
--- NOTE | 2019-02-13 00:41 | Nephrology Progress Note ---
Date of Encounter: 02/12/19 Time of Encounter: 16:00 - Assessment and Plan (1) CKD (chronic kidney disease) stage 3, GFR 30-59 ml/min Status: Chronic SCr improved at 1.82, GFr 38 UOP noted improved at 1200cc in the past 24hrs Continue to avoid nephrotoxins if possible. If [facility] planned, ensure adequate IVf periLHC for approx 6 hrs Will sign off, please reconsult prn (2) Acute and chronic respiratory failure with hypoxia Status: Acute Resolving, now off diuresis Continue strict I/Os Can resume po home lasix on discharge (3) Anemia Status: Acute Hgb 9.6, fairly stable Will monitor Qualifiers: Anemia type: due to chronic kidney disease Chronic kidney disease stage: stage 3 (moderate) Qualified Code(s): N18.3 - Chronic kidney disease, stage 3 (moderate); D63.1 - Anemia in chronic kidney disease Subjective Principal diagnosis: CHF Interval history: Pt seen and examined with no new complaints. Per cardiology possible [facility] planned Objective - Vital Signs Vital signs: Vital Signs Temp Pulse Resp BP Pulse Ox 02/12/19 23:08 18 92 02/12/19 20:25 98.2 F 105 18 123/96 91 02/12/19 19:38 18 92 02/12/19 15:50 17 95 02/12/19 15:14 97.5 F L 94 14 127/77 94 02/12/19 11:01 18 94 02/12/19 10:58 98.2 F 104 16 122/72 95 02/12/19 07:06 18 94 02/12/19 06:25 97.8 F 99 15 128/76 92 02/12/19 04:26 98 F 103 17 128/88 95 02/12/19 03:37 16 94 Intake and Output 02/12/19 02/12/19 02/13/19 15:59 23:59 07:59 Intake Total 710 / 1200 290 / 1200 Output Total 1200 / 2300 500 / 2300 Balance -490 / -1100 -210 / -1100 Intake: IV Fluids 50 / 250 Heparin 25,000 UNIT/250 ML D5W 50 / 250 25,000 unit In 250 ml @ 10.8 UNIT/KG/HR 10.087 mls/hr IVC . Q24H [facility] Rx#:[id number] Oral 660 / 950 290 / 950 Output: Urine 1200 / 2300 500 / 2300 Other: Meal Lunch Dinner Percent of Meal Consumed 90% 100% # Voids 1 Blood Glucose* 116 142 - General Appearance General appearance: Present: chronically ill (NAD) EENT: Present: ATNC, mucous membranes moist Neck: Present: no JVD, supple Respiratory: Present: clear Cardiology: Present: no edema, normal S1, normal S2 Gastrointestinal: Present: no tenderness, no guarding Integumentary: Present: warm and dry Neurologic: Present: no focal deficit Musculoskeletal: Present: no deformities Psychiatric: Present: mood/affect appropriate, cooperative - Lab 02/18/19 01:07 02/18/19 01:07 Consult Discharge Plan - Plan Instructions: Metoprolol (By mouth), Furosemide (By mouth), Warfarin (By mouth), Aspirin (By mouth), Risperidone (By mouth), Amlodipine (By mouth), Glimepiride (By mouth), Atorvastatin (By mouth), Tamsulosin (By mouth), Ipratropium/Albuterol (By breathing), Laxative, Stimulant Combination (By mouth), Heart Failure (DC), Atrial Fibrillation (DC), Acute Respiratory Distress Syndrome (DC), Diabetes Mellitus Type 2 in Adults (DC), Chronic Obstructive Pulmonary Disease (DC), Vitamin K in Foods (DC), Anemia (GEN) Referrals: Jaqui Gregg [Registered Pharmacist] - 02/19/19 3:45 pm (New location .....located behind the [facility] in the rehab center. Please bring ID and INS card [id number] [id number]) Danilo Moore MD [Partnered Physician] - (Web request made, physicians office will call patient to schedule a hospital follow-up.) Vu Caldera MD [Partnered Physician] - 02/22/19 2:45 pm (Medical office building [address] phone [phone] if patient needs to cancel the appointment please call within 24 hours of appointment. please arrive at 2:15 with ID and INS card. ) Gorge Birmingham, ROCCO [Advanced Practice Nurse] - (Web request made, physicians office will call patient to schedule an appointment.) Prescriptions: Glimepiride [Amaryl] 1 tab PO QAM #30 tablet Amlodipine Besylate 5 mg PO HS #30 tablet Aspirin Enteric Coated [Aspirin EC] 1 tab PO DAILY #30 tablet. Warfarin [Coumadin] 1 tab PO QDPC #30 tablet Ipratropium/Albuterol Neb [Duoneb] 3 ml IH Q6HR PRN 30 Days #100 vial.neb PRN Reason: Shortness Of Breath/Wheezing Ipratropium/Albuterol Neb [Duoneb] 3 ml IH Q6HR 30 Days #100 inhsol Tamsulosin HCl [Flomax] 0.4 mg PO DAILY #30 capsule Furosemide [Lasix] 20 mg PO DAILY #30 tablet Atorvastatin [Lipitor] 2 tab PO HS #60 tablet risperiDONE [RisperDAL] 1 tab PO HS #30 tablet Sennosides/Docusate Sodium [Senna Plus] 1 tab PO BID PRN #60 tablet PRN Reason: Constipation Metoprolol XL (24 HR) Succ [Toprol XL] 1 tab PO BID #60 tab.er.24h Metoprolol XL (24 HR) Succ [Toprol Xl] 1 tab PO BID #60 tab.er.24h
[2019-02-13] MEDS: Ipratropium/Albuterol Neb 3 ML IH SCH ×7 (03:55→23:59)
[2019-02-13 05:56] LABS: Basophils # 0.1 K/mcL (0.0-0.2); Basophils % 0.4 %; Eosinophils # 0.7 K/mcL (0.0-0.6); Eosinophils % 4.8 %; Hematocrit 29.4 % (37.5-50.1); Hemoglobin 9.3 g/dL (12.9-16.9); Immature Granulocytes % 1.7 % (0-4); Lymphocytes # 1.3 K/mcL (0.6-4.6); Lymphocytes % 8.8 %; Mean Corpuscular HGB Conc 31.6 g/dL (31.6-35.5); Mean Corpuscular Hemoglobin 28.4 pg (28.0-33.3); Mean Corpuscular Volume 89.6 fL (83.0-100.0); Mean Platelet Volume 9.6 fL (9.4-12.4); Monocytes # 1.4 K/mcL (0.0-1.3); Monocytes % 9.7 %; Neutrophils # 10.8 K/mcL (1.6-8.9); Platelet Count 343 K/mcL (140-400); Red Blood Count 3.28 M/mcL (4.19-5.50); Red Cell Distribution Width 14.8 % (11.5-14.5); Segmented Neutrophils % 74.6 %; White Blood Count 14.5 K/mcL (4.3-11.1)
[2019-02-13 06:18] LABS: Magnesium 2.2 mg/dL (1.6-2.6); Potassium 3.8 mEq/L (3.5-5.1)
[2019-02-13 06:41] LABS: Folate 8.8 ng/mL (3.0-16.0)
[2019-02-13] MEDS: Aspirin 81 MG TAB.CHEW PO SCH (09:05)
[2019-02-13] MEDS: Metoprolol XL (24 HR) Succ 50 MG TAB.ER.24H PO SCH ×2 (09:05→21:11)
[2019-02-13] MEDS: Heparin 25,000 UNIT/250 ML D5W 25,000 UNIT/250 ML IV.SOLN IVC SCH (09:08)
[2019-02-13] MEDS: Insulin LISPRO 300 UNITS/3 ML VIAL SQ SCH ×4 (09:13→21:12)
--- NOTE | 2019-02-13 11:22 | Event Note ---
Date of Encounter: 02/13/19 Time of Encounter: 11:18 - Cardiology Event Note Plan for LHC today for elevated troponin and cardiomyopathy. Patient's renal function relatively stable. Hemoglobin stable, on heparin drip. O2 requirements decreasing. Patient able to tolerate laying flat. Risks versus benefits of LHC explained to patient and family, who state understanding and agreeable to proceed. Further recs pending LHC. Will determine assisted anticoagulation pending clinical coarse.
[2019-02-13] MEDS ORDERED: *HR* Midazolam HCl 2 MG/2 ML VIAL ONE (13:10)
[2019-02-13] MEDS ORDERED: *HR* Heparin 10,000 UNIT/10 ML VIAL ONE (13:11)
[2019-02-13] MEDS ORDERED: *HR* FentaNYL (PF) 100 MCG/2 ML VIAL ONE (13:11)
[2019-02-13] MEDS ORDERED: 0.9 % Sodium Chloride 1,000 ML ONE ×2 (13:11→13:15)
[2019-02-13] MEDS ORDERED: ISOVUE-370 200 ML INFUS..BTL ONE (13:11)
[2019-02-13] MEDS ORDERED: Nitroglycerin 1,000 MCG/10 ML VIAL IV ONE (13:11)
[2019-02-13] MEDS ORDERED: Heparin 1,000 UNITS/500 mL 500 ML ONE (13:11)
--- NOTE | 2019-02-13 13:31 | Pre-Sedation Evaluation ---
Pre-sedation evaluation - Pre-sedation checklist Date of procedure: 02/13/19 Procedure: Heart cath Recent Vitals: Last Vital Signs Temp 97.8 F 02/13/19 07:06 Pulse 93 02/13/19 07:06 Resp 18 02/13/19 10:56 BP 126/85 02/13/19 07:06 Pulse Ox 90 02/13/19 10:56 H&P (including ROS) documented in medical record: Yes Previous reaction to sedatives/anesthetics: No Dietary Status: NPO after Midnight Dentition: No loose teeth or bridges ASA Classification *see protocol: CLASS II-Mild systemic disease Plan of Care: Pt appropriate candidate for procedure/moderate/conscious sedation, Risks/benefits of procedure/sedation discussed w/ patient/family Cardiac Registry (Cardio Only) - Functional Capacity Functional Capacity: >=4 METS with symptoms - Clincal Frailty Scale Clinical Frailty Scale: Managing Well
[2019-02-13] MEDS ORDERED: Verapamil 5 MG/2 ML VIAL ONE (13:45)
--- NOTE | 2019-02-13 14:38 | Invasive Diagnostic Lab Proc ---
Name: Christiano Valdez Date of Study: 02/13/2019 Date: 1955 Ht: 70.1in Medical Record#: [id number] Age: 63 Wt: 189.60lb Gender: Male BSA: 2.04 Order #: [id number] BMI: 27.14 Physicians Procedure Physician: Otto Lazo MD, [facility] Referring MD: Referring MD: Staff Name Position Time In Xochilt Lozano RN Monitor 01:36 PM Max Cuenca RN Machine Brusher 01:36 PM Sue Sr RT (R) Scrub 01:36 PM Beth Larsen RT (R) Scrub 01:37 PM Indications Indication Non-Stemi Procedures Performed Procedure L HRT ARTERY/VENTRICLE ANGIO Pre-Procedure Checklist Informed consent is complete signed and on chart. H&P is on chart. ID band is on and ID verified with patient. Patient NPO for procedure The procedure was described for the patient and questions were answered. Blood Pressure: 138/99 ECG is on chart. Rhythm: Atrial Fibrillation Plan of Care Patient will tolerate the procedure without complications. Adequate level of comfort will be maintained. Hemodynamics will remain stable Patient will recover from procedure without complications. Respiratory function will be maintained. Cardiac rhythm will remain stable. Patient temperature will be maintained. Patient and/or family have verbalized understanding of the procedure. Patient Education Chief Complaint/Reason for Test: Cardiac Cath Developmental Category: Adult (18-64 years) Developmentally Appropriate for Age: Yes Learning Barriers: None Education Needs: Procedure Education Method: Verbal Information Taught: Cardiac Cath Educational Evaluation: Able to repeat information Intravenous Access Time IV Size Location DC'd Fluid/Drip Rate Units RN 01:50 PM 20g 1 1/4" Patent On Arrival Lt Antecubital 0.9NaCl 25 ml/hr Max Cuenca RN Allergies No Known Allergies Vital Signs Time BP (mmHg) HR (bpm) O2 Sat. RR (bpm) LOC 01:35 PM / % 5 = Fully awake and oriented or at pre-proc level 01:35 PM / % 5 = Fully awake and oriented or at pre-proc level 01:38 PM / % 4 = Oriented but drowsy 01:53 PM / % 4 = Oriented but drowsy 01:46 PM 139 / 94 85 97 % 30 01:51 PM 142 / 88 103 95 % 21 01:56 PM 133 / 107 109 95 % 23 02:01 PM 121 / 69 96 91 % 23 02:06 PM 126 / 79 85 85 % 22 02:11 PM 127 / 84 84 92 % 22 01:41 PM 138 / 99 133 99 % 20 Procedural Medications Time Medication Dose Units Method Given By 01:57 PM Oxygen 3 L/min nasal cannula Max Cuenca RN 01:57 PM Versed 2 mg Intravenous AndMax garcia RN 01:57 PM Fentanyl 50 mcg Intravenous Max Cuenca RN 01:59 PM Lidocaine 2% 0.5 ml Subcutaneous Otto Lazo MD, [facility] 02:00 PM Heparin 4000 units Nitroglycerin 200 mcg Verapamil 2.5 mg Intraarterial Otto Lazo MD, [facility] ASA Classification: CLASS II- Mild systemic disease (i.e. well-controlled diabetes, hypertension, asthma, cigarette smoking) Marc Score Preprocedure Postprocedure Activity 2- Moves 4 extremities sustained head lift Activity 2- Moves 4 extremities sustained head lift Circulation 2- SBP +/= 20 points of pre-anesthetic level Circulation 2- SBP +/= 20 points of pre-anesthetic level Consciousness 2- Awake and alert oriented x 3 Consciousness 2- Awake and alert oriented x 3 O2 Saturation 2- Able to maintain O2 satruation of 92% on room air O2 Saturation 2- Able to maintain O2 satruation of 92% on room air Respiratory 2- Able to deep breathe and cough well Respiratory 2- Able to deep breathe and cough well Total Score 10 Total Score 10 Contrast Agent: Isovue Diagnostic Contrast: 35 ml Total Contrast: 35 ml Fluoro Dose: 22 mGy Procedure Log Time Note Enter By 01:32 PM 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 Informed consent was obtained. oparker :33 PM Procedure start 13:33 oparker :35 PM ASA Class CLASS II- Mild systemic disease (i.e. well-controlled diabetes, hypertension, asthma, cigarette smoking) scoates :35 PM Time: 13:35 Patient comfortable and pain free: Yes oparker :35 PM Time: 13:35LOC: 5 = Fully awake and oriented or at pre-proc level oparker 01:36 PM Xochilt Lozano RN Position: Monitor Time in: 13:36 oparker 01:36 PM Max Cuenca RN Position: Machine Brusher Time in: 13:36 oparker 01:37 PM Sue Sr RT (R) Position: Scrub Time in: 13:36 oparker 01:37 PM Beth Larsen RT (R) Position: Scrub Time in: 13:37 oparker 01:37 PM Case Delayed no, inpatient scoates 01:38 PM Hair removed from procedure site in holding area using clippers. Right wrist and Right groin prepped with Chloraprep by Max Cuenca RN, then patient was draped. Skin intact. scoates 01:38 PM Time: 13:35 Patient comfortable and pain free: Yes scoates 01:38 PM Time: 13:35LOC: 5 = Fully awake and oriented or at pre-proc level scoates 01:40 PM CathStat 01:40 PM Vitals capture started with the following parameters, Patient=Adult, Interval=5 min, Initial Ichvxhfx=483 mmHg, Deflation Rate=3 mmHg, Cuff placed on Right Arm 01:41 PM DA=756 bpm, GNPZ=479/99 mmhg, SpO2=99.0 %, Resp=20 B/min, Comment=atrial fib w/ bbb 01:43 PM Pressure channel 1 zeroed. 01:46 PM HR=85 bpm, QATJ=763/94 mmhg, SpO2=97.0 %, Resp=30 B/min, Comment=atrial fib w/ bbb 01:50 PM waiting on physician scoates 01:51 PM BS=656 bpm, PYBJ=198/88 mmhg, SpO2=95.0 %, Resp=21 B/min, Comment=atrial fib w/ bbb 01:53 PM Time: 13:38LOC: 4 = Oriented but drowsy scoates 01:53 PM Time: 13:38 Patient comfortable and pain free: Yes scoates 01:56 PM WF=288 bpm, DNII=906/107 mmhg, SpO2=95.0 %, Resp=23 B/min, Comment=atrial fib w/ bbb 01:57 PM Time out was performed according to hospital policy. Conscious sedation and anesthesia was achieved (see medication log with in this report above) scoates 01:57 PM Time: 13:57 Oxygen on at 3 L/min per nasal cannula by Max Cuenca RN scoates 01:57 PM Time: 13:57 Versed 2 mg Intravenous Given by Max Cuenca RN scoates 01:57 PM Time: 13:57 Fentanyl 50 mcg Intravenous Given by Max Cuenca RN scoates 01:59 PM Time: 13:59 0.5 ml Lidocaine 2% to right radial Subcutaneous Given by Otto Lazo MD, [facility] scoates 01:59 PM Access obtained by percutaneous puncture. 6Fr 11cm Terumo Glidesheath sheath placed in right Radial artery. [id number] scoates 02:00 PM Time: 14:00 Patient given 4,000 units Heparin, 200 mcg Nitroglycerin, and 2.5 mg Verapamil Intraarterial by Otto Lazo MD, [facility]. This is given to reduce risk of vessel spasm and thrombosis. scoates 02:00 PM 5Fr TIG catheter inserted over the wire DN scoates 02:01 PM HR=96 bpm, HDFP=210/69 mmhg, SpO2=91.0 %, Resp=23 B/min, Comment=atrial fib w/ bbb 02:02 PM RCA angiography performed in multiple views. scoates 02:02 PM Recorded Pressure: Ao, HR=93, Condition=Condition 1 (Aorta) Ao 102/69/85 02:04 PM catheter repositioned scoates 02:05 PM Catheter removed scoates 02:05 PM 5Fr FL 4 catheter inserted over the wire DN scoates 02:06 PM HR=85 bpm, NLIX=080/79 mmhg, SpO2=85.0 %, Resp=22 B/min, Comment=atrial fib w/ bbb 02:07 PM LCA angiography performed in multiple views. scoates 02:07 PM Recorded Pressure: Ao, CK=793, Condition=Condition 1 (Aorta) Ao 104/67/84 02:10 PM Time: 13:53 Patient comfortable and pain free: Yes scoates 02:10 PM Time: 13:53LOC: 4 = Oriented but drowsy scoates 02:10 PM Coronary Dominance: right scoates 02:11 PM HR=84 bpm, EHVV=279/84 mmhg, SpO2=92.0 %, Resp=22 B/min, Comment=atrial fib w/ bbb 02:12 PM Pressure channel 1 zeroed. 02:12 PM Catheter removed scoates 02:12 PM 5Fr Pigtail catheter inserted over the wire DNC scoates 02:12 PM Recorded Pressure: LV, HR=97, Condition=Condition 1 (Left Ventricle) LV 140/18/29 02:12 PM Bolus angiogram of left Ventricle complete: 10 ml/sec for a total of 20 mls scoates 02:12 PM Recorded Pressure: LV, Ao, HR=96, Condition=Condition 1 (Left Ventricle) LV 134/50/44, (Aorta) Ao 130/75/98 02:13 PM CTsurgery consult scoates 02:15 PM Catheter removed scoates 02:15 PM Procedure completed at 14:15 02/13/2019 scoates 02:15 PM Did you address MARLA flow and Dominance? YesCoronary Dominance: right scoates 02:18 PM Sign out completed: Radiation Dose 165.03 mGy, 21.9 Gy/cm2 Fluoro Time: 2.3 Isovue 370 - 200ml contrast 35 ml given by Otto Lazo MD, [facility]. Complications: None. The patient was discharged out of the labor conciliator in stable condition. Sedation minutes 20. Cardiac Rehab Consult needed: Yes. Confirmed administered medications: Yes scoates 02:18 PM Isovue 370 - 200ml,1 Bottle(s) used. scoates 02:18 PM Arterial sheath pulled, Vasc Band closure device used and was Successful S/N. scoates 02:18 PM 11 ml air in Vasc Band. scoates 02:18 PM Estimated Blood Loss: minimal scoates 02:19 PM Post Blood Pressure 135/75 scoates 02:19 PM 14:19 Post Pulses Rt Radial 1+ scoates 02:19 PM Information taught Cardiac Cath and Vasc Band scoates 02:19 PM Education needs Plan of Care, Procedure, and Responsibilities of Patient in Care scoates 02:19 PM Learning barriers :None scoates 02:19 PM Education Methods Verbal scoates 02:19 PM Education evaluation Able to repeat information scoates 02:20 PM Post ECG Atrial Fibrillation scoates 02:20 PM Information taught Cardiac Cath scoates 02:20 PM Education needs Procedure, Plan of Care, and Responsibilities of Patient in Care scoates 02:20 PM Learning barriers :None scoates 02:20 PM Education Methods Verbal scoates 02:20 PM Education evaluation Able to repeat information scoates 02:20 PM Site status No bleeding/ No Hematoma - Rt Wrist as reported by Beth Larsen RT (R) at 14:20 scoates 02:20 PM Plavix, Effient or Brilinta given No scoates 02:21 PM Family placed in consult room. scoates 02:21 PM Delay to floor No scoates 02:21 PM Opsite applied scoates 02:22 PM Lesion found in Mid RCA. Pre Stenosis: 60 Pre MARLA Flow: scoates 02:22 PM Lesion found in Distal RCA. Pre Stenosis: 70 Pre MARLA Flow: scoates 02:22 PM Lesion found in Distal LMCA. Pre Stenosis: 50 Pre MARLA Flow: scoates 02:22 PM Lesion found in Mid LAD. Pre Stenosis: 100 Pre MARLA Flow: scoates 02:23 PM Lesion found in Mid Circumflex. Pre Stenosis: 99 Pre MARLA Flow: scoates 02:23 PM Lesion found in Right PDA. Pre Stenosis: 100 Pre MARLA Flow: scoates 02:23 PM Left Main Coronary Artery with 50% stenosis scoates 02:23 PM Mid/Distal Left Anterior Descending Coronary Artery and diagonal branches with 100% stenosis. If graft is supplying this area, 0 % stenosis scoates 02:23 PM Circumflex, Obtuse Marginal, Left Posterior Descending, and Left Posterolateral Coronary Arteries with 99 % stenosis. If graft is supplying this area, 0 % stenosis scoates 02:23 PM Right Coronary, Right Posterior Descending Arteries with Right Posterolateral and Acute Marginal branches with 100 % stenosis. If graft is supplying this area, 0 % stenosis scoates 02:23 PM Conversation between Interventionalist and CT Surgeon. scoates 02:25 PM Patient out of room: 14:25 scoates Complications Complication None Hemodynamics Pressures Site Systolic/A Wave Diastolic/V Wave Mean AO 104 67 84 LV 140 18 29 LV 134 50 44 AO 130 75 98 AO 102 69 85 Post Procedure Information Blood Pressure: 135/75 mmHg Rhythm: Atrial Fibrillation Post procedural instructions were given Surgery consult for CABG Closure Device Time Device Success/Fail 02/13/2019 2:20:00 PM Mechanical Compression Successful Site Checks Time Location Status Staff Sheath In? Note 02:20 PM Rt Wrist No bleeding/ No Hematoma Beth Larsen RT (R) Pulses Time Site Pre-Procedure Post-Procedure Note 02/13/2019 1:50:00 PM Bilateral DP & PT 2+ 02/13/2019 1:50:00 PM Bilateral radial 2+ 2:19:00 PM Rt Radial 1+ Updated by Anselmo Cates RN on 02/13/2019 2:29:58 PM electronically signed on 02/13/2019 2:30:29 PM with status of Final
--- NOTE | 2019-02-13 16:12 | Internal Med Progress Note ---
Hospitalist Progress Note - Encounter Date of Encounter: 02/13/19 Time of Encounter: 13:30 - Subjective Interval History: Mr Valdez is scheduled for [facility] Today. He stated he did not use his BiPAP last night because he did not feel the need for it. GEN: Denies fever, chills or malaise HEENT: Denies headache blurriness, or dysphagia RESP: Denies SOB or cough CV: Denies chest pain or palpitations GI: Denies Nausea, vomiting, diarrhea or constipation Reviewed current in hospital medications with modifications see orders Reviewed Routine labs - Exam Vitals: Temp Pulse Resp BP Pulse Ox 98.1 F 81 18 141/86 96 02/13/19 15:12 02/13/19 15:12 02/13/19 10:56 02/13/19 15:12 02/13/19 15:12 Exam: GEN: NAD, A&O x 3, Pleasant and conversant, is more consistent with his bedside SKIN: [place] warm acyanotic not jaundice HEART: RRR, no murmurs LUNGS: Diminished with bibasilar crackles no wheeze, overall non labored ABDOMEN; Soft, non tender or distended, BS x 4 normactive EXT: No LE edema, Pedal pulses 1+, radial pulses 2+ PSYCH: Mood and affect is appropriate - Assessment and Plan (1) NSTEMI (non-ST elevated myocardial infarction) Current Visit: Yes Status: Acute Assessment and Plan: Left heart catheter today, per cardiology he is on heparin drip starting aspirin and beta sandip, appreciate cardiology input (2) Acute and chronic respiratory failure with hypoxia Current Visit: Yes Status: Acute Assessment and Plan: Improving reports home oxygen 2.5 L chronically on 3 L okay sats above 92 (3) Anemia Current Visit: Yes Status: Acute Assessment and Plan: Given NSTEMI, would prefer hemoglobin above 10, at 9.5-9.9, today 9.3 continue to monitor CBC. workup revealed anemia of chronic disease with low serum iron with normal levels ferritin, supratherapeutic levels of B12, normal levels of folate (4) Atrial fibrillation Current Visit: Yes Status: Acute Assessment and Plan: appears rate controlled, currently on heparin drip for NSTEMI, anticoagulation per cardiology team recommendation (5) CHF exacerbation Current Visit: Yes Status: Acute Assessment and Plan: Responded to IV diuresis with Lasix, however given his chronic kidney disease an anticipated left heart catheter would need to hydrate patient again. This afternoon patient appears to have crackles a such we will hold off on hydration (6) Diabetes Current Visit: Yes Status: Acute Assessment and Plan: POC glucose ranged from 116-153, at goal continue insulin. A1c 7.2 02/06/2019 (7) Dwxjq-ji-awqnyiw kidney injury Current Visit: Yes Status: Suspected Assessment and Plan: Serum creatinine improved with diuresis likely prerenal from a hypoperfusion standpoint however givenhe is scheduled for left heart catheter patient would be started back on gentle IV hydration 50ml /h IV saline contrast on the last 6- 8 hours after left heart If patient tolerates, this afternoon he appears to have some crackles would DC saline hydration serum creatinine is 2.07. Would re- start after left heart catheter and monitor closely DVT Prophylaxis: Heparin drip for NSTEMI, we will reassess tomorrow - Time Spent with Patient Total time spent is greater than 50% in coordination of care (as documented) at patient's floor/unit and/or counseling patient: Internal Medicine: Result - Labs CBC & Chem 7: 02/13/19 05:08 02/13/19 05:08 Labs: Short CBC 02/13/19 Range/Units 05:08 WBC 14.5 H (4.3-11.1) K/mcL Hgb 9.3 L (12.9-16.9) g/dL Hct 29.4 L (37.5-50.1) % Plt Count 343 (140-400) K/mcL Neutrophils # 10.8 H (1.6-8.9) K/mcL BMP 02/13/19 05:08 Sodium 136 Potassium 3.8 Chloride 91 L Carbon Dioxide 33 H BUN 48 H Creatinine 2.07 H Glucose 154 H Calcium 9.0 - ABG Interpretation ABG results: ABG ABG pH 7.47 pH Units (7.32-7.45) H 02/07/19 15:17 ABG pCO2 50 mmHg (35-45) H 02/07/19 15:17 ABG pO2 58 mmHg (85-104) L 02/07/19 15:17 ABG O2 Saturation 91 % (95-98) L 02/07/19 15:17 PT/INR, D-dimer PT 12.6 Seconds (9.4-12.1) H 02/06/19 23:56 Consult Discharge Plan - Plan Referrals: Raul Mancilla [Primary Care Provider] - (3) Anemia Qualifiers: Anemia type: due to chronic kidney disease Chronic kidney disease stage: stage 3 (moderate) Qualified Code(s): N18.3 - Chronic kidney disease, stage 3 (moderate); D63.1 - Anemia in chronic kidney disease (4) Atrial fibrillation Qualifiers: Atrial fibrillation type: unspecified Qualified Code(s): I48.91 - Unspecified atrial fibrillation (5) CHF exacerbation Qualifiers: Heart failure type: combined systolic and diastolic Qualified Code(s): I50.43 - Acute on chronic combined systolic (congestive) and diastolic (congestive) heart failure (6) Diabetes Qualifiers: Diabetes mellitus type: type 2 Diabetes mellitus long goods drier insulin use: without long goods drier use Diabetes mellitus complication status: with other specified complication Qualified Code(s): E11.69 - Type 2 diabetes mellitus with other specified complication (7) Qobzp-rz-wdtnpew kidney injury Qualifiers: Acute renal failure type: unspecified Chronic kidney disease stage: stage 3 (moderate) Qualified Code(s): N17.9 - Acute kidney failure, unspecified; N18.3 - Chronic kidney disease, stage 3 (moderate)
--- NOTE | 2019-02-13 16:30 | Cardiothoracic Consult Note ---
Date of Encounter: 02/13/19 Time of Encounter: 16:09 Assessment and Plan (1) NSTEMI (non-ST elevated myocardial infarction) Current Visit: Yes Status: Acute The patient is a 63-year-old type II diabetic, hypertensive man with known CAD and oxygen dependent COPD. He was admitted to [facility] on 02/06/2019 with complaints of shortness of breath and dyspnea exertion. He had low oxygen saturations requiring BiPAP support. During his initial evaluation, was found to have elevated troponin I levels consistent with an acute NSTEMI. A transthoracic echocardiogram revealed an LVEF 40-45% with moderate segmental left ventricular systolic dysfunction. He was recommended for cardiac catheterization; however, this was delayed for several days due to his poor respiratory status. He was able to undergo the procedure today and was found to have severe 3 vessel CAD. In particular, the patient has a 50% distal left main lesion, a completely occluded proximal/mid LAD which fills distally via left to left collaterals, a 70% proximal LCx lesion, a 60% mid RCA lesion, a 70% distal RCA lesion, a completely occluded proximal PDA. He has been recommended for possible high risk CABG. The STS risk calculator reveals an operative mortality risk 6.46%, renal failure risk 11.97%, permanent stroke risk 1.83%, prolonged ventilation risk 25.71%, deep sternal wound infection risk 0.39%, and reoperation risk 2.71%. I discussed the findings with his maple products supervisor, Dr. Otto Lazo, and we both believe that the patient should be treated medically due to his high STS risk scores, is oxygen dependent COPD, and poor rehabilitation potential. The assessment and plan as outlined above was discussed with the patient and/or family members who expressed understanding and agreement. All questions were answered. - History of Present Illness Consult date: 02/13/19 Requesting physician: Otto Lazo Consult reason: CABG evaluation Chief complaint: Shortness of breath History of present illness: Mr. Valdez is a 63 year old type II diabetic, hypertensive man with hypercholesterolemia and oxygen dependent COPD. He was admitted to [facility] on 12/27/2018 with a diagnosis of COPD exacerbation. After a lengthy hospital stay requiring intubation, he was discharged to an extended care facility. He has been discharged from the extended care facility and was at home for several days when he had current shortness of breath and dyspnea exertion. He had the symptoms for 2 days prior to being evaluated at [facility] on 02/06/2019. During his evaluation he was found to have elevated troponin I levels consistent with an acute NSTEMI. He had been scheduled for cardiac catheterization earlier in this hospitalization; however, his poor respiratory status precluded this procedure. A transthoracic echocardiogram revealed an LVEF 40-45% with moderate segmental left ventricular systolic dysfunction. He underwent cardiac catheterization today was found to have severe 3 vessel CAD. In particular, the patient has a 50% distal left main lesion, a completely occluded proximal/mid LAD which fills distally via left to left collaterals, a 70% proximal D1 lesion, a 70% proximal LCx lesion, 60% mid RCA lesion, a 70% distal RCA lesion, and a completely occluded proximal PDA. I been asked to evaluate the patient for possible high risk CABG. Past Med Surg Social Fam HX - Past Medical History Medical history: cardiomyopathy, CHF, COPD, coronary artery disease, diabetes, hyperlipidemia, hypertension, renal disease (CKD, Stage III) Psychiatric history: schizophrenia - Past Surgical History Surgical History: no surgical history - Social History Smoking Status: Former smoker Packs per day: 0.5PPD x 20YRS Smokeless Tobacco Status: No Alcohol use: none Drug use: none Occupational status: retired Current living situation: Home - Independent Activity Level: Mostly sedentary, Other (Oxygen dependent COPD) Recent Out of Country Travel Within the Last 8 Weeks: No Exposure or Possible Exposure to Illness During Travel: No Medications and Allergies risperiDONE [RisperDAL] 1.5 mg PO QAM 12/27/18 [History] risperiDONE [RisperDAL] 3 mg PO HS 12/27/18 [History] Ipratropium/Albuterol Neb [Duoneb] 3 ml IH [id number] inhsol 01/05/19 [Rx] Glimepiride [Amaryl] 2 mg PO QAM 02/06/19 [History] Metoprolol Succinate [Toprol Xl] 50 mg PO DAILY 02/06/19 [History] Tamsulosin HCl [Flomax] 0.4 mg PO DAILY 02/06/19 [History] Amlodipine Besylate 5 mg PO DAILY 02/07/19 [History] Aspirin Enteric Coated [Aspirin EC] 81 mg PO DAILY 02/07/19 [History] Atorvastatin [Lipitor] 40 mg PO HS 02/07/19 [History] Docusate Sodium [Stool Softener] 100 mg PO DAILY PRN 02/07/19 [History] Furosemide [Lasix] 20 mg PO DAILY 02/07/19 [History] Allergy/AdvReac Type Severity Reaction Status Date / Time No Known Allergies Allergy Verified 02/07/19 21:17 All Systems Review: The remainder of the systems were reviewed and are negative Physical Examination Vital Signs, Last 4 Hours Temp Pulse BP Pulse Ox 02/13/19 15:12 98.1 F 81 141/86 96 General: Conversant, No Apparent Distress HEENT: Atraumatic, Normocephaly, Trachea midline Neck: No JVD, Normal carotid pulses Cardiac: Reg Rate and Rhythm, Normal S1 and S2, No Murmur Lungs: Decreased breath sounds Neuro: Alert and responsive, No focal deficits noted, Motor nerves intact, Sensory nerves intact Vascular: Normal capillary refill Abdomen: Soft, Non-tender Skin: No rashes noted on visualized skin Musculoskeletal: No Chest Wall Tenderness Extremities: No Clubbing, No Cyanosis, No Edema Results 02/13/19 05:08 02/13/19 05:08 Lab Results, Last 24 hours 02/13/19 02/13/19 05:08 05:08 WBC 14.5 H Hgb 9.3 L Hct 29.4 L Plt Count 343 Sodium 136 Potassium 3.8 Chloride 91 L Carbon Dioxide 33 H BUN 48 H Creatinine 2.07 H Glucose 154 H Calcium 9.0 Magnesium 2.2 - Imaging Chest Xray: image reviewed (Normal cardiac size. Increased pulmonary vascul arity consistent with congestive heart failure.) Consult Discharge Plan - Plan Referrals: Raul Mancilla [Primary Care Provider] -
--- NOTE | 2019-02-13 17:01 | Nephrology Progress Note ---
Date of Encounter: 02/13/19 Time of Encounter: 15:00 - Assessment and Plan (1) CKD (chronic kidney disease) stage 3, GFR 30-59 ml/min Current Visit: Yes Status: Acute SCr noted at 2.07, GFr 32 UOP noted improved at 1200cc in the past 24hrs Continue to avoid nephrotoxins if possible Will sign off, please reconsult prn (2) Acute and chronic respiratory failure with hypoxia Current Visit: Yes Status: Acute (3) Anemia Current Visit: Yes Status: Acute Qualifiers: Anemia type: due to chronic kidney disease Chronic kidney disease stage: stage 3 (moderate) Qualified Code(s): N18.3 - Chronic kidney disease, stage 3 (moderate); D63.1 - Anemia in chronic kidney disease Subjective Principal diagnosis: CHF Interval history: Pt seen and examined s/p LHC showing 3 vessel CAD Objective - Vital Signs Vital signs: Vital Signs Temp Pulse Resp BP Pulse Ox 02/13/19 15:12 98.1 F 81 141/86 96 02/13/19 10:56 18 90 02/13/19 07:27 18 92 02/13/19 07:06 97.8 F 93 126/85 91 02/13/19 05:12 97.5 F L 107 16 119/68 90 02/13/19 03:55 18 92 02/13/19 00:44 97.6 F 101 19 107/62 90 02/12/19 23:08 18 92 02/12/19 20:25 98.2 F 105 18 123/96 91 02/12/19 19:38 18 92 Intake and Output 02/13/19 02/13/19 02/13/19 07:59 15:59 23:59 Intake Total 250 / 250 Output Total 800 / 1100 300 / 1100 Balance -550 / -850 -300 / -850 Intake: IV Fluids 250 / 250 Heparin 25,000 UNIT/250 ML D5W 250 / 250 25,000 unit In 250 ml @ 10.8 UNIT/KG/HR 10.087 mls/hr IVC . Q24H PAP[facility] Rx#:[id number] Oral 0 / 0 Output: Urine 800 / 1100 300 / 1100 Other: Weight 86.3 kg Blood Glucose* 151 145 119 Patient Weight 02/13/19 23:59 Weight 86.3 kg - General Appearance General appearance: Present: chronically ill (NAD) EENT: Present: ATNC, mucous membranes moist Neck: Present: no JVD, supple Respiratory: Present: clear Cardiology: Present: no edema, normal S1, normal S2 Gastrointestinal: Present: no tenderness, no guarding Integumentary: Present: warm and dry Neurologic: Present: no focal deficit Musculoskeletal: Present: no deformities Psychiatric: Present: mood/affect appropriate, cooperative - Lab 02/13/19 05:08 02/13/19 05:08 Most recent lab results 02/13/19 05:08 Calcium 9.0 Magnesium 2.2 Consult Discharge Plan - Plan Referrals: Raul Mancilla [Primary Care Provider] -
[2019-02-13] MEDS: 0.9 % Sodium Chloride 1,000 ML IVC SCH (17:35)
[2019-02-13] MEDS: RisperiDAL 3 MG TABLET PO SCH (21:11)
[2019-02-14] MEDS: Heparin 25,000 UNIT/250 ML D5W 25,000 UNIT/250 ML IV.SOLN IVC SCH ×2 (01:31→17:25)
[2019-02-14 03:27] LABS: Basophils % 0.2 %; Eosinophils # 0.6 K/mcL (0.0-0.6); Eosinophils % 4.3 %; Hematocrit 28.6 % (37.5-50.1); Hemoglobin 8.8 g/dL (12.9-16.9); Immature Granulocytes % 1.1 % (0-4); Lymphocytes # 0.8 K/mcL (0.6-4.6); Mean Corpuscular HGB Conc 30.8 g/dL (31.6-35.5); Mean Corpuscular Hemoglobin 28.1 pg (28.0-33.3); Mean Corpuscular Volume 91.4 fL (83.0-100.0); Mean Platelet Volume 10.2 fL (9.4-12.4); Monocytes # 1.4 K/mcL (0.0-1.3); Neutrophils # 10.6 K/mcL (1.6-8.9); Platelet Count 323 K/mcL (140-400); Red Blood Count 3.13 M/mcL (4.19-5.50); Red Cell Distribution Width 14.8 % (11.5-14.5); Segmented Neutrophils % 78.4 %; White Blood Count 13.6 K/mcL (4.3-11.1)
[2019-02-14 03:34] LABS: Calcium 8.6 mg/dL (8.6-10.3); Magnesium 2.1 mg/dL (1.6-2.6); Potassium 3.8 mEq/L (3.5-5.1)
[2019-02-14] MEDS: Ipratropium/Albuterol Neb 3 ML IH SCH ×5 (04:41→19:58)
--- NOTE | 2019-02-14 08:50 | Cardiology Progress Note ---
Date of Encounter: 02/14/19 Time of Encounter: 08:50 Assessment and Plan (1) NSTEMI (non-ST elevated myocardial infarction) Current Visit: Yes Status: Acute Per Cardiology: Peak troponin 0.47. S/p [facility] with severe three-vessel CAD. Seen by CT surgery: recommendations for medical management. On aspirin, statin-- will maximize, beta sandip-- will titrate. Consider addition of MONET inhibitor/ARB based on kidney function. Chest pain-free. Add nitrates if needed. (2) CHF (congestive heart failure) Current Visit: Yes Status: Acute Per Cardiology: TTE 12/27: EF 45%, mild LV diastolic dysfunction, moderate concentric LVH, moderately dilated LA, mild TR. TTE was repeated with LVEF 40-45%. BNP 1621. Will add strict I and O and daily weights. Current I&O Net -5515ml. Weight appears down about 15 pounds. Nephrology following-- consider adding daily PO lasix. Appears relatively euvolemic on exam. Qualifiers: Qualified Code(s): I50.9 - Heart failure, unspecified (3) Atrial fibrillation Current Visit: Yes Status: Acute Per Cardiology: Apparent new onset a.fib noted during this admission. On BB. Currently SR 90's, avg HR past 12 hrs 96. Titrating BB for heart rate and blood pressure optimization. Continue to titrate beta sandip as needed. Regarding long-term anticoagulation, currently on IV heparin drip. Baseline hemoglobin is approximately 10-12. Lengthy discussion with patient regarding long-term anticoagulation, he indicates prior to admission he was on Coumadin being managed by [place]. Records reviewed, I cannot determine if patient was on Coumadin in the past. Patient does desire Coumadin as long- term anticoagulation option. Target INR would be 2.0-3.0. Qualifiers: Atrial fibrillation type: unspecified Qualified Code(s): I48.91 - Unspecified atrial fibrillation (4) CKD (chronic kidney disease) stage 3, GFR 30-59 ml/min Current Visit: Yes Status: Chronic Per Cardiology: Known CKD. Nephrology following. Kidney function appears stable status post catheterization. Discussion w patient/family: The assessment and plan as outlined above was discussed with the patient and/or family members who expressed understanding and agreement. All questions were answered. Thank you for involving us in the care of your patient. Please call with any questions. Subjective Principal diagnosis: CHF Interval history: Denies any chest pain or palpitations. Reports shortness of breath has improved during hospital stay. Reports utilizes oxygen at home and past history of nicotine abuse. Denies any edema. Denies any concerns from his right wrist site. Objective Vital Signs, Last 4 Hours Temp Pulse Resp BP Pulse Ox 02/14/19 07:42 98.8 F 87 20 142/81 99 02/14/19 05:21 98.4 F 90 16 145/89 93 General: Conversant, No Apparent Distress HEENT: Atraumatic, Normocephaly, Mucus Membranes Moist Neck: No JVD, Normal carotid pulses Cardiac: Reg Rate and Rhythm, Normal S1 and S2, No Murmur Lungs: Normal Breath Sounds, No Wheeze, Rales, Rhonchi, Other (Diminished bilateral bases) Neuro: Alert and responsive, No focal deficits noted Abdomen: Soft, Non-Tender Skin: No rashes noted on visualized skin, Other (Right wrist site dry and intact, no hematoma, no bleeding, no ecchymosis, right radial pulse 2+ palpable) Musculoskeletal: No Chest Wall Tenderness Extremities: No Clubbing, No Cyanosis, No Edema, Normal Pulses Results 02/14/19 00:01 02/14/19 00:01 Lab Results Laboratory Tests 02/06/19 02/06/19 02/14/19 16:40 16:40 00:01 Hgb 8.9 L 8.8 L Hct 27.7 L 28.6 L Creatinine 2.01 H Est GFR (Non-Af Amer) 34 L Magnesium 02/14/19 00:01 Hgb Hct Creatinine 1.78 H Est GFR (Non-Af Amer) 39 L Magnesium 2.1 ITS Impressions Chest X-Ray 02/06/19 16:33 IMPRESSION: Findings compatible with congestive heart failure with pulmonary vascular congestion and likely mild degree of pulmonary edema along with small bilateral pleural effusions with likely some bibasilar atelectasis. Multifocal pneumonia could have a similar appearance in the appropriate clinical setting. D/ / 02/06/2019 17:13:05 Carrillo Flores MD / [email or web address] Interpreting Provider: Carrillo Flores MD Echocardiogram Limited Views 02/11/19 09:17 Impressions: LVEF 40-45%. Moderate segmental left ventricular systolic dysfunction. Normal right ventricular structure and function. Left Ventricular Wall Motion: Rest Echo Findings The mid inferior, basal inferior, apical lateral, mid anterior lateral, basal anterior lateral, mid inferior lateral and basal inferior lateral bray were hypokinetic. All other wall segments showed normal motion. Findings: Study Quality * Technically sub-optimal due to clinical status. ECG Findings * Atrial fibrillation, RVR, BBB. Left Ventricle * LVEF 40-45%. * Moderate concentric left ventricular hypertrophy. * Moderate segmental left ventricular systolic dysfunction. Right Ventricle * Normal right ventricular structure and function. Tricuspid Valve * Estimated RA pressure is 3 mmHg. IVC * The IVC is not dilated. * > 50% respiratory change Chest CT 02/11/19 12:30 IMPRESSION: Cardiomegaly with small pleural effusions, bibasilar atelectasis and increased interstitial markings most consistent with findings of congestive heart failure. D/ / 02/11/2019 13:47:26 Yohannes Gallego MD / [email or web address] Inter[facility]ting Provider: Yohannes Gallego MD Intake & Output 02/11/19 02/12/19 02/13/19 02/14/19 23:59 23:59 23:59 23:59 Intake Total 490.0 / 490.0 1200 / 1200 1490 / 1490 1250 / 1250 Output Total 1200 / 1200 2300 / 2300 1700 / 1700 550 / 550 Balance -710.0 / -710.0 -1100 / -1100 -210 / -210 700 / 700 Weight 87.5 kg 86.9 kg 86.3 kg 89 kg Active Medications Albuterol/Ipratropium (Duoneb) 3 ml IH [id number] [facility] Stop: 08/09/19 00:01 Last Admin: 02/14/19 07:31 Dose: 3 ml Documented by: Aspirin (Aspirin) 81 mg PO DAILY [facility] Stop: 08/09/19 09:01 Last Admin: 02/13/19 09:05 Dose: 81 mg Documented by: Atorvastatin Calcium (Lipitor) 40 mg PO QPM [facility] Stop: 08/09/19 18:01 Last Admin: 02/13/19 17:34 Dose: 40 mg Documented by: Dextrose/Water (Dextrose 50% (Syg)) 25 ml IVP AD PRN PRN Reason: Hypoglycemia Stop: 08/08/19 21:10 Glucagon (Glucagen) 1 mg IM ONCE PRN PRN Reason: Hypoglycemia Stop: 08/08/19 21:10 Glucose (Gluctose) 15 gm PO ONCE PRN PRN Reason: Hypoglycemia Stop: 08/08/19 21:10 Glucose (Gluctose) 30 gm PO ONCE PRN PRN Reason: Hypoglycemia Stop: 08/08/19 21:10 Heparin Sodium (Porcine) (Heparin) 4,000 unit IVP Q6HR PRN PRN Reason: SEE COMMENTS Stop: 08/09/19 00:42 Heparin Sodium (Porcine) (Heparin) 2,000 unit IVP Q6H PRN PRN Reason: SEE COMMENTS Stop: 08/09/19 00:42 Last Admin: 02/13/19 06:11 Dose: 2,000 unit Documented by: Dextrose (Dextrose 5%) 1,000 mls @ 100 mls/hr IVC .Q10H PRN PRN Reason: HYPOGLYCEMIA Stop: 08/08/19 21:10 Heparin Sodium/Dextrose (Heparin 25,000 Unit/250 Ml D5w) 25,000 unit in 250 mls @ 10.087 mls/hr IVC .Q24H [facility]; Protocol Stop: 08/09/19 00:46 Last Admin: 02/14/19 01:31 Dose: 15.7 unit/kg/hr, 14.7 mls/hr Documented by: Sodium Chloride (0.9 % Sodium Chloride) 1,000 mls @ 50 mls/hr IVC .Q20H [facility] Stop: 08/14/19 20:31 Last Infusion: 02/14/19 01:31 Dose: Infused Documented by: Insulin Human Lispro (Humalog) 0 units SQ HS [facility]; Protocol Stop: 08/13/19 21:01 Last Admin: 02/13/19 21:12 Dose: Not Given Documented by: Insulin Human Lispro (Humalog) 0 units SQ TIDAC [facility]; Protocol Stop: 08/14/19 11:31 Last Admin: 02/13/19 17:34 Dose: Not Given Documented by: Metoprolol Succinate (Toprol Xl) 50 mg PO BID [facility] Stop: 08/13/19 21:01 Last Admin: 02/13/19 21:11 Dose: 50 mg Documented by: Naloxone HCl (Narcan) 0.4 mg IVP Q2MPRN PRN PRN Reason: SEE COMMENTS Stop: 08/08/19 21:05 Ondansetron HCl (Zofran) 4 mg IVP Q8HR PRN PRN Reason: Nausea And Vomiting Stop: 08/08/19 21:05 Oxycodone HCl (Oxycodone Oral Conc) 5 mg SL Q4H PRN; Protocol PRN Reason: mild to moderate pain Stop: 08/08/19 21:05 Risperidone (Risperdal) 3 mg PO HS [facility] Stop: 08/15/19 21:01 Last Admin: 02/13/19 21:11 Dose: 3 mg Documented by: Risperidone (Risperdal) 1.5 mg PO DAILY [facility] Stop: 08/16/19 09:01 Senna/Docusate Sodium (Senna Plus) 2 each PO BID PRN; Protocol PRN Reason: Constipation Stop: 08/08/19 21:11 Tamsulosin HCl (Flomax) 0.4 mg PO DAILY [facility]; Protocol Stop: 08/09/19 09:01 Last Admin: 02/13/19 09:05 Dose: 0.4 mg Documented by: - Imaging and Cardiology Echo: report reviewed Cardiac cath: report reviewed Consult Discharge Plan - Plan Referrals: Raul Mancilla [Primary Care Provider] -
[2019-02-14] MEDS: Aspirin 81 MG TAB.CHEW PO SCH (09:56)
[2019-02-14] MEDS: RisperiDAL 3 MG TABLET PO SCH ×2 (09:57→21:18)
[2019-02-14] MEDS: Metoprolol XL (24 HR) Succ 50 MG TAB.ER.24H PO SCH ×2 (09:57→21:18)
[2019-02-14] MEDS: Insulin LISPRO 300 UNITS/3 ML VIAL SQ SCH ×4 (10:02→21:21)
--- NOTE | 2019-02-14 16:01 | Internal Med Progress Note ---
Hospitalist Progress Note - Encounter Date of Encounter: 02/14/19 Time of Encounter: 13:00 - Subjective Interval History: Mr Valdez left heart catheter revealed three-vessel disease as such, CABG was indicated he was evaluated by the cardiothoracic surgeon and deemed too high risk for surgery due to his poor rehabilitation potential. They have opted for medical management GEN: Denies fever, chills or malaise HEENT: Denies headache blurriness, or dysphagia RESP: Denies SOB or cough CV: Denies chest pain or palpitations GI: Denies Nausea, vomiting, diarrhea or constipation Reviewed current in hospital medications with modifications see orders Reviewed Routine labs - Exam Vitals: Temp Pulse Resp BP Pulse Ox 98.6 F 92 14 150/88 98 02/14/19 11:32 02/14/19 11:32 02/14/19 11:32 02/14/19 11:32 02/14/19 11:32 Exam: GEN: NAD, A&O x 3, Pleasant and conversant, SKIN: [place] warm acyanotic not jaundice HEART: RRR, no murmurs LUNGS: Diminished appears clear to auscultation no wheeze, overall non labored ABDOMEN; Soft, non tender or distended, BS x 4 normactive EXT: No LE edema, Pedal pulses 1+, radial pulses 2+ PSYCH: Mood and affect is appropriate - Assessment and Plan (1) Coronary artery disease Current Visit: Yes Status: Acute Assessment and Plan: Severe three-vessel disease not considered a candidate for CABG due to poor rehabilitation potential plan is for medical management (2) NSTEMI (non-ST elevated myocardial infarction) Current Visit: Yes Status: Acute Assessment and Plan: Status post left Heart cath, revealed severe three-vessel disease. Plan is to optimize medical management (3) Acute and chronic respiratory failure with hypoxia Current Visit: Yes Status: Acute Assessment and Plan: Improving reports home oxygen 2.5 L chronically on 3 L okay sats above 92 (4) Anemia Current Visit: Yes Status: Acute Assessment and Plan: Given NSTEMI, would prefer hemoglobin above 10, at 9.5-9.9, today 9.3 continue to monitor CBC. workup revealed anemia of chronic disease with low serum iron with normal levels ferritin, supratherapeutic levels of B12, normal levels of folate. type and cross and transfuse 1 unit packed red blood cell (5) Atrial fibrillation Current Visit: Yes Status: Acute Assessment and Plan: appears rate controlled, currently on heparin drip for NSTEMI, plan is to start warfarin per cardiology pharmacy to dose (6) CHF exacerbation Current Visit: Yes Status: Acute Assessment and Plan: stable will d/c iV fluid Responded to IV diuresis with Lasix, however given his chronic kidney disease an anticipated left heart catheter would need to hydrate patient again. This afternoon patient appears to have crackles a such we will hold off on hydration (7) Diabetes Current Visit: Yes Status: Acute Assessment and Plan: POC glucose ranged from 119-164 at goal continue insulin. A1c 7.2 02/06/2019 (8) Ifgeu-zf-[id number] kidney injury Current Visit: Yes Status: Suspected Assessment and Plan: Serum creatinine improved with diuresis likely prerenal from a hypoperfusion standpoint however givenhe is scheduled for left heart catheter patient would be started back on gentle IV hydration 50ml /h IV saline contrast on the last 6- 8 hours after left heart If patient tolerates, this afternoon he appears to have some crackles would DC saline hydration serum creatinine is 2.07 improved to 1.78 today will dc IV. DVT Prophylaxis: he is being stated on warfarin - Time Spent with Patient Total time spent is greater than 50% in coordination of care (as documented) at patient's floor/unit and/or counseling patient: Internal Medicine: Result - Labs CBC & Chem 7: 02/14/19 00:01 02/14/19 00:01 Labs: Short CBC 02/14/19 Range/Units 00:01 WBC 13.6 H (4.3-11.1) K/mcL Hgb 8.8 L (12.9-16.9) g/dL Hct 28.6 L (37.5-50.1) % Plt Count 323 (140-400) K/mcL Neutrophils # 10.6 H (1.6-8.9) K/mcL BMP 02/14/19 00:01 Sodium 134 L Potassium 3.8 Chloride 95 L Carbon Dioxide 29 BUN 44 H Creatinine 1.78 H Glucose 115 H Calcium 8.6 - ABG Interpretation ABG results: ABG ABG pH 7.47 pH Units (7.32-7.45) H 02/07/19 15:17 ABG pCO2 50 mmHg (35-45) H 02/07/19 15:17 ABG pO2 58 mmHg (85-104) L 02/07/19 15:17 ABG O2 Saturation 91 % (95-98) L 02/07/19 15:17 PT/INR, D-dimer PT 12.6 Seconds (9.4-12.1) H 02/06/19 23:56 Consult Discharge Plan - Plan Referrals: Raul Mancilla [Primary Care Provider] - (4) Anemia Qualifiers: Anemia type: due to chronic kidney disease Chronic kidney disease stage: stage 3 (moderate) Qualified Code(s): N18.3 - Chronic kidney disease, stage 3 (moderate); D63.1 - Anemia in chronic kidney disease (5) Atrial fibrillation Qualifiers: Atrial fibrillation type: unspecified Qualified Code(s): I48.91 - Unspecified atrial fibrillation (6) CHF exacerbation Qualifiers: Heart failure type: combined systolic and diastolic Qualified Code(s): I50.43 - Acute on chronic combined systolic (congestive) and diastolic (congestive) heart failure (7) Diabetes Qualifiers: Diabetes mellitus type: type 2 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
[2019-02-14 16:48] LABS: INR 1.1
[2019-02-14] MEDS ORDERED: Warfarin perPT PO PRN (18:00)
[2019-02-14] MEDS ORDERED: *HR* Warfarin 5 MG TABLET PO ONE (18:00)
[2019-02-14] MEDS ORDERED: 0.9 % Sodium Chloride 250 ML ONE (22:51)
[2019-02-15] MEDS: Ipratropium/Albuterol Neb 3 ML IH SCH ×7 (00:11→23:14)
[2019-02-15 03:36] LABS: INR 1.1
[2019-02-15] MEDS: Aspirin 81 MG TAB.CHEW PO SCH (07:59)
[2019-02-15] MEDS: RisperiDAL 3 MG TABLET PO SCH ×2 (07:59→20:26)
[2019-02-15] MEDS: Metoprolol XL (24 HR) Succ 50 MG TAB.ER.24H PO SCH ×2 (08:00→20:26)
[2019-02-15] MEDS: Insulin LISPRO 300 UNITS/3 ML VIAL SQ SCH ×4 (08:01→20:26)
[2019-02-15 08:24] LABS: Basophils # 0.1 K/mcL (0.0-0.2); Basophils % 0.5 %; Eosinophils # 0.7 K/mcL (0.0-0.6); Eosinophils % 4.7 %; Hematocrit 33.9 % (37.5-50.1); Hemoglobin 10.5 g/dL (12.9-16.9); Immature Granulocytes % 1.2 % (0-4); Lymphocytes # 0.9 K/mcL (0.6-4.6); Lymphocytes % 5.8 %; Mean Corpuscular Hemoglobin 27.7 pg (28.0-33.3); Mean Corpuscular Volume 89.4 fL (83.0-100.0); Mean Platelet Volume 9.1 fL (9.4-12.4); Monocytes # 1.3 K/mcL (0.0-1.3); Monocytes % 8.9 %; Neutrophils # 11.6 K/mcL (1.6-8.9); Platelet Count 297 K/mcL (140-400); Red Blood Count 3.79 M/mcL (4.19-5.50); Red Cell Distribution Width 14.9 % (11.5-14.5); Segmented Neutrophils % 78.9 %; White Blood Count 14.8 K/mcL (4.3-11.1)
[2019-02-15 08:32] LABS: INR 1.1; Prothrombin Time 12.2 Seconds (9.4-12.1)
[2019-02-15 08:47] LABS: Calcium 8.9 mg/dL (8.6-10.3); Magnesium 2.2 mg/dL (1.6-2.6); Potassium 3.8 mEq/L (3.5-5.1)
[2019-02-15] MEDS: Heparin 25,000 UNIT/250 ML D5W 25,000 UNIT/250 ML IV.SOLN IVC SCH (12:17)
--- NOTE | 2019-02-15 12:38 | Internal Med Progress Note ---
Hospitalist Progress Note - Encounter Date of Encounter: 02/15/19 Time of Encounter: 12:00 - Subjective Interval History: Mr Valdez is currently being bridged for chronic anticoagulation therapy with warfarin INR still subtherapeutic GEN: Denies fever, chills or malaise HEENT: Denies headache blurriness, or dysphagia RESP: Denies SOB or cough CV: Denies chest pain or palpitations GI: Denies Nausea, vomiting, diarrhea or constipation Reviewed current in hospital medications with modifications see orders Reviewed Routine labs - Exam Vitals: Temp Pulse Resp BP Pulse Ox 98.0 F 89 18 149/92 94 02/15/19 07:26 02/15/19 11:27 02/15/19 11:36 02/15/19 11:27 02/15/19 11:36 Exam: GEN: NAD, A&O x 3, Pleasant and conversant, mother and sister were at his bedside today SKIN: [place] warm acyanotic not jaundice HEART: Irregularly irregular rate and rhythm, no murmurs LUNGS: Diminished appears clear to auscultation no wheeze, overall non labored ABDOMEN; Soft, non tender or distended, BS x 4 normactive EXT: No LE edema, Pedal pulses 1+, radial pulses 2+ PSYCH: Mood and affect is appropriate - Assessment and Plan (1) Coronary artery disease Current Visit: Yes Status: Acute Assessment and Plan: Severe three-vessel disease not considered a candidate for CABG due to poor rehabilitation potential plan is for medical management-Lipitor 80 mg daily, Toprol 75 mg twice a day and aspirin he does have chronic kidney disease as such MONET inhibitor risk versus benefits will need to be evaluated as an outpatient per PCP (2) NSTEMI (non-ST elevated myocardial infarction) Current Visit: Yes Status: Acute Assessment and Plan: Status post left Heart cath, revealed severe three-vessel disease. Plan is to optimize medical management as discussed above (3) Acute and chronic respiratory failure with hypoxia Current Visit: Yes Status: Acute Assessment and Plan: Improving reports home oxygen 2.5 L chronically on 3 L okay sats above 92 (4) Anemia Current Visit: Yes Status: Acute Assessment and Plan: Given NSTEMI, would prefer hemoglobin above 10, at 9.5-9.9, today 9.3 continue to monitor CBC. workup revealed anemia of chronic disease with low serum iron with normal levels ferritin, supratherapeutic levels of B12, normal levels of folate. type and cross and transfuse 1 unit packed red blood cell. Hemoglobin status post 1 unit of packed red blood cell is 10.5. He may be considered for possible colonoscopy as an outpatient to rule out any colonic bleed (5) Atrial fibrillation Current Visit: Yes Status: Acute Assessment and Plan: appears rate controlled, currently on heparin drip for NSTEMI, warfarin per cardiology pharmacy to dose inr 1.1 (6) CHF exacerbation Current Visit: Yes Status: Acute Assessment and Plan: Stable and chronic Responded to IV diuresis with Lasix, however given his chronic kidney disease an anticipated left heart catheter would need to hydrate patient again. This aft ernoon patient appears to have crackles a such we will hold off on hydration (7) Diabetes Current Visit: Yes Status: Acute Assessment and Plan: POC glucose ranged from 138-221 at goal continue insulin. A1c 7.2 02/06/2019 (8) Mwsga-is-ccivgkz kidney injury Current Visit: Yes Status: Suspected Assessment and Plan: Serum creatinine today is 1.89 likely at baseline Serum creatinine improved with diuresis likely prerenal from a hypoperfusion standpoint however givenhe is scheduled for left heart catheter patient would be started back on gentle IV hydration 50ml /h IV saline contrast on the last 6- 8 hours after left heart If patient tolerates, this afternoon he appears to have some crackles would DC saline hydration serum creatinine is 2.07 improved to 1.78 today will dc IV. (9) COPD exacerbation Current Visit: Yes Status: Acute Assessment and Plan: Upon Lftl-cj-kegi evaluation of the patient for optimal management of his COPD, given his present cardiovascular history of severe three-vessel CAD, recent hospitalization for NSTEMI, patient will benefit from a nebulizer machine for nebulized albuterol ipratropium so as to prevent rehospitalization for COPD exacerbation, his exacerbation puts him at increased risk for demand ischemia and thus acute coronary syndrome. DVT Prophylaxis: On heparin bridge for warfarin - Time Spent with Patient Total time spent is greater than 50% in coordination of care (as documented) at patient's floor/unit and/or counseling patient: Internal Medicine: Result - Labs CBC & Chem 7: 02/15/19 08:14 02/15/19 08:14 Labs: Short CBC 02/15/19 Range/Units 08:14 WBC 14.8 H (4.3-11.1) K/mcL Hgb 10.5 L D (12.9-16.9) g/dL Hct 33.9 L (37.5-50.1) % Plt Count 297 (140-400) K/mcL Neutrophils # 11.6 H (1.6-8.9) K/mcL BMP 02/15/19 08:14 Sodium 132 L Potassium 3.8 Chloride 95 L Carbon Dioxide 29 BUN 39 H Creatinine 1.89 H Glucose 174 H Calcium 8.9 - ABG Interpretation ABG results: ABG ABG pH 7.47 pH Units (7.32-7.45) H 02/07/19 15:17 ABG pCO2 50 mmHg (35-45) H 02/07/19 15:17 ABG pO2 58 mmHg (85-104) L 02/07/19 15:17 ABG O2 Saturation 91 % (95-98) L 02/07/19 15:17 PT/INR, D-dimer PT 12.2 Seconds (9.4-12.1) H 02/15/19 08:14 - Impressions Impressions Chest X-Ray 02/14/19 21:03 IMPRESSION: 1. Interval improvement in pulmonary edema and bilateral pleural effusions. 2. Persistently enlarged cardiomediastinal silhouette. D/ / 02/14/2019 22:22:14 Dmitriy Dumont MD / [email or web address] Interpreting Provider: Dmitriy Dumont MD Consult Discharge Plan - Plan Referrals: Raul Mancilla [Primary Care Provider] - (4) Anemia Qualifiers: Anemia type: due to chronic kidney disease Chronic kidney disease stage: stage 3 (moderate) Qualified Code(s): N18.3 - Chronic kidney disease, stage 3 ( moderate); D63.1 - Anemia in chronic kidney disease (5) Atrial fibrillation Qualifiers: Atrial fibrillation type: unspecified Qualified Code(s): I48.91 - Unspecified atrial fibrillation (6) CHF exacerbation Qualifiers: Heart failure type: combined systolic and diastolic Qualified Code(s): I50.43 - Acute on chronic combined systolic (congestive) and diastolic (congestive) heart failure (7) Diabetes Qualifiers: Diabetes mellitus type: type 2 Diabetes mellitus shelter insulin use: without shelter use Diabetes mellitus complication status: with other specified complication Qualified Code(s): E11.69 - Type 2 diabetes mellitus with other specified complication (8) Dqkgw-kj-wvdjhvs kidney injury Qualifiers: Acute renal failure type: unspecified Chronic kidney disease stage: stage 3 (moderate) Qualified Code(s): N17.9 - Acute kidney failure, unspecified; N18.3 - Chronic kidney disease, stage 3 (moderate)
[2019-02-15] MEDS ORDERED: *HR* Warfarin 5 MG TABLET PO ONE (18:00)
[2019-02-16] MEDS: Ipratropium/Albuterol Neb 3 ML IH SCH ×6 (03:31→23:54)
[2019-02-16 04:56] LABS: Basophils # 0.1 K/mcL (0.0-0.2); Basophils % 0.4 %; Eosinophils # 0.6 K/mcL (0.0-0.6); Eosinophils % 4.9 %; Hematocrit 31.4 % (37.5-50.1); Hemoglobin 9.9 g/dL (12.9-16.9); Immature Granulocytes % 1.7 % (0-4); Lymphocytes # 1.2 K/mcL (0.6-4.6); Lymphocytes % 9.5 %; Mean Corpuscular HGB Conc 31.5 g/dL (31.6-35.5); Mean Corpuscular Hemoglobin 28.2 pg (28.0-33.3); Mean Corpuscular Volume 89.5 fL (83.0-100.0); Mean Platelet Volume 9.7 fL (9.4-12.4); Monocytes # 1.2 K/mcL (0.0-1.3); Monocytes % 9.2 %; Neutrophils # 9.6 K/mcL (1.6-8.9); Platelet Count 307 K/mcL (140-400); Red Blood Count 3.51 M/mcL (4.19-5.50); Red Cell Distribution Width 14.7 % (11.5-14.5); Segmented Neutrophils % 74.3 %; White Blood Count 12.9 K/mcL (4.3-11.1)
[2019-02-16 05:03] LABS: Calcium 8.8 mg/dL (8.6-10.3); Magnesium 2.1 mg/dL (1.6-2.6); Potassium 4.2 mEq/L (3.5-5.1)
[2019-02-16 05:07] LABS: INR 1.1; Prothrombin Time 12.9 Seconds (9.4-12.1)
[2019-02-16] MEDS: Heparin 25,000 UNIT/250 ML D5W 25,000 UNIT/250 ML IV.SOLN IVC SCH (07:24)
[2019-02-16] MEDS: Metoprolol XL (24 HR) Succ 50 MG TAB.ER.24H PO SCH ×2 (08:27→21:08)
[2019-02-16] MEDS: RisperiDAL 3 MG TABLET PO SCH ×2 (08:27→21:08)
[2019-02-16] MEDS: Insulin LISPRO 300 UNITS/3 ML VIAL SQ SCH ×4 (08:28→21:01)
[2019-02-16] MEDS: Aspirin 81 MG TAB.CHEW PO SCH (08:28)
--- NOTE | 2019-02-16 14:05 | Internal Med Progress Note ---
Hospitalist Progress Note - Encounter Date of Encounter: 02/16/19 Time of Encounter: 10:30 - Subjective Interval History: Mr Valdez INR is still not therapeutic. He is not considered an ideal candidate for low molecular weight heparin bridge GEN: Denies fever, chills or malaise HEENT: Denies headache blurriness, or dysphagia RESP: Denies SOB or cough CV: Denies chest pain or palpitations GI: Denies Nausea, vomiting, diarrhea or constipation Reviewed current in hospital medications with modifications see orders Reviewed Routine labs - Exam Vitals: Temp Pulse Resp BP Pulse Ox 98.1 F 86 16 144/94 94 02/16/19 06:57 02/16/19 06:57 02/16/19 11:48 02/16/19 08:05 02/16/19 11:48 Exam: GEN: NAD, A&O x 3, Pleasant and conversant SKIN: [place] warm acyanotic not jaundice HEART: Irregularly irregular rate and rhythm, 2/6 murmurs appreciated today LUNGS: Diminished appears clear to auscultation no wheeze, overall non labored ABDOMEN; Soft, non tender or distended, BS x 4 normactive EXT: No LE edema, Pedal pulses 1+, radial pulses 2+ PSYCH: Mood and affect is appropriate - Assessment and Plan (1) Coronary artery disease Current Visit: Yes Status: Acute Assessment and Plan: Severe three-vessel disease not considered a candidate for CABG due to poor rehabilitation potential plan is for medical management-Lipitor 80 mg daily, Toprol 75 mg twice a day and aspirin he does have chronic kidney disease as such MONET inhibitor risk versus benefits will need to be evaluated as an outpatient per PCP (2) NSTEMI (non-ST elevated myocardial infarction) Current Visit: Yes Status: Acute Assessment and Plan: Status post left Heart cath, revealed severe three-vessel disease. Plan is to optimize medical management as discussed above (3) Diabetes Current Visit: Yes Status: Acute Assessment and Plan: POC glucose ranged from 154-215 at goal continue insulin. A1c 7.2 02/06/2019 (4) Acute and chronic respiratory failure with hypoxia Current Visit: Yes Status: Acute Assessment and Plan: Improving reports home oxygen 2.5 L chronically on 3 L okay sats above 92 (5) Anemia Current Visit: Yes Status: Acute Assessment and Plan: Given NSTEMI, would prefer hemoglobin above 10, at 9.5-9.9, today 9.3 continue to monitor CBC. workup revealed anemia of chronic disease with low serum iron with normal levels ferritin, supratherapeutic levels of B12, normal levels of folate. type and cross and transfuse 1 unit packed red blood cell. Hemoglobin status post 1 unit of packed red blood cell is 10.5 yesterday 9.9 today which has been baseline for him. He may be considered for possible colonoscopy as an outpatient to rule out any colonic bleed (6) Atrial fibrillation Current Visit: Yes Status: Acute Assessment and Plan: appears rate controlled, currently on heparin drip bridge, warfarin per cardiology pharmacy to dose inr 1.1 (7) CHF exacerbation Current Visit: Yes Status: Acute Assessment and Plan: Stable and chronic Responded to IV diuresis with Lasix, however given his chronic kidney disease an anticipated left heart catheter would need to hydrate patient again. This afternoon patient appears to have crackles a such we will hold off on hydration (8) Bpmab-ye-ptnckoe kidney injury Current Visit: Yes Status: Suspected Assessment and Plan: Serum creatinine today is 1.89 likely at baseline Serum creatinine improved with diuresis likely prerenal from a hypoperfusion standpoint however givenhe is scheduled for left heart catheter patient would be started back on gentle IV hydration 50ml /h IV saline contrast on the last 6- 8 hours after left heart If patient tolerates, this afternoon he appears to have some crackles would DC saline hydration serum creatinine is 2.07 improved to 1.78 today will dc IV. (9) COPD exacerbation Current Visit: Yes Status: Acute Assessment and Plan: Upon [id number] evaluation of the patient for optimal management of his COPD, given his present cardiovascular history of severe three-vessel CAD, recent hospitalization for NSTEMI, patient will benefit from a nebulizer machine for nebulized albuterol ipratropium so as to prevent rehospitalization for COPD exacerbation, his exacerbation puts him at increased risk for demand ischemia and thus acute coronary syndrome. - Time Spent with Patient Total time spent is greater than 50% in coordination of care (as documented) at patient's floor/unit and/or counseling patient: Internal Medicine: Result - Labs CBC & Chem 7: 02/16/19 04:20 02/16/19 04:20 Labs: Short CBC 02/16/19 Range/Units 04:20 WBC 12.9 H (4.3-11.1) K/mcL Hgb 9.9 L (12.9-16.9) g/dL Hct 31.4 L (37.5-50.1) % Plt Count 307 (140-400) K/mcL Neutrophils # 9.6 H (1.6-8.9) K/mcL BMP 02/16/19 04:20 Sodium 135 L Potassium 4.2 Chloride 98 Carbon Dioxide 27 BUN 42 H Creatinine 1.88 H Glucose 155 H Calcium 8.8 - ABG Interpretation ABG results: ABG ABG pH 7.47 pH Units (7.32-7.45) H 02/07/19 15:17 ABG pCO2 50 mmHg (35-45) H 02/07/19 15:17 ABG pO2 58 mmHg (85-104) L 02/07/19 15:17 ABG O2 Saturation 91 % (95-98) L 02/07/19 15:17 PT/INR, D-dimer PT 12.9 Seconds (9.4-12.1) H 02/16/19 04:20 Consult Discharge Plan - Plan Referrals: Jaqui Gregg [Registered Pharmacist] - 02/19/19 3:45 pm (New location .....located behind the [facility] in the rehab center. Please bring ID and INS card [id number] [id number]) Vu Caldera MD [Partnered Physician] - 02/22/19 2:45 pm (Medical office building [address] phone [phone] if patient needs to cancel the appointment please call within 24 hours of appointment. please arrive at 2:15 with ID and INS card. ) (3) Diabetes Qualifiers: Diabetes mellitus type: type 2 Diabetes mellitus fpc insulin use: without fpc use Diabetes mellitus complication status: with other specified complication Qualified Code(s): E11.69 - Type 2 diabetes mellitus with other specified complication (5) Anemia Qualifiers: Anemia type: due to chronic kidney disease Chronic kidney disease stage: stage 3 (moderate) Qualified Code(s): N18.3 - Chronic kidney disease, stage 3 (moderate); D63.1 - Anemia in chronic kidney disease (6) Atrial fibrillation Qualifiers: Atrial fibrillation type: unspecified Qualified Code(s): I48.91 - Unspecified atrial fibrillation (7) CHF exacerbation Qualifiers: Heart failure type: combined systolic and diastolic Qualified Code(s): I50.43 - Acute on chronic combined systolic (congestive) and diastolic (congestive) heart failure (8) [place]gl[place]-ml-xbgmyjj kidney injury Qualifiers: Acute renal failure type: unspecified Chronic kidney disease stage: stage 3 (moderate) Qualified Code(s): N17.9 - Acute kidney failure, unspecified; N18.3 - Chronic kidney disease, stage 3 (moderate)
[2019-02-16] MEDS ORDERED: *HR* Warfarin 5 MG TABLET PO ONE (18:00)
[2019-02-17] MEDS: Heparin 25,000 UNIT/250 ML D5W 25,000 UNIT/250 ML IV.SOLN IVC SCH ×2 (00:46→18:17)
[2019-02-17] MEDS: Ipratropium/Albuterol Neb 3 ML IH SCH ×6 (03:47→23:23)
[2019-02-17 04:44] LABS: Basophils # 0.1 K/mcL (0.0-0.2); Basophils % 0.5 %; Eosinophils # 0.6 K/mcL (0.0-0.6); Eosinophils % 5.4 %; Hematocrit 30.2 % (37.5-50.1); Hemoglobin 9.3 g/dL (12.9-16.9); Immature Granulocytes % 1.4 % (0-4); Lymphocytes # 1.1 K/mcL (0.6-4.6); Lymphocytes % 9.7 %; Mean Corpuscular HGB Conc 30.8 g/dL (31.6-35.5); Mean Corpuscular Hemoglobin 27.4 pg (28.0-33.3); Mean Corpuscular Volume 88.8 fL (83.0-100.0); Mean Platelet Volume 9.5 fL (9.4-12.4); Monocytes # 1.1 K/mcL (0.0-1.3); Monocytes % 9.9 %; Neutrophils # 7.9 K/mcL (1.6-8.9); Platelet Count 287 K/mcL (140-400); Red Cell Distribution Width 14.6 % (11.5-14.5); Segmented Neutrophils % 73.1 %; White Blood Count 10.8 K/mcL (4.3-11.1)
[2019-02-17 04:52] LABS: INR 1.5; Prothrombin Time 16.8 Seconds (9.4-12.1)
[2019-02-17 05:03] LABS: Calcium 8.8 mg/dL (8.6-10.3); Magnesium 1.9 mg/dL (1.6-2.6); Potassium 4.4 mEq/L (3.5-5.1)
[2019-02-17] MEDS: Insulin LISPRO 300 UNITS/3 ML VIAL SQ SCH ×4 (08:37→21:00)
[2019-02-17] MEDS: Metoprolol XL (24 HR) Succ 50 MG TAB.ER.24H PO SCH ×2 (08:38→21:00)
[2019-02-17] MEDS: Aspirin 81 MG TAB.CHEW PO SCH (08:38)
[2019-02-17] MEDS: RisperiDAL 3 MG TABLET PO SCH ×2 (08:38→21:00)
--- NOTE | 2019-02-17 14:07 | Internal Med Progress Note ---
Hospitalist Progress Note - Encounter Date of Encounter: 02/17/19 Time of Encounter: 10:00 - Subjective Interval History: Mr Valdez INR trended up to 1.5 today. Discussed low molecular weight heparin bridge again this morning with the patient's mother and sister there are no comfortable injecting him. Patient is not deemed competent to self adminis ter GEN: Denies fever, chills or malaise HEENT: Denies headache blurriness, or dysphagia RESP: Denies SOB or cough CV: Denies chest pain or palpitations GI: Denies Nausea, vomiting, diarrhea or constipation Reviewed current in hospital medications with modifications see orders Reviewed Routine labs - Exam Vitals: Temp Pulse Resp BP Pulse Ox 98.1 F 90 20 145/91 96 02/17/19 11:06 02/17/19 11:06 02/17/19 11:06 02/17/19 11:06 02/17/19 11:06 Exam: GEN: NAD, A&O x 3, Pleasant and conversant, mother and sister at his bedside today SKIN: [place] warm acyanotic not jaundice HEART: Irregularly irregular rate and rhythm, 2/6 murmurs appreciated today LUNGS: Diminished appears clear to auscultation no wheeze, overall non labored ABDOMEN; Soft, non tender or distended, BS x 4 normactive EXT: No LE edema, Pedal pulses 1+, radial pulses 2+ PSYCH: Mood and affect is appropriate - Assessment and Plan (1) Atrial fibrillation Current Visit: Yes Status: Acute Assessment and Plan: appears rate controlled, currently on heparin drip bridge, warfarin per cardiology pharmacy to dose inr 1.1 -1.5 (2) Diabetes Current Visit: Yes Status: Acute Assessment and Plan: POC glucose ranged from 132-158 at goal continue insulin. A1c 7.2 02/06/2019 (3) Acute and chronic respiratory failure with hypoxia Current Visit: Yes Status: Acute Assessment and Plan: Improving reports home oxygen 2.5 L chronically on 3 L okay sats above 92 this may be his new baseline (4) Coronary artery disease Current Visit: Yes Status: Acute Assessment and Plan: Severe three-vessel disease not considered a candidate for CABG due to poor rehabilitation potential plan is for medical management-Lipitor 80 mg daily, Toprol 75 mg twice a day and aspirin he does have chronic kidney disease as such MONET inhibitor risk versus benefits will need to be evaluated as an outpatient per PCP (5) NSTEMI (non-ST elevated myocardial infarction) Current Visit: Yes Status: Acute Assessment and Plan: Status post left Heart cath, revealed severe three-vessel disease. Plan is to optimize medical management as discussed above (6) Anemia Current Visit: Yes Status: Acute Assessment and Plan: Given NSTEMI, would prefer hemoglobin above 10, at 9.5-9.9, today 9.3 and Stable continue to monitor CBC. workup revealed anemia of chronic disease with low serum iron with normal levels ferritin, supratherapeutic levels of B12, normal levels of folate. type and cross and transfuse 1 unit packed red blood cell. Hemoglobin status post 1 unit of packed red blood cell is 10.5 yesterday 9.9 today which has been baseline for him. He may be considered for possible colonoscopy as an outpatient to rule out any colonic bleed (7) CHF exacerbation Current Visit: Yes Status: Acute Assessment and Plan: Stable and chronic, -3.9 L during this hospital stay Responded to IV diuresis with Lasix, however given his chronic kidney disease an anticipated left heart catheter would need to hydrate patient again. This afternoon patient appears to have crackles a such we will hold off on hydration (8) Cydcv-ph-jdcvazb kidney injury Current Visit: Yes Status: Suspected Assessment and Plan: Serum creatinine today is 1.89 trended to 1.97 likely at baseline Serum creatinine improved with diuresis likely prerenal from a hypoperfusion standpoint however givenhe is scheduled for left heart catheter patient would be started back on gentle IV hydration 50ml /h IV saline contrast on the last 6- 8 hours after left heart If patient tolerates, this afternoon he appears to have some crackles would DC saline hydration serum creatinine is 2.07 improved to 1.78 today will dc IV. (9) COPD exacerbation Current Visit: Yes Status: Acute Assessment and Plan: Upon [id number]-bv-[id number] evaluation of the patient for optimal management of his COPD, given his present cardiovascular history of severe three-vessel CAD, recent hospitalization for NSTEMI, patient will benefit from a nebulizer machine for nebulized albuterol ipratropium so as to prevent rehospitalization for COPD exacerbation, his exacerbation puts him at increased risk for demand ischemia and thus acute coronary syndrome - Time Spent with Patient Total time spent is greater than 50% in coordination of care (as documented) at patient's floor/unit and/or counseling patient: Internal Medicine: Result - Labs CBC & Chem 7: 02/17/19 04:23 02/17/19 04:23 Labs: Short CBC 02/17/19 Range/Units 04:23 WBC 10.8 (4.3-11.1) K/mcL Hgb 9.3 L (12.9-16.9) g/dL Hct 30.2 L (37.5-50.1) % Plt Count 287 (140-400) K/mcL Neutrophils # 7.9 (1.6-8.9) K/mcL BMP 02/17/19 04:23 Sodium 134 L Potassium 4.4 Chloride 100 Carbon Dioxide 27 BUN 41 H Creatinine 1.97 H Glucose 161 H Calcium 8.8 - ABG Interpretation ABG results: ABG ABG pH 7.47 pH Units (7.32-7.45) H 02/07/19 15:17 ABG pCO2 50 mmHg (35-45) H 02/07/19 15:17 ABG pO2 58 mmHg (85-104) L 02/07/19 15:17 ABG O2 Saturation 91 % (95-98) L 02/07/19 15:17 PT/INR, D-dimer PT 16.8 Seconds (9.4-12.1) H 02/17/19 04:23 Consult Discharge Plan - Plan Referrals: Jaqui Gregg [Registered Pharmacist] - 02/19/19 3:45 pm (New location .....located behind the [facility] in the rehab center. Please bring ID and INS card [phone] [phone]) Vu Caldera MD [Partnered Physician] - 02/22/19 2:45 pm (Medical office building [address] phone [phone] if patient needs to cancel the appointment please call within 24 hours of appointment. please arrive at 2:15 with ID and INS card. ) (1) Atrial fibrillation Qualifiers: Atrial fibrillation type: unspecified Qualified Code(s): I48.91 - Unspecified atrial fibrillation (2) Diabetes Qualifiers: Diabetes mellitus type: type 2 Diabetes mellitus intermission coordinator insulin use: without intermediate use Diabetes mellitus complication status: with other specified complication Qualified Code(s): E11.69 - Type 2 diabetes mellitus with other specified complication (6) Anemia Qualifiers: Anemia type: due to chronic kidney disease Chronic kidney disease stage: stage 3 (moderate) Qualified Code(s): N18.3 - Chronic kidney disease, stage 3 (moderate); D63.1 - Anemia in chronic kidney disease (7) CHF exacerbation Qualifiers: Heart failure type: combined systolic and diastolic Qualified Code(s): I50.43 - Acute on chronic combined systolic (congestive) and diastolic (congestive) heart failure (8) [id number]-nd-qcvnfkq kidney injury Qualifiers: Acute renal failure type: unspecified Chronic kidney disease stage: stage 3 (moderate) Qualified Code(s): N17.9 - Acute kidney failure, unspecified; N18.3 - Chronic kidney disease, stage 3 (moderate)
[2019-02-17] MEDS ORDERED: *HR* Warfarin 5 MG TABLET PO ONE (18:00)
[2019-02-18 02:06] LABS: Basophils % 0.3 %; Eosinophils # 0.7 K/mcL (0.0-0.6); Eosinophils % 5.4 %; Hematocrit 30.2 % (37.5-50.1); Hemoglobin 9.5 g/dL (12.9-16.9); Immature Granulocytes % 1.5 % (0-4); Lymphocytes # 1.2 K/mcL (0.6-4.6); Lymphocytes % 9.6 %; Mean Corpuscular HGB Conc 31.5 g/dL (31.6-35.5); Mean Corpuscular Hemoglobin 28.2 pg (28.0-33.3); Mean Corpuscular Volume 89.6 fL (83.0-100.0); Mean Platelet Volume 9.8 fL (9.4-12.4); Monocytes # 1.1 K/mcL (0.0-1.3); Platelet Count 297 K/mcL (140-400); Red Blood Count 3.37 M/mcL (4.19-5.50); Red Cell Distribution Width 14.5 % (11.5-14.5); Segmented Neutrophils % 74.2 %; White Blood Count 12.1 K/mcL (4.3-11.1)
[2019-02-18 02:14] LABS: Prothrombin Time 22.8 Seconds (9.4-12.1)
[2019-02-18 02:26] LABS: Magnesium 1.8 mg/dL (1.6-2.6); Potassium 4.2 mEq/L (3.5-5.1)
[2019-02-18] MEDS: Ipratropium/Albuterol Neb 3 ML IH SCH ×4 (04:15→15:23)
[2019-02-18 07:44] VITALS: BP 143/92
[2019-02-18] MEDS: Insulin LISPRO 300 UNITS/3 ML VIAL SQ SCH ×2 (08:11→12:44)
[2019-02-18] MEDS: Aspirin 81 MG TAB.CHEW PO SCH (08:12)
[2019-02-18] MEDS: RisperiDAL 3 MG TABLET PO SCH (08:12)
[2019-02-18] MEDS: Metoprolol XL (24 HR) Succ 50 MG TAB.ER.24H PO SCH (08:12)
--- NOTE | 2019-02-18 09:23 | Discharge Summary ---
- NOTES TO OUTPATIENT PROVIDER Notes to Outpatient Provider: Post hospital discharge for acute on chronic respiratory failure with hypoxia, NSTEMI and atrial fibrillation being discharged home on a with warfarin, patient would need weekly INR for the first 4 weeks and his Coumadin dose adjusted to meet the goal of 2-3. He will also n eed close monitoring of his CBC given his anemia of chronic disease. Patient also need to be established with a right of way cutter as an outpatient Orders not resulted at time of discharge: Pending orders 02/07/19 04:39 Culture,Sputum with Gram Stain [RM] Routine Date of Encounter: 02/18/19 Time of Encounter: 09:21 - Discharge Diagnosis (1) NSTEMI (non-ST elevated myocardial infarction) Priority: Primary Status: Acute Assessment and Plan: Status post left Heart cath, revealed severe three-vessel disease not considered surgical candidate. Plan is to optimize medical management dc home with home health on asa 81mg, toprol xl 75mg bid, aspirin held off on ACEI due to his chronic kidney disease this could be reinitiated as an outpatient (2) Atrial fibrillation Priority: Primary Status: Acute Assessment and Plan: appears rate controlled, INR therapeutic today 2, DC heparin he will be discharged on warfarin 5 mg repeat INR in 1 week, he tends to follow up with the Coumadin clinic he is switching primary care providers and intends to follow up with the internal medicine residency clinic Qualifiers: Atrial fibrillation type: unspecified Qualified Code(s): I48.91 - Unspecified atrial fibrillation (3) Diabetes Priority: Secondary Status: Acute Assessment and Plan: POC glucose ranged from 132-158 at goal continue insulin. A1c 7.2 02/06/2019, will resume home dose of Amaryl Qualifiers: Diabetes mellitus type: type 2 Diabetes mellitus prison insulin use: without prison use Diabetes mellitus complication status: with circulatory complication Diabetes mellitus complication detail: with other circulatory complications Qualified Code(s): E11.59 - Type 2 diabetes mellitus with other circulatory complications (4) Acute and chronic respiratory failure with hypoxia Priority: Secondary Status: Acute Assessment and Plan: Improving reports home oxygen 2.5 L chronically on 3 L okay sats above 92 this may be his new baseline (5) Coronary artery disease Priority: Secondary Status: Acute Assessment and Plan: Severe three-vessel disease not considered a candidate for CABG due to poor rehabilitation potential plan is for medical management-Lipitor 80 mg daily, Toprol 75 mg twice a day and aspirin he does have chronic kidney disease as such MONET inhibitor risk versus benefits will need to be evaluated as an outpatient per PCP Qualifiers: Coronary Disease-Associated Artery/Lesion type: [place] artery [place] vs. transplanted heart: [place] heart Associated angina: with unstable angina Qualified Code(s): I25.110 - Atherosclerotic heart disease of [place] coronary artery with unstable angina pectoris (6) Anemia Priority: Secondary Status: Acute Assessment and Plan: Given NSTEMI, would prefer hemoglobin above 10, at 9.3-9.9, today 9.5 at discharge. Stable continue to monitor CBC. workup revealed anemia of chronic disease with low serum iron with normal levels ferritin, supratherapeutic levels of B12, normal levels of folate. type and cross and transfuse 1 unit packed red blood cell. Hemoglobin status post 1 unit of packed red blood cell is 10.5 yesterday 9.9 today which has been baseline for him. He may be considered for possible colonoscopy as an outpatient to rule out any colonic bleed Qualifiers: Anemia type: due to chronic kidney disease Chronic kidney disease stage: stage 3 (moderate) Qualified Code(s): N18.3 - Chronic kidney disease, stage 3 (moderate); D63.1 - Anemia in chronic kidney disease (7) CHF exacerbation Priority: Secondary Status: Acute Assessment and Plan: Stable and chronic, -4.2 L during this hospital stay. We will increase home Lasix from 20 mg daily to 40 daily Responded to IV diuresis with Lasix, however given his chronic kidney disease an anticipated left heart catheter would need to hydrate patient again. This afternoon patient appears to have crackles a such we will hold off on hydration Qualifiers: Heart failure type: combined systolic and diastolic Qualified Code(s): I50.43 - Acute on chronic combined systolic (congestive) and diastolic (congestive) heart failure (8) Tmcol-ac-yzsseod kidney injury Priority: Secondary Status: Suspected Assessment and Plan: Serum creatinine today is 1.89 trended to 1.97 likely at baseline. he will need to be established with a right of way cutter, patient Serum creatinine improved with diuresis likely prerenal from a hypoperfusion standpoint however givenhe is scheduled for left heart catheter patient would be started back on gentle IV hydration 50ml /h IV saline contrast on the last 6- 8 hours after left heart If patient tolerates, this afternoon he appears to have some crackles would DC saline hydration serum creatinine is 2.07 improved to 1.78 today will dc IV. Qualifiers: Acute renal failure type: unspecified Chronic kidney disease stage: stage 3 (moderate) Qualified Code(s): N17.9 - Acute kidney failure, unspecified; N18.3 - Chronic kidney disease, stage 3 (moderate) (9) COPD exacerbation Priority: Secondary Status: Acute Assessment and Plan: Upon Umkv-zo-dkvy evaluation of the patient for optimal management of his COPD, given his present cardiovascular history of severe three-vessel CAD, recent hospitalization for NSTEMI, patient will benefit from a nebulizer machine for nebulized albuterol ipratropium so as to prevent rehospitalization for COPD exacerbation, his exacerbation puts him at increased risk for demand ischemia and thus acute coronary syndrome Hospital course: Mr. Valdez is a 63 year old male was hospitalized for shortness of breath that will have atrial fibrillation and his acute coronary syndrome workup revealed triple-vessel disease of his coronary arteries. He was deemed too much of a surgical risk for CABG with regard to his rehabilitation potential and thought to be best managed medically. His medical regimen has been optimized. Patient is to be discharged home to home health he does live with his mother. His hospitalization was prolonged due to need for anticoagulation therapy given financial constraints patient opted for warfarin. Bridging with low molecular weight heparin as an outpatient was not an option due to patient's competency level and his mother unable to inject him. He is being discharged today on warfarin 5 mg he is to follow-up with the Coumadin clinic. His sister who does most of the speaking for him stated that she is not impressed with his PCP as such she requested the patient be established with a new PCP. Patient will be scheduled to follow-up with the internal medicine residency clinic with 7 days Discharge discussed with: patient, family, nurse, social work, case management, managing consultant clinical professor - Time Spent with Patient Total time spent providing and/or coordinating discharge services:60 mins Specific discharge activities: Please take all medications as prescribed make sure you keep up with your follow-up appointment the Coumadin clinic and your new primary care physician - Discharge Medications Prescriptions: New Warfarin [Coumadin] 1 tab PO QDPC #30 tablet Atorvastatin [Lipitor] 2 tab PO HS #60 tablet Sennosides/Docusate Sodium [Senna Plus] 1 tab PO BID PRN #60 tablet PRN Reason: Constipation Metoprolol XL (24 HR) Succ [Toprol Xl] 1 tab PO BID #60 tab.er.24h Metoprolol XL (24 HR) Succ [Toprol XL] 1 tab PO BID #60 tab.er.24h Continued Tamsulosin HCl [Flomax] 0.4 mg PO DAILY #30 capsule Changed Glimepiride [Amaryl] 1 tab PO QAM #30 tablet Amlodipine Besylate 5 mg PO HS #30 tablet Aspirin Enteric Coated [Aspirin EC] 1 tab PO DAILY #30 tablet. Ipratropium/Albuterol Neb [Duoneb] 3 ml IH Q6HR 30 Days #100 inhsol risperiDONE [RisperDAL] 1 tab PO HS #30 tablet Discontinued risperiDONE [RisperDAL] 1.5 mg PO QAM Metoprolol Succinate [Toprol Xl] 50 mg PO DAILY Atorvastatin [Lipitor] 40 mg PO HS Docusate Sodium [Stool Softener] 100 mg PO DAILY PRN PRN Reason: Constipation Furosemide [Lasix] 20 mg PO DAILY Home Medications: Amlodipine Besylate 5 mg PO HS #30 tablet 02/18/19 [Rx] Aspirin Enteric Coated [Aspirin EC] 1 tab PO DAILY #30 tablet. 02/18/19 [Rx] Atorvastatin [Lipitor] 2 tab PO HS #60 tablet 02/18/19 [Rx] Glimepiride [Amaryl] 1 tab PO QAM #30 tablet 02/18/19 [Rx] Ipratropium/Albuterol Neb [Duoneb] 3 ml IH Q6HR 30 Days #100 inhsol 02/18/19 [Rx] Metoprolol XL (24 HR) Succ [Toprol XL] 1 tab PO BID #60 tab.er.24h 02/18/19 [Rx] Metoprolol XL (24 HR) Succ [Toprol Xl] 1 tab PO BID #60 tab.er.24h 02/18/19 [Rx] Sennosides/Docusate Sodium [Senna Plus] 1 tab PO BID PRN #60 tablet 02/18/19 [Rx] Tamsulosin HCl [Flomax] 0.4 mg PO DAILY #30 capsule 02/18/19 [Rx] Warfarin [Coumadin] 1 tab PO QDPC #30 tablet 02/18/19 [Rx] risperiDONE [RisperDAL] 1 tab PO HS #30 tablet 02/18/19 [Rx] Allergies/Adverse Reactions: Allergy/AdvReac Type Severity Reaction Status Date / Time No Known Allergies Allergy Verified 02/07/19 21:17 Date of admission: 02/07/19 04:16 Primary care physician: Raul Mancilla Consults: 02/06/19 21:08 Consult to Cardiology [CONS] Routine Comment: Consulting Provider: Cardiology Shivani Reason for Consult: Elevated troponin, recommended [facility] as outpatient Call Completed: No Consult to Nephrology [CONS] Routine Consulting Provider: Kidney Shivani/MARCO/JUANA/RADHA Reason for Consult: RAVIN vs CKD, hyponatremia Call Completed: No 02/07/19 13:51 Consult to Critical Care [CONS] Routine Consulting Provider: Pulm Crit Care & Sleep Shivani Reason for Consult: AHRF Call Completed: Yes 02/08/19 09:56 Consult to Cardiac Rehabilitation-Phase1 [CONS] Routine Comment: Reason for Consult: NSTEMI--plan for [facility] 02/11 Call Completed: No 02/12/19 15:10 Consult to Nurse Navigator [CONS] Routine Comment: NSTEMI, CHF 02/14/19 12:32 Consult to Occupational Therapy [CONS] Routine Comment: Evaluate, develop and implement POC Reason for Consult: possible home health Does patient have active BEDREST order?: No Is patient medically & hemodynamically stable?: Yes Patient assessed for mobility or mobilized this visit?: Yes Consult to Physical Therapy [CONS] Routine Comment: Evaluate, develop and implement POC Reason for Consult: possible home health Does patient have active BEDREST order?: No Is patient medically & hemodynamically stable?: Yes Patient assessed for mobility or mobilized this visit?: Yes Discharging clinician: Sintia Miranda Anticipated date of discharge: 02/18/19 - Constitutional Vitals: Temp Pulse Resp BP Pulse Ox 98.3 F 90 18 143/92 92 02/18/19 07:39 02/18/19 07:39 02/18/19 07:42 02/18/19 07:39 02/18/19 07:42 General appearance: Present: cooperative, A&O X 3, pleasant, answers questions appropriately Exam: GEN: NAD, A&O x 3, Pleasant and conversant SKIN: [employer] warm acyanotic not jaundice HEART: Irregularly irregular rate and rhythm with a grade 2/6 systolic murmur LUNGS: Somewhat diminished but CTA no wheeze or crackles, overall non labored ABDOMEN; Soft, non tender or distended, BS x 4 normactive EXT: No LE edema, Pedal pulses 1+, radial pulses 2+ PSYCH: Mood and affect is appropriate Telemetry appears rate controlled A. fib 92 -95, and 94% o2 saturation - Patient Status Disposition: Home Health Service Condition: Good Functional capacity at discharge: independent ambulation Overall status at discharge: patient is back to baseline - Discharge Instructions Instructions: Heart Failure (DC), Atrial Fibrillation (DC), Acute Respiratory Distress Syndrome (DC), Diabetes Mellitus Type 2 in Adults (DC), Chronic Obstructive Pulmonary Disease (DC), Anemia (GEN) Follow Up With: Jaqui Gregg [Registered Pharmacist] - 02/19/19 3:45 pm (New location .....located behind the [facility] in the rehab center. Please bring ID and INS card [id number] [id number]) Vu Caldera MD [Partnered Physician] - 02/22/19 2:45 pm (Medical office building [address] phone [phone] if patient needs to cancel the appointment please call within 24 hours of appointment. please arrive at 2:15 with ID and INS card. ) Gorge Birmingham, BALL SHAGGER [Advanced Practice Nurse] - - Diet and Activity Activity: as per physical therapy Diet: low fat, low cholesterol, low salt diet
--- NOTE | 2019-02-18 10:21 | Physician Discharge Referral ---
Home Health/Hosp Referral Info Transfer to: Home Health Provider in Charge Post Discharge: PCP - Diagnosis (1) NSTEMI (non-ST elevated myocardial infarction) Priority: Primary Status: Acute (2) Atrial fibrillation Priority: Primary Status: Acute (3) Diabetes Priority: Secondary Status: Acute (4) Acute and chronic respiratory failure with hypoxia Priority: Secondary Status: Acute (5) Coronary artery disease Priority: Secondary Status: Acute (6) Anemia Priority: Secondary Status: Acute (7) CHF exacerbation Priority: Secondary Status: Acute (8) Onpzt-dq-ueqxgzu kidney injury Priority: Secondary Status: Suspected (9) COPD exacerbation Priority: Secondary Status: Acute - Respiratory Orders Oxygen / L per min (3 L) Smoking Cessation: Smoking cessation has been advised. For more information, call the [employer] [place] Quit Line at 2-705-SYLT-NOW. - Diet/Nutrition Diet/Nutrition Orders: Cardiac - Activity Activity Orders: Ambulate - Services Needed Following services are medically necessary services: Nursing, Home Health Aide, Physical Therapy, Occupational Therapy - Transfer Medications Prescriptions: Glimepiride [Amaryl] 1 tab PO QAM #30 tablet Amlodipine Besylate 5 mg PO HS #30 tablet Aspirin Enteric Coated [Aspirin EC] 1 tab PO DAILY #30 tablet. Warfarin [Coumadin] 1 tab PO QDPC #30 tablet Ipratropium/Albuterol Neb [Duoneb] 3 ml IH Q6HR 30 Days #100 inhsol Tamsulosin HCl [Flomax] 0.4 mg PO DAILY #30 capsule Atorvastatin [Lipitor] 2 tab PO HS #60 tablet risperiDONE [RisperDAL] 1 tab PO HS #30 tablet Sennosides/Docusate Sodium [Senna Plus] 1 tab PO BID PRN #60 tablet PRN Reason: Constipation Metoprolol XL (24 HR) Succ [Toprol XL] 1 tab PO BID #60 tab.er.24h Metoprolol XL (24 HR) Succ [Toprol Xl] 1 tab PO BID #60 tab.er.24h Home Medications: Amlodipine Besylate 5 mg PO HS #30 tablet 02/18/19 [Rx] Aspirin Enteric Coated [Aspirin EC] 1 tab PO DAILY #30 tablet. 02/18/19 [Rx] Atorvastatin [Lipitor] 2 tab PO HS #60 tablet 02/18/19 [Rx] Glimepiride [Amaryl] 1 tab PO QAM #30 tablet 02/18/19 [Rx] Ipratropium/Albuterol Neb [Duoneb] 3 ml IH Q6HR 30 Days #100 inhsol 02/18/19 [Rx] Metoprolol XL (24 HR) Succ [Toprol XL] 1 tab PO BID #60 tab.er.24h 02/18/19 [Rx] Metoprolol XL (24 HR) Succ [Toprol Xl] 1 tab PO BID #60 tab.er.24h 02/18/19 [Rx] Sennosides/Docusate Sodium [Senna Plus] 1 tab PO BID PRN #60 tablet 02/18/19 [Rx] Tamsulosin HCl [Flomax] 0.4 mg PO DAILY #30 capsule 02/18/19 [Rx] Warfarin [Coumadin] 1 tab PO QDPC #30 tablet 02/18/19 [Rx] risperiDONE [RisperDAL] 1 tab PO HS #30 tablet 02/18/19 [Rx] Allergies/Adverse Reactions: Allergy/AdvReac Type Severity Reaction Status Date / Time No Known Allergies Allergy Verified 02/07/19 21:17 Certification: Further, I certify that my clinical findings support that this patient is homebound (i.e. absences from home require considerable and taxing effort and are for medical reasons or sabianist services or infrequently or short duration when for other reasons) because: Homebound Reason: Leaving home requires considerable and taxing effort due to condition Attestation: My signature below is to certify that this patient is under my care and that I, or nurse practitioner, or a physician's senior care assistant working with me, has a [id number] encounter with this patient.
[2019-02-18] MEDS ORDERED: *HR* Warfarin 5 MG TABLET PO ONE (18:00)
== END 2019-02-18 15:41 | disposition home health service (06) | DRG 280 ==
LOC: 2NENU 16:25 → EMEROOARM 16:25 → 2NENU 20:02 → SUATTDRO 02-07 04:16 → ICNU 02-07 14:45 → 2NENU 02-08 11:54
PROVIDERS: ADMIT Internal Medicine; ATTEND Pharmacist